=== PATIENT | male | born 1950 | race Caucasian/White ===

== ENCOUNTER 2019-02-01 00:46 | Outpatient (CLI) | payer MEDICARE, SELFPAY ==
--- NOTE | 2019-02-01 08:20 | DI.US_ITS ---
SYMPTOMS/DIAGNOSIS: HX OF SMOKING, Z13.6 SCREENING AAA ULTRASOUND: There is no evidence of an aortic aneurysm. There is no evidence of an iliac aneurysm. The maximal aortic caliber is AP diameter of 2.2 cm, transverse diameter of 2 cm.
== END 2019-02-01 01:06 ==
PROVIDERS: PCP Family Medicine; Visit Provider Family Medicine
DX: Z13.6 Encounter for screening for cardiovascular disorders (principal); Z87.891 Personal history of nicotine dependence
CPT/HCPCS: 76706

== ENCOUNTER 2019-02-23 10:24 | Outpatient (CLI) | payer MEDICARE, SELFPAY ==
[2019-02-23 10:55] VITALS: BP 134/82; PULSE 68; RESP 22; TEMP 36.9; O2SAT 96
[2019-02-23 11:34] VITALS: BP 153/82; PULSE 73; RESP 14; O2SAT 95
--- NOTE | 2019-02-23 11:41 | DI.RAD_ITS ---
SYMPTOMS/DIAGNOSIS: SACROILIAC JOINT DYSFUNCTION, LT SACROILIAC JOINT INJECTION C-ARM FLUOROSCOPY: Fluoroscopy Time: 30.1 sec 8.97 mGy Fluoroscopy was provided for guidance with pain clinic SI joint injection. Please see procedure note for details.
[2019-02-23] MEDS: Omnipaque 240 MG/ML 50 ML BTL IJ (11:51)
[2019-02-23] MEDS: methylPREDNISolone ACETATE 80 MG/ML VIAL IM (11:52)
--- NOTE | 2019-02-23 13:12 | PDOC.PAIN_ITS ---
Pain Clinic Procedure Note Current Active Problems Problem Status Onset Sacroiliac joint dysfunction INTRA-ARTICULAR SI JOINT INJECTION JUAN PEREA has been referred to the [facility] for intra- articular SI joint injection. COMMENTS: He has had this procedure many times in the past with good results. Patient was interviewed and the medical record reviewed. There were no medical, pharmacologic, radiographic or other structural contraindications to attempting fluoroscopically guided intra-articular SI joint injection. Risks and expected side effects as well as potential benefit of the procedure were reviewed and voiced concerns addressed. The printed consent form was signed and witnessed. Standard time-out procedure was performed. Patient was placed in the prone position on the fluoroscopy table and automated blood pressure cuff and pulse oximeter applied. The skin entry point for approaching left SI joint was identified under the most advantageous fluoroscopic view and marked. Following thorough Chlorhexadine preparation of the skin and draping and 1% lidocaine infiltration of the skin entry point and subcutaneous tissues, a 22 gauge spinal needle was placed under fluoroscopic guidance into left SI joint was identified under the most advantageous fluoroscopic view and marked. Following thorough Chlorhexadine preparation of the skin and draping and 1% lidocaine infiltration of the skin entry point and subcutaneous tissues, a 22 gauge spinal needle was placed under fluoroscopic guidance into left SI joint. Intra-articular placement was confirmed by a clear arthrogram resulting from the injection of 0.25ml Omnipaque 240, 1ml 1% lidocaine, and 80mg Depomedrol were injected intra-articularily with an initial reproduction of a significant component of the usual pain. Vital signs were stable throughout the procedure and were as recorded in the docflowsheet by the nursing staff. If given, dosages of intravenous drugs for anxiolysis and analgesia were documented in MAR. Follow up plans and appointments were discussed with the patient. Post procedure instruction was given as documented in nursing documentation and having met discharge criteria, and was discharged from the [facility]. COMMENTS: This procedure can be completed up to 3 times per 12 months if it is found to be effective. CC: Vinayak Jackson DO
== END 2019-02-23 10:44 ==
PROVIDERS: PCP Family Medicine; Visit Provider Preventive Medicine Occupational Medicine
DX: M53.3 Sacrococcygeal disorders, not elsewhere classified (principal)
CPT/HCPCS: 27096; 72200; G0260; J1040; Q9967

== ENCOUNTER 2019-05-26 08:22 | Outpatient (CLI) | payer MEDICARE, SELFPAY | END 2019-05-26 08:42 | PROVIDERS: PCP Family Medicine; Visit Provider Internal Medicine Cardiovascular Disease | DX: I10 Essential (primary) hypertension (principal); E78.5 Hyperlipidemia, unspecified; I25.10 Atherosclerotic heart disease of native coronary artery without angina pectoris; E11.9 Type 2 diabetes mellitus without complications; Z79.4 Long term (current) use of insulin | CPT/HCPCS: 99204; 93005; 93010 ==

== ENCOUNTER 2019-05-30 14:00 | Outpatient (CLI) | payer MEDICARE, SELFPAY ==
--- NOTE | 2019-05-30 07:18 | DI.RAD_ITS ---
EXAM: XR PAIN CLINIC SACRIOILIAC 2V CLINICAL HISTORY: Sacroiliac Joint Injection Left TECHNIQUE: Realtime digital imaging was performed. COMPARISON: No exams were available for comparison FINDINGS: Fluoroscopy was utilized by Dr. Galeas during the performance of a left sacroiliac joint injection. Pl ease refer to the procedure report for complete details. Fluoro time: 16.3 sec
[2019-05-30 14:12] VITALS: BP 153/89; PULSE 71; RESP 18; TEMP 36.4; O2SAT 96
--- NOTE | 2019-05-30 15:18 | PDOC.PAIN_ITS ---
Pain Clinic Procedure Note Procedure Note Procedure Note: INTRA-ARTICULAR SI JOINT INJECTION JUAN PEREA has been referred to the [facility] for intra- articular SI joint injection. COMMENTS: He did very well with the last left SIJ this past summer. DX: Sacroiliac joint dysfunction Patient was interviewed and the medical record reviewed. There were no medical, pharmacologic, radiographic or other structural contraindications to attempting fluoroscopically guided intra-articular SI joint injection. Risks and expected side effects as well as potential benefit of the procedure were reviewed and voiced concerns addressed. The printed consent form was signed and witnessed. Standard time-out procedure was performed. Patient was placed in the prone position on the fluoroscopy table and automated blood pressure cuff and pulse oximeter applied. The skin entry point for approaching left SI joint was identified under the most advantageous fluoroscopic view and marked. Following thorough Chlorhexadine preparation of the skin and draping and 1% lidocaine infiltration of the skin entry point and subcutaneous tissues, a 22 gauge spinal needle was placed under fluoroscopic guidance into left SI joint was identified under the most advantageous fluoroscopic view and marked. Following thorough Chlorhexadine preparation of the skin and draping and 1% lidocaine infiltration of the skin entry point and subcutaneous tissues, a 22 gauge spinal needle was placed under fluoroscopic guidance into left SI joint. Intra-articular placement was confirmed by a clear arthrogram resulting from the injection of 0.25ml Omnipaque 240, 1ml 1% lidocaine, and 80mg Depomedrol were injected intra-articularily with an initial reproduction of a significant component of the usual pain. Vital signs were stable throughout the procedure and were as recorded in the docflowsheet by the nursing staff. If given, dosages of intravenous drugs for anxiolysis and analgesia were documented in MAR. Follow up plans and appointments were discussed with the patient. Post procedure instruction was given as documented in nursing documentation and having met discharge criteria, and was discharged from the [facility]. COMMENTS: If this procedure is helpful, it can be completed up to 3-4 times per 12 months. CC: Vinayak Jackson DO
[2019-05-30 15:25] VITALS: BP 136/97; PULSE 75; RESP 21; O2SAT 95
[2019-05-30] MEDS: Omnipaque 240 MG/ML 50 ML BTL IJ (15:28)
[2019-05-30] MEDS: methylPREDNISolone ACETATE 80 MG/ML VIAL IJ (15:28)
== END 2019-05-30 14:20 ==
PROVIDERS: PCP Family Medicine; Visit Provider Preventive Medicine Occupational Medicine
DX: M53.3 Sacrococcygeal disorders, not elsewhere classified (principal)
CPT/HCPCS: 27096; 72200; J1040; Q9967

== ENCOUNTER → 2019-08-10 09:34 | Outpatient (BNVA) | payer MEDICARE, MEDICAID, SELFPAY | PROVIDERS: PCP Family Medicine; Referring Provider Family Medicine; Visit Provider Physical Therapy Assistant | DX: K21.9 Gastro-esophageal reflux disease without esophagitis (principal); Z12.11 Encounter for screening for malignant neoplasm of colon; E11.9 Type 2 diabetes mellitus without complications; Z79.4 Long term (current) use of insulin; I10 Essential (primary) hypertension | CPT/HCPCS: 99214 ==

== ENCOUNTER 2019-08-22 08:56 | Outpatient (CLI) | payer MEDICARE, MEDICAID, SELFPAY ==
--- NOTE | 2019-08-22 09:32 | PDOC.PAIN_ITS ---
Pain Clinic Procedure Note Procedure Note Procedure Note: INTRA-ARTICULAR SI JOINT INJECTION JUAN PEREA has been referred to the [facility] for intra- articular SI joint injection. Comment: patient received significant pain relief from prior left SI joint injection. Last injection was on 05/30/2019 which provided more than 70% pain relief that lasted 3 months. Pre-operative diagnosis: disorder of sacrum Post-operative diagnosis: same as above Patient was interviewed and the medical record reviewed. There were no medical, pharmacologic, radiographic or other structural contraindications to attempting fluoroscopically guided intra-articular SI joint injection. Risks and expected side effects as well as potential benefit of the procedure were reviewed and voiced concerns addressed. The printed consent form was signed and witnessed. Standard time-out procedure was performed. Patient was placed in the prone position on the fluoroscopy table and automated blood pressure cuff and pulse oximeter applied. The skin entry point for approaching left SI joints was identified under the most advantageous fluoroscopic view and marked. Following thorough Chlorhexadine preparation of the skin and draping and 1% lidocaine infiltration of the skin entry point and subcutaneous tissues, a 22 gauge spinal needle was placed under fluoroscopic guidance into left SI joints was identified under the most advantageous fluoroscopic view and marked. Intra-articular placement was confirmed by a clear arthrogram resulting from the injection of 0.25ml Omnipaque 240, 1.5ml 0.5% Bupivocaine, and 80mg Depomedrol were injected intra-articularily with an initial reproduction of a significant component of the usual pain. Vital signs were stable throughout the procedure and were as recorded in the docflowsheet by the nursing staff. Follow up plans and appointments were discussed with the patient. Post procedure instruction was given as documented in nursing documentation and having met discharge criteria, and was discharged from the [facility]. COMMENTS: patient tolerated procedure well without issue. Augustus Villa MD Pain Management CC: Vinayak Jackson DO
[2019-08-22 09:33] VITALS: BP 146/78; PULSE 72; RESP 20; TEMP 36.8; O2SAT 96
[2019-08-22] MEDS: Bupivacaine 0.5% Pres-Free 10 ML VIAL IJ (09:58)
[2019-08-22] MEDS: methylPREDNISolone ACETATE 80 MG/ML VIAL IJ (09:58)
[2019-08-22] MEDS: Omnipaque 240 MG/ML 50 ML BTL IJ (09:59)
[2019-08-22 10:04] VITALS: BP 152/80; PULSE 76; RESP 23; O2SAT 95
--- NOTE | 2019-08-22 10:54 | DI.RAD_ITS ---
EXAM: XR PAIN CLINIC SACRIOILIAC 2V CLINICAL HISTORY: Dx: Sacroiliac Joint Dysfunction TECHNIQUE: 2D and realtime digital imaging was performed. Fluoroscopy was provided in the OR COMPARISON: No exams were available for comparison FINDINGS: C-arm fluoroscopy was utilized by Dr. Villa during SI joint injection. Hard copy shows needle placement which appears to be over the left SI joint. Fluoro time 39.4 seconds IMPRESSION:
== END 2019-08-22 09:16 ==
PROVIDERS: PCP Family Medicine; Visit Provider Internal Medicine
DX: M53.3 Sacrococcygeal disorders, not elsewhere classified (principal)
CPT/HCPCS: 27096; 72200; J1040; Q9967

== ENCOUNTER 2019-08-31 06:27 | Day surgery (SDC) | payer MEDICARE, MEDICAID, SELFPAY ==
[2019-08-31 06:30] VITALS: BP 149/92; PULSE 70; RESP 18; TEMP 36.3; O2SAT 96
[2019-08-31] MEDS: Lactated Ringers 1,000 ML 80 ML IV (07:07)
--- NOTE | 2019-08-31 07:50 | BOWEL_PTH ---
PATIENT: José Gordon LOC: [facility] U#:[id number] AGE/SX: 69/M ROOM: RE08/31/[address]: Aby Junior : 1950 BED: DIS: 08/31/2019 SPEC #: [id number] RECD: 08/31/19 12:41 STATUS: SULLY REQ #: [id number] DAMON: 08/31/19 07:[address]: Aby Junior DEPT: Surgical Specimen RECD BY: Barby John ENTERED: 08/31/19 12:51 SP TYPE: Bowel OTHR DR: Vinayak Jackson DO Tissues: 1 - BIOPSY BOWEL 2 - STOMACH BIOPSY 3 - STOMACH BIOPSY 4 - ESOPHAGUS BIOPSY 5 - ESOPHAGUS BIOPSY 6 - BIOPSY BOWEL 7 - BIOPSY BOWEL 8 - BIOPSY BOWEL 9 - BIOPSY BOWEL 10 - BIOPSY BOWEL 11 - BIOPSY BOWEL Procedures: GROSS AND MICRO LEVEL 4 Comments: [id number]
--- NOTE | 2019-08-31 09:07 | W.PM.DSUDISC ---
Discharge Plan Disposition Patient Disposition: HOME Condition: Good Discharge Details Reason For Visit: stomach and colon scopes Attending Provider: Aby Junior Primary Care Provider: Vinayak Jackson Meds and New Rx's Prescriptions: New metronidazole [Flagyl] 500 mg tablet 500 mg PO TID 7 Days Qty: 21 RF: 0 amoxicillin-pot clavulanate [Augmentin] 875-125 mg tablet 1 tab PO BID 7 Days Qty: 14 RF: 0 Continued glipizide-metformin 5-500 mg tablet 2 tab PO BID RF: 0 rosuvastatin 20 mg tablet 20 mg PO DAILY Qty: 90 RF: 3 losartan 100 mg tablet 100 mg PO DAILY Qty: 90 RF: 3 sildenafil 25 mg tablet 25 mg PO DAILY PRN (Reason: sexual activity) Qty: 90 RF: 3 Lantus Solostar U-100 Insulin 100 unit/mL (3 mL) insulin pen 30 unit SC DAILY RF: 0 (DME) blood-glucose meter misc See Dose Instructions .ROUTE .MEDSUPPLY Qty: 1 RF: 0 (DME) Blood Glucose Test strip See Dose Instructions .ROUTE .MEDSUPPLY Qty: 10 RF: 0 (DME) pen needle, diabetic [Lite Touch Insulin Pen [place]] 31 gauge x 3/16 needle See Dose Instructions .ROUTE .MEDSUPPLY Qty: 30 RF: 0 (DME) lancets misc See Dose Instructions .ROUTE .MEDSUPPLY Qty: 50 RF: 0 hydrocodone-acetaminophen [[place]] 10-325 mg tablet 0.5 tab PO QHS MDD 10 mg hydrocodone PRN (Reason: pain) RF: 0 omeprazole 10 mg capsule,delayed release(DR/EC) 10 mg PO BID RF: 0 Discontinued diclofenac sodium 50 mg tablet,delayed release (DR/EC) 50 mg PO TID PRN (Reason: pain) Qty: 90 RF: 3 polyethylene glycol 3350 17 gram/dose powder 238 g PO ONCE Qty: 238 RF: 0 bisacodyl [Dulcolax (bisacodyl)] 5 mg tablet,delayed release (DR/EC) 5 mg PO ONCE Qty: 4 RF: 0 aspirin 81 mg tablet,delayed release (DR/EC) 81 mg PO DAILY RF: 0 Discharge Instructions Instructions: Gastroesophageal Reflux Disease (GEN), Colorectal Polyps (GEN) Additional Instructions: Findings:sm hiatal hernia bile reflux colon: 24 polyps removed Repeat scope in 1 yrs time. NO: ASA/NSAID's for 2wks. Tylenol is OK no lifting over 20#'s or stenuous activity until Monday 09/04. soft/low fiber diet x 5 days Follow up: F/u in office w/ Dr. Junior 2wks Please call if you develop: fevers >101.5 Nausea or Vomiting Abdominal pain that is not transient DAY SURGERY UNIT POST COLONOSCOPY INSTRUCTIONS 1. Because there will be medication in your system for the next 24 hours, you may feel a little sleepy. Your coordination will be affected. Therefore: a. Do not drive or operate dangerous equipment for 24 hours. b. Do not drink alcohol beverages for 24 hours (not even beer). c. Plan to go home and rest for the day. 2. Generally there are no restrictions on your activity after a day or so has gone by, but you may feel a bit fatigued for a few days. 3 After you arrive home you may have a light meal and return to a normal diet as you can tolerate it without feeling sick to your stomach. 4. After surgery, you may feel pain or discomfort. This should be only transient, but if it persists please contact your doctor. 5. If there are any questions regarding the findings of your procedure, please feel free to contact your doctor. 6. If you are unable to contact your doctor with a problem, contact the hospital at [phone]. 7. Continue all your regular medications unless directed otherwise. I understand the above instructions and have no questions. Signature of Patient or Responsible Adult Escort Date/Time Name of Responsible Adult Escort Signature of Nurse Date/Time Gastrointestinal Soft Diet Overview Overview What is a gastrointestinal soft diet? This diet is soft in texture, low in fiber, and easy to digest. The goal is to decrease) in the bowel that may cause and discomfort. This diet is often used after abdominal surgery or as a transitional diet after flares. Meats & Meat Substitutes ? Foods Allowed: Chicken, turkey, fish, tender cuts of beef and pork, ground meats, eggs, creamy nut butters, tofu, skinless hot dogs, sausage patties without whole spices ? Foods to Avoid : Tough, fibrous meats with gristle, meat with casings (hot dogs, sausage, kielbasa), lunch meats with whole spices, shellfish, beans, chunky peanut butter, nuts Fruits and Juices ? Foods Allowed: Fruit juices without pulp, banana, avocado, applesauce, canned peaches and pears, cooked fruit without the skin/seeds ? Foods to Avoid: Juices with pulp, fresh fruit (except banana and avocado), dried fruits, canned fruit cocktail and pineapple, coconut, frozen/thawed berries Vegetables ? Foods Allowed: Well-cooked or canned vegetables, potatoes without skin, tomato sauces, vegetable juice ? Foods to Avoid: Raw vegetables, all corn, all mushrooms, stewed tomatoes, potato skins, stir-eason vegetables, sauerkraut, pickles, olives, all dried beans, peas, and legumes Cereals and Grains ? Foods Allowed: Low- fiber dry or cooked cereals (less than 2 grams fiber per serving), white rice, pasta, macaroni, or noodles ? Foods to Avoid: Cereals with nuts, berries, dried fruits, whole grain cereals, bran cereals, granola, brown or wild rice, whole grain pasta Breads and Crackers ? Foods Allowed: White/refined breads and rolls, plain bagel, toast, plain crackers, giulia crackers ? Foods to Avoid: Whole grain breads- including white whole grain; bread/ rolls with raisins, nuts or seeds, multi-grain crackers Dairy ? Foods Allowed: Milk, cheese, yogurt, milkshakes, pudding, ice cream, cottage cheese, sherbet ; lactose free or low lactose versions if lactose intolerant ? Foods to Avoid: Dairy product mixed with fresh fruit (except banana), berries, nuts or seeds Desserts ? Foods Allowed: Plain cake, pudding, custard, ice cream, sherbet, gelatin, fruit whips ? Foods to Avoid: Any dessert that contains nuts, dried fruits, coconut, or fruits with seeds Herbs and Spices ? Foods Allowed: All ground spices or herbs, salt ? Foods to Avoid: Whole spices such as peppercorns, whole cloves, anise seeds, celery seeds, katiana, clarissa seeds, and fresh herbs Snacks/Other Foods ? Foods Allowed: Sugar, honey, jelly, mayonnaise, mustard, soy sauce, oil, butter, margarine, marshmallows, cookies without dried fruits or nuts, snack chips and pretzels using refined flours ? Foods to Avoid: Carbonated beverages, jams or jellies with seeds, popcorn After several weeks, slowly start to reintroduce the ?Foods to Avoid? back into your diet unless your doctor has told you otherwise. Try a small portion of one of these foods each day. If it does not bother you within 24 hours, it can be added to your diet. Continue to add new foods in this way. Some people may continue to have food sensitivities and may need to continue to avoid certain foods. If you cannot tolerate a food, avoid that food for a few weeks before you try it again. Guidelines when eating 1. Avoid any food that you cannot tolerate or that causes gas, bloating, or stomach pain. 2. Make time for your meals. Do not eat while you are in a hurry. Cut your food into small pieces. Chew each bite to a mashed potato consistency. Do not eat when you cannot concentrate on chewing well. 3. Drink at least 6-8 cups of fluid per day Fluids include: water, coffee, tea, juice, milk, popsicles, soups, gelatin, pudding, ice cream, sherbet, and yogurt. In addition, choose caffeine-free beverages more often, especially if you are having diarrhea. 4. A daily multivitamin may be recommended if diet is limited in amounts or variety of foods. Do not take any herbal supplements without first checking with your doctor. Activity:: no lifting over 20#'s or stenuous activity until Monday 09/04. Diet:: soft/low fiber diet x 5 days Discharge Orders Discharge Orders: Discharge Order (Routine); Ordered 08/31/19 Ordered By: Aby Junior DS: Diagnosis Discharge Diagnosis (1) Chronic GERD: Status: Acute (2) Bile reflux esophagitis: Status: Acute (3) Adenomatous polyps: Status: Acute
--- NOTE | 2019-08-31 09:17 | W.COLOREPORT ---
Date of service: 08/31/19 Time of Service: 09:17 Colonoscopy Report Date of procedure: 08/31/19 Pre-op diagnosis general: screen Post-op diagnosis procedure note: other (mult polyps- 24. ) Procedure: polypectomy; -7- hot snare -17 hot biter Surgeon: Aby Junior Anesthesia proc note operative: GETA Estimated blood loss (mL): 3 Pathology: other Complications: None Disposition: same day Prep: Miralax/Dulcolax Retraction Time: 60 mins Procedure Description: After informed consent was obtained the patient was taken to the procedure room and placed in a left decubitous position. Monitors were applied and a time out was done. The patients name, date of , procedure, allergies to medications and metal in their body was reviewed. The patient was then sedated. Once sedated and comfortable a rectal exam was done. External exam shows hemorodal tagsl. Internal exam revealed a poor sphincter tone and no palpable masses. The prostate not palpable The scope was then introduced and retrofelexed. no internal hemorrhoids were identified. The scope was then advanced to the cecum mild difficulty. the colon is floppy and has poor tone. He also has a hard time holding in the air. The TI and appendiceal orifice were identified. The prep was good. The scope was then slowly retracted over 60 minutes back into the rectum. Multiple polyp were removed. 7 were removed with a hot snare. 17 were removed with a hot biter. All specimens are retrieved and no bleeding was noted. The colon mucosa was pink and healthy. There were no diverticula or AVMs. Polyps were removed from the following area: 70 cm in the right colon x5. 80 cm in the right colon x7. Cecum x3. 75 cm in the right colon x7. 50 cm in the transverse colon x1. 45 cm the sigmoid colon x1. These were visualized under NBI and did all appear to be all adenomatous. The scope was removed and the patient was woken up and taken back to Same day surgery in stable condition. The patient tolerated the procedure well and there were no immediate complications. Follow up: The patient should follow up in one years unless they develop changes in bowel habits or other new gastrointestinal complaints.
--- NOTE | 2019-08-31 09:28 | ENDO_ITS ---
Date of service: 08/31/19 Time of Service: 09:28 Endoscopy Report DATE OF PROCEDURE: 08/31/19 PRE-OP DIAGNOSIS: GERD POST-OP DIAGNOSIS: other (bile reflux/sm hiatal hernia ) PROCEDURE: egd and bx SURGEON: Aby Junior ANESTHESIA: GETA ESTIMATED BLOOD LOSS: 1 PATHOLOGY: other DISPOSITION: same day PROCEDURE DESCRIPTION: After informed consent was obtained the patient was take to the procedure room and placed in a supine position. Monitors were applied and a time out was done. The patients name, date of , procedure type, allergies to medications and metal in their body was reviewed. A bite block was placed and the patient was sedated. Once sedated and comfortable the gastroscope was advanced through the oropharynx which was grossly normal into the esophagus. The proximal and mid-esophagus were nl. In the distal esophagus there was mild erthymema noted. The scope was advanced into the stomach and through the pylorus into the 3rd portion of the duodenum. The duodenum was noted to be nl. Biopsies were done . The scope was retracted back into the stomach and biopsies were done to rule out H. pylori. There were no ulcers. Bile reflux through the pylorous is noted. The scope was retroflexed. The cardia and fundus were noted to be normal. There small a hiatal hernia noted. The scope was retracted back into the esophagus and biopsies were done of the GE junction to rule out Burris's. The Z line was slight irregular, adn has some mild esophagitis. Bx were done to r/o Barett's. The scope was removed and the patient was woken up and taken back to [facility] in stable condition.
[2019-08-31 09:34] VITALS: BP 120/80; PULSE 70; RESP 16; TEMP 36; O2SAT 94
[2019-08-31] MEDS: Normal Saline 1,000 ML 80 ML IV (09:40)
[2019-08-31] MEDS: cefTRIAXone 1 GM/50 ML BAG IVPB (09:40)
[2019-08-31 10:25] VITALS: BP 132/84; PULSE 70; RESP 16; TEMP 36; O2SAT 96
[2019-08-31] MEDS: metroNIDAZOLE 500 MG/100 ML BAG 100 MG IVPB (10:26)
== END 2019-08-31 11:50 | disposition home or self-care (01) ==
PROVIDERS: PCP Family Medicine; Visit Provider Surgery
PROC: (CPT 45385; principal; 2019-08-31 07:30)
DX: Z12.11 Encounter for screening for malignant neoplasm of colon (principal); D12.2 Benign neoplasm of ascending colon; D12.0 Benign neoplasm of cecum; D12.3 Benign neoplasm of transverse colon; D12.5 Benign neoplasm of sigmoid colon; K63.89 Other specified diseases of intestine; K21.0 Gastro-esophageal reflux disease with esophagitis; K31.89 Other diseases of stomach and duodenum; K29.80 Duodenitis without bleeding; K44.9 Diaphragmatic hernia without obstruction or gangrene; E11.9 Type 2 diabetes mellitus without complications; Z79.4 Long term (current) use of insulin; I10 Essential (primary) hypertension; K21.9 Gastro-esophageal reflux disease without esophagitis
CPT/HCPCS: 45385; 45384; 43239; 88305; 96365; 96366; J0696; J2250; J3010

== ENCOUNTER → 2019-09-13 09:19 | Outpatient (BNVA) | payer MEDICARE, MEDICAID, SELFPAY | PROVIDERS: PCP Family Medicine; Referring Provider Family Medicine; Visit Provider Surgery | DX: K21.0 Gastro-esophageal reflux disease with esophagitis (principal); D12.6 Benign neoplasm of colon, unspecified; E11.9 Type 2 diabetes mellitus without complications; Z79.4 Long term (current) use of insulin; I10 Essential (primary) hypertension | CPT/HCPCS: 99213 ==

== ENCOUNTER 2019-09-18 15:18 | Outpatient (CLI) | payer MEDICARE, MEDICAID, SELFPAY ==
--- NOTE | 2019-09-18 14:30 | DI.RAD_ITS ---
EXAM: XR CHEST 2V PA LATERAL INDICATION: Cough and chest burning after mold exposure R05. COMPARISON: No exams were available for comparison TECHNIQUE: 2D digital imaging was performed. FINDINGS: The heart size and pulmonary vasculature are within normal limits. Sternal wires are in place. The lungs are clear. No pleural effusion or pneumothorax is identified. There are degenerative changes seen in the spine. IMPRESSION: No acute pulmonary process.
== END 2019-09-18 15:38 ==
PROVIDERS: PCP Family Medicine; Visit Provider Family Medicine
DX: R05 Cough (principal); Z77.120 Contact with and (suspected) exposure to mold (toxic)
CPT/HCPCS: 71046

== ENCOUNTER 2020-01-09 11:29 | Outpatient (CLI) | payer MEDICARE, MEDICAID, SELFPAY ==
--- NOTE | 2020-01-09 06:00 | DI.RAD_ITS ---
EXAM: XR PAIN CLINIC SACRIOILIAC 2V CLINICAL HISTORY: Dx: Sacroiliac Joint Dysfunction TECHNIQUE: 2D and realtime digital imaging was performed. CONTRAST MATERIAL: Refer to procedure report. COMPARISON: No exams were available for comparison FINDINGS: Fluoroscopy was provided for Dr. Villa during the performance of a left sacroiliac joint injection. Pl ease refer to the procedure report for complete details. Fluoro time: 20.4 seconds IMPRESSION:
[2020-01-09 11:41] VITALS: BP 141/82; PULSE 69; RESP 16; TEMP 36.4; O2SAT 97
[2020-01-09 12:21] VITALS: BP 138/81; PULSE 73; RESP 22; O2SAT 97
--- NOTE | 2020-01-09 12:23 | PDOC.PAIN_ITS ---
Pain Clinic Procedure Note Procedure Note Procedure Note: INTRA-ARTICULAR SI JOINT INJECTION Pre-operative diagnosis: disorder of sacrum Post-operative diagnosis: same as above JUAN PEREA has been referred to the [facility] for intra- articular SI joint injection. COMMENTS: patient has received left SI joint injections in the past which provides temporary pain relief. He tells me today that he has gotten at least 3 months of good pain relief from his most recent SI joint injection. Today, he reports that he has different type of pain in addition to his sacroiliac related pain. He has more intense pain radiating down bilateral posterior buttocks to his knees. He would like to discuss if there is an option to get more lumbar shots. I reviewed Ms Ysabel Griffin's clinic office note, patient has a history epidural lipomatosis, and there was hesitation to continue with LESI. He used to get LESI and TFESI at [facility]. He would like to schedule a follow up clinic visit with Ms Griffin. Patient was interviewed and the medical record reviewed. There were no medical, pharmacologic, radiographic or other structural contraindications to attempting fluoroscopically guided intra-articular SI joint injection. Risks and expected side effects as well as potential benefit of the procedure were reviewed and voiced concerns addressed. The printed consent form was signed and witnessed. Standard time-out procedure was performed. Patient was placed in the prone position on the fluoroscopy table and automated blood pressure cuff and pulse oximeter applied. The skin entry point for approaching left SI joints was identified under the most advantageous fluoroscopic view and marked. Following thorough Chlorhexadine preparation of the skin and draping and 1% lidocaine infiltration of the skin entry point and subcutaneous tissues, a 22 gauge spinal needle was placed under fluoroscopic guidance into left SI joints was identified under the most advantageous fluoroscopic view and marked. Following thorough Chlorhexadine preparation of the skin and draping and 1% lidocaine infiltration of the skin entry point and subcutaneous tissues, a 22 gauge spinal needle was placed under fluoroscopic guidance into left SI joint. Intra-articular placement was confirmed by a clear arthrogram resulting from the injection of 0.25ml Omnipaque 240, 1ml 0.5% Bupivocaine, and 80mg Depomedrol were injected intra-articularily with an initial reproduction of a significant component of the usual pain. Vital signs were stable throughout the procedure and were as recorded in the docflowsheet by the nursing staff. If given, dosages of intravenous drugs for anxiolysis and analgesia were documented in MAR. Follow up plans and appointments were discussed with the patient. Post procedure instruction was given as documented in nursing documentation and having met discharge criteria, and was discharged from the [facility]. COMMENTS: patient tolerated procedure well without issue. I personally performed the entire procedure. Augustus Villa MD Pain Management CC: Vinayak Jackson DO
[2020-01-09] MEDS: methylPREDNISolone ACETATE 80 MG/ML VIAL IJ (12:25)
[2020-01-09] MEDS: Bupivacaine 0.5% Pres-Free 10 ML VIAL IJ (12:25)
[2020-01-09] MEDS: Omnipaque 240 MG/ML 50 ML BTL IJ (12:25)
== END 2020-01-09 11:49 ==
PROVIDERS: PCP Family Medicine; Visit Provider Internal Medicine
DX: M53.3 Sacrococcygeal disorders, not elsewhere classified (principal)
CPT/HCPCS: 27096; 72200; J1040; Q9967

== ENCOUNTER 2020-01-26 14:58 | Outpatient (CLI) | payer MEDICARE, MEDICAID, SELFPAY ==
--- NOTE | 2020-01-26 10:52 | DI.RAD_ITS ---
EXAM: XR RIBS RT W PA LAT CHEST CLINICAL HISTORY: h/o R rib frxs, feels return of the pain,PLEURODYNIA, RIB PAIN, R07.81 TECHNIQUE: COMPARISON: CR XR CHEST 2V PA LATERAL from 09/18/2019 FINDINGS: The heart is not enlarged. There are multiple sternal sutures. No pleural effusion seen. No focal pulmonary consolidation. Multiple views of the ribs were obtained. The examination is of somewhat limited technical quality d ue to the patient's body habitus. No gross rib lesion identified. If there is high clinical suspici on of rib pathology additional evaluation with bone scan or CT may be considered. IMPRESSION:
== END 2020-01-26 15:18 ==
PROVIDERS: PCP Family Medicine; Visit Provider Family Medicine
DX: R07.81 Pleurodynia (principal); Z87.81 Personal history of (healed) traumatic fracture
CPT/HCPCS: 71046; 71100

== ENCOUNTER 2020-03-07 01:17 | Outpatient (CLI) | payer MEDICARE, MEDICAID, SELFPAY ==
--- NOTE | 2020-03-07 15:25 | DI.CT_ITS ---
EXAM: CT CHEST WO CLINICAL HISTORY: Recurrence of rib pain, negative initial xrays,H/O RIB FX,Z87.81 TECHNIQUE: COMPARISON: No exams were available for comparison FINDINGS: CT examination of the chest was performed contrast administration. Images obtained through the upper abdomen show unremarkable appearance of visualized portions of liver, spleen, and pancreas as well a s visualized kidneys and adrenals. Note is made of a prior cholecystectomy. Lungs are predominantly clear except for couple of noncalcified pulmonary nodule seen bilaterally, th e largest in the right lower lobe measuring 6 millimeters in diameter. No pleural effusion or pleura l-based mass. No mediastinal or hilar adenopathy. Tracheobronchial tree appears intact. Prior CABG surgery noted. IMPRESSION: No rib fracture identified on CT. No specific intrathoracic abnormality apart from small noncalcifie d intrapulmonary nodules. Follow-up chest CT suggested in 12 months to evaluate stability of these n odules, the largest in the right lower lobe measuring about 6 millimeters in diameter.
== END 2020-03-07 01:37 ==
PROVIDERS: PCP Family Medicine; Visit Provider Family Medicine
DX: R07.81 Pleurodynia (principal); Z87.81 Personal history of (healed) traumatic fracture; R91.8 Other nonspecific abnormal finding of lung field
CPT/HCPCS: 71250

== ENCOUNTER 2020-04-01 04:41 | Outpatient (CLI) | payer MEDICARE, MEDICAID, SELFPAY ==
[2020-04-01 15:22] LABS: ALT 33 U/L (16-63); AST 26 U/L (15-37); Albumin 3.9 g/dL (3.4-5.0); Alkaline Phosphatase 62 U/L (46-116); Anion Gap 6.8 mmol/L (3-11); BUN 20 mg/dL (7-18); Bilirubin, Total 0.5 mg/dL (0.2-1.0); CO2 29.2 mmol/L (21.0-32.0); CREATININE 1.12 mg/dL (0.70-1.30); Calcium 8.9 mg/dL (8.5-10.1); Chloride 105 mmol/L (98-107); Glucose 135 mg/dL (74-106); Potassium 4.2 mmol/L (3.5-5.1); Sodium 141 mmol/L (136-145); Total Protein 7.1 g/dL (6.4-8.2)
== END 2020-04-01 05:01 ==
PROVIDERS: PCP Family Medicine; Visit Provider Family Medicine
DX: K83.1 Obstruction of bile duct (principal)
CPT/HCPCS: 36415; 80053

== ENCOUNTER 2020-05-16 12:49 | Outpatient (CLI) | payer OTHER, MEDICAID, SELFPAY ==
--- NOTE | 2020-05-16 06:00 | DI.RAD_ITS ---
EXAM: XR PAIN CLINIC SACRIOILIAC 2V CLINICAL HISTORY: Dx:Sacroiliac Joint Dysfunction TECHNIQUE: 2D and realtime digital imaging was performed. CONTRAST MATERIAL: Refer to procedure report. COMPARISON: No exams were available for comparison FINDINGS: Fluoroscopy was provided for Dr. Galeas during the performance of a left sacroiliac joint injection. Please refer to the procedure report for complete details. Fluoro time: 11.9 seconds IMPRESSION:
[2020-05-16 13:29] VITALS: BP 147/92; PULSE 67; RESP 16; TEMP 36.4; O2SAT 97
--- NOTE | 2020-05-16 14:05 | PDOC.PAIN_ITS ---
Pain Clinic Procedure Note Procedure Note Procedure Note: INTRA-ARTICULAR SI JOINT INJECTION JUAN PEREA has been referred to the [facility] for intra- articular SI joint injection. COMMENTS: I did review his previous notes. DX: Sacroiliac joint dysfunction Patient was interviewed and the medical record reviewed. There were no medical, pharmacologic, radiographic or other structural contraindications to attempting fluoroscopically guided intra-articular SI joint injection. Risks and expected side effects as well as potential benefit of the procedure were reviewed and voiced concerns addressed. The printed consent form was signed and witnessed. Standard time-out procedure was performed. Patient was placed in the prone position on the fluoroscopy table and automated blood pressure cuff and pulse oximeter applied. The skin entry point for approaching left SI joint was identified under the most advantageous fluoroscopic view and marked. Following thorough Chlorhexadine preparation of the skin and draping and 1% lidocaine infiltration of the skin entry point and subcutaneous tissues, a 22 gauge spinal needle was placed under fluoroscopic guidance into left SI joint was identified under the most advantageous fluoroscopic view and marked. Following thorough Chlorhexadine preparation of the skin and draping and 1% lidocaine infiltration of the skin entry point and subcutaneous tissues, a 22 gauge spinal needle was placed under fluoroscopic guidance into left SI joint. Intra-articular placement was confirmed by a clear arthrogram resulting from the injection of 0.25ml Omnipaque 240, 1ml 1% lidocai ne, and 40mg Depomedrol were injected intra-articularily with an initial reproduction of a significant component of the usual pain. Vital signs were stable throughout the procedure and were as recorded in the docflowsheet by the nursing staff. If given, dosages of intravenous drugs for anxiolysis and analgesia were documented in MAR. Follow up plans and appointments were discussed with the patient. Post procedure instruction was given as documented in nursing documentation and having met discharge criteria, and was discharged from the [facility] Management Center. COMMENTS: If this procedure is helpful, it can be completed up to 3 times per 12 months. Adam Galeas DO. MPH Pain Management CC: Vinayak Jackson DO
[2020-05-16 14:10] VITALS: BP 158/76; PULSE 72; RESP 22; O2SAT 98
[2020-05-16] MEDS: Omnipaque 240 MG/ML 50 ML BTL IJ ×2 (14:13→14:14)
[2020-05-16] MEDS: methylPREDNISolone ACETATE 80 MG/ML VIAL IJ (14:14)
== END 2020-05-16 13:09 ==
PROVIDERS: PCP Family Medicine; Visit Provider Preventive Medicine Occupational Medicine
DX: M53.3 Sacrococcygeal disorders, not elsewhere classified (principal)
CPT/HCPCS: 27096; 72200; J1040; Q9967

== ENCOUNTER → 2020-05-17 10:09 | Outpatient (BNVA) | payer OTHER, MEDICAID, SELFPAY | PROVIDERS: PCP Family Medicine; Referring Provider Family Medicine; Visit Provider Internal Medicine Cardiovascular Disease | DX: I25.810 Atherosclerosis of coronary artery bypass graft(s) without angina pectoris (principal); E78.5 Hyperlipidemia, unspecified; I10 Essential (primary) hypertension; E11.9 Type 2 diabetes mellitus without complications | CPT/HCPCS: 99214 ==

== ENCOUNTER → 2020-07-11 08:45 | Outpatient (BNVA) | payer OTHER, MEDICAID, SELFPAY | PROVIDERS: PCP Family Medicine; Referring Provider Family Medicine; Visit Provider Student in an Organized Health Care Education/Training Program | DX: G56.03 Carpal tunnel syndrome, bilateral upper limbs (principal) | CPT/HCPCS: 99203; 99214 ==

== ENCOUNTER 2020-08-01 02:56 | Outpatient (CLI) | payer OTHER, MEDICAID, SELFPAY ==
[2020-08-03 13:56] LABS: COVID-19 RT-PCR UVMMC Result Negative (Negative)
== END 2020-08-01 03:16 ==
PROVIDERS: PCP Family Medicine; Visit Provider Student in an Organized Health Care Education/Training Program
DX: Z11.59 Encounter for screening for other viral diseases (principal); Z01.818 Encounter for other preprocedural examination
CPT/HCPCS: U0003

== ENCOUNTER 2020-08-07 06:07 | Day surgery (SDC) | payer OTHER, MEDICAID, SELFPAY ==
--- NOTE | 2020-08-07 06:43 | PDOC.DSDIS_ITS ---
Discharge Plan Disposition Patient Disposition: HOME Condition: Good Discharge Details Reason For Visit: Right Carpal Tunnel Syndrome and Left Lateral Epic Attending Provider: Will Sykes Primary Care Provider: Vinayak Jackson Home Meds and New Rx's Prescriptions: New ibuprofen 600 mg tablet 600 mg PO TID PRN (Reason: pain) Qty: 60 RF: 3 hydrocodone-acetaminophen 5-325 mg tablet 1 tab PO Q8H PRN (Reason: pain) Qty: 6 RF: 0 Continued rosuvastatin 20 mg tablet 20 mg PO DAILY Qty: 90 RF: 3 losartan 100 mg tablet 100 mg PO DAILY Qty: 90 RF: 3 hydrocodone-acetaminophen [[place]] 10-325 mg tablet 0.5 tab PO Q8H MDD 30 mg hydrocodone PRN (Reason: pain) Qty: 30 RF: 0 omeprazole 20 mg capsule,delayed release(DR/EC) See Rx Instructions PO BID Qty: 60 RF: 0 (DME) blood-glucose meter misc See Dose Instructions .ROUTE .MEDSUPPLY Qty: 1 RF: 0 (DME) Blood Glucose Test strip See Dose Instructions .ROUTE .MEDSUPPLY Qty: 10 RF: 0 (DME) lancets misc See Dose Instructions .ROUTE .MEDSUPPLY Qty: 50 RF: 0 (DME) pen needle, diabetic [Lite Touch Insulin Pen [place]] 31 gauge x 3/16 needle See Dose Instructions .ROUTE .MEDSUPPLY Qty: 100 RF: 3 sildenafil (pulm.hypertension) 20 mg tablet 20 mg PO TID PRN (Reason: sexual activity) Qty: 90 RF: 3 glipizide-metformin 5-500 mg tablet 2 tab PO BID Qty: 360 RF: 3 Lantus Solostar U-100 Insulin 100 unit/mL (3 mL) insulin pen 38 unit SC QAM RF: 0 Discontinued diclofenac potassium 50 mg tablet 50 mg PO TID PRN (Reason: pain) Qty: 90 RF: 0 Discharge Instructions Additional Instructions: You should take Ibuprofen as a primary pain control. Acetaminophen (Tylenol) may also be used. A few Hydrocodone were called in which may be used in addition to your baseline Hydrocodone. Stand Alone Forms: Onel Meneses Tunnel Release Referrals: Will Sykes MD [ [facility] STAFF PHYSICIAN] - Activity:: Elevate Remove Dressings/Wound Care:: 72 hours Shower/Bathe:: 72 hours Diet:: As Tolerated Discharge Orders Discharge Orders: Discharge Order (Routine); Ordered 08/07/20 Ordered By: Will Sykes DS: Diagnosis Discharge Diagnosis (1) Right carpal tunnel syndrome: Status: Acute (2) Left lateral epicondylitis: Status: Acute
[2020-08-07 07:06] VITALS: BP 149/91; PULSE 67; RESP 14; TEMP 36.3; O2SAT 97
[2020-08-07] MEDS: Lactated Ringers 1,000 ML 80 ML IV (07:25)
[2020-08-07] MEDS: ceFAZolin 2 GM/50 ML BAG IVPB (08:27)
[2020-08-07] MEDS: methylPREDNISolone ACETATE 80 MG/ML VIAL (08:42)
[2020-08-07] MEDS: Bupivacaine 0.5% Pres-Free 30 ML VIAL (08:43)
[2020-08-07] MEDS: Sodium Bicarbonate 50 MEQ/50 ML VIAL (08:45)
--- NOTE | 2020-08-07 09:20 | ROE_ITS ---
Date of service: 08/07/20 Time of Service: 08:20 Operative Note Operative Note DATE OF PROCEDURE: 08/07/20 PRE-OP DIAGNOSIS: Right Carpal Tunnel Syndrome and Left lateral epicondylitis POST-OP DIAGNOSIS: same PROCEDURE: Right Endoscopic Carpal Tunnel Release and Left Lateral Elbow Injection SURGEON: Will Sykes ANESTHESIA: MAC ESTIMATED BLOOD LOSS: 0 PATHOLOGY: none sent TOURNIQUET TIME: 5 COMPLICATIONS: None Patient was transported to: same day Patient's condition: stable Indications: I have seen Caleb in clinic for symptoms of carpal tunnel syndrome. The numbness, tingling, and pain limited function. Clinical exam findings confirmed the diagnosis of carpal tunnel syndrome. Nonoperative measures such as bracing, time, activity modifications had been tried but disability and pain persisted. I discussed carpal tunnel release with the patient. I reviewed the risks of the procedure to include, but not limited to, bleeding, infection, pain, stiffness, incomplete release, damage to nerves or vessels, persistent numbness, recurrence. Despite these risks, the patient elected to proceed. He also has had worsening symptoms of lateral epicondylitis of the left elbow. We had discussed this minimally in the office but then once again over the phone. I reviewed treatment options and he desired to proceed with an injection. Findings: There was tightened carpal tunnel. This was dilated and released successfully with the endoscopic with increased space within the tunnel. The antebrachial fascia was released proximally freeing the median nerve at the wrist. Procedure Description: Caleb was greeted in the preoperative holding area where the correct side was identified and marked. The consent was reviewed with the patient and signed. The history and physical was updated. All questions were answered. Caleb was taken back to the operating room. The patient was placed into the supine position on the operating room table with the right arm on an arm board. A nonsterile tourniquet was placed high onto the arm. All bony prominences were well padded. Prophylactic antibiotics in the form of Cefazolin were administered. The right arm was then prepped with Chloraprep and draped in a standard fashion with stockinette and extremity drape. A timeout to confirm correct identity, side and site, procedure, allergies, anesthesia, and medical concerns was performed. The left elbow was identified as the correct site. Prior to anesthesia, I identified the area of most pain over the lateral elbow. This was marked. Sedation was then started and I administerd an injection to the lateral elbow after prepping the skin with alcohol. 2cc of 0.5% Bupivacaine and 40mg of Depo- Medrol was then injected without difficulty. A bandaid was applied. The carpal tunnel surgical site was marked in the volar wrist creases in line with the radial border of the fourth ray. This area was anesthetized with approximately 6cc of 1% Lidocaine. The limb was then exsanguinated with an Esmarch. The skin was incised with a 15 blade, approximately 1cm. The skin only was cut and the deeper tissue was dissected bluntly with a tenotomy scissor, avoiding passing nerve and venous structures. The fascia was penetrated and opened bluntly. A two-prong skin hook was placed under this proximal fascial edge. A series of hamate finders were used to identify and dilate the carpal tunnel. Synovial elevator was used to free synovial attachments to the underside of the transverse carpal ligament. My thumb was kept in the palm to caleb the distal extent of the carpal tunnel and correctly position the hand. The Microaire endoscope was inserted without difficulty and without resistance. Excellent visualization showed horizontally running fibers of the transverse carpal ligament (TCL). The distal extent of the TCL was visualized and the end of the scope palpated with the thumb. The blade was elevated and withdrawn from distal to proximal. The TCL was split into two flaps. The endoscope was reinserted to confirm complete release and any remnant ligament was incised. The scope was withdrawn and the proximal aspect of the carpal tunnel was grossly inspected and appeared release with the median nerve visible. The antebrachial fascia at the level of the wrist was then freed from the overlying skin and then the underlying median nerve with blunt dissection. This was transected longitudinally for about 3cm proximal to the wrist incision. The wound was then irrigated with easy flow of irrigant distally and proximally. The incision was closed with a single 4-0 Nylon suture. The wound was dressed with Xeroform, Gauze, Kerlix and Gael. The tourniquet was deflated with the initial dressing and held with some pressure. Blood flow returned easily to all digits with capillary refill less than 2 seconds. The patient tolerated the procedure well and was returned to the Same Day Surgery area in a stable condition suffering no known complication.
[2020-08-07 09:24] VITALS: BP 157/83; PULSE 64; RESP 16; TEMP 36.2; O2SAT 96
== END 2020-08-07 09:50 | disposition home or self-care (01) ==
PROVIDERS: PCP Family Medicine; Visit Provider Student in an Organized Health Care Education/Training Program
PROC: 01N54ZZ Release Median Nerve, Percutaneous Endoscopic Approach (ICD-10-PCS; CPT 29848; principal; 2020-08-07 07:45)
DX: G56.01 Carpal tunnel syndrome, right upper limb (principal); M77.12 Lateral epicondylitis, left elbow; K21.9 Gastro-esophageal reflux disease without esophagitis; E11.9 Type 2 diabetes mellitus without complications; I10 Essential (primary) hypertension
CPT/HCPCS: 29848; 20605; J0690; J1040; J1885; J2001; J2704

== ENCOUNTER → 2020-08-16 09:10 | Outpatient (BNVA) | payer OTHER, MEDICAID, SELFPAY | PROVIDERS: PCP Family Medicine; Referring Provider Family Medicine; Visit Provider Physician Assistant | DX: M77.12 Lateral epicondylitis, left elbow; G56.01 Carpal tunnel syndrome, right upper limb; Z47.89 Encounter for other orthopedic aftercare ==

== ENCOUNTER → 2020-10-03 08:20 | Outpatient (BNVA) | payer OTHER, SELFPAY | PROVIDERS: PCP Family Medicine; Referring Provider Family Medicine; Visit Provider Physical Therapy Assistant | DX: Z12.11 Encounter for screening for malignant neoplasm of colon (principal); Z86.010 Personal history of colon polyps ==

== ENCOUNTER 2020-10-07 08:53 | Day surgery (SDC) | payer OTHER, SELFPAY ==
--- NOTE | 2020-10-07 06:37 | COLE_ITS ---
Date of service: 10/07/20 Time of Service: : Colonoscopy Report Date of procedure: 10/07/20 Pre-op diagnosis general: Hx of polyps Post-op diagnosis procedure note: same Procedure: colonoscopy with polypectomy Surgeon: Suzy Mcdowell Anesthesia proc note operative: other (General/ASA 3/Noelle Skinner CRNA) Estimated blood loss (mL): 5 Pathology: other (Ascending polyps x11, transverse polyps x15 and descending polyps x6) Complications: None Disposition: same day Indications: The patient is here for Colonoscopy pre-op. His last screening was in 2019, which was remarkable for 24 polyps multiple of which were tubular a denomas and tubulovillious adenomas. He has no family history of colon cancer. He has not had any bowel habit changes. -Discussed colonoscopy bowel prep as well as the procedure. Discussed possible complications of the procedure to include bleeding, pain, perforation, missed small lesion/polyp, sore throat, aspiration and adverse reaction to the medications. Questions were answered to patient?s satisfaction. No guarantees were implied or given. Prep: Miralax/Dulcolax Procedure Start Time: Procedure End Time: :22 Retraction Time: 55 minutes Findings: Multiple small polyps Procedure Description: After informed consent was obtained the patient was taken to the procedure room and placed in a left decubitous position. Monitors were applied and a time out was done. The patients name, date of , procedure, allergies to medications and metal in their body was reviewed. The patient was then sedated. Once sedated and comfortable a rectal exam was done. External exam was normal. Internal exam revealed a normal sphincter tone and no palpable masses. The prostate felt smooth. The scope was then introduced and retro-flexed. No internal hemorrhoids, polyps or masses were identified on retro-flexion. The scope was then advanced to the cecum without difficulty. The ileocecal vlave and appendiceal orifice were identified. The prep was good. The scope was then slowly retracted over 55 minutes back into the rectum. Polyps were removed with cold forceps in the ascending colon x11, Transverse colon x15 and descending colon polyp x6. There was no diverticulosis noted. The scope was removed and the patient was woken up and taken back to Same day surgery in stable condition. The patient tolerated the procedure well and there were no immediate complications. Follow up: The patient should follow up in 3-5 years unless they develop changes in bowel habits or other new gastrointestinal complaints.
--- NOTE | 2020-10-07 06:39 | PDOC.DSDIS_ITS ---
Discharge Plan Disposition Patient Disposition: HOME Condition: Good Discharge Details Reason For Visit: Colonoscopy Attending Provider: Suzy Mcdowell Primary Care Provider: Vinayak Jackson Home Meds and New Rx's Prescriptions: Continued aspirin [Adult Aspirin Regimen] 81 mg tablet,delayed release (DR/EC) 81 mg PO DAILY RF: 0 omeprazole 20 mg capsule,delayed release(DR/EC) 40 mg PO BID Qty: 180 RF: 0 rosuvastatin 20 mg tablet 20 mg PO DAILY Qty: 90 RF: 3 losartan 100 mg tablet 100 mg PO DAILY Qty: 90 RF: 3 albuterol sulfate 90 mcg/actuation HFA aerosol inhaler 2 puff inhalation Q6H PRN (Reason: shortness of breath or wheezing) Qty: 18 RF: 6 hydrocodone-acetaminophen [[place]] 10-325 mg tablet 0.5 tab PO Q8H MDD 30 mg hydrocodone PRN (Reason: pain) Qty: 30 RF: 0 sildenafil (pulm.hypertension) 20 mg tablet 20 mg PO TID PRN (Reason: sexual activity) Qty: 90 RF: 11 (DME) blood-glucose meter misc See Dose Instructions .ROUTE .MEDSUPPLY Qty: 1 RF: 0 (DME) Blood Glucose Test strip See Dose Instructions .ROUTE .MEDSUPPLY Qty: 10 RF: 0 (DME) lancets misc See Dose Instructions .ROUTE .MEDSUPPLY Qty: 50 RF: 0 (DME) pen needle, diabetic [Lite Touch Insulin Pen [place]] 31 gauge x 3/16 needle See Dose Instructions .ROUTE .MEDSUPPLY Qty: 100 RF: 3 glipizide-metformin 5-500 mg tablet 2 tab PO BID Qty: 360 RF: 3 Lantus Solostar U-100 Insulin 100 unit/mL (3 mL) insulin pen 38 unit SC QAM RF: 0 Discontinued polyethylene glycol 3350 17 gram/dose powder 238 g PO ONCE Qty: 238 RF: 0 bisacodyl [Dulcolax (bisacodyl)] 5 mg tablet,delayed release (DR/EC) 5 mg PO ONCE Qty: 4 RF: 0 Discharge Instructions Instructions: Colorectal Polyps (DC) Additional Instructions: Findings: 31 polyps Follow up: will depend on final pathology Please call if you develop: fevers >101.5 Nausea or Vomiting Abdominal pain that is not transient DAY SURGERY UNIT POST ENDOSCOPY INSTRUCTIONS 1. Because there will be medication in your system for the next 24 hours, you may feel a little sleepy. Your coordination will be affected. Therefore: a. Do not drive or operate dangerous equipment for 24 hours. b. Do not drink alcohol beverages for 24 hours (not even beer). c. Plan to go home and rest for the day. 2. Generally there are no restrictions on your activity after a day or so has gone by, but you may feel a bit fatigued for a few days. 3 After you arrive home you may have a light meal and return to a normal diet as you can tolerate it without feeling sick to your stomach. 4. After surgery, you may feel pain or discomfort. This should be only transient, but if it persists please contact your doctor. 5. If there are any questions regarding the findings of your procedure, please feel free to contact your doctor. 6. If you are unable to contact your doctor with a problem, contact the hospital at [phone]. 7. Continue all your regular medications unless directed otherwise. I understand the above instructions and have no questions. Signature of Patient or Responsible Adult Escort Date/Time Name of Responsible Adult Escort Signature of Nurse Date/Time Activity:: Activity as Tolerated Diet:: As Tolerated Discharge Orders Discharge Orders: Discharge Order (Routine); Ordered 10/07/20 Ordered By: Suzy Mcdowell
[2020-10-07 09:05] VITALS: BP 158/88; PULSE 69; RESP 16; TEMP 36.1; O2SAT 96
[2020-10-07] MEDS: Lactated Ringers 1,000 ML 80 ML IV (09:18)
--- NOTE | 2020-10-07 10:28 | BOWEL_PTH ---
PATIENT: José Gordon LOC: [facility] U#:[id number] AGE/SX: 70/M ROOM: RE10/07/[address]: Suzy Mcdowell MD : 1950 BED: DIS: 10/07/2020 SPEC #: [id number] RECD: 10/07/20 12:40 STATUS: SULLY REQ #: [id number] DAMON: 10/07/20 10:[address]: Suzy Mcdowell DEPT: Surgical Specimen RECD BY: Barby John ENTERED: 10/07/20 12:41 SP TYPE: Bowel OTHR DR: Vinayak Jackson DO Tissues: 1 - BIOPSY BOWEL 2 - BIOPSY BOWEL 3 - BIOPSY BOWEL Procedures: GROSS AND MICRO LEVEL 4 Comments: [id number]
[2020-10-07 11:24] VITALS: BP 124/54; PULSE 56; RESP 16; TEMP 36; O2SAT 100
[2020-10-07 11:29] VITALS: BP 126/75; PULSE 56; RESP 14; TEMP 36; O2SAT 100
[2020-10-07 11:34] VITALS: BP 145/66; PULSE 56; RESP 14; TEMP 36; O2SAT 100
[2020-10-07 11:50] VITALS: BP 124/77; PULSE 62; RESP 14; TEMP 36; O2SAT 96
[2020-10-07 12:30] VITALS: BP 128/73; PULSE 61; RESP 18; TEMP 36; O2SAT 96
== END 2020-10-07 13:15 | disposition home or self-care (01) ==
LOC: SUR 08:53
PROVIDERS: PCP Family Medicine; Visit Provider Surgery
PROC: 0DJD8ZZ Inspection of Lower Intestinal Tract, Via Natural or Artificial Opening Endoscopic (ICD-10-PCS; CPT 45378; principal; 2020-10-07 09:45)
DX: Z12.11 Encounter for screening for malignant neoplasm of colon (principal); D12.2 Benign neoplasm of ascending colon; D12.3 Benign neoplasm of transverse colon; D12.4 Benign neoplasm of descending colon; Z86.010 Personal history of colon polyps; E11.9 Type 2 diabetes mellitus without complications; E78.5 Hyperlipidemia, unspecified; I10 Essential (primary) hypertension; K21.9 Gastro-esophageal reflux disease without esophagitis; I25.10 Atherosclerotic heart disease of native coronary artery without angina pectoris
CPT/HCPCS: 45380; 88305; J2001; J2704

== ENCOUNTER 2020-10-08 13:05 | Outpatient (CLI) | payer OTHER, SELFPAY ==
--- NOTE | 2020-10-08 06:00 | DI.RAD_ITS ---
EXAM: XR PAIN CLINIC SACRIOILIAC 2V CLINICAL HISTORY: DX: Sacroiliac Joint Dysfunction TECHNIQUE: 2D and realtime digital imaging was performed. CONTRAST MATERIAL: Refer to procedure report. COMPARISON: No exams were available for comparison FINDINGS: Fluoroscopy was provided for Dr. Galeas during the performance of a left sacroiliac joint injection. Please refer to the procedure report for complete details. Fluoro time: 14.7 seconds IMPRESSION:
[2020-10-08 09:05] VITALS: BP 151/74; PULSE 68; RESP 17; TEMP 36.4; O2SAT 96
[2020-10-08 09:39] VITALS: BP 156/90; PULSE 69; RESP 20; O2SAT 98
[2020-10-08] MEDS: Omnipaque 240 MG/ML 50 ML BTL IJ (09:40)
[2020-10-08] MEDS: methylPREDNISolone ACETATE 80 MG/ML VIAL IJ (09:40)
--- NOTE | 2020-10-08 12:51 | PDOC.PAIN_ITS ---
Pain Clinic Procedure Note Procedure Note Procedure Note: Date of service: October 08, 2020 INTRA-ARTICULAR SI JOINT INJECTION JUAN PEREA has been referred to the [facility] for intra- articular SI joint injection. COMMENTS: He has done very well with this procedure in the past. Dx: Sacroiliac joint dysfunction Patient was interviewed and the medical record reviewed. There were no medical, pharmacologic, radiographic or other structural contraindications to attempting fluoroscopically guided intra-articular SI joint injection. Risks and expected side effects as well as potential benefit of the procedure were reviewed and voiced concerns addressed. The printed consent form was signed and witnessed. Standard time-out procedure was performed. Patient was placed in the prone position on the fluoroscopy table and automated blood pressure cuff and pulse oximeter applied. The skin entry point for approaching left SI joint was identified under the most advantageous fluoroscopic view and marked. Following thorough Chlorhexadine preparation of the skin and draping and 1% lidocaine infiltration of the skin entry point and subcutaneous tissues, a 22 gauge 5 spinal needle was placed under fluoroscopic guidance into the left SI joint was identified under the most advantageous fluoroscopic view and marked. Intra-articular placement was confirmed by a clear arthrogram resulting from the injection of 0.25ml Omnipaque 240, 1ml 1% lidocaine, and 40mg Depomedrol were injected intra-articularily with an initial reproduction of a significant component of the usual pain. Vital signs were stable throughout the procedure and were as recorded in the docflowsheet by the nursing staff. If given, dosages of intravenous drugs for anxiolysis and analgesia were documented in MAR. Follow up plans and appointments were discussed with the patient. Post procedure instruction was given as documented in nursing documentation and having met discharge criteria, and was discharged from the [facility]. COMMENTS: If this procedure is effective, it can be completed up to 3 times per 12 months. Adam Galeas DO, MPH Pain Management CC: Vinayak Jackson DO
== END 2020-10-08 13:06 | disposition home or self-care (01) ==
LOC: PC 13:05
PROVIDERS: PCP Family Medicine; Visit Provider Preventive Medicine Occupational Medicine
DX: M53.3 Sacrococcygeal disorders, not elsewhere classified (principal)
CPT/HCPCS: 27096; 72200; J1040; Q9967

== ENCOUNTER → 2020-11-07 13:44 | Outpatient (BNVA) | payer OTHER, SELFPAY | PROVIDERS: PCP Family Medicine; Referring Provider Family Medicine; Visit Provider Internal Medicine Cardiovascular Disease | DX: I25.810 Atherosclerosis of coronary artery bypass graft(s) without angina pectoris (principal); E78.5 Hyperlipidemia, unspecified; I10 Essential (primary) hypertension | CPT/HCPCS: 99214 ==

== ENCOUNTER 2020-12-16 12:02 | Emergency (ER) | payer OTHER, SELFPAY ==
[2020-12-16] VITALS (50 sets, daily range): BP systolic 131–178; BP diastolic 64–108; PULSE 64–78; RESP 11–27; TEMP 36.5–36.7; O2SAT 93–98
--- NOTE | 2020-12-16 12:00 | RT.EKG_ITS ---
APPROVED REPORT Exam: Resting ECG Reason for Exam: possible tia Patient Location: E HR:71 bpm ECG Measurements Heart Rate 71 AXIS OR 173 P 30 QRSd 92 QRS 31 QT 397 T 28 QTc 430 Conclusion Sinus rhythm...normal P axis, V-rate 60- 99 Probable left atrial enlargement...P >50mS, <-0.10mV V1 sinus rhythm at 71, normal axis, inferior Q waves, no STEMI, nondiagnostic EKG
[2020-12-16 13:24] LABS: ALT 43 U/L (16-63); AST 25 U/L (15-37); Albumin 3.7 g/dL (3.4-5.0); Alkaline Phosphatase 67 U/L (46-116); Anion Gap 10.2 mmol/L (3-11); BUN 20 mg/dL (7-18); Bilirubin, Total 0.5 mg/dL (0.2-1.0); CO2 26.8 mmol/L (21.0-32.0); CREATININE 1.1 mg/dL (0.70-1.30); Calcium 8.8 mg/dL (8.5-10.1); Chloride 104 mmol/L (98-107); Glucose 176 mg/dL (74-106); Magnesium 1.6 mg/dL (1.8-2.4); Sodium 141 mmol/L (136-145); TSH (W/Ref FT4) 1.55 uIU/mL (0.36-3.74); Total Protein 7.5 g/dL (6.4-8.2)
[2020-12-16 13:26] LABS: Troponin I < 0.05 ng/mL (<0.06)
[2020-12-16 13:35] LABS: D-Dimer 396 ng/mlFEU (<500)
--- NOTE | 2020-12-16 13:37 | DI.CT_ITS ---
Exam(s) CT HEAD WO EXAM: CT HEAD WO CLINICAL HISTORY: dizziness, h/o TIA. TECHNIQUE: Imaging Protocol: Axial computed tomography images with coronal and sagittal reformatted images were created and reviewed COMPARISON: No exams were available for comparison FINDINGS: There are no skull fractures nor fluid in the visualized paranasal sinuses. There is no evidence of intracranial hemorrhage, mass effect, or shift of midline structures. There are no extra-axial fluid collections. The ventricles are not enlarged or shifted and there is no blo od within the ventricular system nor within the basal cisterns. IMPRESSION: No acute intracranial findings on this noninfused CT scan of the brain. RADIATION DOSE DELIVERED: 797.85mGy.cm Total DLP DATA REPOSITORY: All CT scans at this facility are submitted to the National Radiology Data Registry (NRDR) Dose Index Registry (DIR) with the [employer] (A[employer]). RADIATION OPTIMIZATION: All CT scans at this facility use at least one of these dose optimization te chniques: automated exposure control; mA and/or kV adjustment per patient size (includes targeted exa ms where dose is matched to clinical indication); or iterative reconstruction.
--- NOTE | 2020-12-16 13:44 | NUR.NOTE ---
pt provided with diabetic lunch tray Nursing Note:
[2020-12-16] MEDS: MAGNESIUM SULFATE 1 GM/100 ML BAG IVPB (13:48)
[2020-12-16] MEDS: Normal Saline 1,000 ML 1000 ML IV (14:05)
--- NOTE | 2020-12-16 15:13 | ED.GENADUL_ITS ---
Discharge Plan Disposition Patient Disposition: HOME Condition: Stable Discharge Details Clinical Impression: Dizziness Primary Care Provider: Vinayak Jackson ED Provider: Love Brennan Home Meds and New Rx's Prescriptions: Continued aspirin [Adult Aspirin Regimen] 81 mg tablet,delayed release (DR/EC) 81 mg PO .Every Other Day RF: 0 losartan 100 mg tablet 100 mg PO DAILY Qty: 90 RF: 3 albuterol sulfate 90 mcg/actuation HFA aerosol inhaler 2 puff inhalation Q6H PRN (Reason: shortness of breath or wheezing) Qty: 18 RF: 6 sildenafil (pulm.hypertension) 20 mg tablet 20 mg PO TID PRN (Reason: sexual activity) Qty: 90 RF: 11 hydrocodone-acetaminophen 10-325 mg tablet 0.5 tab PO Q8H MDD 30 mg hydrocodone PRN (Reason: pain) Qty: 30 RF: 0 omeprazole 20 mg capsule,delayed release(DR/EC) 20 mg PO BID RF: 0 (DME) blood-glucose meter misc See Dose Instructions .ROUTE .MEDSUPPLY Qty: 1 RF: 0 (DME) Blood Glucose Test strip See Dose Instructions .ROUTE .MEDSUPPLY Qty: 10 RF: 0 (DME) lancets misc See Dose Instructions .ROUTE .MEDSUPPLY Qty: 50 RF: 0 (DME) pen needle, diabetic [Lite Touch Insulin Pen [place]] 31 gauge x 3/16 needle See Dose Instructions .ROUTE .MEDSUPPLY Qty: 100 RF: 3 glipizide-metformin 5-500 mg tablet 2 tab PO BID Qty: 360 RF: 3 simvastatin 20 mg tablet 20 mg PO .M,W,F Qty: 60 RF: 3 Lantus Solostar U-100 Insulin 100 unit/mL (3 mL) insulin pen 42 unit SC QAM Qty: 15 RF: 10 No Action hydrochlorothiazide 12.5 mg tablet 12.5 mg PO DAILY Qty: 30 RF: 1 Discharge Instructions Instructions: Dizziness (ED) Additional Instructions: Please return immediately to the emergency department if you develop any new or worsening symptoms, if your condition does not improve as expected, or if you become otherwise concerned. It is extremely important that you call soon as possible to make an appointment to be seen in follow-up for this visit by your primary care doctor and neurology as we discussed. Your appointment with neurology will be on 12/24/2020, please call the office to set up a time. You also have a stress test ordered. It is very important that you complete the stress test as we discussed. Referrals: Vinayak Jackson DO [Primary Care Provider] - Kelly Rodriguez MD [ [facility] STAFF PHYSICIAN] - Discharge Data Discharge Date/Time-TO BE ENTERED AT DEPARTURE: 12/16/20 16:39 Medical Decision Making José Gordon is a 70-year-old man who presented to the emergency department with non-specific sensation of wooziness in setting of electrical sensation this am left face (has been occurring intermittently for years, sensation unchanged). On exam Pt is well and non-toxic appearing. Benign neuro exam. Wide differential given vague nature of complaint, cardiac, metabolic, neurologic, other. Doubt infectious etiology. Exam/hx at this time not c/w acute CVA, meningitis, sepsis, acute aortic pathology. Plan for CT head, screening labs, EKG, IVF hydration, CXR. Pabs reviewed, trop negative, d-dimer negative. CT head neg. Orthostatics negative per nursing. Pt reports some slight improvement in symptoms after fluids, but states symptoms persist. Discussed patient presentation results with Dr. Rodriguez of neurology, who agrees no need for emergent MRI today. She will see patient as an outpatient on 12/24, patient to be called with time. She states she will see him and order outpatient MRI as necessary. I discussed patient presentation and results with his PCP Dr. Jackson, who is amenable to plan and will see patient in follow-up as outpatient. Doubt acute coronary syndrome as etiology of symptoms, however given history plan for outpatient stress testing. COVID testing performed for this. I had a lengthy discussion with the Pt re: RTED precautions, home care, i mportance of outpt f/u with neurology, PCP, and outpt stress testing. Pt verbalized understanding and is amenable to plan. All questions answered. Medical Records Medical records reviewed: Yes I reviewed the patient's medical records. Imaging Data Radiologic Study: Attestation: I personally reviewed and interpreted this imaging study as follows: Radiologist's impression: EXAM: ? CT HEAD WO CLINICAL HISTORY: ? dizziness, h/o TIA. ? TECHNIQUE:? Imaging Protocol: Axial computed tomography images with coronal and sagittal reformatted images were created and reviewed COMPARISON:? No exams were available for comparison FINDINGS: ?There are no skull fractures nor fluid in the visualized paranasal sinuses. There is no evidence of intracranial hemorrhage, mass effect, or shift of midl ine structures.? There are no extra-axial fluid collections.? The ventricles are not enlarged or shifted and there is no blood within the ventricular system nor within the basal cisterns. IMPRESSION: No acute intracranial findings on this noninfused CT scan of the brain. EXAM:? XR PORTABLE CHEST AP CLINICAL HISTORY: ? dizziness. ? TECHNIQUE:? 2D digital imaging was performed. COMPARISON:? CR XR RIBS RT W PA ? LAT CHEST from 01/26/2020 FINDINGS: Heart size is normal.? The mediastinum is not widened.? Sternotomy wires and evidence of previous CABG again noted. Mild increased markings in the lung oliver but no confluent infiltrates nor pleural effusions and no pulmonary edema.? Widening of the right AC joints again noted IMPRESSION: No acute pulmonary findings on this single AP portable view of the chest. Lab Data Lab results reviewed: Yes I reviewed the patient's lab results. Labs: Laboratory Tests Range/Units 12/16/20 12/16/20 12/16/20 12:20 12:20 15:25 D-Dimer (<500) ng/mlFEU 396 Sodium (136-145) mmol/L 141 Potassium (3.5-5.1) mmol/L 4.0 Chloride (98-107) mmol/L 104 Carbon Dioxide (21.0-32.0) mmol/L 26.8 Anion Gap (3-11) mmol/L 10.2 BUN (7-18) mg/dL 20 H Creatinine (0.70-1.30) mg/dL 1.1 Estimated GFR/1.73 m2 (mL/min/1.73m2) >= 60.00 Glucose (74-106) mg/dL 176 H Calcium (8.5-10.1) mg/dL 8.8 Magnesium (1.8-2.4) mg/dL 1.6 L Total Bilirubin (0.2-1.0) mg/dL 0.5 AST (15-37) U/L 25 ALT (16-63) U/L 43 Alkaline Phosphatase (46-116) U/L 67 Troponin I (<0.06) ng/mL < 0.05 < 0.05 Total Protein (6.4-8.2) g/dL 7.5 Albumin (3.4-5.0) g/dL 3.7 TSH (0.36-3.74) uIU/mL 1.55 SARS-CoV-2 (PCR) (Negative) Nasopharyn COVID-19 PCR Ref Test Perform Site Range/Units 12/16/20 16:20 D-Dimer (<500) ng/mlFEU Sodium (136-145) mmol/L Potassium (3.5-5.1) mmol/L Chloride (98-107) mmol/L Carbon Dioxide (21.0-32.0) mmol/L Anion Gap (3-11) mmol/L BUN (7-18) mg/dL Creatinine (0.70-1.30) mg/dL Estimated GFR/1.73 m2 (mL/min/1.73m2) Glucose (74-106) mg/dL Calcium (8.5-10.1) mg/dL Magnesium (1.8-2.4) mg/dL Total Bilirubin (0.2-1.0) mg/dL AST (15-37) U/L ALT (16-63) U/L Alkaline Phosphatase (46-116) U/L Troponin I (<0.06) ng/mL Total Protein (6.4-8.2) g/dL Albumin (3.4-5.0) g/dL TSH (0.36-3.74) uIU/mL SARS-CoV-2 (PCR) (Negative) Negative Nasopharyn COVID-19 PCR Not Applicable Ref Test Perform Site [facility] lab ECG Data Attestation: I personally reviewed and interpreted this ECG (s) as follows: Interpretation: EKG 12:12 shows sinus rhythm at 71, normal axis, inferior Q waves, no STEMI, nondiagnostic EKG EKG 15: 32 sinus rhythm at 63, nonspecific T wave abnormalities (may be artifact secondary to lead placement), no STEMI, nondiagnostic EKG EKG repeated due to suspected lead placement issue: EKG 15: 38 shows sinus rhythm at 64, normal axis, inferior Q waves, no STEMI, nondiagnostic EKG [facility] General Mode of arrival: ambulatory . Date/Time Provider Initiated Documentation: 12/16/20 12:46 . Limitations to Documentation: no limitations . Information obtained by: patient, RN notes reviewed and old records reviewed . HPI Narrative: José Gordon is a 70-year-old man with a history of coronary artery disease with bypass in 1997, TIA in 1998, hyperlipidemia, hypertension presenting to emergency department with wooziness. Patient reports that in 1998 he experienced a sensation where he woke up and felt like he was drunk. Had ptosis of his left eye at the time. Underwent neuroimaging which was abnormal, and was diagnosed with TIA. Patient has residual ptosis from this incident. He has had no further similar incident, no other history of CVA. Patient reports that on the morning of 12/16/2020 he developed a woozy feeling. He denies vertigo or sensation of motion, denies lightheadedness or feeling as if he is going to pass out. Describes wooziness as I I feel like I'm in a fog. Elizabeth bradenamanda reports that symptoms have been unchanged since onset. 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 He denies any worsening of his symptoms with position, eating, or exertion. He denies pain, fevers, vomiting, diarrhea, numbness, weakness, cough, shortness of breath. Patient reports that he saw his PCP for this this morning, who sent him to the emergency department for CVA rule out. PCP stated to me that he was particularly concerned that patient reported electrical tingling sensation in left side of his face earlier today that has subsequently resolved. Patient reports to me that his wheeziness continues unchanged from onset. He states that electrical sensation has been occurring in his face for the past 2 years, happens frequently, lasting 20 to 30 minutes at a time as of today. Patient states that sensation today was no different than what had been occurring chronically for him. He denies any other current symptoms. Related Data Home Medications Medication Instructions Recorded Confirmed blood sugar diagnostic #10 each 01/12/19 10/03/20 blood-glucose meter #1 each 01/12/19 10/03/20 lancets #50 each 01/12/19 10/03/20 pen needle, diabetic 31 gauge x #100 each 10/19/19 10/03/2010/15 glipizide 5 mg-metformin 500 mg 2 tab PO BID #360 tab 05/18/20 12/16/20 tablet losartan 100 mg tablet 100 mg PO DAILY #90 tab 06/10/20 12/16/20 albuterol sulfate 90 mcg/actuation 2 puff INHALATION Q6H PRN #18 g 09/02/20 12/16/20 aerosol inhaler sildenafil (pulm.hypertension) 20 20 mg PO TID PRN #90 tab 09/02/20 12/16/20 mg tablet hydrocodone 10 mg-acetaminophen 0.5 tab PO Q8H PRN #30 tab MDD 30 11/25/20 12/16/20 325 mg tablet mg hydrocodone simvastatin 20 mg tablet 20 mg PO .M,W,F #60 tab 11/25/20 12/16/20 insulin glargine 100 unit/mL (3 42 unit SC QAM #15 ml 11/28/20 12/16/20 mL) subcutaneous pen aspirin 81 mg tablet,delayed 81 mg PO .Every Other Day tab 12/16/20 12/16/20 release omeprazole 20 mg capsule,delayed 20 mg PO BID cap 12/16/20 12/16/20 release hydrochlorothiazide 12.5 mg tablet 12.5 mg PO DAILY #30 tab 12/20/20 12/20/20 Previous Rx's Medication Instructions Recorded pen needle, diabetic 31 gauge x #100 each 10/19/1910/15 glipizide 5 mg-metformin 500 mg 2 tab PO BID #360 tab 05/18/20 tablet losartan 100 mg tablet 100 mg PO DAILY #90 tab 06/10/20 albuterol sulfate 90 mcg/actuation 2 puff INHALATION Q6H PRN #18 g 09/02/20 aerosol inhaler sildenafil (pulm.hypertension) 20 20 mg PO TID PRN #90 tab 09/02/20 mg tablet hydrocodone 10 mg-acetaminophen 0.5 tab PO Q8H PRN #30 tab MDD 30 11/25/20 325 mg tablet mg hydrocodone simvastatin 20 mg tablet 20 mg PO .M,W,F #60 tab 11/25/20 insulin glargine 100 unit/mL (3 42 unit SC QAM #15 ml 11/28/20 mL) subcutaneous pen hydrochlorothiazide 12.5 mg tablet 12.5 mg PO DAILY #30 tab 12/20/20 Allergies Allergy/AdvReac Type Severity Reaction Status Date / Time ciprofloxacin Allergy Intermediate Hives Verified 12/20/20 11:20 atorvastatin [From Lipitor] Allergy Unknown Very ill Verified 12/20/20 11:20 Nmnjrvj-Vjw-Tta Reductase AdvReac Intermediate Verified 12/20/20 11:20 Inhibitor General Stated Complaint: Dizzy/Sync KONRAD: 2 Review of Systems Narrative: Constitutional: denies fevers Eyes: denies eye pain, blurry vision, visual changes ENT: denies ear pain, dental pain, sore throat Cardiovascular: denies chest pain, edema, lightheadedness Respiratory: denies SOB, cough GI: denies abdominal pain, vomiting, diarrhea : denies flank pain MSK: denies back pain, neck pain, arthralgias, myalgias Skin: denies rash Neuro: denies headaches, numbness, weakness, spinning sensation/vertigo PFSH Medical History Adenomatous polyposis Adenomatous polyps Bile reflux esophagitis CAD (coronary artery disease) Chronic back pain (~06/27/18) Chronic GERD Chronic right shoulder pain (~10/14/16) AC JOINT RECONSTRUCTION Diabetes mellitus, type II (~10/14/16) DJD (degenerative joint disease), lumbar MRI 11/06/17 and 06/10/18 Erectile dysfunction GERD (gastroesophageal reflux disease) Hx of fracture of rib Hyperlipidemia Hypertension Insomnia Left carpal tunnel syndrome Medial meniscus tear (~03/03/18) Left Knee Pulmonary nodule less than 1 cm in diameter with low risk for malignant neoplasm Incidental finding on CT scan, March 2020, needs 12 month recheck Situational depression TIA (transient ischemic attack) (~1998) Surgical History H/O heart artery stent (~2012) patient reports 6 stents total. Last stent placed: 2010 History of cholecystectomy History of colonoscopy (~08/2019) History of coronary artery bypass graft (~1997) X5. FOLLOWS UP WITH DR. JEREZ, LAST VISIT WAS 05/26/191997 History of esophagogastroduodenoscopy (EGD) (~08/2019) History of medial meniscus repair of left knee History of tonsillectomy and adenoidectomy Hx of CABG Right carpal tunnel syndrome s/p ECTR DOS: 08/07/20 Status post AC joint reconstruction right, w/allograft Family History Mother Hypertension Diabetes Ovarian cancer Father Hypertension Diabetes Lymphoma Sister Heart disease Social History Smoking/Tobacco Use Status: Former Tobacco Use tobacco type: cigarettes Quit Date: 07/11/89 Tobacco: How many years used: 20 Smoking risk assessment performed?: Yes Alcohol Intake: current Alcohol Intake frequency: holidays/special occasions only Drug use: Occasionally Substance use type: marijuana Household members: other Details: roomate Housing: apartment Communication Needs: Corrective Lenses current occupation: UnEmployed Current gender identity: male What is your relationship status?: Panel score (0-1 are the most socially isolated patients): 0 What type of physical activity do you participate in: none Seatbelt use: always Drive intox or ride w/intox 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: No Working smoke detector in home: Yes Carbon monox detector in home: Yes Do you feel safe at home: Yes Do you feel safe in your relationship?: Yes Exam Narrative Exam Narrative: Constitutional: well and [id number]-twfadyhqz, pleasant, conversing normally HENT: head atraumatic/normocephalic/normal inspection, mucous membranes moist Eyes: conjunctiva normal, sclera normal, pupils 3mm b/l ERRLA, extraocular movements intact without nystagmus Neck: no stridor, normal ROM, trachea midline Chest: normal inspection Resp: normal work of breathing, LCTAB Cardio: normal rate, normal rhythm, no murmur appreciated GI: abdomen soft, non-tender, non-distended Back: normal inspection, no rash Skin: warm, dry, normal color, no rash Neuro: alert, not altered, cranial nerves II through XII intact, motor 5 out of 5 throughout, normal gait, normal tone Ext: no edema Psych: normal mood, normal affect, normal behavior Course Vital Signs Vital signs: Vital Signs Temperature 36.7 C 12/16/20 12:09 Pulse 75 12/16/20 12:09 Respiratory Rate 22 12/16/20 12:09 Blood Pressure 178/88 H 12/16/20 12:09 Pulse Oximetry 97 12/16/20 12:09 Temperature 36.7 C 12/16/20 12:09 Temperature Source Oral 12/16/20 12:09 Pulse 67 12/16/20 14:30 Pulse 69 12/16/20 14:31 Respiratory Rate 24 12/16/20 14:31 Respiratory Effort 12/16/20 12:27 Respiratory Depth Normal 12/16/20 12:27 Respiratory Pattern Normal 12/16/20 12:27 Blood Pressure 150/71 H 12/16/20 14:30 Blood Pressure Mean 90 12/16/20 14:30 Blood Pressure Position Sitting 12/16/20 12:09 Pulse Oximetry 95 12/16/20 14:31 Oxygen Delivery Method Room Air 12/16/20 12:09 Oxygen Flow Rate 0 12/16/20 12:09 Pain Level 5 12/16/20 12:09 Comment 12/16/20 12:09 Lab/Test Results Lab/Test Results: Laboratory Tests Range/Units 12/16/20 12/16/20 12:20 12:20 D-Dimer (<500) ng/mlFEU 396 Sodium (136-145) mmol/L 141 Potassium (3.5-5.1) mmol/L 4.0 Chloride (98-107) mmol/L 104 Carbon Dioxide (21.0-32.0) mmol/L 26.8 Anion Gap (3-11) mmol/L 10.2 BUN (7-18) mg/dL 20 H Creatinine (0.70-1.30) mg/dL 1.1 Estimated GFR/1.73 m2 (mL/min/1.73m2) >= 60.00 Glucose (74-106) mg/dL 176 H Calcium (8.5-10.1) mg/dL 8.8 Magnesium (1.8-2.4) mg/dL 1.6 L Total Bilirubin (0.2-1.0) mg/dL 0.5 AST (15-37) U/L 25 ALT (16-63) U/L 43 Alkaline Phosphatase (46-116) U/L 67 Troponin I (<0.06) ng/mL < 0.05 Total Protein (6.4-8.2) g/dL 7.5 Albumin (3.4-5.0) g/dL 3.7 TSH (0.36-3.74) uIU/mL 1.55
--- NOTE | 2020-12-16 15:15 | RT.EKG_ITS ---
APPROVED REPORT Exam: Resting ECG Reason for Exam: possible tia Patient Location: E HR:63 bpm ECG Measurements Heart Rate 63 AXIS WV 190 P 0 QRSd 93 QRS -18 QT 421 T [id number] QTc 431 Conclusion Sinus rhythm...normal P axis, V-rate 60- 99 Probable left atrial enlargement...P >50mS, <-0.10mV V1 Inferior infarct, old...Q >35mS, II III aVF Nonspecific T abnormalities, lateral leads...T <-0.10mV, I aVL V5 V6 sinus rhythm at 63, nonspecific T wave abnormalities (may be artifact secondary to lead placement), n o STEMI, nondiagnostic EKG
--- NOTE | 2020-12-16 15:30 | DI.RAD_ITS ---
Exam(s) XR PORTABLE CHEST AP EXAM: XR PORTABLE CHEST AP CLINICAL HISTORY: dizziness. TECHNIQUE: 2D digital imaging was performed. COMPARISON: CR XR RIBS RT W PA LAT CHEST from 01/26/2020 FINDINGS: Heart size is normal. The mediastinum is not widened. Sternotomy wires and evidence of previous CAB G again noted. Mild increased markings in the lung oliver but no confluent infiltrates nor pleural effusions and no pulmonary edema. Widening of the right AC joints again noted IMPRESSION: No acute pulmonary findings on this single AP portable view of the chest. DATA REPOSITORY: RADIATION DOSE DELIVERED: All CT scans at this facility use at least one of these dose optimization techniques: automated exposure control; mA and/or kV adjustment per patient size (includes targeted e xams where dose is matched to clinical indication); or iterative reconstruction.
--- NOTE | 2020-12-16 15:30 | RT.EKG_ITS ---
APPROVED REPORT Exam: Resting ECG Reason for Exam: possible tia Patient Location: E HR:64 bpm ECG Measurements Heart Rate 64 AXIS AR 182 P 38 QRSd 93 QRS 15 QT 408 T 32 QTc 422 Conclusion Sinus rhythm...normal P axis, V-rate 60- 99 Inferior infarct, old...Q >35mS, II III aVF sinus rhythm at 64, normal axis, inferior Q waves, no STEMI, nondiagnostic EKG
[2020-12-16 16:03] LABS: Troponin I < 0.05 ng/mL (<0.06)
--- NOTE | 2020-12-16 17:03 | NUR.NOTE ---
Nursing Note: faxxed referral to neuro
[2020-12-17 13:26] LABS: COVID-19 RT-PCR UVMMC Result Negative (Negative)
--- NOTE | 2020-12-18 08:31 | NUR.NOTE ---
Nursing Note: Vicky Rojas RN called and left message for patient to call for test results. Patient called back while nurse was with patient in ED. With her permission I gave the patient his negative COVID result. He stated he got it yesterday from the Portal and he is aware. Alivia Reina
== END 2020-12-16 16:39 | disposition home or self-care (01) ==
PROVIDERS: Emergency Provider Student in an Organized Health Care Education/Training Program; PCP Family Medicine
DX: R42 Dizziness and giddiness (principal); Z20.822 Contact with and (suspected) exposure to COVID-19
CPT/HCPCS: 36415; 80053; 93005; 96361; 96365; 99284; U0003; 70450; 71045; 83735; 84443; 84484; 85379; 93010; 99283; J3475

== ENCOUNTER 2020-12-19 03:18 | Outpatient (CLI) | payer OTHER, SELFPAY ==
[2020-12-19 16:27] LABS: HGB 15.5 g/dL (13.5-17.5); MCHC 33.7 % (32.0-36.0); MPV 9.5 fL (8.0-11.0); Platelet Count 270 10^3/uL (130-400); RBC 5.35 10^6/uL (4.36-5.78); RDW 13.1 % (11.8-14.1); RDW-SD 40.2 fL; WBC 7.87 10^3/uL (4.4-10.8)
[2020-12-19 17:23] LABS: C-Reactive Protein 0.36 mg/dL (0.0-0.3); TSH 1.91 uIU/mL (0.36-3.74)
[2020-12-19 18:03] LABS: Vitamin B12 269 pg/mL (193-986)
[2020-12-20 11:14] LABS: Lyme Ab w Rflx to Lyme Confirm Negative (Negative)
[2020-12-21 19:37] LABS: Anaplasma phagocytophilum Negative (Negative); B. miyamotoi PCR Negative (Negative); Babesia divergens/MO-1 Negative (Negative); Babesia duncani Negative (Negative); Babesia microti Negative (Negative); Ehrlichia chaffeensis Negative (Negative); Ehrlichia ewingii/canis Negative (Negative); Ehrlichia muris eauclairensis Negative (Negative)
== END 2020-12-19 03:19 | disposition home or self-care (01) ==
LOC: LBO 03:18
PROVIDERS: PCP Family Medicine; Visit Provider Family Medicine
DX: R20.0 Anesthesia of skin (principal); R42 Dizziness and giddiness
CPT/HCPCS: 36415; 85027; 87798; 82607; 84443; 86140; 86618

== ENCOUNTER → 2020-12-24 13:47 | Outpatient (BNVA) | payer OTHER, SELFPAY | PROVIDERS: PCP Family Medicine; Referring Provider Family Medicine; Visit Provider Psychiatry & Neurology Neurology | DX: R42 Dizziness and giddiness (principal); R20.2 Paresthesia of skin | CPT/HCPCS: 99215 ==

== ENCOUNTER 2021-01-14 15:02 | Outpatient (CLI) | payer OTHER, SELFPAY ==
--- NOTE | 2021-01-14 06:00 | DI.RAD_ITS ---
Exam(s) XR PAIN CLINIC SACRIOILIAC 2V EXAM: XR PAIN CLINIC SACRIOILIAC 2V CLINICAL HISTORY: Dx: Left SI joint dysfunction TECHNIQUE: 2D and realtime digital imaging was performed. CONTRAST MATERIAL: Refer to procedure report. COMPARISON: No exams were available for comparison FINDINGS: Fluoroscopy was provided for Dr. Villa during the performance of a left SI joint injection. Please ref er to the procedure report for complete details. Ka,r=11.47 mGy IMPRESSION:
[2021-01-14 15:16] VITALS: BP 134/75; PULSE 74; RESP 16; TEMP 36.6; O2SAT 99
--- NOTE | 2021-01-14 15:24 | PDOC.PAIN_ITS ---
Pain Clinic Procedure Note Procedure Note Procedure Note: Date of service: January 14, 2021 INTRA-ARTICULAR SI JOINT INJECTION JUAN PEREA has been referred to the [facility] for intra- articular SI joint injection. COMMENTS: He has done very well with this procedure in the past, most recent injection was by Dr Galeas in 09/2020 which provided nearly 3 months of pain relief. Pre-procedure VAS score 8 out of 10. Post-procedure VAS score minimal. Dx: Sacroiliac joint dysfunction Patient was interviewed and the medical record reviewed. There were no medical, pharmacologic, radiographic or other structural contraindications to attempting fluoroscopically guided intra-articular SI joint injection. Risks and expected side effects as well as potential benefit of the procedure were reviewed and voiced concerns addressed. The printed consent form was signed and witnessed. Standard time-out procedure was performed. Patient was placed in the prone position on the fluoroscopy table and automated blood pressure cuff and pulse oximeter applied. The skin entry point for approaching left SI joint was identified under the most advantageous fluoroscopic view and marked. Following thorough Chlorhexadine preparation of the skin and draping and 1% lidocaine infiltration of the skin entry point and subcutaneous tissues, a 22 gauge 3.5 spinal needle was placed under fluoroscopic guidance into the left SI joint was identified under the most advantageous fluoroscopic view and marked. Intra-articular placement was confirmed by a clear arthrogram resulting from the injection of 0.25ml Omnipaque 240, 1ml 1% lidocaine, and 40mg Depomedrol were injected intra-articularily with an initial reproduction of a significant component of the usual pain. Vital signs were stable throughout the procedure and were as recorded in the docflowsheet by the nursing staff. If given, dosages of intravenous drugs for anxiolysis and analgesia were documented in MAR. Follow up plans and appointments were discussed with the patient. Post procedure instruction was given as documented in nursing documentation and having met discharge criteria, and was discharged from the [facility]. COMMENTS: If this procedure is effective, it can be completed up to 3 times per 12 months. Augustus Villa MD Pain Management CC: Vinayak Jackson DO
[2021-01-14] MEDS: Omnipaque 240 MG/ML 50 ML BTL IJ (15:49)
[2021-01-14] MEDS: methylPREDNISolone ACETATE 80 MG/ML VIAL IJ (15:49)
[2021-01-14 15:51] VITALS: BP 143/75; PULSE 81; RESP 18; O2SAT 96
== END 2021-01-14 15:03 | disposition home or self-care (01) ==
LOC: PC 15:03
PROVIDERS: PCP Family Medicine; Visit Provider Internal Medicine
DX: M53.3 Sacrococcygeal disorders, not elsewhere classified (principal)
CPT/HCPCS: 27096; 72200; J1040; Q9967

== ENCOUNTER → 2021-02-10 10:49 | Outpatient (BNVA) | payer OTHER, SELFPAY | PROVIDERS: PCP Family Medicine; Referring Provider Family Medicine; Visit Provider Internal Medicine Cardiovascular Disease | DX: I25.10 Atherosclerotic heart disease of native coronary artery without angina pectoris (principal); E78.5 Hyperlipidemia, unspecified; I10 Essential (primary) hypertension; E11.9 Type 2 diabetes mellitus without complications | CPT/HCPCS: 99214; 99442 ==

== ENCOUNTER 2021-02-19 12:27 | Inpatient (IN) | payer OTHER, SELFPAY ==
[2021-02-19] VITALS (43 sets, daily range): BP systolic 141–170; BP diastolic 69–113; PULSE 68–84; RESP 16–25; TEMP 36.2–36.5; O2SAT 93–97
--- NOTE | 2021-02-19 12:30 | DI.CT_ITS ---
Exam(s) CT HEAD - STROKE PROTOCOL EXAM: CT HEAD - STROKE PROTOCOL CLINICAL HISTORY: R weakness. TECHNIQUE: Imaging Protocol: Axial computed tomography images with coronal and sagittal reformatted images were created and reviewed COMPARISON: CT CT HEAD WO from 12/16/2020 FINDINGS: There are no skull fractures nor fluid in the visualized paranasal sinuses. There is no evidence of intracranial hemorrhage, mass effect, or shift of midline structures. There are no extra-axial fluid collections. The ventricles are not enlarged or shifted and there is no blo od within the ventricular system nor within the basal cisterns. However, there is a new small nonhemorrhagic lacunar infarct in the left para-supra ventricular white matter which measures 7 x 6 millimeters, not previously present. IMPRESSION: Compared to the recent CT scan of December 16, 2020 there is now a new nonhemorrhagic left supra ventricul ar white matter lacunar infarct. This measures approximately 7 x 6 millimeters. Report called by myself to the emergency room. RADIATION DOSE DELIVERED: 805.52mGy.cm Total DLP DATA REPOSITORY: All CT scans at this facility are submitted to the National Radiology Data Registry (NRDR) Dose Index Registry (DIR) with the [employer] ([employer]). RADIATION OPTIMIZATION: All CT scans at this facility use at least one of these dose optimization te chniques: automated exposure control; mA and/or kV adjustment per patient size (includes targeted exa ms where dose is matched to clinical indication); or iterative reconstruction.
--- NOTE | 2021-02-19 12:30 | RT.EKG_ITS ---
APPROVED REPORT Exam: Resting ECG Reason for Exam: R weakness Patient Location: E HR:70 bpm ECG Measurements Heart Rate 70 AXIS IN 169 P 13 QRSd 93 QRS 31 QT 387 T 32 QTc 418 Conclusion Sinus rhythm...normal P axis, V-rate 60- 99 Probable left atrial enlargement...P >50mS, <-0.10mV V1
--- NOTE | 2021-02-19 12:41 | NUR.NOTE ---
pt went straight to CT scan from triage area via WCNursing Note:
--- NOTE | 2021-02-19 12:45 | DI.RAD_ITS ---
Exam(s) XR CHEST 1V IN DI DEPT EXAM: XR CHEST 1V IN DI DEPT CLINICAL HISTORY: R weakness. TECHNIQUE: 2D digital imaging was performed. COMPARISON: CR XR PORTABLE CHEST AP from 12/16/2020 FINDINGS: Again noted are sternotomy wires and previous CABG. Heart size normal. The mediastinum is not widened. Lungs are clear. No infiltrates nor pleural eff usions. No pulmonary edema. IMPRESSION: No acute pulmonary findings on this single AP portable view of the chest. Again noted is evidence of previous sternotomy and CABG. DATA REPOSITORY: RADIATION DOSE DELIVERED: All CT scans at this facility use at least one of these dose optimization techniques: automated exposure control; mA and/or kV adjustment per patient size (includes targeted e xams where dose is matched to clinical indication); or iterative reconstruction.
[2021-02-19 13:01] LABS: Abs Immature Grans 0.02 10^3/uL (0.0-0.06); Absolute Basophil Count 0.03 10^3/uL (0.0-0.2); Absolute Eosinophil Count 0.17 10^3/uL (0.0-0.7); Absolute Lymphocyte Count 1.88 10^3/uL (1.2-3.4); Absolute Monocyte Count 0.64 10^3/uL (0.1-0.8); Absolute Neutrophil Count 6.24 10^3/uL (1.2-6.7); Basophils % 0.3; Eosinophils % 1.9; HCT 46.8 % (40.0-50.0); HGB 15.6 g/dL (13.5-17.5); Immature Grans % 0.2; Lymphocytes % 20.9; MCH 28.8 pg (27.0-33.0); MCHC 33.3 % (32.0-36.0); MCV 86.3 fL (80-95); MPV 9.4 fL (8.0-11.0); Monocytes % 7.1; Neutrophils % 69.6; Nucleated RBC 0 %; Platelet Count 277 10^3/uL (130-400); RBC 5.42 10^6/uL (4.36-5.78); RDW 12.8 % (11.8-14.1); RDW-SD 39.8 fL; WBC 8.98 10^3/uL (4.4-10.8)
--- NOTE | 2021-02-19 13:11 | ED.GENADUL_ITS ---
Discharge Plan Disposition Patient Disposition: [facility] IN[facility]IENT Condition: Serious Discharge Details Clinical Impression: Left sided lacunar infarction Admit Date/Time: 02/19/21 14:06 Admit Provider: Alberto Fish Attending Provider: Alberto Fish Primary Care Provider: Vinayak Jackson ED Provider: Charly Jacobsen Medical Decision Making Medical Records Medical records reviewed: Yes I reviewed the patient's medical records. Medical records narrative: 70-year-old gentleman, past with history of TIA, diabetes, hypertension, presenting to the ER for evaluation of right-sided weakness and headache. Patient does have sole deficit to the right upper and lower extremity. Will obtain CT imaging of head stroke protocol, initiate cardiac work-up. CT read by radiology as a new small nonhemorrhagic lacunar infarct No evidence of dysrhythmia. Laboratory values are unremarkable for obvious emergent process. Magnesium slightly low at 1.6 Patient takes a baby aspirin every other day, not regularly anticoagulated. We will discuss case with our hospitalist team for admission. Dr. Fish agreeable to admission. Imaging Data Radiologic Study: Attestation: I personally reviewed and interpreted this imaging study as follows: Imaging: X-Ray Radiologist's impression: Chest x-ray negative Radiologic Study #2: Attestation: I personally reviewed and interpreted this imaging study as follows: Imaging: CT Scan Radiologist's impression: Exam(s) CT HEAD - STROKE PROTOCOL EXAM: CT HEAD - STROKE PROTOCOL CLINICAL HISTORY: R weakness. TECHNIQUE: Imaging Protocol: Axial computed tomography images with coronal and sagittal reformatted images were created and reviewed COMPARISON: CT CT HEAD WO from 12/16/2020 FINDINGS: There are no skull fractures nor fluid in the visualized paranasal sinuses. There is no evidence of intracranial hemorrhage, mass effect, or shift of midline structures. There are no extra-axial fluid collections. The ventricles are not enlarged or shifted and there is no blood within the ventricular system nor within the basal cisterns. However, there is a new small nonhemorrhagic lacunar infarct in the left para- supra ventricular white matter which measures 7 x 6 millimeters, not previously present. IMPRESSION: Compared to the recent CT scan of December 16, 2020 there is now a new nonhemorrhagic left supra ventricular white matter lacunar infarct. This measures approximately 7 x 6 millimeters. Report called by myself to the emergency room. Laboratory Tests Range/Units 02/19/21 02/19/21 12:47 12:47 WBC (4.4-10.8) 10^3/uL 8.98 RBC (4.36-5.78) 10^6/uL 5.42 Hgb (13.5-17.5) g/dL 15.6 Hct (40.0-50.0) % 46.8 MCV (80-95) fL 86.3 MCH (27.0-33.0) pg 28.8 MCHC (32.0-36.0) % 33.3 RDW (11.8-14.1) % 12.8 Plt Count (130-400) 10^3/uL 277 MPV (8.0-11.0) fL 9.4 Immature Gran % 0.2 Neutrophils % 69.6 Lymphocytes % 20.9 Monocytes % 7.1 Eosinophils % 1.9 Basophils % 0.3 Nucleated RBC % % 0 Absolute Neutrophils (1.2-6.7) 10^3/uL 6.24 Absolute Lymphocytes (1.2-3.4) 10^3/uL 1.88 Absolute Monocytes (0.1-0.8) 10^3/uL 0.64 Absolute Eosinophils (0.0-0.7) 10^3/uL 0.17 Absolute Basophils (0.0-0.2) 10^3/uL 0.03 Sodium (136-145) mmol/L 142 Potassium (3.5-5.1) mmol/L 4.0 Chloride (98-107) mmol/L 104 Carbon Dioxide (21.0-32.0) mmol/L 29.2 Anion Gap (3-11) mmol/L 8.8 BUN (7-18) mg/dL 18 Creatinine (0.70-1.30) mg/dL 1.1 Estimated GFR/1.73 m2 (mL/min/1.73m2) >= 60.00 Glucose (74-106) mg/dL 106 Calcium (8.5-10.1) mg/dL 9.0 Magnesium (1.8-2.4) mg/dL 1.6 L Total Bilirubin (0.2-1.0) mg/dL 0.5 AST (15-37) U/L 21 ALT (16-63) U/L 43 Alkaline Phosphatase (46-116) U/L 66 Troponin I (<0.06) ng/mL < 0.05 Total Protein (6.4-8.2) g/dL 7.6 Albumin (3.4-5.0) g/dL 3.8 Lab Data Lab results reviewed: Yes I reviewed the patient's lab results. ECG Data Attestation: I personally reviewed and interpreted this ECG (s) as follows: Interpretation: Please see official report by Dr. Maradiaga. Sinus rhythm, ventricular rate of 70. No STEMI HPI General Mode of arrival: wheelchair . Date/Time Provider Initiated Documentation: 02/19/21 12:31 . Limitations to Documentation: no limitations . Information obtained by: patient . HPI Narrative: This is a 70-year-old gentleman, past medical history of CAD, chronic back pain, GERD, diabetes, hyperlipidemia, hypertension, TIA in 1998, presenting to the ER today for right sided arm and leg weakness. Patient states yesterday evening around 10 PM he had a dull global headache, went to bed, woke probably around 2:30 in the morning to use the restroom and felt woozy. Patient then awoke again around 7-8 AM, felt substantial weakness in his right leg, mild weakness in his right arm, and paresthesias in both his arm and leg. Patient went to work and was sent home. Reports that his headache has resolved completely. Denies any acute facial droop. Patient reports that his sensation in his right arm is almost returned to normal but still feels slightly weak. Patient reports that he still feels an altered sensation in his thigh, leg feels weak but not as severe as it was this morning. He denies visual changes, neck pain, chest pain, shortness of breath, recent illness or trauma, abdominal pain, nausea vomiting, change in bowel or bladder function, numbness. Patient is not anticoagulated. Related Data Home Medications Medication Instructions Recorded Confirmed blood sugar diagnostic #10 each 01/12/19 12/24/20 blood-glucose meter #1 each 01/12/19 12/24/20 lancets #50 each 01/12/19 12/24/20 pen needle, diabetic 31 gauge x #100 each 10/19/19 12/24/20/ glipizide 5 mg-metformin 500 mg 2 tab PO BID #360 tab 05/18/20 02/19/21 tablet losartan 100 mg tablet 100 mg PO DAILY #90 tab 06/10/20 02/19/21 sildenafil (pulm.hypertension) 20 20 mg PO TID PRN #90 tab 09/02/20 02/19/21 mg tablet hydrocodone 10 mg-acetaminophen 0.5 tab PO Q8H PRN #30 tab MDD 30 11/25/20 02/19/21 325 mg tablet mg hydrocodone insulin glargine 100 unit/mL (3 42 unit SC QAM #15 ml 11/28/20 02/19/21 mL) subcutaneous pen aspirin 81 mg tablet,delayed 81 mg PO .Every Other Day tab 12/16/20 02/19/21 release omeprazole 20 mg capsule,delayed 20 mg PO BID cap 12/16/20 02/19/21 release hydrochlorothiazide 12.5 mg tablet 12.5 mg PO DAILY #30 tab 12/20/20 02/19/21 Previous Rx's Medication Instructions Recorded pen needle, diabetic 31 gauge x #100 each 10/19/1910/15 glipizide 5 mg-metformin 500 mg 2 tab PO BID #360 tab 05/18/20 tablet losartan 100 mg tablet 100 mg PO DAILY #90 tab 06/10/20 sildenafil (pulm.hypertension) 20 20 mg PO TID PRN #90 tab 09/02/20 mg tablet hydrocodone 10 mg-acetaminophen 0.5 tab PO Q8H PRN #30 tab MDD 30 11/25/20 325 mg tablet mg hydrocodone insulin glargine 100 unit/mL (3 42 unit SC QAM #15 ml 11/28/20 mL) subcutaneous pen hydrochlorothiazide 12.5 mg tablet 12.5 mg PO DAILY #30 tab 12/20/20 Allergies Allergy/AdvReac Type Severity Reaction Status Date / Time ciprofloxacin Allergy Intermediate Hives Verified 02/19/21 13:01 atorvastatin [From Lipitor] Allergy Unknown Very ill Verified 02/19/21 13:01 [id number] Reductase AdvReac Intermediate Verified 02/19/21 13:01 Inhibitor General Stated Complaint: CVA/TIA KONRAD: 2 Review of Systems Constitutional Constitutional: Denies fatigue, Denies fever(s) and Reports headache(s) Eyes Eyes: Denies change in vision ENT Ears, Nose, Mouth, and Throat: Reports headache(s) Cardiovascular Cardiovascular: Denies chest pain and Denies dyspnea Respiratory Respiratory: Denies dyspnea Gastrointestinal Gastrointestinal: Denies abdominal pain, Denies nausea and Denies vomiting Genitourinary Genitourinary: Denies dysuria Musculoskeletal Musculoskeletal: Denies numbness, Denies stiffness and Reports tingling Integumentary/Breasts Skin/Breast: Denies rash Neurologic Neurologic: Reports headache(s), Denies numbness and Reports tingling Endocrine Endocrine: Denies fatigue Hematologic/Lymphatic Hematologic/Lymphatic: Denies easy bleeding and Denies easy bruising PFSH Medical History Adenomatous polyposis Adenomatous polyps Bile reflux esophagitis CAD (coronary artery disease) Chronic back pain (~06/27/18) Chronic GERD Chronic right shoulder pain (~10/14/16) AC JOINT RECONSTRUCTION Diabetes mellitus, type II (~10/14/16) DJD (degenerative joint disease), lumbar MRI 11/06/17 and 06/10/18 Erectile dysfunction GERD (gastroesophageal reflux disease) Hx of fracture of rib Hyperlipidemia Hypertension Insomnia Left carpal tunnel syndrome Medial meniscus tear (~03/03/18) Left Knee Pulmonary nodule less than 1 cm in diameter with low risk for malignant neoplasm Incidental finding on CT scan, March 2020, needs 12 month recheck Situational depression TIA (transient ischemic attack) (~1998) Surgical History H/O heart artery stent (~2012) patient reports 6 stents total. Last stent placed: 2010 History of cholecystectomy History of colonoscopy (~08/2019) History of coronary artery bypass graft (~1997) X5. FOLLOWS UP WITH DR. JEREZ, LAST VISIT WAS 05/26/191997 History of esophagogastroduodenoscopy (EGD) (~08/2019) History of medial meniscus repair of left knee History of tonsillectomy and adenoidectomy Hx of CABG Right carpal tunnel syndrome s/p ECTR DOS: 08/07/20 Status post AC joint reconstruction right, w/allograft Family History Mother Hypertension Diabetes Ovarian cancer Father Hypertension Diabetes Lymphoma Sister Heart disease Social History Smoking/Tobacco Use Status: Former Tobacco Use Tobacco: How many years used: 20 Smoking risk assessment performed?: Yes Alcohol Intake: current Alcohol Intake frequency: holidays/special occasions only Drug use: Occasionally Substance use type: marijuana Household members: other Details: roomate Housing: apartment Communication Needs: Corrective Lenses current occupation: UnEmployed Current gender identity: male What is your relationship status?: Panel score (0-1 are the most socially isolated patients): 0 What type of physical activity do you participate in: none Seatbelt use: always Drive intox or ride w/intox 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 truck 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: No Working smoke detector in home: Yes Carbon monox detector in home: Yes Do you feel safe at home: Yes Do you feel safe in your relationship?: Yes Exam Const General: cooperative, healthy appearing, comfortable and no acute distress Orientation: alert, awake and oriented x3 HENMT Head: normal to inspection, normocephalic and atraumatic General nose exam: external nose normal Face and sinus: normal facial exam Mouth: moist mucous membranes Eyes General: appearance normal, both eyes and all related structures Conjunctivae: conjunctivae normal Neck Neck: normal visual inspection, trachea midline and supple Resp Effort & Inspection: normal respiratory effort and able to speak in complete sentences Auscultation: clear to auscultation bilaterally Cardio Rate: regular rate Rhythm: regular rhythm GI Palpation: soft and nontender Auscultation: normal bowel sounds Back/Spine/Pelvis Back: back tenderness Skin General skin exam: no rashes or lesions noted Neuro General: patient alert, patient awake, patient oriented x3, moves all extremities and no focal motor deficits Cranial Nerves: CN's II-XI intact bilaterally Cognition: normal cognition Speech: speech normal Gait: ataxic Motor: no pronator drift, no movement abnormalities noted and no fasciculations Coordination: [id number] test normal and Does not sway with eyes open Other: Subjective mild deficits anterior right thigh to sensation. 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 The only deficit I can appreciate in the right upper extremity is 4 out of 5 strength extension of the upper arm at the level of the shoulder. Normal radial pulse and capillary refill. Lower extremity patient is able to lift against gravity when hip tear to his left leg, 4-5 strength noted. Psych Appearance: grossly normal Mental Status: mental status grossly normal Course Vital Signs Vital signs: Vital Signs Temperature 36.5 C 02/19/21 12:33 Pulse 70 02/19/21 12:33 Respiratory Rate 18 02/19/21 12:33 Blood Pressure 158/90 H 02/19/21 12:33 Pulse Oximetry 95 02/19/21 12:33 Temperature 36.5 C 02/19/21 12:33 Temperature Source Temporal Artery Scan 02/19/21 12:33 Pulse 70 02/19/21 12:33 Respiratory Rate 18 02/19/21 12:33 Blood Pressure 158/90 H 02/19/21 12:33 Blood Pressure Position Sitting 02/19/21 12:33 Pulse Oximetry 95 02/19/21 12:33 Oxygen Delivery Method Room Air 02/19/21 12:33 Oxygen Flow Rate 0 02/19/21 12:33 Critical Care Time Critical Care Time Critical Care Time: Yes Total Critical Care Time: 35 Attestation: Upon my evaluation, this patient had a high probability of clinically significant, life-threatening deterioration due to their current medical conditions, which required my direct attention, intervention, and personal management. I have personally provided greater than 30 minutes of critical care time exclusive of the time spend on separately billable procedures. Time includes obtaining a history, examining the patient, pulse oximetry, review of laboratory data, radiology results, discussion with consultants, arranging urgent treatment with development of a management plan, evaluation of patient's response to treatment, and monitoring for potential decompensation. Interventions were performed as documented above.
[2021-02-19 13:22] LABS: ALT 43 U/L (16-63); AST 21 U/L (15-37); Albumin 3.8 g/dL (3.4-5.0); Alkaline Phosphatase 66 U/L (46-116); Anion Gap 8.8 mmol/L (3-11); BUN 18 mg/dL (7-18); Bilirubin, Total 0.5 mg/dL (0.2-1.0); CO2 29.2 mmol/L (21.0-32.0); CREATININE 1.1 mg/dL (0.70-1.30); Chloride 104 mmol/L (98-107); Glucose 106 mg/dL (74-106); Magnesium 1.6 mg/dL (1.8-2.4); Sodium 142 mmol/L (136-145); Total Protein 7.6 g/dL (6.4-8.2)
[2021-02-19 13:23] LABS: Troponin I < 0.05 ng/mL (<0.06)
[2021-02-19 14:25] LABS: Source Nasal/Nares
[2021-02-19 15:16] LABS: COVID-19 PCR Negative (Negative)
--- NOTE | 2021-02-19 15:51 | IN_ITS ---
Date of service: 02/19/21 Time of Service: 15:51 PT Notes Visit Reasons: Cerebrovascular accident Physical Therapy Inpatient Initial Evaluation Date: 02/19/2021 Referring Doctor: Alberto Fish MD PT Orders: PT CONSULT: Eval/treat Precautions: Fall. Standard. Activity as tolerated. Patient Profile/Admitting Diagnosis: José is a 70-year-old male who presented to the ED today with right side arm and leg weakness, dull global headache, and complaint of being woozy. Patient is diagnosed with left-sided lacunar cerebrovascular accident and is being admitted for observation and medical management. PMHX: Medical History Adenomatous polyposis Adenomatous polyps Bile reflux esophagitis CAD (coronary artery disease) Chronic back pain (~06/27/18) Chronic GERD Chronic right shoulder pain (~10/14/16) AC JOINT RECONSTRUCTION Diabetes mellitus, type II (~10/14/16) DJD (degenerative joint disease), lumbar MRI 11/06/17 and 06/10/18 Erectile dysfunction GERD (gastroesophageal reflux disease) Hx of fracture of rib Hyperlipidemia Hypertension Insomnia Left carpal tunnel syndrome Medial meniscus tear (~03/03/18) Left Knee Pulmonary nodule less than 1 cm in diameter with low risk for malignant neoplasm Incidental finding on CT scan, March 2020, needs 12 month recheck Situational depression TIA (transient ischemic attack) (~1998) Surgical History H/O heart artery stent (~2012) patient reports 6 stents total. Last stent placed: 2010 History of cholecystectomy History of colonoscopy (~08/2019) History of coronary artery bypass graft (~1997) X5. FOLLOWS UP WITH DR. JEREZ, LAST VISIT WAS 05/26/191997 History of esophagogastroduodenoscopy (EGD) (~08/2019) History of medial meniscus repair of left knee History of tonsillectomy and adenoidectomy Hx of CABG Right carpal tunnel syndrome s/p ECTR DOS: 08/07/20 Status post AC joint reconstruction right, w/allograft Social History/Home Situation: Lives with in a private home with 4 steps to enter with rails on both sides. Independent with all aspects of ADLs prior to admission. 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 Equipment Owned/DME: None Subjective: José reports that he also had this feeling of wooziness back in 1998 when he had his TIA. Today, he reports that along with the wooziness, he feels like his right knee is going to give way every time he stands up and walk. He feels that his right hand is a little weaker than the left. He also reports that his ability to use his hand seems to be limited right now. He indicated numbness in the R LE that later invlved the whole R foot with manual muscle testing of R LE. Objective: General Observation: Telemetry monitoring in place. IV access in right brachium. No facial asymmetry seen. Mental Status: Alert and oriented as to person, place, time, and purpose. Able to pay attention, focus, and respond appropriately. Pain: No report of headache, no report of chest pain ROM: Right Upper Extremity: Shoulder Flexion WFL. Shoulder abduction WFL. Elbow flexion WFL. Wrist flexion WFL. Functional opening and closing of hand WFL. Left Upper Extremity: Shoulder Flexion WFL. Shoulder abduction WFL. Elbow flexion WFL. Wrist flexion WFL. Functional opening and closing of hand WFL. Right Lower Extremity: Hip flexion WFL. Hip abduction WFL. Knee flexion WFL. Ankle dorsiflexion WFL. Ankle plantarflexion WFL. Left Lower Extremity: Hip flexion WFL. Hip abduction WFL. Knee flexion WFL. Ankle dorsiflexion WFL. Ankle plantarflexion WFL. Strength: Right Upper Extremity: Shoulder flexors 5/5. Shoulder abductors 5/5. Elbow flexors 4+/5. Elbow extensors 5/5. Dispatcher Radio strong. Left Upper Extremity: Shoulder flexors 5/5. Shoulder abductors 5/5. Elbow flexors 5/5. Elbow extensors 5/5. Dispatcher Radio strong. Right Lower Extremity: Hip flexors 4-/5. Hip abductors 4/5. Knee flexors 5/5. Knee extensors 4/5. Ankle dorsiflexors 4+/5. Ankle plantarflexors 5/5. Left Lower Extremity: Hip flexors 5/5. Hip abductors 5/5. Knee flexors 5/5. Knee extensors 5/5. Ankle dorsiflexors 5/5. Ankle plantarflexors 5/5. Bed Mobility/Transfers: Rolling independent Supine to sit independent Sit to supine independent Sit to stand standby assist Stand to sit standby assist Bed to reclining chair standby assist Reclining chair to bed standby assist Gait: Guided patient with level surface ambulation of 20 feet requiring standby assist with no assistive device. No buckling in L knee. No LOB. NO SOB. Report of wooziness did not increase. Balance: Static Sitting: Normal Dynamic Sitting: Normal Static Standing: Good Dynamic Standing: Good NEURO: Romberg Test: Negative. Minimal swaying seen initially. 4-stage Balance Test: Able to maintain feet together, semi-tandem, and full tandem stance for 10 seconds but is unable to do so with one-leeged stance stating that his R foot seems to be unstable. Coordination Test: No deficits seen except for a little slowed execution of [id number] Special Tests: Mobility Limitations Standardized Measure [facility] AM-PAC 6 clicks Basic Mobility Inpatient Short Form: Raw Score: 23 CMS Score: 11% deficit Informed Consent/Education: Patient was instructed in purpose of PT consult and plan of care. Agreeable to proceed with established PT POC to achieve personal goals. Assessment: Does not require an assistive device to walk. Minimal difference in R elbow flexor, R hip flexor/R knee extensor and R ankle dorsiflexor strength compared to the L side detected. Numbness in R LE is contributing to sensation of instability in the R knee despite minimal strength disparity in knee extension noted. PT can focus on balance retraining while on admission which outpatient PT may be able to address upon discharge. 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 Patient presents with clinical signs and symptoms consistent with current/admitting diagnoses that have resulted to mobility limitations, gait instability, generalized weakness, and overall ADL decline as demonstrated by the following impairment level findings: 1. Decreased strength to R LE muscle groups as above 2. Impaired standing balance 3. Impaired activity tolerance 4. Limitation of joint range of motion in R hip flexion 5. Numbness in R LE 6. Feeling of instability in R knee Impairments are contributing to the following functional limitations: 1. Difficulty with ambulation 2. Increased completion time for mobility ADL performance 3. Increased risk for falls 4. Difficulty with managing steps alone safely Patient is assessed as a 23168 low complexity based on the following: History: 70-year-old male with past medical history as indicated above Examination: Demonstrable impairment in strength, balance, and mobility level with underlying impairments and functional limitations as exhibited above as well as deficit score of 11% utilizing the [facility] Mobility Inpatient Short Form Presentation: Evolving Decision Makin low complexity Goals: Goals X1 week 1. Stand-Sit independent 2. Bed-Chair independent 3. Chair-Bed independent 4. Independent gait on level surface with use of no assistive device for at least 1000 feet without report of pain nor dyspnea 5. Independent stair negotiation while holding onto B rails for at least 5 steps without report of pain nor dyspnea 6. Independent with home exercise program 7. Normal static and dynamic standing balance/tolerance Plan of Care/Treatment Plan: 1-2x/day, 7 days/week x 1 week. Plan of care has been reviewed with the HEATSET WINDER OPERATOR providing the service under Physical Therapy direction. Initiate Physical Therapy intervention for pain management as needed, strengthening, bed mobility, transfers, gait, stairs, balance training, and use of assistive device. DISCHARGE RECOMMENDATIONS: Outpatient PT services for balance skills progression. TREATMENT CODE/TIME: 98985 x 20 minutes, 60634 x 18 minutes beginning at 15:51 PM. Thank you for the opportunity to participate in the care of this patient. Luz Maria Malin PT, DPT, CLT [facility] [place], [place]
[2021-02-19] MEDS: Magnesium Oxide 400 MG TAB 800 MG PO (16:44)
[2021-02-19] MEDS: Heparin 5,000 UNITS/ML VIAL 5000 UNITS SC (16:44)
--- NOTE | 2021-02-19 17:00 | DI.CT_ITS ---
Exam(s) CT BRAIN NECK CTA EXAM: CT BRAIN NECK CTA CLINICAL HISTORY: right arm and leg numbness. TECHNIQUE: Imaging Protocol: Axial CT angiography was performed with multi-slice acquisition and mu lti-planar and/or 3D reconstructions. CONTRAST MATERIAL: Intravenous: Omnipaque 350 Contrast volume:85 mL COMPARISON: CT CT HEAD WO from 12/16/[address] HEAD WO from 12/16/2020 FINDINGS: CTA Neck W: Aortic arch anatomy: The aortic arch anatomy is conventional. Anterior circulation: Both common carotid arteries are patent with normal luminal diameters. No evidence of significant at herosclerotic disease at the level the carotid bifurcation and proximal internal carotid arteries on either side. Both internal carotid arteries exhibit normal diameter in the upper neck and without ev idence of significant tortuosity. Both of these vessels are demonstrated be patent in the skull base -carotid canals Posterior circulation: Both vertebral arteries originated conventional fashion off of the subclavian arteries. Artifact her e prevents assessment of the origin of these vessels for stenosis. Both vertebral arteries ascend in the foramen transverse area with the right vertebral artery being dominant. No intraluminal thrombu s in these vessels nor dissection or. Both are seen as thin vessels at the skull base contributing t o the formation of the thin basilar artery CTA Brain W: Anterior circulation: Both internal carotid arteries are patent in the skull base-carotid canals as well as within the cave rnous sinuses and supraclinoid aspects are patent. No aneurysms. 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 Right middle cerebral artery is patent. A1 segments ar e both thin vessels but patent. Both anterior cerebral arteries are patent. There is no evidence of aneurysm at the anterior communicating artery level. Posterior circulation: Basilar artery is sends as a thin vessel in the midline. Distally gives off superior cerebellar mary zena. Posterior cerebral arteries appeared to be thin but patent. There is no aneurysm at the level of the basilar artery tip. CT BRAIN: There is no evidence of intracranial hemorrhage, mass effect, or shift of midline structures. There are no extra-axial fluid collections. Ventricles are not enlarged or shifted and there is no blood w ithin the ventricular system nor within the basal cisterns. There are no ring enhancing lesions in t he brain and no abnormal meningeal enhancement. There is a new nonhemorrhagic 7 x 6 millimeter lacunar infarct in the left centrum semiovale white ma tter. IMPRESSION: 1. There appears to be occlusion of the left middle cerebral artery approximately 1 centimeter distal to its origin. 2. There is a new 7 millimeter x 6 millimeter nonhemorrhagic infarct in the left centrum semiovale. 3. No evidence of significant atherosclerotic disease at the carotid bifurcations and proximal inte rnal carotid arteries in the neck. RADIATION DOSE DELIVERED: 2,006.28mGy.cm Total DLP DATA REPOSITORY: All CT scans at this facility are submitted to the National Radiology Data Registry (NRDR) Dose Index Registry (DIR) with the [employer] (ACR). RADIATION OPTIMIZATION: All CT scans at this facility use at least one of these dose optimization te chniques: automated exposure control; mA and/or kV adjustment per patient size (includes targeted exa ms where dose is matched to clinical indication); or iterative reconstruction.
--- NOTE | 2021-02-19 17:44 | HPE_ITS ---
Date of service: 02/19/21 Time of Service: 17:44 Assessment and Plan Assessment and plan (1) Left sided lacunar infarction: Status: Acute Assessment and plan: Deficits that were initially described by the patient have resolved. CTA neck and head pending. He describes an intolerance of statins and is unwilling to try another. Dr Maldonado saw him in November of this year and suggested he f/u at [facility] where he receives his cardiac care and discuss possible use of a PCSK9 inhibitor. Cont ASA 81 mg QOD Consulted neurology Add Plavix? (2) Hyperlipidemia: Status: Acute Qualifiers: Hyperlipidemia type: unspecified Qualified Code(s): E78.5 - H yperlipidemia, unspecified (3) Hypertension: Status: Chronic Assessment and plan: Cont lisinopril and HCTZ Monitor (4) Hyperlipidemia: Status: Acute Assessment and plan: Intolerance to stains; describes feeling lightheaded/dizzy when taking then. May be candidate for an PCSK9 inhibitor (5) GERD (gastroesophageal reflux disease): Status: Chronic Assessment and plan: Cont omeprazole (6) Diabetes mellitus, type II: Status: Acute Assessment and plan: On metformin, glipizide and Lantus. Hold metformin and glipizide. Cont Lanuts and add ss insulin correction dose. Diabetic diet (7) CAD (coronary artery disease): Status: Chronic Assessment and plan: On ASA 81mg QOD Has declined use of BB/metoprolol. No angina currently. History of Present Illness History of Present Illness Chief Complaint: Left sided weakness Narrative: This is a 70-year-old male with a past medical history of CAD, chronic back pain, GERD, diabetes, hyperlipidemia, hypertension, TIA in 1998, presenting to the ER today for right sided arm and leg weakness. Patient states yesterday evening around 10 PM he had a dulll global headache, went to bed, woke probably around 2:30 in the morning to use the restroom and felt woozy. Patient then awoke again around 7-8 AM, felt substantial weakness in his right leg, mild weakness in his right arm, and paresthesias in both his arm and leg. Patient went to work and was sent home. By the time he presented to the ED his headache has resolved completely. He denied slurred speech or facial droop. He was not noted to be confused at any point in time per patient. No fever/chills. He is not on a statin; has been intolerant of several; described feeling lightheaded with them. He takes an 81mg aspirin QOD. In the ED he was noted to have a small lacunar infarct left supra-para ventricular white matter. Lab was ot herwise unremarkable. Review of Systems All systems reviewed & are unremarkable except as noted in HPI and below PFSH Medical History Adenomatous polyposis Adenomatous polyps Bile reflux esophagitis CAD (coronary artery disease) Chronic back pain (~06/27/18) Chronic GERD Chronic right shoulder pain (~10/14/16) AC JOINT RECONSTRUCTION Diabetes mellitus, type II (~10/14/16) DJD (degenerative joint disease), lumbar MRI 11/06/17 and 06/10/18 Erectile dysfunction GERD (gastroesophageal reflux disease) Hx of fracture of rib Hyperlipidemia Hypertension Insomnia Left carpal tunnel syndrome Medial meniscus tear (~03/03/18) Left Knee Pulmonary nodule less than 1 cm in diameter with low risk for malignant neoplasm Incidental finding on CT scan, March 2020, needs 12 month recheck Situational depression TIA (transient ischemic attack) (~1998) Surgical History H/O heart artery stent (~2012) patient reports 6 stents total. Last stent placed: 2010 History of cholecystectomy History of colonoscopy (~08/2019) History of coronary artery bypass graft (~1997) X5. FOLLOWS UP WITH DR. MALDONADO, LAST VISIT WAS 05/26/191997 History of esophagogastroduodenoscopy (EGD) (~08/2019) History of medial meniscus repair of left knee History of tonsillectomy and adenoidectomy Hx of CABG Right carpal tunnel syndrome s/p ECTR DOS: 08/07/20 Status post AC joint reconstruction right, w/allograft Family History Mother Hypertension Diabetes Ovarian cancer Father Hypertension Diabetes Lymphoma Sister Heart disease Social History Smoking/Tobacco Use Status: Former Tobacco Use Tobacco: How many years used: 20 Smoking risk assessment performed?: Yes Alcohol Intake: current Alcohol Intake frequency: holidays/special occasions only Drug use: Occasionally Substance use type: marijuana Household members: other Details: roomate Housing: apartment Communication Needs: Corrective Lenses current occupation: UnEmployed Current gender identity: male What is your relationship status?: Panel score (0-1 are the most socially isolated patients): 0 What type of physical activity do you participate in: none Seatbelt use: always Drive intox or ride w/intox front loader residential driver: No Working smoke detector in home: Yes Carbon monox detector in home: Yes Do you feel safe at home: Yes Do you feel safe in your relationship?: Yes Meds Allergies and Home Medications Allergies Allergy/AdvReac Type Severity Reaction Status Date / Time ciprofloxacin Allergy Intermediate Hives Verified 02/19/21 13:01 atorvastatin [From Lipitor] Allergy Unknown Very ill Verified 02/19/21 13:01 [id number] Reductase AdvReac Intermediate Verified 02/19/21 13:01 Inhibitor Home Medications Medication Instructions Recorded Confirmed Type blood sugar diagnostic #10 each 01/12/19 12/24/20 History blood-glucose meter #1 each 01/12/19 12/24/20 History lancets #50 each 01/12/19 12/24/20 History pen needle, diabetic 31 gauge x #100 each 10/19/19 12/24/20 Rx 10/15 glipizide 5 mg-metformin 500 mg 2 tab PO BID #360 tab 05/18/20 02/19/21 Rx tablet losartan 100 mg tablet 100 mg PO DAILY #90 tab 06/10/20 02/19/21 Rx sildenafil (pulm.hypertension) 20 20 mg PO TID PRN #90 tab 09/02/20 02/19/21 Rx mg tablet hydrocodone 10 mg-acetaminophen 0.5 tab PO Q8H PRN #30 tab MDD 30 11/25/20 02/19/21 Rx 325 mg tablet mg hydrocodone insulin glargine 100 unit/mL (3 42 unit SC QAM #15 ml 11/28/20 02/19/21 Rx mL) subcutaneous pen aspirin 81 mg tablet,delayed 81 mg PO .Every Other Day tab 12/16/20 02/19/21 History release omeprazole 20 mg capsule,delayed 20 mg PO BID cap 12/16/20 02/19/21 History release hydrochlorothiazide 12.5 mg tablet 12.5 mg PO DAILY #30 tab 12/20/20 02/19/21 Rx Exam Const General: cooperative and no acute distress Orientation: alert and oriented x3 Eyes General: appearance normal, both eyes and all related structures Sclera: sclerae normal Pupils: PERRL Neck Neck: full ROM and no JVD Resp Effort & Inspection: normal respiratory effort Auscultation: clear to auscultation bilaterally Cardio Rate: regular rate Rhythm: regular rhythm Heart Sounds: S1 normal and S2 normal GI Palpation: soft and nontender Neuro General: moves all extremities and not confused Cranial Nerves: PERRL, no nystagmus and individual cranial nerve findings Cognition: normal cognition Speech: speech normal Gait: normal gait Motor: strength 5/5 throughout (R hip flexion mildly diminished compared to left) Sensory Exam: no sensory deficits noted Results Labs Result diagrams: 02/19/21 12:47 02/19/21 12:47 Labs: Laboratory Results - last 24 hr 02/19/21 02/19/21 02/19/21 12:47 12:47 14:20 WBC 8.98 RBC 5.42 Hgb 15.6 Hct 46.8 MCV 86.3 MCH 28.8 MCHC 33.3 RDW 12.8 Plt Count 277 MPV 9.4 Immature Gran % 0.2 Neutrophils % 69.6 Lymphocytes % 20.9 Monocytes % 7.1 Eosinophils % 1.9 Basophils % 0.3 Nucleated RBC % 0 Absolute Neutrophils 6.24 Absolute Lymphocytes 1.88 Absolute Monocytes 0.64 Absolute Eosinophils 0.17 Absolute Basophils 0.03 Sodium 142 Potassium 4.0 Chloride 104 Carbon Dioxide 29.2 Anion Gap 8.8 BUN 18 Creatinine 1.1 Estimated GFR/1.73 m2 >= 60.00 Glucose 106 Calcium 9.0 Magnesium 1.6 L Total Bilirubin 0.5 AST 21 ALT 43 Alkaline Phosphatase 66 Troponin I < 0.05 Total Protein 7.6 Albumin 3.8 COVID-19 Source Nasal/Nares SARS-CoV-2 (PCR) Negative Last Vital Signs Temp 36.2 C L 02/19/21 15:30 Pulse 72 02/19/21 15:30 Resp 18 02/19/21 15:30 BP 157/69 H 02/19/21 15:30 Pulse Ox 97 02/19/21 15:30
[2021-02-19] MEDS: Normal Saline - Diluent 50 ML VIAL IV (17:59)
[2021-02-19] MEDS: Normal Saline Flush 10 ML SYR IVP (18:00)
[2021-02-19] MEDS: Omnipaque 350 MG/ML 100 ML BTL IJ (18:00)
--- NOTE | 2021-02-19 19:05 | DI.VRAD_ITS ---
PROCEDURE INFORMATION: Exam: CT Angiography Head Without And With Contrast, Arteriography Exam date and time: 02/19/2021 5:06 PM Age: 70 years old Clinical indication: Numbness TECHNIQUE: Imaging protocol: Computed tomographic angiography of the head without and with contrast. Exam focused on the arteries. 3D rendering (Not supervised by radiologist): MIP and/or 3D reconstructed images were created by the technologist. Contrast material: OMNIPAQUE 350; Contrast volume: 85 ml; Contrast route: INTRAVENOUS (IV); COMPARISON: CT HEAD - STROKE PROTOCOL 02/19/2021 12:40 PM FINDINGS: ANTERIOR CIRCULATION: Right internal carotid artery: Intracranial segment is patent with no significant stenosis or occlusion. No aneurysm. Right middle cerebral artery: No occlusion or significant stenosis. No aneurysm. Right anterior cerebral artery: No occlusion or significant stenosis. No aneurysm. Left internal carotid artery: Intracranial segment is patent with no significant stenosis. No aneurysm. Left middle cerebral artery: Cut-off of the left MCA. Dense left MCA sign. Left anterior cerebral artery: No occlusion or significant stenosis. No aneurysm. POSTERIOR CIRCULATION: Right vertebral artery: No occlusion or significant stenosis. No aneurysm. Left vertebral artery: No occlusion or significant stenosis. No aneurysm. Basilar artery: No occlusion or significant stenosis. No aneurysm. Right posterior cerebral artery: No occlusion or significant stenosis. No aneurysm. Left posterior cerebral artery: No occlusion or significant stenosis. No aneurysm. HEAD: Brain: Chronic ischemic changes involving the posterior left insular cortex as well as the left thalamus. However there is a white matter subcentimeter hypodensity, which is new, within the left centrum semiovale. Cerebral ventricles: Normal. No ventriculomegaly. Bones/joints: Unremarkable. No acute fracture. Paranasal sinuses: Visualized sinuses are normal. No fluid levels. Mastoid air cells: Visualized mastoids are normal. No mastoid effusion. Soft tissues: Unremarkable. IMPRESSION: 1. Cut-off of the left MCA concerning for thrombus. 2. White matter subcentimeter hypodensity, which is new, within the left centrum semiovale, which may represent an acute lacunar infarct. No acute intracranial hemorrhage. THIS REPORT CONTAINS FINDINGS THAT MAY BE CRITICAL TO PATIENT CARE. The findings were verbally communicated via telephone conference with Felicita Villa RN at 6:50 PM EDT on 02/19/2021. The findings were acknowledged and understood. PROCEDURE INFORMATION: Exam: CT Angiography Neck With Contrast Exam date and time: 02/19/2021 5:06 PM Age: 70 years old Clinical indication: Numbness TECHNIQUE: Imaging protocol: Computed tomography angiography of the neck with contrast. 3D rendering (Not supervised by radiologist): MIP and/or 3D reconstructed images were created by the technologist. Contrast material: OMNIPAQUE 350; Contrast volume: 85 ml; Contrast route: INTRAVENOUS (IV); COMPARISON: CT HEAD - STROKE PROTOCOL 02/19/2021 12:40 PM FINDINGS: Right common carotid artery: No stenosis. No dissection or occlusion. Right internal carotid artery: No stenosis of the extracranial segment. No dissection or occlusion. Right external carotid artery: No occlusion or stenosis of the origin. Left common carotid artery: No stenosis. No dissection or occlusion. Left internal carotid artery: No stenosis of the extracranial segment. No dissection or occlusion. Left external carotid artery: No occlusion or stenosis of the origin. Right vertebral artery: No stenosis. No dissection or occlusion. Left vertebral artery: No stenosis. No dissection or occlusion. Soft tissues: Normal. No significant soft tissue swelling. Bones/joints: No acute fracture. IMPRESSION: No significant stenosis. No evidence of acute dissection. REFERENCES: NASCET CRITERIA. The degree of internal carotid artery stenosis is based on NASCET criteria. Normal is no stenosis. Mild is less than 50% stenosis. Moderate is 50-69% stenosis. Severe is 70% to 99% stenosis. Total occlusion is no detectable patent lumen. Dictated and Authenticated by: Iam Boone MD. Ordering:DARCY Dominguez MD
--- NOTE | 2021-02-19 20:00 | RT.EKG_ITS ---
APPROVED REPORT Exam: Resting ECG Reason for Exam: cva Patient Location: I HR:74 bpm ECG Measurements Heart Rate 74 AXIS DC 178 P 44 QRSd 96 QRS 33 QT 384 T 38 QTc 427 Conclusion Sinus rhythm...normal P axis, V-rate 60- 99 Left atrial enlargement...P, P'>60mS, <-0.15mV V1
[2021-02-19 20:02] LABS: Troponin I < 0.05 ng/mL (<0.06)
[2021-02-19 20:44] LABS: PTT Activated 23.9 sec (21.0-27.5); Prothrombin Time 10.2 sec (9.3-11.0)
[2021-02-19] MEDS: Normal Saline 1,000 ML 85 ML IV (21:00)
[2021-02-19] MEDS: Omeprazole 20 MG CAPCR PO (21:41)
[2021-02-19] MEDS: Famotidine 20 MG TAB 40 MG PO (21:41)
[2021-02-19] MEDS: Mylanta Suspension 30 ML CUP PO (21:51)
--- NOTE | 2021-02-19 22:02 | W.PM.DS.N ---
Date of service: 02/19/21 Time of Service: 22:07 DS: Diagnosis Discharge Diagnosis (1) Acute ischemic left middle cerebral artery (MCA) stroke: Status: Acute Asessment and Plan: Suspected left MCA occlusion based on his CT angiogram however clinical findings are not consistent with a total occlusion of his left MCA. Nevertheless he has right-sided subtle deficits. Patient be transferred to [facility] for further neurologic evaluation including repeat cerebrovascular imaging and neurological consultation and consultation with neuroradiology intervention. (2) Occlusion of left middle cerebral artery: Status: Suspected (3) Left sided lacunar infarction: Status: Acute (4) CAD (coronary artery disease): Status: Chronic (5) Hyperlipidemia: Status: Chronic (6) Hypertension: Status: Chronic (7) GERD (gastroesophageal reflux disease): Status: Chronic (8) Diabetes mellitus, type II: Status: Acute Discharge Plan Disposition Patient Disposition: [facility] Condition: Serious Discharge Details Reason For Visit: CVA Admit Date/Time: 02/19/21 20:36 Admit Provider: Alberto Fish Attending Provider: Alberto Fish Primary Care Provider: Vinay[facility] Hospital Course: 70-year-old right-hand dominant male with a past medical history of type 2 diabetes mellitus, essential pretension, coronary artery disease (status post 5 vessel CABG in 1990 along with multiple coronary stents before and after his bypass), hyperlipidemia, chronic GERD, TIA in 1998, chronic back pains d/t DJD, who was in his usual state of stable health when he developed a dull headache last night. This occurred around 10 PM he took his usual hydrocodone one third of a tablet and went to bed. Between 2 and 3 AM he woke up to go to the bathroom and felt very lightheaded but at that time is not having any focal paresthesias or paraparesis. He went back to sleep and then woke up around 7 AM and noticed that he was having lightheaded feeling but no headache and was having tingling and numbness in his right leg down to his right foot and having trouble walking due to clumsiness in his right foot. He attributed to having taken his oxycodone. He proceeded to go to work at the [employer] at [employer] in [employer] but when his symptoms did not resolve he started having tingling in his right hand and right arm he left work to present to [facility]. He arrived to [facility] at 12:33 PM while he was being fed lunch he noticed that he was having clumsiness with control of his right hand. His evaluation in the emergency department reportedly had shown marked improvement in symptoms with 4 out of 5 strength in the right hand and right arm as well as 4/5 strength in his right leg and foot. CT of head w/o contrast was done and demonstrated: IMPRESSION: Compared to the recent CT scan of December 16, 2020 there is now a new nonhemorrhagic left supra ventricular white matter lacunar infarct. This measures approximately 7 x 6 millimeters. Patient was admitted to medical/surgical floor by the daytime hospitalist. Per the day hospitalist the patient's symptoms had nearly resolved. However around 5 PM nursing staff noted that the patient was complaining of worsening numbness in his right foot and leg along with clumsiness in his right hand. As well as numbness and tingling in his right hand and arm. He also has slightly decreased sensation over the right side of his face. Nursing staff helped him to the bathroom and knows that he had a clumsy gait. I became involved in his care because charge nurse call me to indicate that virtual radiology wished to speak with me regarding a CT angiogram of his head neck which have been ordered by the day hospitalist. I spoke with Dr. Boone from [facility]. His reading of the CTA of the head and neck was concerning for left MCA thrombus w/ cut off the left MCA at M1. IMPRESSION: 1. Cut-off of the left MCA concerning for thrombus. 2. White matter subcentimeter hypodensity, which is new, within the left centrum semiovale, which may represent an acute lacunar infarct. No acute intracranial hemorrhage. Per my interview with the patient he denies any diplopia or visual loss and no headache at this time. No slurred speech and no dysphagia. He does note some slight decrease sensation over the right cheek compared to his left cheek as well as over the right forearm and right hand and right lower leg and right foot. He also notes some clumsiness with his right hand when he tried to feed himself dinner tonight. BP 161/91, pulse 75 sinus rhythm, respiratory rate 18, afebrile, O2 saturation 96% on room air. HEENT reveals no overt facial asymmetry but he has some subtle decrease in the right nasolabial fold and the right corner of his mouth which disappears with smiling. No overt facial mimetic muscle weakness. No weakness with muscles of mastication. Full extraocular motions intact. Visual oliver grossly intact to confrontation. Full extraocular motions intact. Oropharynx is noninjected he has symmetrical movement of his palate and his uvula. Gag reflex is intact. Neck is supple nontender no JVD normal carotid pulses Lungs are clear to auscultation Heart is regular rate and rhythm, no appreciable murmur rub Abdomen soft nontender without bruits or masses. Neuro exam other than HEENT exam which is listed as above. He is alert and oriented person place time circumstance he has no dysarthric speech. Sensory exam over his face reveals decreased sensation to light touch over the right cheek and right jaw. Upper extremities reveal slightly decreased sensation to light touch and pinprick over the right forearm and right hand compared to the left. Motor exam over his upper extremities is grossly intact with abduction and abduction at the shoulders as well as normal extension and flexion at the elbows. Right hand grasp is 4+ out of 5 compared to the left. When testing intrinsic muscles of his fingers there is just a hint of weakness compared to the left hand. Lower extremities reveals normal motor strength in gross motor muscle groups including hip flexion and extension and hip abduction and hip adduction and normal extension flexion at the knees as well as normal dorsiflexion plantarflexion at the ankles. Examination for ataxia reveals slight ataxia on the right including right arm and hand. With [id number]-[id number] testing he is somewhat clumsy on the right and with [id number] testing he is also clumsier on the right compared to the left. When testing for extinction there is no extinction on sensory examination of his hands with his eyes closed. Patient has slight pronator drift on the right arm as well as on right leg drift. Babinski exam was equivocal on the right and absent on the left My calculated NIH stroke scale is 6 based on the patient's subtle paresthesias and subtle ataxia on the right. Upon my getting the phone call from the medical/surgical nursing wheel shop supervisor I spoke with my day hospitalist colleague regarding his symptoms earlier in the day and I also spoke with Dr. Clement Brennan, ER attending about obtaining a neuro tele consult. Dr. Brennan facilitated matters by calling radiology and requesting that the patient's CT and CTA of his head neck to be sent to both [facility] at [facility]. In route to the hospital I requested that a stroke protocol be followed. Upon my arrival and upon completion my neuro exam we transfer the patient to the intensive care unit. Both [facility] and [facility] call me back. However I spoke with [facility] and spoke with Dr. Xiao Casey, attending neurologist as well as neurological interventional radiologist fellow Dr. Headley. Dr. Headley's reading of the patient's CTA of his head neck was that he was not convinced that this is a left MCA occlusion. He indicated that there was some visualization beyond M1 but he cannot be certain where this is backfilling from collateral circulation or forward flow. He indicated that there was some venous phase contamination of the arterial study which may have given the impression of an MCA occlusion. Given the patient's subtle symptoms and lack of hemiplegia I would agree that this is probably not a left MCA total occlusion. However because of the patient's stuttering symptoms and concern for an evolving CVA Dr. Casey would like the patient transferred to [facility] for further evaluation. Air ambulance has been requested and is in route to cigar packer and picker the patient. Since my conversation with Dr. Casey I spoken with Dr. Bentley Gilliam with the neurology residents who had further questions including requesting the name of the patient's significant other which is Asiya Mcdowell at [phone]. He also requested that I give IV fluids which I had already ordered since the patient had received CT contrast for his CTA. Dr. Gilliam indicated that they are planning to do further imaging with contrast tonight. Normal saline was initially ordered at 85 mL/h but we are to give this is a liter bolus while were waiting for air ambulance to arrive. Per my discussion with Dr. Casey she did not recommend any further aspirin nor any heparin. Patient is only taken aspirin 81 mg this morning from his home medications and did not receive any aspirin or Plavix since admission. Home Meds and New Rx's Prescriptions: No Action aspirin [Adult Aspirin Regimen] 81 mg tablet,delayed release (DR/EC) 81 mg PO .Every Other Day RF: 0 losartan 100 mg tablet 100 mg PO DAILY Qty: 90 RF: 3 sildenafil (pulm.hypertension) 20 mg tablet 20 mg PO TID PRN (Reason: sexual activity) Qty: 90 RF: 11 hydrocodone-acetaminophen 10-325 mg tablet 0.5 tab PO Q8H MDD 30 mg hydrocodone PRN (Reason: pain) Qty: 30 RF: 0 omeprazole 20 mg capsule,delayed release(DR/EC) 20 mg PO BID RF: 0 hydrochlorothiazide 12.5 mg tablet 12.5 mg PO DAILY Qty: 30 RF: 1 (DME) blood-glucose meter misc See Dose Instructions .ROUTE .MEDSUPPLY Qty: 1 RF: 0 (DME) Blood Glucose Test strip See Dose Instructions .ROUTE .MEDSUPPLY Qty: 10 RF: 0 (DME) lancets misc See Dose Instructions .ROUTE .MEDSUPPLY Qty: 50 RF: 0 (DME) pen needle, diabetic [Lite Touch Insulin Pen [place]] 31 gauge x 3/16 needle See Dose Instructions .ROUTE .MEDSUPPLY Qty: 100 RF: 3 glipizide-metformin 5-500 mg tablet 2 tab PO BID Qty: 360 RF: 3 Lantus Solostar U-100 Insulin 100 unit/mL (3 mL) insulin pen 42 unit SC QAM Qty: 15 RF: 10 Discharge Instructions Instructions: Ischemic Stroke (DC) Referrals: Xiao Casey [ NON-[facility] STAFF PHYSICIAN] - Activity:: bedrest Diet:: npo except meds Discharge Orders Discharge Orders: Discharge Order (Routine); Ordered 02/19/21 Ordered By: Charly Bay DS: Summary Time Spent with Patient providing and/or coordinating discharge services: Greater than 30 minutes Status at Discharge Functional status at discharge: bed bound Overall status at discharge: patient is not back to baseline Mental Status: mental status grossly normal Speech and Movement: speech clear and slowed movement Mood: congruent mood Affect: normal affect Exam Narrative Exam Narrative: BP 161/91, pulse 75 sinus rhythm, respiratory rate 18, afebrile, O2 saturation 96% on room air. HEENT reveals no overt facial asymmetry but he has some subtle decrease in the right nasolabial fold and the right corner of his mouth which disappears with smiling. No overt facial mimetic muscle weakness. No weakness with muscles of mastication. Full extraocular motions intact. Visual oliver grossly intact to confrontation. Full extraocular motions intact. Oropharynx is noninjected he has symmetrical movement of his palate and his uvula. Gag reflex is intact. Neck is supple nontender no JVD normal carotid pulses Lungs are clear to auscultation Heart is regular rate and rhythm, no appreciable murmur rub Abdomen soft nontender without bruits or masses. Neuro exam other than HEENT exam which is listed as above. He is alert and oriented person place time circumstance he has no dysarthric speech. Sensory exam over his face reveals decreased sensation to light touch over the right cheek and right jaw. Upper extremities reveal slightly decreased sensation to light touch and pinprick over the right forearm and right hand compared to the left. Motor exam over his upper extremities is grossly intact with abduction and abduction at the shoulders as well as normal extension and flexion at the elbows. Right hand grasp is 4+ out of 5 compared to the left. When testing intrinsic muscles of his fingers there is just a hint of weakness compared to the left hand. Lower extremities reveals normal motor strength in gross motor muscle groups including hip flexion and extension and hip abduction and hip adduction and normal extension flexion at the knees as well as normal dorsiflexion plantarflexion at the ankles. Examination for ataxia reveals slight ataxia on the right including right arm and hand. With djjwdj-aj-ehia testing he is somewhat clumsy on the right and with [id number] testing he is also clumsier on the right compared to the left. When testing for extinction there is no extinction on sensory examination of his hands with his eyes closed. Patient has slight pronator drift on the right arm as well as on right leg drift. Babinski exam was equivocal on the right and absent on the left My calculated NIH stroke scale is 6 based on the patient's subtle paresthesias and subtle ataxia on the right. Psych Mental Status: mental status grossly normal Speech and Movement: speech clear and slowed movement Mood: congruent mood Affect: normal affect DS: Data Vitals/I&O Vitals and I&O: Vital Signs Temperature 36.4 C L 02/19/21 19:27 Temperature Source Tympanic 02/19/21 19:27 Pulse 75 02/19/21 19:27 Pulse Rhythm Regular 02/19/21 14:54 Respiratory Rate 18 02/19/21 19:27 Respiratory Effort 02/19/21 19:20 Respiratory Depth Normal 02/19/21 14:54 Respiratory Pattern Normal 02/19/21 14:54 Blood Pressure 161/91 H 02/19/21 19:27 Blood Pressure Position Sitting 02/19/21 12:33 Pulse Oximetry 96 02/19/21 19:27 Oxygen Delivery Method Room Air 02/19/21 19:27 Oxygen Flow Rate 0 02/19/21 19:27 Pain Level 0 02/19/21 19:27 Comment 02/19/21 19:27 Intake & Output 02/18/21 02/19/21 02/19/21 23:59 11:59 23:59 Intake Total 686.667 / 686.667 Balance 686.667 / 686.667 Weight 93.2 kg Intake: IV 66.667 / 66.667 Oral 620 / 620 Other: Urine Appearance Clear Comment Patient voided in the toilet independently. Voiding Methods Toilet Data Completed and Pending Labs on day of discharge: Labs from last 24 hours 02/19/21 02/19/21 02/19/21 20:15 19:30 14:20 WBC RBC Hgb Hct MCV MCH MCHC RDW Plt Count MPV Immature Gran % Neutrophils % Lymphocytes % Monocytes % Eosinophils % Basophils % Nucleated RBC % Absolute Neutrophils Absolute Lymphocytes Absolute Monocytes Absolute Eosinophils Absolute Basophils PT 10.2 INR 1.0 APTT 23.9 Sodium Potassium Chloride Carbon Dioxide Anion Gap BUN Creatinine Estimated GFR/1.73 m2 Glucose Calcium Magnesium Total Bilirubin AST ALT Alkaline Phosphatase Troponin I < 0.05 Total Protein Albumin COVID-19 Source Nasal/Nares SARS-CoV-2 (PCR) Negative 02/19/21 02/19/21 12:47 12:47 WBC 8.98 RBC 5.42 Hgb 15.6 Hct 46.8 MCV 86.3 MCH 28.8 MCHC 33.3 RDW 12.8 Plt Count 277 MPV 9.4 Immature Gran % 0.2 Neutrophils % 69.6 Lymphocytes % 20.9 Monocytes % 7.1 Eosinophils % 1.9 Basophils % 0.3 Nucleated RBC % 0 Absolute Neutrophils 6.24 Absolute Lymphocytes 1.88 Absolute Monocytes 0.64 Absolute Eosinophils 0.17 Absolute Basophils 0.03 PT INR APTT Sodium 142 Potassium 4.0 Chloride 104 Carbon Dioxide 29.2 Anion Gap 8.8 BUN 18 Creatinine 1.1 Estimated GFR/1.73 m2 >= 60.00 Glucose 106 Calcium 9.0 Magnesium 1.6 L Total Bilirubin 0.5 AST 21 ALT 43 Alkaline Phosphatase 66 Troponin I < 0.05 Total Protein 7.6 Albumin 3.8 COVID-19 Source SARS-CoV-2 (PCR) [facility] Medical History Adenomatous polyposis Adenomatous polyps Bile reflux esophagitis CAD (coronary artery disease) Chronic back pain (~06/27/18) Chronic GERD Chronic right shoulder pain (~10/14/16) AC JOINT RECONSTRUCTION Diabetes mellitus, type II (~10/14/16) DJD (degenerative joint disease), lumbar MRI 11/06/17 and 06/10/18 Erectile dysfunction GERD (gastroesophageal reflux disease) Hx of fracture of rib Hyperlipidemia Hypertension Insomnia Left carpal tunnel syndrome Medial meniscus tear (~03/03/18) Left Knee Pulmonary nodule less than 1 cm in diameter with low risk for malignant neoplasm Incidental finding on CT scan, March 2020, needs 12 month recheck Situational depression TIA (transient ischemic attack) (~1998) Surgical History H/O heart artery stent (~2012) patient reports 6 stents total. Last stent placed: 2010 History of cholecystectomy History of colonoscopy (~08/2019) History of coronary artery bypass graft (~1997) X5. FOLLOWS UP WITH DR. JEREZ, LAST VISIT WAS 05/26/191997 History of esophagogastroduodenoscopy (EGD) (~08/2019) History of medial meniscus repair of left knee History of tonsillectomy and adenoidectomy Hx of CABG Right carpal tunnel syndrome s/p ECTR DOS: 08/07/20 Status post AC joint reconstruction right, w/allograft Family History Mother Hypertension Diabetes Ovarian cancer Father Hypertension Diabetes Lymphoma Sister Heart disease Social History Smoking/Tobacco Use Status: Former Tobacco Use Tobacco: How many years used: 20 Smoking risk assessment performed?: Yes Alcohol Intake: current Alcohol Intake frequency: holidays/special occasions only Drug use: Occasionally Substance use type: marijuana Household members: other Details: roomate Housing: apartment Communication Needs: Corrective Lenses current occupation: UnEmployed Current gender identity: male What is your relationship status?: Panel score (0-1 are the most socially isolated patients): 0 What type of physical activity do you participate in: none Seatbelt use: always Drive intox or ride w/intox courtesy van driver: No Working smoke detector in home: Yes Carbon monox detector in home: Yes Do you feel safe at home: Yes Do you feel safe in your relationship?: Yes
--- NOTE | 2021-02-20 17:30 | PT.INDS ---
Date of service: 02/20/21 Time of Service: 13:11 PT Notes Visit Reasons: Cerebrovascular accident Physical Therapy Inpatient Discharge Summary Date: 02/20/2021 Dates of Service: 02/19/2021 This is a clinical summary of care provided for the duration of dates listed above. No charge was made in the completion of this documentation. Referring Doctor: Alberto Fish MD PT Orders: PT CONSULT: Eval/treat Precautions: Fall. Standard. Activity as tolerated. Patient Profile/Admitting Diagnosis: José is a 70-year-old male who presented to the ED today with right side arm and leg weakness, dull global headache, and complaint of being woozy. Patient is diagnosed with left-sided lacunar cerebrovascular accident and is being admitted for observation and medical management. PMHX: Medical History Adenomatous polyposis Adenomatous polyps Bile reflux esophagitis CAD (coronary artery disease) Chronic back pain (~06/27/18) Chronic GERD Chronic right shoulder pain (~10/14/16) AC JOINT RECONSTRUCTION Diabetes mellitus, type II (~10/14/16) DJD (degenerative joint disease), lumbar MRI 11/06/17 and 06/10/18 Erectile dysfunction GERD (gastroesophageal reflux disease) Hx of fracture of rib Hyperlipidemia Hypertension Insomnia Left carpal tunnel syndrome Medial meniscus tear (~03/03/18) Left Knee Pulmonary nodule less than 1 cm in diameter with low risk for malignant neoplasm Incidental finding on CT scan, March 2020, needs 12 month recheck Situational depression TIA (transient ischemic attack) (~1998) Surgical History H/O heart artery stent (~2012) patient reports 6 stents total. Last stent placed: 2010 History of cholecystectomy History of colonoscopy (~08/2019) History of coronary artery bypass graft (~1997) X5. FOLLOWS UP WITH DR. JEREZ, LAST VISIT WAS 05/26/191997 History of esophagogastroduodenoscopy (EGD) (~08/2019) History of medial meniscus repair of left knee History of tonsillectomy and adenoidectomy Hx of CABG Right carpal tunnel syndrome s/p ECTR DOS: 08/07/20 Status post AC joint reconstruction right, w/allograft Social History/Home Situation: Lives with in a private home with 4 steps to enter with rails on both sides. Independent with all aspects of ADLs prior to admission. 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 Equipment Owned/DME: None Subjective: Snacking Objective: General Observation: NT. See most recent [employer] notes. Mental Status: NT. See most recent [employer] notes. Pain: NT. See most recent [employer] notes. ROM: Right Upper Extremity: Shoulder Flexion WFL. Shoulder abduction WFL. Elbow flexion WFL. Wrist flexion WFL. Functional opening and closing of hand WFL. Left Upper Extremity: Shoulder Flexion WFL. Shoulder abduction WFL. Elbow flexion WFL. Wrist flexion WFL. Functional opening and closing of hand WFL. Right Lower Extremity: Hip flexion WFL. Hip abduction WFL. Knee flexion WFL. Ankle dorsiflexion WFL. Ankle plantarflexion WFL. Left Lower Extremity: Hip flexion WFL. Hip abduction WFL. Knee flexion WFL. Ankle dorsiflexion WFL. Ankle plantarflexion WFL. Strength: Right Upper Extremity: Shoulder flexors 5/5. Shoulder abductors 5/5. Elbow flexors 4+/5. Elbow extensors 5/5. Quality Lead strong. Left Upper Extremity: Shoulder flexors 5/5. Shoulder abductors 5/5. Elbow flexors 5/5. Elbow extensors 5/5. Quality Lead strong. Right Lower Extremity: Hip flexors 4-/5. Hip abductors 4/5. Knee flexors 5/5. Knee extensors 4/5. Ankle dorsiflexors 4+/5. Ankle plantarflexors 5/5. Left Lower Extremity: Hip flexors 5/5. Hip abductors 5/5. Knee flexors 5/5. Knee extensors 5/5. Ankle dorsiflexors 5/5. Ankle plantarflexors 5/5. Bed Mobility/Transfers: Rolling independent Supine to sit independent Sit to supine independent Sit to stand standby assist Stand to sit standby assist Bed to reclining chair standby assist Reclining chair to bed standby assist Gait: Guided patient with level surface ambulation of 20 feet requiring standby assist with no assistive device. No buckling in L knee. No LOB. NO SOB. Report of wooziness did not increase. Balance: Static Sitting: Normal Dynamic Sitting: Normal Static Standing: Good Dynamic Standing: Good NEURO: Romberg Test: Negative. Minimal swaying seen initially. 4-stage Balance Test: Able to maintain feet together, semi-tandem, and full tandem stance for 10 seconds but is unable to do so with one-leeged stance stating that his R foot seems to be unstable. Coordination Test: No deficits seen except for a little slowed execution of [id number] Special Tests: Mobility Limitations Standardized Measure [facility] AM-PAC 6 clicks Basic Mobility Inpatient Short Form: Raw Score: 23 CMS Score: 11% deficit Informed Consent/Education: Patient was instructed in purpose of PT consult and plan of care. Agreeable to proceed with established PT POC to achieve personal goals. Assessment: Direct transfer to [facility] for immediate medical management. Does not require an assistive device to walk. Minimal difference in R elbow flexor, R hip flexor/R knee extensor and R ankle dorsiflexor strength compared to the L side detected. Numbness in R LE is contributing to sensation of instability in the R knee despite minimal strength disparity in knee extension noted. PT can focus on balance retraining while on admission which outpatient PT may be able to address upon discharge. 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 Patient continues to present with clinical signs and symptoms consistent with current/admitting diagnoses that have resulted to mobility limitations, gait instability, generalized weakness, and overall ADL decline as demonstrated by the following impairment level findings: 1. Decreased strength to R LE muscle groups as above 2. Impaired standing balance 3. Impaired activity tolerance 4. Limitation of joint range of motion in R hip flexion 5. Numbness in R LE 6. Feeling of instability in R knee Impairments are continuing to contribute to the following functional limitations: 1. Difficulty with ambulation 2. Increased completion time for mobility ADL performance 3. Increased risk for falls 4. Difficulty with managing steps alone safely Goals: Goals X1 week 1. Stand-Sit independent NOT MET 2. Bed-Chair independent NOT MET 3. Chair-Bed independent NOT MET 4. Independent gait on level surface with use of no assistive device for at least 1000 feet without report of pain nor dyspnea NOT MET 5. Independent stair negotiation while holding onto B rails for at least 5 steps without report of pain nor dyspnea NOT MET 6. Independent with home exercise program NOT MET 7. Normal static and dynamic standing balance/tolerance NOT MET TREATMENT CODE/TIME: NC Thank you for the opportunity to participate in the care of this patient. Luz Maria Malin PT, DPT, CLT [facility] [place], [place]
== END 2021-02-19 22:15 | disposition short-term general hospital (02) | DRG 66 ==
LOC: ER 14:39 → MS 14:52 → ICU 20:43
PROVIDERS: Emergency Medicine; Internal Medicine; Admitting Provider Family Medicine; Emergency Provider Physician Assistant; PCP Family Medicine; Visit Provider Family Medicine
DX: I63.512 Cerebral infarction due to unspecified occlusion or stenosis of left middle cerebral artery; K21.00 Gastro-esophageal reflux disease with esophagitis, without bleeding; I25.10 Atherosclerotic heart disease of native coronary artery without angina pectoris; Z95.1 Presence of aortocoronary bypass graft; G89.29 Other chronic pain; M54.9 Dorsalgia, unspecified; E11.9 Type 2 diabetes mellitus without complications; M47.816 Spondylosis without myelopathy or radiculopathy, lumbar region; E78.5 Hyperlipidemia, unspecified; I10 Essential (primary) hypertension; G47.00 Insomnia, unspecified; Z95.5 Presence of coronary angioplasty implant and graft; Z79.4 Long term (current) use of insulin
CPT/HCPCS: 36415; 36416; 70496; 70498; 80053; 82962; 87635; 93005; 97161; 97530; 99291; 70450; 71045; 83735; 84484; 85025; 85610; 85730; 93010; 99223; G0378; J1644; J3490

== ENCOUNTER → 2021-02-20 07:26 | Outpatient (BNVA) | payer OTHER, SELFPAY | PROVIDERS: PCP Family Medicine; Referring Provider Family Medicine; Visit Provider Psychiatry & Neurology Neurology | DX: R69 Illness, unspecified (principal) ==

== ENCOUNTER 2021-04-14 20:04 | Observation (INO) | payer OTHER, MEDICAID, SELFPAY ==
[2021-04-14] VITALS (10 sets, daily range): BP systolic 125–154; BP diastolic 64–105; PULSE 67–76; RESP 18; TEMP 36.1; O2SAT 94–97
--- NOTE | 2021-04-14 20:00 | RT.EKG_ITS ---
APPROVED REPORT Exam: Resting ECG Reason for Exam: stroke Patient Location: E HR:70 bpm ECG Measurements Heart Rate 70 AXIS NV 181 P 16 QRSd 95 QRS 20 QT 394 T 25 QTc 426 Conclusion Sinus rhythm...normal P axis, V-rate 60- 99 Probable left atrial enlargement...P >50mS, <-0.10mV V1 Inferior infarct, old...Q >35mS, II III aVF
--- NOTE | 2021-04-14 20:45 | DI.CT_ITS ---
Exam(s) CT HEAD WO EXAM: CT HEAD WO CLINICAL HISTORY: transient speech difficulty. TECHNIQUE: Imaging Protocol: Axial computed tomography images with coronal and sagittal reformatted images were created and reviewed COMPARISON: CT CT BRAIN NECK CTA from 02/19/2021 FINDINGS: Ventricles and Extra axial spaces: Normal in size and morphology for the patient's age. Hemorrhage: None. Cerebral parenchyma: Normal. Midline shift: None. Brainstem/Cerebellum: Normal. Calvarium: Normal. Visualized Paranasal sinuses/Mastoids: Clear. Soft Tissues: Unremarkable. IMPRESSION: No acute intracranial process. RADIATION DOSE DELIVERED: 799.77mGy.cm Total DLP DATA REPOSITORY: All CT scans at this facility are submitted to the National Radiology Data Registry (NRDR) Dose Index Registry (DIR) with the [employer] (ACR). RADIATION OPTIMIZATION: All CT scans at this facility use at least one of these dose optimization te chniques: automated exposure control; mA and/or kV adjustment per patient size (includes targeted exa ms where dose is matched to clinical indication); or iterative reconstruction.
--- NOTE | 2021-04-14 20:59 | ED.GENADUL_ITS ---
Discharge Plan Disposition Patient Disposition: HOME Condition: Improving Discharge Details Clinical Impression: TIA (transient ischemic attack) Primary Care Provider: Vinayak Jackson ED Provider: Leo Maradiaga Home Meds and New Rx's Prescriptions: No Action aspirin [Adult Aspirin Regimen] 81 mg tablet,delayed release (DR/EC) 81 mg PO .Every Other Day RF: 0 hydrocodone-acetaminophen 10-325 mg tablet 0.5 tab PO Q8H MDD 30 mg hydrocodone PRN (Reason: pain) Qty: 30 RF: 0 simvastatin 10 mg tablet 10 mg PO DAILY RF: 0 losartan 100 mg tablet 100 mg PO DAILY Qty: 90 RF: 3 Hold Instructions: Changed by Provider sildenafil (pulm.hypertension) 20 mg tablet 20 mg PO TID PRN (Reason: sexual activity) Qty: 90 RF: 11 omeprazole 20 mg capsule,delayed release(DR/EC) 20 mg PO DAILY RF: 0 (DME) blood-glucose meter misc See Dose Instructions .ROUTE .MEDSUPPLY Qty: 1 RF: 0 (DME) Blood Glucose Test strip See Dose Instructions .ROUTE .MEDSUPPLY Qty: 10 RF: 0 (DME) lancets misc See Dose Instructions .ROUTE .MEDSUPPLY Qty: 50 RF: 0 glipizide-metformin 5-500 mg tablet 2 tab PO BID Qty: 360 RF: 3 Lantus Solostar U-100 Insulin 100 unit/mL (3 mL) insulin pen 42 unit SC QAM Qty: 15 RF: 10 (DME) pen needle, diabetic [Lite Touch Insulin Pen [place]] 31 gauge x 3/16 needle See Dose Instructions .ROUTE .MEDSUPPLY Qty: 100 RF: 3 Medical Decision Making 70-year-old male who had a stroke in the end of January with residual right-sided weakness. He has been recovering at home but under some stressors he has had to move his apartment. Tonight while cooking dinner he suddenly felt blurriness of vision, a dizzy sensation, and is stated he had difficulty speaking for approximately 10 minutes. The blurry vision and difficulty with speech resolved and he now feels improved without persistent deficit. Patient arrives with unremarkable vital signs, systolic blood pressure 130-150s. He has prestanding discrete weakness of the right lower extremity, otherwise his neurologic examination is within normal limits. Concern for breakthrough stroke or TIA. Patient had IV access established, screening labs and EKG obtained, he is referred for scan of the head. CT reveals no acute intracranial abnormality. Laboratories note white count 10, hematocrit 45, platelets 279 INR 1.1, chemistries unremarkable, troponin negative The patient speech difficulty has resolved. Given that he is high risk for recurrent stroke, will discuss admission with Dr. Villagomez. [facility] General Date/Time Provider Initiated Documentation: 04/14/21 20:37 . Limitations to Documentation: no limitations . Information obtained by: patient . History of Present Illness 70 year old M presents to the emergency department with the chief complaint of Transient d ifficulty with speech, vision changes, described as moderate, and is localized to the head. Patient reports no radiation. Patient started experiencing this minute(s) and it has been now resolved. No relieving factors improve symptom(s), No exacerbating factors reported . Patient notes other (Difficulty with speech, blurry vision); denies syncope and weakness. Patient did receive the following treatments prior to arrival, none Related Data Home Medications Medication Instructions Recorded Confirmed blood sugar diagnostic #10 each 01/12/19 02/27/21 blood-glucose meter #1 each 01/12/19 02/27/21 lancets #50 each 01/12/19 02/27/21 glipizide 5 mg-metformin 500 mg 2 tab PO BID #360 tab 05/18/20 04/14/21 tablet losartan 100 mg tablet 100 mg PO DAILY #90 tab 06/10/20 04/14/21 sildenafil (pulm.hypertension) 20 20 mg PO TID PRN #90 tab 09/02/20 04/14/21 mg tablet insulin glargine 100 unit/mL (3 42 unit SC QAM #15 ml 11/28/20 04/14/21 mL) subcutaneous pen aspirin 81 mg tablet,delayed 81 mg PO .Every Other Day tab 12/16/20 04/14/21 release omeprazole 20 mg capsule,delayed 20 mg PO DAILY cap 12/16/20 04/14/21 release simvastatin 10 mg tablet 10 mg PO DAILY 02/24/21 04/14/21 hydrocodone 10 mg-acetaminophen 0.5 tab PO Q8H PRN #30 tab MDD 30 02/27/21 04/14/21 325 mg tablet mg hydrocodone pen needle, diabetic 31 gauge x #100 each 03/24/2110/15 Previous Rx's Medication Instructions Recorded glipizide 5 mg-metformin 500 mg 2 tab PO BID #360 tab 05/18/20 tablet losartan 100 mg tablet 100 mg PO DAILY #90 tab 06/10/20 sildenafil (pulm.hypertension) 20 20 mg PO TID PRN #90 tab 09/02/20 mg tablet insulin glargine 100 unit/mL (3 42 unit SC QAM #15 ml 11/28/20 mL) subcutaneous pen hydrocodone 10 mg-acetaminophen 0.5 tab PO Q8H PRN #30 tab MDD 30 02/27/21 325 mg tablet mg hydrocodone pen needle, diabetic 31 gauge x #100 each 03/24/2110/15 Allergies Allergy/AdvReac Type Severity Reaction Status Date / Time ciprofloxacin Allergy Intermediate Hives Verified 04/14/21 20:20 atorvastatin [From Lipitor] Allergy Unknown Very ill Verified 04/14/21 20:20 Esiirvi-Ael-Nyw Reductase AdvReac Intermediate Verified 04/14/21 20:20 Inhibitor General Stated Complaint: Dizzy/Sync KONRAD: 2 Review of Systems Narrative: No chest pain or palpitations, no fall, no headache, no recent illness. 8 systems reviewed and otherwise negative [facility] Medical History Adenomatous polyposis Adenomatous polyps Bile reflux esophagitis CAD (coronary artery disease) Chronic back pain (~06/27/18) Chronic GERD Chronic right shoulder pain (~10/14/16) AC JOINT RECONSTRUCTION Diabetes mellitus, type II (~10/14/16) DJD (degenerative joint disease), lumbar MRI 11/06/17 and 06/10/18 Erectile dysfunction GERD (gastroesophageal reflux disease) Hx of fracture of rib Hyperlipidemia Hypertension Insomnia Left carpal tunnel syndrome Medial meniscus tear (~03/03/18) Left Knee Pulmonary nodule less than 1 cm in diameter with low risk for malignant neoplasm Incidental finding on CT scan, March 2020, needs 12 month recheck Situational depression TIA (transient ischemic attack) (~1998) Surgical History H/O heart artery stent (~2012) patient reports 6 stents total. Last stent placed: 2010 History of cholecystectomy History of colonoscopy (~08/2019) History of coronary artery bypass graft (~1997) X5. FOLLOWS UP WITH DR. JEREZ, LAST VISIT WAS 05/26/191997 History of esophagogastroduodenoscopy (EGD) (~08/2019) History of medial meniscus repair of left knee History of tonsillectomy and adenoidectomy Hx of CABG Right carpal tunnel syndrome s/p ECTR DOS: 08/07/20 Status post AC joint reconstruction right, w/allograft Family History Mother Hypertension Diabetes Ovarian cancer Father Hypertension Diabetes Lymphoma Sister Heart disease Social History Smoking/Tobacco Use Status: Former Tobacco Use Tobacco: How many years used: 20 Smoking risk assessment performed?: Yes Alcohol Intake: current Alcohol Intake frequency: holidays/special occasions only Drug use: Occasionally Substance use type: marijuana Household members: other Details: roomate Housing: apartment Communication Needs: Correct[employer] Lenses current occupation: UnEmployed Current gender identity: male What is your relationship status?: Panel score (0-1 are the most socially isolated patients): 0 What type of physical activity do you participate in: none Seatbelt use: always Drive intox or ride w/intox wheelchair driver: No Working smoke detector in home: Yes Carbon monox detector in home: Yes Do you feel safe at home: Yes Do you feel safe in your relationship?: Yes Exam Narrative Exam Narrative: GEN: awake, alert, oriented 3. Pleasant, well groomed, interactive. HEAD: Normocephalic, atraumatic ENT: Mucous membranes moist, oropharynx unremarkable, External ear exam unremarkable EYES: PERRL, EOMI NECK: Full ROM, no TATYANA, no menigismus CHEST/RESP: Nontender, clear to auscultation bilateral, no wheeze/rhonchi/rales CARDIOVASCULAR: RRR, no murmur, rub sumeet. 2+ Rad pulse bilateral ABDOMEN: Soft, nontender, no mass. +Bowel sounds EXT: Full ROM, no edema, no rash Neuro: Cranial nerves II through XII intact. Right leg with mild 5 - weakness against resistance, otherwise grossly normal neurologic exam, conversant, interactive. Psych: Speech fluent, thoughts congruent, affect normal Course Vital Signs Vital signs: Vital Signs Temperature 36.1 C L 04/14/21 20:13 Pulse 76 04/14/21 20:13 Respiratory Rate 18 04/14/21 20:13 Pulse Oximetry 96 04/14/21 20:13 Temperature 36.1 C L 04/14/21 20:13 Temperature Source Temporal Artery Scan 04/14/21 20:13 Pulse 76 04/14/21 20:13 Respiratory Rate 18 04/14/21 20:13 Blood Pressure Position Supine 04/14/21 20:13 Pulse Oximetry 96 04/14/21 20:13 Oxygen Delivery Method Room Air 04/14/21 20:13 Oxygen Flow Rate 0 04/14/21 20:13 Pain Level 0 04/14/21 20:13 Comment 04/14/21 20:13
[2021-04-14 22:00] LABS: Abs Immature Grans 0.06 10^3/uL (0.0-0.06); Absolute Basophil Count 0.03 10^3/uL (0.0-0.2); Absolute Eosinophil Count 0.22 10^3/uL (0.0-0.7); Absolute Lymphocyte Count 2.41 10^3/uL (1.2-3.4); Absolute Monocyte Count 0.79 10^3/uL (0.1-0.8); Absolute Neutrophil Count 7.07 10^3/uL (1.2-6.7); Basophils % 0.3; Eosinophils % 2.1; HCT 45.5 % (40.0-50.0); Immature Grans % 0.6; Lymphocytes % 22.8; MCH 28.1 pg (27.0-33.0); MCV 85.2 fL (80-95); MPV 9.5 fL (8.0-11.0); Monocytes % 7.5; Neutrophils % 66.7; Nucleated RBC 0 %; Platelet Count 279 10^3/uL (130-400); RBC 5.34 10^6/uL (4.36-5.78); RDW 12.9 % (11.8-14.1); RDW-SD 39.5 fL; WBC 10.58 10^3/uL (4.4-10.8)
[2021-04-14 22:18] LABS: INR 1.1 (0.9-1.1); Prothrombin Time 11.3 sec (9.3-11.0)
[2021-04-14 22:20] LABS: Magnesium 1.7 mg/dL (1.8-2.4)
[2021-04-14 22:26] LABS: ALT 42 U/L (16-63); AST 27 U/L (15-37); Albumin 3.8 g/dL (3.4-5.0); Alkaline Phosphatase 58 U/L (46-116); Anion Gap 9.5 mmol/L (3-11); BUN 18 mg/dL (7-18); Bilirubin, Total 0.5 mg/dL (0.2-1.0); CO2 26.5 mmol/L (21.0-32.0); Calcium 8.8 mg/dL (8.5-10.1); Chloride 104 mmol/L (98-107); Glucose 96 mg/dL (74-106); Potassium 3.8 mmol/L (3.5-5.1); Sodium 140 mmol/L (136-145); Total Protein 7.5 g/dL (6.4-8.2)
[2021-04-14 22:27] LABS: Troponin I < 0.05 ng/mL (<0.06)
[2021-04-14] MEDS: HYDROcodone 5/Acetaminophen 325 TAB PO (22:30)
--- NOTE | 2021-04-14 22:34 | DI.VRAD_ITS ---
PROCEDURE INFORMATION: Exam: CT Head Without Contrast Exam date and time: 04/14/2021 9:00 PM Age: 70 years old Clinical indication: Other: Transient speech difficulty TECHNIQUE: Imaging protocol: Computed tomography of the head without contrast. COMPARISON: CT HEAD - STROKE PROTOCOL 02/19/2021 12:40 PM FINDINGS: Brain: Normal. No hemorrhage. Unremarkable white matter. No mass effect. Cerebral ventricles: No ventriculomegaly. Paranasal sinuses: Visualized sinuses are unremarkable. No fluid levels. Mastoid air cells: Visualized mastoid air cells are well aerated. Bones/joints: Unremarkable. No acute fracture. Soft tissues: Unremarkable. IMPRESSION: No acute intracranial abnormality. Dictated and Authenticated by: Norm Araujo MD. Ordering:RULA Bailey MD
--- NOTE | 2021-04-14 23:19 | HPE_ITS ---
Date of service: 04/14/21 Time of Service: 23:20 Assessment and Plan Assessment and plan (1) TIA (transient ischemic attack): Status: Acute Assessment and plan: I believe this was likely a TIA involving left hemisphere and causing transient aphasia. I would note though a distinctly atypical feature, a so-called positive symptom, involving the white light, though his description is rather vague (even this though was described with a laterality), raising question of migraine, though he has no history of such and no other typical features. Still I would not entirely exclude this possibility. In any case I think TIA remains the most likely diagnosis. Will give full dose ASA and add Plavix. Will continue statin. May be worth repeating CTA or carotid U/S, will also maintain on tely. Lastly advised he may wish to work on stress manage,ment as I think it not unlikely this may have been a contributing factor. History of Present Illness History of Present Illness Chief Complaint: transient speech disturbance Narrative: 70 male with h/o CVA 2 months SPARE FIXER, with minimal residual right sided sensory loss. CTA at the time demonstrated left MCA occlusion. Tonight had sudden onset of indescribable sense of dizziness (not vertiginous) followed by vague sense of a white light (to his right he thinks) and then more explicitly an inability to say specific words, though he knew what he wanted to say. was witness to this and confirms essential elements of story. Spell lasted 15-20 minutes and he then came to ER for evaluation. In ER w/u unremarkable, including negative head CT. No LAU, nausea or vomiting. Feels his usual self at present. Is on baby ASA and low dose statin (states he is intolerant of higher doses due to GI upset). States he was on Plavix for two weeks after recent stroke. Reports a lot of recent stress due to need to find housing and he thinks this was a contributing factor. Review of Systems All systems reviewed & are unremarkable except as noted in HPI and below PFSH Medical History Adenomatous polyposis Adenomatous polyps Bile reflux esophagitis CAD (coronary artery disease) Chronic back pain (~06/27/18) Chronic GERD Chronic right shoulder pain (~10/14/16) AC JOINT RECONSTRUCTION Diabetes mellitus, type II (~10/14/16) DJD (degenerative joint disease), lumbar MRI 11/06/17 and 06/10/18 Erectile dysfunction GERD (gastroesophageal reflux disease) Hx of fracture of rib Hyperlipidemia Hypertension Insomnia Left carpal tunnel syndrome Medial meniscus tear (~03/03/18) Left Knee Pulmonary nodule less than 1 cm in diameter with low risk for malignant neoplasm Incidental finding on CT scan, March 2020, needs 12 month recheck Situational depression TIA (transient ischemic attack) (~1998) Surgical History H/O heart artery stent (~2012) patient reports 6 stents total. Last stent placed: 2010 History of cholecystectomy History of colonoscopy (~08/2019) History of coronary artery bypass graft (~1997) X5. FOLLOWS UP WITH DR. JEREZ, LAST VISIT WAS 05/26/191997 History of esophagogastroduodenoscopy (EGD) (~08/2019) History of medial meniscus repair of left knee History of tonsillectomy and adenoidectomy Hx of CABG Right carpal tunnel syndrome s/p ECTR DOS: 08/07/20 Status post AC joint reconstruction right, w/allograft Family History Mother Hypertension Diabetes Ovarian cancer Father Hypertension Diabetes Lymphoma Sister Heart disease Social History Smoking/Tobacco Use Status: Former Tobacco Use Tobacco: How many years used: 20 Smoking risk assessment performed?: Yes Alcohol Intake: current Alcohol Intake frequency: holidays/special occasions only Drug use: Occasionally Substance use type: marijuana Household members: other Details: roomate Housing: apartment Communication Needs: Corrective Lenses current occupation: UnEmployed Current gender identity: male What is your relationship status?: Panel score (0-1 are the most socially isolated patients): 0 What type of physical activity do you participate in: none Seatbelt use: always Drive intox or ride w/intox 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 Working smoke detector in home: Yes Carbon monox detector in home: Yes Do you feel safe at home: Yes Do you feel safe in your relationship?: Yes Meds Allergies and Home Medications Allergies Allergy/AdvReac Type Severity Reaction Status Date / Time ciprofloxacin Allergy Intermediate Hives Verified 04/14/21 20:20 atorvastatin [From Lipitor] Allergy Unknown Very ill Verified 04/14/21 20:20 Wptluqd-Yim-Yyn Reductase AdvReac Intermediate Verified 04/14/21 20:20 Inhibitor Home Medications Medication Instructions Recorded Confirmed Type blood sugar diagnostic #10 each 01/12/19 02/27/21 History blood-glucose meter #1 each 01/12/19 02/27/21 History lancets #50 each 01/12/19 02/27/21 History glipizide 5 mg-metformin 500 mg 2 tab PO BID #360 tab 05/18/20 04/14/21 Rx tablet losartan 100 mg tablet 100 mg PO DAILY #90 tab 06/10/20 04/14/21 Rx sildenafil (pulm.hypertension) 20 20 mg PO TID PRN #90 tab 09/02/20 04/14/21 Rx mg tablet insulin glargine 100 unit/mL (3 42 unit SC QAM #15 ml 11/28/20 04/14/21 Rx mL) subcutaneous pen aspirin 81 mg tablet,delayed 81 mg PO .Every Other Day tab 12/16/20 04/14/21 History release omeprazole 20 mg capsule,delayed 20 mg PO DAILY cap 12/16/20 04/14/21 History release simvastatin 10 mg tablet 10 mg PO DAILY 02/24/21 04/14/21 History hydrocodone 10 mg-acetaminophen 0.5 tab PO Q8H PRN #30 tab MDD 30 02/27/21 04/14/21 Rx 325 mg tablet mg hydrocodone pen needle, diabetic 31 gauge x #100 each 03/24/21 Rx 3/16 Exam Narrative Exam Narrative: 132/84, 76, 36.1, 18, 96% RA. HEENT atraumatic; neck supple w/o bruit; lungs clear; heart RRR; abdomen soft and NT; extremities w/o edema, pulses 2+/=; neuro Ox3, lucid, no language deficits; EOMI, PERRL, oliver full, no facial asymmetry motor 5/5, sensory slight loss touch RLE (baseline he reports) Results Labs Result diagrams: 04/14/21 21:47 04/14/21 21:47 Labs: Laboratory Results - last 24 hr 04/14/21 04/14/21 04/14/21 21:47 21:47 21:47 WBC RBC Hgb Hct MCV MCH MCHC RDW Plt Count MPV Immature Gran % Neutrophils % Lymphocytes % Monocytes % Eosinophils % Basophils % Nucleated RBC % Absolute Neutrophils Absolute Lymphocytes Absolute Monocytes Absolute Eosinophils Absolute Basophils PT 11.3 H INR 1.1 APTT 25.0 Sodium 140 Potassium 3.8 Chloride 104 Carbon Dioxide 26.5 Anion Gap 9.5 BUN 18 Creatinine 1.0 Estimated GFR/1.73 m2 >= 60.00 Glucose 96 Calcium 8.8 Magnesium 1.7 L Total Bilirubin 0.5 AST 27 ALT 42 Alkaline Phosphatase 58 Troponin I < 0.05 Total Protein 7.5 Albumin 3.8 04/14/21 21:47 WBC 10.58 RBC 5.34 Hgb 15.0 Hct 45.5 MCV 85.2 MCH 28.1 MCHC 33.0 RDW 12.9 Plt Count 279 MPV 9.5 Immature Gran % 0.6 Neutrophils % 66.7 Lymphocytes % 22.8 Monocytes % 7.5 Eosinophils % 2.1 Basophils % 0.3 Nucleated RBC % 0 Absolute Neutrophils 7.07 H Absolute Lymphocytes 2.41 Absolute Monocytes 0.79 Absolute Eosinophils 0.22 Absolute Basophils 0.03 PT INR APTT Sodium Potassium Chloride Carbon Dioxide Anion Gap BUN Creatinine Estimated GFR/1.73 m2 Glucose Calcium Magnesium Total Bilirubin AST ALT Alkaline Phosphatase Troponin I Total Protein Albumin Last Vital Signs Temp 36.1 C L 04/14/21 20:13 Pulse 76 04/14/21 20:13 Resp 18 04/14/21 20:13 Pulse Ox 96 04/14/21 20:13
[2021-04-15] VITALS (13 sets, daily range): BP systolic 121–152; BP diastolic 69–84; PULSE 66–77; RESP 16–19; TEMP 36.1–36.8; O2SAT 95–99
--- NOTE | 2021-04-15 | DI.MRI_ITS ---
Exam(s) MR BRAIN WO EXAM: MR BRAIN WO CLINICAL HISTORY: TIA vs stroke symptoms TECHNIQUE: Multiplanar multisequence MRI of the brain was performed. COMPARISON: MR MR LUMBAR SPINE WO CONTRAST from 06/10/[address] HEAD WO from 12/16/[address] HEAD WO from 12/16/[address] HEAD WO from 04/14/[address] HEAD WO from 04/14/2021 FINDINGS: VENTRICLES AND EXTRA AXIAL SPACES: Normal in size and morphology for the patient's age. MIDLINE SHIFT: None. CEREBRAL PARENCHYMA: No focus of restricted diffusion to suggest acute infarct. No space-occupying le christopher identified. Old lacunar infarct posterior left frontal lobe. Minimal white matter changes of sm all vessel disease. HEMORRHAGE: None. BRAINSTEM/CEREBELLUM: Normal. CALVARIUM: Normal. VISUALIZED PARANASAL SINUSES/MASTOIDS:Clear. [place]: Normal flow void. [place]: Unremarkable. OTHER FINDINGS: None. IMPRESSION: Old lacunar infarct posterior left frontal white matter. No acute abnormality. DATA REPOSITORY:
[2021-04-15 00:13] LABS: Troponin I < 0.05 ng/mL (<0.06)
[2021-04-15 01:02] LABS: Source Nasal/Nares
[2021-04-15] MEDS: Clopidogrel 75 MG TAB PO (02:20)
[2021-04-15] MEDS: Aspirin 325 MG TAB PO (02:21)
[2021-04-15] MEDS: Normal Saline 1,000 ML 150 ML IV ×2 (02:22→08:40)
[2021-04-15] MEDS: Normal Saline Flush 10 ML SYR IVP (02:23)
[2021-04-15] MEDS: HYDROcodone 5/Acetaminophen 325 TAB PO (04:02)
[2021-04-15] MEDS: Losartan 50 MG TAB 100 MG PO (08:05)
[2021-04-15] MEDS: Aspirin E.C. 81 MG TABEC PO (08:05)
[2021-04-15] MEDS: Omeprazole 20 MG CAPCR PO (08:05)
[2021-04-15] MEDS: glipiZIDE 5 MG TAB 10 MG PO (08:05)
[2021-04-15] MEDS: metFORMIN 500 MG TAB 1000 MG PO (08:05)
[2021-04-15] MEDS: Insulin Glargine 300 UNITS/3 ML PEN 42 UNITS SC (08:06)
[2021-04-15 09:21] LABS: COVID-19 PCR Negative (Negative)
[2021-04-15] MEDS: LORazepam 2 MG/ML VIAL 1 MG IVP (11:52)
--- NOTE | 2021-04-15 13:46 | W.PM.DS.N ---
Date of service: 04/15/21 Time of Service: 13:46 DS: Diagnosis Discharge Diagnosis (1) TIA (transient ischemic attack): Status: Acute Discharge Plan Disposition Patient Disposition: HOME Condition: Improving Discharge Details Reason For Visit: TIA Admit Date/Time: 04/14/21 23:40 Admit Provider: Adam Villagomez Attending Provider: Adam Villagomez [facility] Hospital Course: 70-year-old male who had a stroke in the end of January with residual right-sided weakness. He has been recovering at home but under some stressors he has had to move his apartment. Tonight while cooking dinner he suddenly felt blurriness of vision, a dizzy sensation, and is stated he had difficulty speaking for approximately 10 minutes. The blurry vision and difficulty with speech resolved and he now feels improved without persistent deficit. Patient arrives with unremarkable vital signs, systolic blood pressure 130-150s. He has prestanding discrete weakness of the right lower extremity, otherwise his neurologic examination is within normal limits. CT reveals no acute intracranial abnormality. Laboratories note white count 10, hematocrit 45, platelets 279 INR 1.1, chemistries unremarkable, troponin negative. The patient speech difficulty completely resolved. Given that he is high risk for recurrent stroke, he was referred for observation for MRI. He was given plavix 75 mg po. He remained free of symptoms overnight, hemodynamically stable. His MRI showed no acute infarct or findings. He is stable for discharge to home. He will be given a prescription for plavix and should have further follow up outpatient. discharged discussed with Dr Fish. Home Meds and New Rx's Prescriptions: New clopidogrel [Plavix] 75 mg tablet 75 mg PO DAILY Qty: 30 RF: 0 Continued aspirin [Adult Aspirin Regimen] 81 mg tablet,delayed release (DR/EC) 81 mg PO .Every Other Day RF: 0 hydrocodone-acetaminophen 10-325 mg tablet 0.5 tab PO Q8H MDD 30 mg hydrocodone PRN (Reason: pain) Qty: 30 RF: 0 simvastatin 10 mg tablet 10 mg PO DAILY RF: 0 losartan 100 mg tablet 100 mg PO DAILY Qty: 90 RF: 3 Hold Instructions: Changed by Provider sildenafil (pulm.hypertension) 20 mg tablet 20 mg PO TID PRN (Reason: sexual activity) Qty: 90 RF: 11 omeprazole 20 mg capsule,delayed release(DR/EC) 20 mg PO DAILY RF: 0 (DME) blood-glucose meter misc See Dose Instructions .ROUTE .MEDSUPPLY Qty: 1 RF: 0 (DME) Blood Glucose Test strip See Dose Instructions .ROUTE .MEDSUPPLY Qty: 10 RF: 0 (DME) lancets misc See Dose Instructions .ROUTE .MEDSUPPLY Qty: 50 RF: 0 glipizide-metformin 5-500 mg tablet 2 tab PO BID Qty: 360 RF: 3 Lantus Solostar U-100 Insulin 100 unit/mL (3 mL) insulin pen 42 unit SC QAM Qty: 15 RF: 10 (DME) pen needle, diabetic [Lite Touch Insulin Pen [place]] 31 gauge x 3/16 needle See Dose Instructions .ROUTE .MEDSUPPLY Qty: 100 RF: 3 Discharge Instructions Instructions: Transient Ischemic Attack (DC) Additional Instructions: take all medication as prescribed. TIAs are not usually treated directly. Instead, treatments are directed at reducing the risk that a person will go on to have a full-blown stroke. To lower your risk of stroke, you should: ?Take your medicines exactly as directed. Medicines that are especially important in preventing strokes include: ?Medicines to lower blood pressure ?Medicines called statins, which lower cholesterol ?Medicines to prevent blood clots, such aspirin or blood thinners ?Medicines that help to keep your blood sugar as close to normal as possible (if you have diabetes) ?Make lifestyle changes: ?Stop smoking, if you smoke ?Get regular exercise (if your doctor says it's safe) for at least 30 minutes a day on most days of the week ?Lose weight, if you are overweight ?Eat a diet rich in fruits, vegetables, and low-fat dairy products, and low in meats, sweets, and refined grains (such as white bread or white rice) ?Eat less salt (sodium) ?Limit the amount of alcohol you drink -do not drink more than 2 drinks a day Stand Alone Forms: Nursing Discharge Form Referrals: Vinayak Jackson DO [Primary Care Provider] - 04/25/21 11:15 am Activity:: Activity as Tolerated Equipment/Supplies:: No Equipment Needed Diet:: Carb Counting Discharge Orders Discharge Orders: Discharge Order (Routine); Ordered 04/15/21 Ordered By: Naz Ledezma Discharge Data Discharge Date/Time-TO BE ENTERED AT DEPARTURE: 04/15/21 14:44 DS: Summary Time Spent with Patient providing and/or coordinating discharge services: Less than 30 minutes Status at Discharge Functional status at discharge: independent ambulation Overall status at discharge: patient is back to baseline Mental Status: mental status grossly normal Speech and Movement: speech and movement normal Mood: congruent mood Affect: normal affect Exam Narrative Exam Narrative: GEN: awake, alert, oriented 3. Pleasant, well groomed, interactive. HEAD: Normocephalic, atraumatic ENT: Mucous membranes moist EYES: PERRL, EOMI NECK: Full ROM, supple CHEST/RESP: clear to auscultation bilateral, no wheeze/rhonchi/rales CARDIOVASCULAR: RRR, no murmur ABDOMEN: Soft, nontender, no mass. +Bowel sounds EXT: Full ROM, no edema Neuro:Alert and oriented. Cranial nerves II through XII grossly intact. Right leg with mild weakness against resistance, otherwise grossly normal neurologic exam, conversant, interactive. Psych: normal mood and affect normal Psych Mental Status: mental status grossly normal Speech and Movement: speech and movement normal Mood: congruent mood Affect: normal affect DS: Data Vitals/I&O Vitals and I&O: Vital Signs Temperature 36.1 C L 04/15/21 09:40 Temperature Source Tympanic 04/15/21 09:40 Pulse 77 04/15/21 10:57 Pulse Rhythm Regular 04/15/21 10:57 Respiratory Rate 16 04/15/21 09:40 Respiratory Effort Non-Labored 04/15/21 10:57 Respiratory Depth Normal 04/15/21 10:57 Respiratory Pattern Normal 04/15/21 10:57 Blood Pressure 134/77 04/15/21 09:40 Blood Pressure Mean 85 04/15/21 01:00 Blood Pressure Position Supine 04/14/21 20:13 Pulse Oximetry 98 04/15/21 10:57 Oxygen Delivery Method Room Air 04/15/21 10:57 Oxygen Flow Rate 0 04/15/21 10:57 Pain Level 0 04/15/21 11:07 Comment 04/14/21 20:13 Intake & Output 04/14/21 04/15/21 04/15/21 23:59 11:59 23:59 Intake Total 1405 / 1405 Balance 1405 / 1405 Weight 92.986 kg 90.356 kg Intake: IV 965 / 965 Oral 440 / 440 Other: Urine Color Pale Yellow Urine Appearance Clear Urine Odor Normal Voiding Methods Toilet Data Completed and Pending Labs on day of discharge: Labs from last 24 hours 04/15/21 04/14/21 04/14/21 00:50 23:45 21:47 WBC 10.58 RBC 5.34 Hgb 15.0 Hct 45.5 MCV 85.2 MCH 28.1 MCHC 33.0 RDW 12.9 Plt Count 279 MPV 9.5 Immature Gran % 0.6 Neutrophils % 66.7 Lymphocytes % 22.8 Monocytes % 7.5 Eosinophils % 2.1 Basophils % 0.3 Nucleated RBC % 0 Absolute Neutrophils 7.07 H Absolute Lymphocytes 2.41 Absolute Monocytes 0.79 Absolute Eosinophils 0.22 Absolute Basophils 0.03 PT INR APTT Sodium Potassium Chloride Carbon Dioxide Anion Gap BUN Creatinine Estimated GFR/1.73 m2 Glucose Calcium Magnesium Total Bilirubin AST ALT Alkaline Phosphatase Troponin I < 0.05 Total Protein Albumin COVID-19 Source Nasal/Nares SARS-CoV-2 (PCR) Negative 04/14/21 04/14/21 04/14/21 21:47 21:47 21:47 WBC RBC Hgb Hct MCV MCH MCHC RDW Plt Count MPV Immature Gran % Neutrophils % Lymphocytes % Monocytes % Eosinophils % Basophils % Nucleated RBC % Absolute Neutrophils Absolute Lymphocytes Absolute Monocytes Absolute Eosinophils Absolute Basophils PT 11.3 H INR 1.1 APTT 25.0 Sodium 140 Potassium 3.8 Chloride 104 Carbon Dioxide 26.5 Anion Gap 9.5 BUN 18 Creatinine 1.0 Estimated GFR/1.73 m2 >= 60.00 Glucose 96 Calcium 8.8 Magnesium 1.7 L Total Bilirubin 0.5 AST 27 ALT 42 Alkaline Phosphatase 58 Troponin I < 0.05 Total Protein 7.5 Albumin 3.8 COVID-19 Source SARS-CoV-2 (PCR) [facility] Medical History Adenomatous polyposis Adenomatous polyps Bile reflux esophagitis CAD (coronary artery disease) Chronic back pain (~06/27/18) Chronic GERD Chronic right shoulder pain (~10/14/16) AC JOINT RECONSTRUCTION Diabetes mellitus, type II (~10/14/16) DJD (degenerative joint disease), lumbar MRI 11/06/17 and 06/10/18 Erectile dysfunction GERD (gastroesophageal reflux disease) Hx of fracture of rib Hyperlipidemia Hypertension Insomnia Left carpal tunnel syndrome Medial meniscus tear (~03/03/18) Left Knee Pulmonary nodule less than 1 cm in diameter with low risk for malignant neoplasm Incidental finding on CT scan, March 2020, needs 12 month recheck Situational depression TIA (transient ischemic attack) (~1998) Surgical History H/O heart artery stent (~2012) patient reports 6 stents total. Last stent placed: 2010 History of cholecystectomy History of colonoscopy (~08/2019) History of coronary artery bypass graft (~1997) X5. FOLLOWS UP WITH DR. JEREZ, LAST VISIT WAS 05/26/191997 History of esophagogastroduodenoscopy (EGD) (~08/2019) History of medial meniscus repair of left knee History of tonsillectomy and adenoidectomy Hx of CABG Right carpal tunnel syndrome s/p ECTR DOS: 08/07/20 Status post AC joint reconstruction right, w/allograft Family History Mother Hypertension Diabetes Ovarian cancer Father Hypertension Diabetes Lymphoma Sister Heart disease Social History Smoking/Tobacco Use Status: Former Tobacco Use Tobacco: How many years used: 20 Smoking risk assessment performed?: Yes Alcohol Intake: current Alcohol Intake frequency: holidays/special occasions only Drug use: Occasionally Substance use type: marijuana Household members: other Details: roomate Housing: apartment Communication Needs: Corrective Lenses current occupation: UnEmployed Current gender identity: male What is your relationship status?: Panel score (0-1 are the most socially isolated patients): 0 What type of physical activity do you participate in: none Seatbelt use: always Drive intox or ride 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
== END 2021-04-15 14:44 | disposition home or self-care (01) ==
LOC: ER 04-15 00:32 → MS 04-15 01:40
PROVIDERS: Student in an Organized Health Care Education/Training Program; Admitting Provider General Practice; Emergency Provider Emergency Medicine; PCP Family Medicine; Visit Provider General Practice
DX: G45.9 Transient cerebral ischemic attack, unspecified (principal); R42 Dizziness and giddiness; H53.8 Other visual disturbances; R47.89 Other speech disturbances; I69.351 Hemiplegia and hemiparesis following cerebral infarction affecting right dominant side; I25.10 Atherosclerotic heart disease of native coronary artery without angina pectoris; G89.29 Other chronic pain; E11.9 Type 2 diabetes mellitus without complications; K21.00 Gastro-esophageal reflux disease with esophagitis, without bleeding; M47.816 Spondylosis without myelopathy or radiculopathy, lumbar region; E78.5 Hyperlipidemia, unspecified; I10 Essential (primary) hypertension; G47.00 Insomnia, unspecified; R91.1 Solitary pulmonary nodule; F32.89 Other specified depressive episodes; Z87.891 Personal history of nicotine dependence; Z95.5 Presence of coronary angioplasty implant and graft; Z95.1 Presence of aortocoronary bypass graft; Z20.822 Contact with and (suspected) exposure to COVID-19
CPT/HCPCS: 36415; 80053; 87635; 93005; 99285; 70450; 70551; 83735; 84484; 85025; 85610; 85730; 93010; 99217; 99219; G0378; J2060

== ENCOUNTER 2021-05-30 14:26 | Outpatient (CLI) | payer MEDICARE, SELFPAY ==
[2021-05-30 15:25] LABS: ALT 39 U/L (16-63); AST 19 U/L (15-37); Albumin 3.8 g/dL (3.4-5.0); Alkaline Phosphatase 68 U/L (46-116); Anion Gap 9.6 mmol/L (3-11); BUN 18 mg/dL (7-18); Bilirubin, Total 0.4 mg/dL (0.2-1.0); CO2 28.4 mmol/L (21.0-32.0); Calculated LDL 58 mg/dL (<100); Chloride 105 mmol/L (98-107); Cholesterol 161 mg/dL (<200); Glucose 162 mg/dL (74-106); HDL Cholesterol 35 mg/dL (40-60); Potassium 4.2 mmol/L (3.5-5.1); Sodium 143 mmol/L (136-145); TSH 1.49 uIU/mL (0.36-3.74); Total Protein 7.2 g/dL (6.4-8.2); Triglyceride 344 mg/dL (<150)
[2021-05-31 15:24] LABS: Lipoprotein (a) 28 nmol/L (<75)
== END 2021-05-30 14:27 | disposition home or self-care (01) ==
LOC: LBO 14:34
PROVIDERS: PCP Family Medicine; Visit Provider Internal Medicine
DX: E78.2 Mixed hyperlipidemia (principal); I25.10 Atherosclerotic heart disease of native coronary artery without angina pectoris; I63.9 Cerebral infarction, unspecified
CPT/HCPCS: 36415; 80053; 80061; 83695; 84443

== ENCOUNTER 2021-07-03 07:23 | Outpatient (CLI) | payer MEDICARE, MEDICAID, SELFPAY ==
--- NOTE | 2021-07-03 06:00 | DI.RAD_ITS ---
Exam(s) XR PAIN CLINIC SACRIOILIAC 2V EXAM: XR PAIN CLINIC SACRIOILIAC 2V CLINICAL HISTORY: DX:sacroiliac dysfunction TECHNIQUE: 2D and realtime digital imaging was performed. Radiologist not present. CONTRAST MATERIAL: None. COMPARISON: No exams were available for comparison FINDINGS: Fluoroscopy was provided for pain management therapy. Please refer to procedure report or details. Cumulative dose: Ka,r=11.66 mGy IMPRESSION: RADIATION DOSE DELIVERED:
[2021-07-03 07:33] VITALS: BP 154/87; PULSE 71; RESP 18; TEMP 36.7; O2SAT 98
[2021-07-03 08:04] VITALS: BP 150/75; PULSE 74; RESP 18; O2SAT 97
--- NOTE | 2021-07-03 08:04 | PDOC.PAIN ---
Pain Clinic Procedure Note Procedure Note Procedure Note: INTRA-ARTICULAR SI JOINT INJECTION José Gordon has been referred to the [facility] for intra-articular SI joint injection. COMMENTS: Pre-procedure pain VAS = 7/10. DX: Sacroiliac joint dysfunction Patient was interviewed and the medical record reviewed. There were no medical, pharmacologic, radiographic or other structural contraindications to attempting fluoroscopically guided intra-articular SI joint injection. Risks and expected side effects as well as potential benefit of the procedure were reviewed and voiced concerns addressed. The printed consent form was signed and witnessed. Standard time-out procedure was performed. Patient was placed in the prone position on the fluoroscopy table and automated blood pressure cuff and pulse oximeter applied. The skin entry point for approaching left SI joint was identified under the most advantageous fluoroscopic view and marked. Following thorough Chlorhexadine preparation of the skin and draping and 1% lidocaine infiltration of the skin entry point and subcutaneous tissues, a 22 gauge 3.5 spinal needle was placed under fluoroscopic guidance into left SI joint was identified under the most advantageous fluoroscopic view and marked. Intra-articular placement was confirmed by a clear arthrogram resulting from the injection of 0.25ml Omnipaque 240, 1ml 1% lidocaine, and 80mg Depomedrol were injected intra-articularily with an initial reproduction of a significant component of the usual pain. Vital signs were stable throughout the procedure and were as recorded in the docflowsheet by the nursing staff. If given, dosages of intravenous drugs for anxiolysis and analgesia were documented in MAR. Follow up plans and appointments were discussed with the patient. Post procedure instruction was given as documented in nursing documentation and having met discharge criteria, and was discharged from the [facility]. COMMENTS: Post-procedure pain VAS = 0/10. The patient also complains of long standing right shoulder pain. He has had surgery and this has worsened hear recently. He points to the proximal biceps tendon (both the long and short heads). He has an upcoming evaluation for this and I suggested getting an MRI of the shoulder to expedite this process. He agrees. Adam Galeas DO, MPH [facility] - Pain Management CC: Vinayak Jackson DO
[2021-07-03] MEDS: Omnipaque 240 MG/ML 50 ML BTL IJ (08:10)
[2021-07-03] MEDS: methylPREDNISolone ACETATE 80 MG/ML VIAL IJ (08:10)
== END 2021-07-03 07:24 | disposition home or self-care (01) ==
LOC: PC 07:25
PROVIDERS: PCP Family Medicine; Visit Provider Preventive Medicine Occupational Medicine
DX: M53.3 Sacrococcygeal disorders, not elsewhere classified (principal)
CPT/HCPCS: 27096; 72200; J1040; Q9967

== ENCOUNTER 2021-07-17 00:51 | Outpatient (CLI) | payer MEDICARE, MEDICAID, SELFPAY ==
--- NOTE | 2021-07-17 08:15 | DI.MRI_ITS ---
Exam(s) MR UPPER JOINT RT WO EXAM: MR UPPER JOINT RT WO CLINICAL HISTORY: Worsening anterior right shoulder pain s/p surgery,M25.511 TECHNIQUE: Multiplanar multisequence MRI of the shoulder was performed. There are no prior imaging studies for comparison. COMPARISON: CR XR CHEST 1V IN DI DEPT from 02/19/2021 CR XR CHEST 1V IN DI DEPT from 02/19/2021 FINDINGS: MARROW:There is no evidence of fracture, Hill-Sachs deformity, bony Bankart lesion nor ominous osseou s lesions. ROTATOR CUFF MECHANISM: AC JOINT/ACROMIUM: Widening of the AC space consistent with prior decompression acromioplasty. Under surface of the acromion exhibits a small os ossific excrescence at the level of the coracoacromial li gament. This may be causing some impingement. There is a sliver of fluid signal in the subacromial space. There is no evidence of os acromiale. Supraspinatus: Mild tendinitis signal. Small area articular surface signal in the tendon proximal to the greater tuberosity which may indicate an element of subtle partial-thickness tearing. There is no evidence of full-thickness tear. No retraction. Infraspinatus: Intact. No evidence of tear nor muscle atrophy. Teres Minor: Intact. No evidence of tear nor muscle atrophy. Subscapularis/anterior cuff: Intact. No abnormal signal at the level of the multipennate insertional fibers. No significant tear nor atrophy. BICEPS TENDON/LABRUM: Not displaced from the intertubercular groove but appears slightly perched on t he lesser tuberosity. There is a tiny focus of some intrasubstance signal abnormality at biceps junc tion with the anterosuperior labrum. There is mild increased intrasubstance signal within the superior labrum posterior to the biceps inse rtion. Posterior labrum exhibits some increased intrasubstance signal below the equator but no obvio us tear. Anterior labrum appears intact. Inferior labrum intact. Inferior glenohumeral ligament is intact. No prominent fluid in the inferior recess. LABROLIGAMENTOUS/CAPSULAR COMPLEX: There is no evidence of avulsion of the anterior-inferior labrum, capsule, inferior glenohumeral liga ment complex nor disruption of the scapular periosteum to suggest the presence of a Bankart lesion. GLENOHUMERAL JOINT: No joint effusion nor obvious loose intra-articular bodies. No chondral defects. No osteophytes. No degenerative subarticular cysts. No evidence of capsular tear. QUADRILATERAL SPACE: No evidence of mass in the region of the axillary nerve and dorsal circumflex hu meral vessels. Visualized triceps muscle at this level appears unremarkable. IMPRESSION: 1. In this patient has had prior acromioplasty, there appears to be some impingement at the level of the undersurface of the acromion where there is a small bony excrescence at the attachment site of th e coracoacromial ligament this is possibly causing some impingement. 2. Findings in the supraspinatus tendon just proximal to the greater tuberosity is above plus sliver of fluid in the subacromial space. Findings are probably consistent with element of tendinitis and m ild bursitis but cannot exclude subtle partial-thickness tearing. There is no full-thickness tear si gnal in the tendon. No atrophy. 3. Other muscular components of the rotator cuff mechanism appear unremarkable. 4. Mild focal signal abnormality at the junction of the biceps tendon and anterosuperior labrum whic h may indicate small tear at this level as well as some mild intrasubstance signal in the superior la obie. Also mild increased signal in the lower aspect of the posterior labrum, doubtful for true tear . No evidence of paralabral cyst. 5. There are minimal degenerative changes in the glenohumeral joint. No osteophytes. No joint effu christopher or loose intra-articular bodies. There are no degenerative subarticular cysts on either side of the joint. DATA REPOSITORY:
== END 2021-07-17 01:11 ==
PROVIDERS: PCP Family Medicine; Visit Provider Preventive Medicine Occupational Medicine
DX: M25.511 Pain in right shoulder (principal); M25.811 Other specified joint disorders, right shoulder; M75.51 Bursitis of right shoulder; M19.011 Primary osteoarthritis, right shoulder
CPT/HCPCS: 73221

== ENCOUNTER 2021-08-07 02:06 | Outpatient (CLI) | payer MEDICARE, MEDICAID, SELFPAY ==
--- NOTE | 2021-08-07 | DI.US_ITS ---
Exam(s) US PAIN CLINIC NEEDLE GUIDANCE EXAM: ULTRASOUND GUIDED INJECTION,RT SHOULDER PAIN COMPARISON: No exams were available for comparison TECHNIQUE: Ultrasound performed using standard protocol. FINDINGS: Sonography was provided for Dr. Galeas during the performance of a right shoulder injection. Please r efer to the procedure report for complete details. DATA REPOSITORY:
[2021-08-07 09:27] VITALS: BP 163/82; PULSE 71; RESP 16; TEMP 36.4; O2SAT 96
--- NOTE | 2021-08-07 10:04 | PDOC.PAIN_ITS ---
Pain Clinic Procedure Note Procedure Note Procedure Note: ULTRASOUND GUIDED RIGHT BICEPS TENDON (LONG HEAD) AREA INJECTIONS Pre-Procedural Evaluation: José Gordon has been referred to the [facility] for an Ultrasound Guided [right long head of the biceps tendon area injection for a chief complaint of right anterior shoulder pain. Pre-procedure Pain VAS Score: 8/10 DX: Right Biceps tendinitis Patient was interviewed and the medical record reviewed. There were no medical, pharmacologic, radiographic, or other structural contraindications to preforming an ultrasound guided injection. Risks and expected side effects as well as potential benefits of the procedure were reviewed. The patient consent form was signed and witnessed. Standard time-out procedure was performed. The use of direct ultrasound visualization of the needle (rather than a non- guided injection) was required to increase patient safety by excluding inadvertent intramuscular, intratendinous, or intraneural needle placement and minimizing bleeding by avoiding osteochondral or vascular injury from the needle. Additionally, the increased accuracy of placement may increase clinical effectiveness and will allow higher diagnostic specificity when evaluating effectiveness of this injection. Procedure Description: The patient was placed in the supine position and automated blood pressure cuff and pulse oximeter applied for monitoring during the procedure and recorded in the medical record. Pre-injection ultrasound scanning of the area of interest was performed using linear transducer, identifying relevant anatomy, landmarks, and neurovascular structures allowing for optimal needle path. The site was then prepared in the usual sterile fashion, using thorough Chlorhexadine preparation of the skin and sterile draping. The same ultrasound transducer was then passed into the sterile field using sterile probe cover and sterile ultrasound gel. The injection target was again visualized. Skin and subcutaneous tissues were anesthetized with 1 mL of 1% Lidocaine. A 21G 3.5 inch Pajunk Ultrasound needle was placed under live ultrasound guidance, using an in-plane approach, to the target area. After visualization of the needle tip at the target area, 1 cc of Depomedrol (40 mg/cc) was injected and this was followed by a 2 cc flush of 1% Lidocaine. This was delivered after negative aspiration for blood. Needle was removed without difficult. Ultrasound images were captured and stored for documentation purposes. Post-procedure Pain Score:4/10 Vital signs were stable throughout the procedure and were as recorded in the docflowsheet by the nursing staff. Follow up plans and appointments were discussed with the patient.Post procedure instruction was given as documented in nursing documentation and having met discharge criteria, they were discharged from the [facility] Management [facility]. COMMENTS: He did well with the procedure. He can have this procedure up to 3 times per 12 months if it is found to be helpful. Adam Galeas DO, MPH [facility]-Pain Management [facility]
[2021-08-07] MEDS: methylPREDNISolone ACETATE 40 MG/ML VIAL IJ (10:05)
[2021-08-07 10:10] VITALS: PULSE 65; RESP 18; O2SAT 97
== END 2021-08-07 02:26 ==
PROVIDERS: PCP Family Medicine; Visit Provider Preventive Medicine Occupational Medicine
DX: M75.21 Bicipital tendinitis, right shoulder (principal)
CPT/HCPCS: 20611; 76942; J1030

== ENCOUNTER → 2021-08-12 10:42 | Outpatient (BNVA) | payer MEDICARE, MEDICAID, SELFPAY | PROVIDERS: PCP Family Medicine; Referring Provider Family Medicine; Visit Provider Internal Medicine Cardiovascular Disease | DX: E78.5 Hyperlipidemia, unspecified (principal); I25.10 Atherosclerotic heart disease of native coronary artery without angina pectoris; I63.81 Other cerebral infarction due to occlusion or stenosis of small artery; I10 Essential (primary) hypertension; Z95.1 Presence of aortocoronary bypass graft | CPT/HCPCS: 99214 ==

== ENCOUNTER → 2021-11-20 13:30 | Outpatient (BNVA) | payer MEDICARE, SELFPAY | PROVIDERS: PCP Family Medicine; Visit Provider Internal Medicine Cardiovascular Disease | DX: I25.10 Atherosclerotic heart disease of native coronary artery without angina pectoris (principal); I10 Essential (primary) hypertension; E78.5 Hyperlipidemia, unspecified | CPT/HCPCS: 99214; 99213 ==

== ENCOUNTER 2021-12-03 10:57 | Outpatient (CLI) | payer MEDICARE, SELFPAY ==
--- NOTE | 2021-12-03 11:24 | DI.RAD_ITS ---
Exam(s) XR PAIN CLINIC SACRIOILIAC 2V EXAM: XR PAIN CLINIC SACRIOILIAC 2V CLINICAL HISTORY: SI joint dysfunction. TECHNIQUE: Fluoroscopy was provided for the referring physician for guidance with performing pain cl inic injection procedure. COMPARISON: No exams were available for comparison FINDINGS: Please see procedure note for details. Fluoro time: 17.9 seconds RADIATION DOSE DELIVERED: Ka,r=5.31 mGy
--- NOTE | 2021-12-03 11:25 | PDOC.PAIN_ITS ---
Pain Clinic Procedure Note Procedure Note Procedure Note: INTRA-ARTICULAR SI JOINT INJECTION José Gordon has been referred to the [facility] Management [facility] for intra- articular SI joint injection. COMMENTS: He has done exceedingly well with this procedure in the past. His pre-procedure pain VAS was 7/10. Dx: Left Sacroiliac joint dysfunction. Patient was interviewed and the medical record reviewed. There were no medical, pharmacologic, radiographic or other structural contraindications to attempting fluoroscopically guided intra-articular SI joint injection. Risks and expected side effects as well as potential benefit of the procedure were reviewed and voiced concerns addressed. The printed consent form was signed and witnessed. Standard time-out procedure was performed. Patient was placed in the prone position on the fluoroscopy table and automated blood pressure cuff and pulse oximeter applied. The skin entry point for approaching the left SI joint was identified under the most advantageous fluoroscopic view and marked. Following thorough Chlorhexadine preparation of the skin and draping and 1% lidocaine infiltration of the skin entry point and subcutaneous tissues, a 22 gauge 3.5 spinal needle was placed under fluoroscopic guidance into the left SI joint was identified under the most advantageous fluoroscopic view and marked. Intra-articular placement was confirmed by a clear arthrogram resulting from the injection of 0.25ml Omnipaque 240, 1ml 1% lidocaine, and 40mg Depomedrol were injected intra-articularily with an initial reproduction of a significant component of the usual pain. The needle was flushed with 1 cc of 1% Lidocaine. The needle was then removed. Vital signs were stable throughout the procedure and were as recorded in the docflowsheet by the nursing staff. If given, dosages of intravenous drugs for anxiolysis and analgesia were documented in MAR. Follow up plans and appointments were discussed with the patient. Post procedure instruction was given as documented in nursing documentation and having met discharge criteria, and was discharged from the Pain Management Center. COMMENTS: Post-procedure pain VAS was 5/10. Adam Galeas DO, MPH [facility]-Pain Management [facility]-Center for Pain Management CC: Vinayak Jackson DO
[2021-12-03 11:29] VITALS: BP 134/78; PULSE 68; RESP 20; O2SAT 98
[2021-12-03] MEDS: methylPREDNISolone ACETATE 80 MG/ML VIAL IJ (11:29)
[2021-12-03] MEDS: Omnipaque 240 MG/ML 50 ML BTL IJ (11:29)
== END 2021-12-03 10:58 | disposition home or self-care (01) ==
LOC: PC 10:58
PROVIDERS: PCP Family Medicine; Visit Provider Preventive Medicine Occupational Medicine
DX: M53.3 Sacrococcygeal disorders, not elsewhere classified (principal)
CPT/HCPCS: 27096; 72200; J1040; Q9967

== ENCOUNTER 2022-03-12 11:26 | Outpatient (CLI) | payer MEDICARE, SELFPAY ==
--- NOTE | 2022-03-12 06:00 | DI.RAD_ITS ---
Exam(s) XR PAIN CLINIC SACRIOILIAC 2V EXAM: XR PAIN CLINIC SACRIOILIAC 2V CLINICAL HISTORY: Dx: Si joint dysfunction. TECHNIQUE: 2D and realtime digital imaging was performed. Radiologist not present. CONTRAST MATERIAL: None. COMPARISON: No exams were available for comparison FINDINGS: Fluoroscopy was provided for pain management therapy. Please refer to procedure report or details. Left SI joint injection Cumulative dose: Ka,r=5.14 mGy IMPRESSION: RADIATION DOSE DELIVERED:
[2022-03-12 11:39] VITALS: BP 131/78; PULSE 68; RESP 16; TEMP 36.6; O2SAT 97
[2022-03-12 12:06] VITALS: BP 130/81; PULSE 72; RESP 16; O2SAT 98
[2022-03-12] MEDS: methylPREDNISolone ACETATE 80 MG/ML VIAL IJ (12:20)
[2022-03-12] MEDS: Omnipaque 240 MG/ML 50 ML BTL IJ (12:21)
--- NOTE | 2022-03-12 12:56 | PDOC.PAIN_ITS ---
Pain Clinic Procedure Note Procedure Note Procedure Note: INTRA-ARTICULAR SI JOINT INJECTION José Gordon has been referred to the [facility] Management Center for intra- articular SI joint injection. COMMENTS: He has had great success with this procedure in the past and it has helped him to continue working. DX: Sacroiliac joint dysfunction Preprocedure pain VAS = 8/10. Patient was interviewed and the medical record reviewed. There were no medical, pharmacologic, radiographic or other structural contraindications to attempting fluoroscopically guided intra-articular SI joint injection. Risks and expected side effects as well as potential benefit of the procedure were reviewed and voiced concerns addressed. The printed consent form was signed and witnessed. Standard time-out procedure was performed. Patient was placed in the prone position on the fluoroscopy table and automated blood pressure cuff and pulse oximeter applied. The skin entry point for approaching the left SI joint was identified under the most advantageous fluoroscopic view and marked. Following thorough Chlorhexadine preparation of the skin and draping and 1% lidocaine infiltration of the skin entry point and subcutaneous tissues, a 22 gauge 3.5 spinal needle was placed under fluoroscopic guidance into the left SI joint was identified under the most advantageous fluoroscopic view and marked. Intra-articular placement was confirmed by a clear arthrogram resulting from the injection of 0.25ml Omnipaque 240. 40mg Depomedrol was injected intra-articularily with an initial reproduction of a significant component of the usual pain. This was followed by 2 ml 1% lidocaine, and the needle was removed without difficulty. Vital signs were stable throughout the procedure and were as recorded in the docflowsheet by the nursing staff. If given, dosages of intravenous drugs for anxiolysis and analgesia were documented in MAR. Follow up plans and appointments were discussed with the patient. Post procedure instruction was given as documented in nursing documentation and having met discharge criteria, and was discharged from the Pain Management Center. COMMENTS: Post-procedure pain VAS = 4/10. Adam Galeas DO, MPH [facility]-Pain Management [facility]-Center for Pain Management CC: Vinayak Jackson DO
== END 2022-03-12 11:27 | disposition home or self-care (01) ==
LOC: PC 11:27
PROVIDERS: PCP Family Medicine; Visit Provider Preventive Medicine Occupational Medicine
DX: M53.3 Sacrococcygeal disorders, not elsewhere classified (principal)
CPT/HCPCS: 27096; 72200; J1040; Q9967

== ENCOUNTER → 2022-05-15 15:57 | Outpatient (CLI) | payer MEDICARE, SELFPAY ==
--- NOTE | 2022-05-15 12:00 | DI.RAD_ITS ---
Exam(s) XR LUMBAR SPINE COMP W FLEX/EX EXAM: XR LUMBAR SPINE COMP W FLEX/EX CLINICAL HISTORY: left L5 radic-concern for L5 on S1 anterolesthesis m54.16 radiculopathy. TECHNIQUE: 2D digital imaging was performed of the lumbar spine. Seven images were obtained. AP, l ateral, right oblique, left oblique, flexion, extension and L5-S1 spot views were obtained. COMPARISON: No exams were available for comparison FINDINGS: BONES: No fracture or destructive lesion. Endplate osteophytes are present throughout the lumbar spin e. Facet arthropathy is seen at L4-5 and L5-S1. DISKS: Intervertebral disc spaces are maintained. ALIGNMENT: Lumbar spinal alignment is within normal limits. No spondylolysis or spondylolisthesis. N o significant subluxation seen with flexion or extension. SOFT TISSUE: Extensive atherosclerosis is present. Surgical clip is seen in the right upper quadrant of the abdomen. IMPRESSION: Moderate lumbar spondylosis. DATA REPOSITORY: RADIATION DOSE DELIVERED:
== END ==
PROVIDERS: PCP Family Medicine; Visit Provider Preventive Medicine Occupational Medicine
DX: M47.816 Spondylosis without myelopathy or radiculopathy, lumbar region (principal)
CPT/HCPCS: 72114

== ENCOUNTER 2022-05-20 10:15 | Outpatient (CLI) | payer MEDICARE, SELFPAY ==
[2022-05-20 10:23] VITALS: BP 140/84; PULSE 72; RESP 20; TEMP 36.6; O2SAT 96
--- NOTE | 2022-05-20 11:03 | DI.RAD_ITS ---
Exam(s) XR PAIN CLINIC LUMBAR SP 2V EXAM: XR PAIN CLINIC LUMBAR SP 2V CLINICAL HISTORY: Dx: Lumbar Radiculopathy TECHNIQUE: 2D and realtime digital imaging was performed. Radiologist not present. CONTRAST MATERIAL: None. COMPARISON: No exams were available for comparison FINDINGS: Fluoroscopy was provided for pain management therapy. Please refer to procedure report or details. Cumulative dose: Ka,r=10.47 mGy IMPRESSION: RADIATION DOSE DELIVERED:
--- NOTE | 2022-05-20 11:07 | PDOC.PAIN ---
Date of service: 05/20/22 Time of Service: 11:17 Pain Clinic Procedure Note Procedure Note Procedure Note: INTRA-ARTICULAR FACET JOINT INJECTION José Gordon has been referred to the Pain Management Center for intra-articular lumbar facet joint injection. COMMENTS: There was a question of whether the pain was coming from the left SIJ or the left L5-S1 facet joint. He does have arthrosis to the left L5-S1 facet joint. On direct obervation with palpation, indentification with a marker and his feedback in terms of pain with palpation, we identified that it is most likely the left L5-S1 facet joint as the current pain generator. I did inform him of this and we proceeded with left L5-S1 facet joint injection. DX: Lumbosacral spondylosis without myelopathy Pre-procedure pain VAS was 5/10. Patient was interviewed and the medical record reviewed. There were no medical, pharmacologic, radiographic or other structural contraindications to attempting fluoroscopically guided intra-articular lumbar facet joint injection. Risks and expected side effects as well as potential benefit of the procedure were reviewed and voiced concerns addressed. The printed consent form was signed and witnessed. Standard time-out procedure was performed. Patient was placed in the prone position on the fluoroscopy table and automated blood pressure cuff and pulse oximeter applied. The skin entry point for approaching the left facet joint at L5-S1 was identified under the most advantageous fluoroscopic view and marked. Intra-articular placement was confirmed by a clear arthrogram resulting from the injection of 0.25ml Omnipaque 240. 80mg Depomedrol (80 mg/cc) was injected intra-articularily with an initial reproduction of a significant component of the usual pain. This was followed by 0.5 cc of 1% Lidocaine. Vital signs were stable throughout the procedure and were as recorded in the documentation flowsheet by the nursing staff. If given, dosages of intravenous drugs for anxiolysis and analgesia were documented in MAR. Follow up plans and appointments were discussed. Post procedure instruction was given as documented in nursing documentation and having met discharge criteria,was discharged from the Pain Management Center. COMMENTS: Post-procedure pain VAS was 2/10. Adam Galeas DO, MPH [facility]-Pain Management [facility]-Center for Pain Management CC: Vinayak Jackson DO
[2022-05-20 11:30] VITALS: BP 138/75; PULSE 69; RESP 19; O2SAT 98
[2022-05-20] MEDS: Omnipaque 240 MG/ML 50 ML BTL IJ (11:30)
[2022-05-20] MEDS: methylPREDNISolone ACETATE 80 MG/ML VIAL IJ (11:30)
== END 2022-05-20 10:16 | disposition home or self-care (01) ==
LOC: PC 10:16
PROVIDERS: PCP Family Medicine; Visit Provider Preventive Medicine Occupational Medicine
DX: M47.817 Spondylosis without myelopathy or radiculopathy, lumbosacral region (principal)
CPT/HCPCS: 64493; 72100; J1040; Q9967

== ENCOUNTER 2022-06-18 11:50 | Outpatient (CLI) | payer MEDICARE, SELFPAY ==
[2022-06-18 12:05] VITALS: BP 130/90; PULSE 68; RESP 20; TEMP 36.5; O2SAT 98
[2022-06-18 12:40] VITALS: PULSE 71; O2SAT 95
--- NOTE | 2022-06-18 12:44 | PDOC.PAIN_ITS ---
Date of service: 06/18/22 Time of Service: 12:44 Pain Clinic Procedure Note Procedure Note Procedure Note: ULTRASOUND GUIDED right bicipital groove injection Pre-Procedural Evaluation: José Gordon has been referred to the Pain Management Center for an Ultrasound Guided right bicipital groove injection for a chief complaint of right anterior shoulder pain. Pre-procedure Pain Score: 5/10 Dx: Right biceps tendinopathy Patient was interviewed and the medical record reviewed. There were no medical, pharmacologic, radiographic, or other structural contraindications to preforming an ultrasound guided injection. Risks and expected side effects as well as potential benefits of the procedure were reviewed. The patient consent form was signed and witnessed. Standard time-out procedure was performed. The use of direct ultrasound visualization of the needle (rather than a non- guided injection) was required to increase patient safety by excluding inadvertent intramuscular, intratendinous, or intraneural needle placement and minimizing bleeding by avoiding osteochondral or vascular injury from the needle. Additionally, the increased accuracy of placement may increase clinical effectiveness and will allow higher diagnostic specificity when evaluating effectiveness of this injection. Procedure Description: The patient was placed in the supine position and automated blood pressure cuff and pulse oximeter applied for monitoring during the procedure and recorded in the medical record. Pre-injection ultrasound scanning of the area of interest was performed using linear transducer, identifying relevant anatomy, landmarks, and neurovascular structures allowing for optimal needle path. The site was then prepared in the usual sterile fashion, using thorough Chlorhexadine preparation of the skin and sterile draping. The same ultrasound transducer was then passed into the sterile field using sterile probe cover and sterile ultrasound gel. The injection target was again visualized. Skin and subcutaneous tissues were anesthetized with 2 mL of 1% Lidocaine. A 25G 1.5 needle was placed under live ultrasound guidance, using an in-plane approach, to the target area. After visualization of the needle tip at the target area, 1 cc of depomedrol (40 mg/cc) was delivered after negative aspiration for blood. This was followed with 3 cc of 2% Lidocaine Ultrasound images were captured and stored for documentation purposes. The needle was easily removed. Post-procedure Pain Score:4/10 Vital signs were stable throughout the procedure and were as recorded in the docflowsheet by the nursing staff. Follow up plans and appointments were discussed with the patient.Post procedure instruction was given as documented in nursing documentation and having met discharge criteria, they were discharged from the Pain Management Center. COMMENTS: If this procedure is found to be helpful, it can be completed up to 3 times per 12 months. Adam Galeas DO, MPH [facility]-Pain Management [facility]-Center for Pain Management
[2022-06-18] MEDS: methylPREDNISolone ACETATE 40 MG/ML VIAL IJ (12:47)
[2022-06-18] MEDS: Lidocaine 2% Pres-Free 5 ML VIAL IJ (12:47)
== END 2022-06-18 11:51 | disposition home or self-care (01) ==
LOC: PC 11:50
PROVIDERS: PCP Family Medicine; Visit Provider Preventive Medicine Occupational Medicine
DX: M75.21 Bicipital tendinitis, right shoulder (principal); M25.511 Pain in right shoulder
CPT/HCPCS: 20611; J1030

== ENCOUNTER 2022-07-20 06:14 | Emergency (ER) | payer MEDICARE, SELFPAY ==
[2022-07-20 06:17] VITALS: BP 148/78; PULSE 112; RESP 16; TEMP 36.7; O2SAT 99
[2022-07-20] MEDS: Normal Saline 1,000 ML 1000 ML IV (08:18)
--- NOTE | 2022-07-20 08:23 | ED.GENADUL_ITS ---
Discharge Plan Disposition Patient Disposition: Home Condition: Stable Discharge Details Clinical Impression: Acute constipation, Acute UTI, Hyperglycemia, Elevated bilirubin Primary Care Provider: Vinayak Jackson ED Provider: Clement Brennan Home Meds and New Rx's Prescriptions: New polyethylene glycol 3350 17 gram/dose powder 17 g PO DAILY Qty: 119 0RF cephalexin 500 mg tablet 500 mg PO BID Qty: 14 0RF Enema Disposable 19-7 gram/118 mL enema 118 ml TN DAILY Qty: 266 0RF Continued aspirin [Adult Aspirin Regimen] 81 mg tablet,delayed release (DR/EC) 81 mg PO DAILY Lantus Solostar U-100 Insulin 100 unit/mL (3 mL) insulin pen 50 unit SC QAM Qty: 15 10RF Myrbetriq 25 mg tablet extended release 24 hr 25 mg PO DAILY Qty: 30 0RF (DME) Blood Glucose Test strip See Dose Instructions .ROUTE .MEDSUPPLY Qty: 10 Rx Instructions: As directed (DME) lancets misc See Dose Instructions .ROUTE .MEDSUPPLY Qty: 50 Rx Instructions: As directed sildenafil (pulm.hypertension) 20 mg tablet 20 mg PO TID PRN (Reason: sexual activity) Qty: 90 11RF glipizide-metformin 5-500 mg tablet 2 tab PO BID Qty: 360 3RF (DME) pen needle, diabetic [Lite Touch Insulin Pen [place]] 31 gauge x 3/16 needle See Dose Instructions .ROUTE .MEDSUPPLY Qty: 100 3RF Rx Instructions: Use with insulin daily, to keep HbA1c less than 6.5% omeprazole 20 mg capsule,delayed release(DR/EC) 20 mg PO DAILY Qty: 90 3RF amlodipine 5 mg tablet 5 mg PO DAILY Qty: 90 3RF losartan 100 mg tablet 100 mg PO DAILY Qty: 90 3RF Hold Instructions: Changed by Provider Held hydrocodone-acetaminophen 10-325 mg tablet 0.5 tab PO Q8H MDD 30 mg hydrocodone PRN (Reason: pain) Qty: 60 0RF Hold Instructions: Resume on 08/03/22. Label Comments: pt. states he usually takes 1/4 at night but last night 1/2 Rx Instructions: Patient takes about 1/8th of tablet when needed Discharge Instructions Instructions: Constipation (ED), Urinary Tract Infection in Men (ED), Diabetic Hyperglycemia (ED) Additional Instructions: Full course of antibiotic as prescribed. Use ethylene glycol additional dose tomorrow if you do not have bowel movement today. Continue use enemas. Monitor your blood sugar closely. Please drink plenty of fluid and allow for plenty of rest. Please contact your primary care physician to arrange follow-up. Return to the ER immediately for any worsening or new concerning symptoms or if you wish to pursue recommended diagnostic imaging. Referrals: Vinayak Jackson DO [Primary Care Provider] - Medical Decision Making [phone] --71-year-old male with multiple medical problems including constipation in the past and long-term opioid use here with constipation over the past 4 days as well as dysuria. Patient is hemodynamically stable. He has no weakness of his lower extremities. No perineal paresthesia. Plan for soapsuds enema to treat his constipation. Consider UTI. Consider hyperglycemia and electrolyte abnormalities as he is not been eating his typical amount nor taking insulin. -- Labs reviewed and consistent with UTI. Patient does have significant leukocytosis. Will initiate treatment for urinary tract infection with ceftriaxone [address] of the abdomen pelvis and recons of lumbar spine. Patient provided informed refusal of diagnostic imaging. He would like to try home treatment and will follow-up for imaging if symptoms persist or worsen. -- He had small bowel movement after enema was and then was given polyethylene glycol. Plan for discharge with outpatient followup. I will prescribe repeat enemas and Keflex. Lab Data Lab results reviewed: Yes I reviewed the patient's lab results. Labs: 07/20/22 08:21 Urine - Reflex from Ua Urine Culture - Pending Laboratory Tests Range/Units 07/20/22 07/20/22 07/20/22 08:18 08:18 08:21 WBC (4.4-10.8) 10^3/uL 24.78 H RBC (4.36-5.78) 10^6/uL 5.39 Hgb (13.5-17.5) g/dL 14.9 Hct (40.0-50.0) % 44.4 MCV (80-95) fL 82 MCH (27.0-33.0) pg 27.6 MCHC (32.0-36.0) % 33.6 RDW (11.8-14.1) % 13.0 Plt Count (130-400) 10^3/uL 239 MPV (8.0-11.0) fL 9.6 Immature Gran % 0.6 Neutrophils % 64.8 Lymphocytes % 3.5 Monocytes % 8.6 Eosinophils % 22.2 Basophils % 0.3 Nucleated RBC % (0.0-0.3) % 0.0 Absolute Neutrophils (1.2-6.7) 10^3/uL 16.06 H Absolute Lymphocytes (1.2-3.4) 10^3/uL 0.87 L Absolute Monocytes (0.1-0.8) 10^3/uL 2.13 H Absolute Eosinophils (0.0-0.7) 10^3/uL 5.50 H Absolute Basophils (0.0-0.2) 10^3/uL 0.07 RBC Morphology Normal Sodium (136-145) mmol/L 128 L Potassium (3.5-5.1) mmol/L 4.0 Chloride (98-107) mmol/L 92 L Carbon Dioxide (21.0-32.0) mmol/L 26.1 Anion Gap (3-11) mmol/L 9.9 BUN (7-18) mg/dL 15 Creatinine (0.70-1.30) mg/dL 1.3 Est GFR (CKD-EPI 2020) (mL/min/1.73m2) 59.47 Glucose (74-106) mg/dL 291 H Calcium (8.5-10.1) mg/dL 9.5 Total Bilirubin (0.2-1.0) mg/dL 1.7 H AST (15-37) U/L 33 ALT (16-63) U/L 35 Alkaline Phosphatase (46-116) U/L 79 Total Protein (6.4-8.2) g/dL 8.2 Albumin (3.4-5.0) g/dL 3.5 Urine Color (Yellow) Yellow Urine Clarity (Clear) Cloudy Urine pH (5-8) 5.5 Ur Specific [place] (1.005-1.025) >= 1.030 H Urine Protein (Negative) mg/dL >=300 H Urine Ketones (Negative) mg/dL 40 H Urine Blood (Negative) Large H Urine Nitrite (Negative) Positive H Urine Bilirubin (Negative) Negative Urine Urobilinogen (Up TO 0.2) EU/dL 0.2 Ur Leukocyte Esterase (Negative) Negative Urine RBC (0-2) HPF >50 H Urine WBC (0-5) HPF 10-20 H Ur Epithelial Cells (Negative) HPF Few Urine Crystals (Negative) HPF Negative Urine Bacteria (Negative) HPF Many Urine Casts (Negative) LPF 3-5 Hyaline Urine Mucus (Negative) Moderate Ur Culture Indicated? Yes Urine Glucose (Negative) mg/dL 500 H HPI General Mode of arrival: ambulatory . Date/Time Provider Initiated Documentation: 07/20/22 06:27 . Limitations to Documentation: no limitations . Information obtained by: patient . HPI Narrative: 71-year-old male with multiple medical problems including history of insulin- dependent diabetes, CVA, coronary artery disease, constipation in the past, low back pain with long-term opioid use, presents with chief complaint of constipation. Patient notes constipation over the past 3-4 days. Patient notes he tried [id number] laxative without relief. He states typically the laxative does help but is worried that he took more hydrocodone than he usually does a couple days ago to help him sleep. Constipation is severe. Patient also notes dysuria and increased urinary frequency. Red discoloration of urine. Concern for UTI. This has been going on for the past 2 to 3 days. Related Data Home Medications Medication Instructions Recorded Confirmed blood sugar diagnostic (Blood #10 ea 01/12/19 05/15/22 Glucose Test strips) lancets #50 ea 01/12/19 05/15/22 aspirin 81 mg tablet,delayed 81 mg PO DAILY 07/03/21 06/18/22 release (Adult Aspirin Regimen) sildenafil (pulm.hypertension) 20 20 mg PO TID PRN sexual activity 07/21/21 06/18/22 mg tablet #90 tabs glipizide 5 mg-metformin 500 mg 2 tab PO BID #360 tabs 10/10/21 06/18/22 tablet pen needle, diabetic 31 gauge x #100 ea 03/19/22 05/15/2210/15 (Lite Touch Insulin Pen [place]) insulin glargine 100 unit/mL (3 50 unit (0.5 mL) subcut QAM #15 mL 03/27/22 06/18/22 mL) subcutaneous pen (Lantus Solostar U-100 Insulin) omeprazole 20 mg capsule,delayed 20 mg PO DAILY #90 caps 04/28/22 06/18/22 release amlodipine 5 mg tablet 5 mg PO DAILY #90 tabs 05/25/22 06/18/22 losartan 100 mg tablet 100 mg PO DAILY #90 tabs 05/25/22 06/18/22 hydrocodone 10 mg-acetaminophen 0.5 tab PO Q8H PRN pain #60 tabs 06/19/22 06/19/22 325 mg tablet mirabegron 25 mg tablet,extended 25 mg PO DAILY #30 tabs 06/19/22 06/19/22 release 24 hr (Myrbetriq) cephalexin 500 mg tablet 500 mg PO BID #14 tabs 07/20/22 polyethylene glycol 3350 17 17 g PO DAILY #119 grams 07/20/22 gram/dose oral powder sodium phosphates 19 gram-7 118 ml TN DAILY #266 mL 07/20/22 gram/118 mL enema (Enema Disposable) Previous Rx's Medication Instructions Recorded sildenafil (pulm.hypertension) 20 20 mg PO TID PRN sexual activity 07/21/21 mg tablet #90 tabs glipizide 5 mg-metformin 500 mg 2 tab PO BID #360 tabs 10/10/21 tablet pen needle, diabetic 31 gauge x #100 ea 03/19/2210/15 (Lite Touch Insulin Pen [place]) insulin glargine 100 unit/mL (3 50 unit (0.5 mL) subcut QAM #15 mL 03/27/22 mL) subcutaneous pen (Lantus Solostar U-100 Insulin) omeprazole 20 mg capsule,delayed 20 mg PO DAILY #90 caps 04/28/22 release amlodipine 5 mg tablet 5 mg PO DAILY #90 tabs 05/25/22 losartan 100 mg tablet 100 mg PO DAILY #90 tabs 05/25/22 hydrocodone 10 mg-acetaminophen 0.5 tab PO Q8H PRN pain #60 tabs 06/19/22 325 mg tablet mirabegron 25 mg tablet,extended 25 mg PO DAILY #30 tabs 06/19/22 release 24 hr (Myrbetriq) cephalexin 500 mg tablet 500 mg PO BID #14 tabs 07/20/22 polyethylene glycol 3350 17 17 g PO DAILY #119 grams 07/20/22 gram/dose oral powder sodium phosphates 19 gram-7 118 ml TN DAILY #266 mL 07/20/22 gram/118 mL enema (Enema Disposable) Allergies Allergy/AdvReac Type Severity Reaction Status Date / Time ciprofloxacin Allergy Intermediate Hives Verified 06/19/22 15:05 atorvastatin [From Lipitor] Allergy Unknown Very ill Verified 06/19/22 15:05 [id number]-DpW Reductase AdvReac Intermediate Verified 06/19/22 15:05 Inhibitor [Phdlmqm-Jwv-Gap Reductase Inhibitor] General Stated Complaint: GenMedical KONRAD: 3 Review of Systems All systems reviewed & are unremarkable except as noted in HPI and below Constitutional Constitutional: Denies fever(s) Gastrointestinal Gastrointestinal: Reports as per HPI and Denies abdominal pain Genitourinary Genitourinary: Reports as per HPI and Reports dysuria PFSH All Active Problems (Updated 07/20/22 @ 11:22 by Clement Brennan MD) Acute constipation (Acute) Acute UTI (Acute) Hyperglycemia (Acute) Elevated bilirubin (Acute) Bladder instability (Acute) Lumbosacral spondylosis without myelopathy (Acute) Lumbar radiculitis (Acute) Light headedness (Acute) Cerebrovascular accident (CVA) (Chronic) 10/03/21 [facility] [place] Neurology note Tubular adenoma (Acute 09/2021) Vasomotor rhinitis (Acute) Right shoulder pain (Acute) TIA (transient ischemic attack) (Acute) Acute ischemic left middle cerebral artery (MCA) stroke (Acute) Left sided lacunar infarction (Acute) Hyperlipidemia (Chronic) Facial paresthesia (Acute) Adenomatous polyposis (Acute) Sacroiliac joint dysfunction (Acute) Left lateral epicondylitis (Acute) Injection: 08/07/20 Right carpal tunnel syndrome (Acute) s/p ECTR DOS: 08/07/20 Left carpal tunnel syndrome (Acute) Pulmonary nodule less than 1 cm in diameter with low risk for malignant neoplasm (Chronic) Incidental finding on CT scan, March 2020, needs 12 month recheck Adenomatous polyps (Chronic) Bile reflux esophagitis (Acute) Chronic GERD (Acute) Situational depression (Acute) TIA (transient ischemic attack) (Acute ~1998) Hypertension (Chronic) Hyperlipidemia (Acute) GERD (gastroesophageal reflux disease) (Chronic) Erectile dysfunction (Acute) Diabetes mellitus, type II (Acute ~10/14/16) DJD (degenerative joint disease), lumbar (Acute) MRI 11/06/17 and 06/10/18 CAD (coronary artery disease) (Chronic) Medical History Chronic back pain (~06/27/18) Chronic right shoulder pain (~10/14/16) AC JOINT RECONSTRUCTION Hx of fracture of rib Insomnia Medial meniscus tear (~03/03/18) Left Knee Surgical History H/O heart artery stent (~2012) patient reports 6 stents total. Last stent placed: 2010 History of cholecystectomy History of colonoscopy (~08/2019) History of coronary artery bypass graft (~1997) X5. FOLLOWS UP WITH DR. JEREZ, LAST VISIT WAS 05/26/191997 History of esophagogastroduodenoscopy (EGD) (~08/2019) History of medial meniscus repair of left knee History of tonsillectomy and adenoidectomy Hx of CABG Status post AC joint reconstruction right, w/allograft Family History Mother Hypertension Diabetes Ovarian cancer Father Hypertension Diabetes Lymphoma Sister Heart disease Social History Smoking/Tobacco Use Status: Former Tobacco Use Tobacco: How many years used: 20 Smoking risk assessment performed?: Yes Alcohol Intake: current Alcohol Intake frequency: holidays/special occasions only Alcohol type: beer Drug use: Occasionally Substance use type: marijuana Household members: other Details: roomate Housing: apartment Communication Needs: Corrective Lenses current occupation: UnEmployed Current gender identity: male What is your relationship status?: Panel score (0-1 are the most socially isolated patients): 0 What type of physical activity do you participate in: none Seatbelt use: always Drive 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 Working smoke detector in home: Yes Carbon monox detector in home: Yes Do you feel safe at home: Yes Do you feel safe in your relationship?: Yes Exam Const General: cooperative HENMT Mouth: moist mucous membranes Eyes Conjunctivae: normal conjunctivae Sclera: normal sclerae Neck Neck: trachea midline and supple Resp Auscultation: clear to auscultation bilaterally, no rales, no rhonchi and no wheezes Cardio Rate: regular rate and not tachycardic Rhythm: regular rhythm GI Palpation: soft, not firm, no guarding, no masses, not rigid and nontender Skin General skin exam: no rashes or lesions noted Neuro General: patient alert, patient awake, patient oriented x3 and tone normal Cognition: normal cognition Speech: speech normal Gait: normal gait Motor: strength 5/5 throughout Sensory Exam: no sensory deficits noted, perineum (Sensation intact to light touch bilateral) and other Extrem General: no edema Psych Appearance: grossly normal Mental Status: mental status grossly normal Speech and Movement: speech and movement normal Course Vital Signs Vital signs: Vital Signs Temperature 36.7 C 07/20/22 06:17 Pulse 112 H 07/20/22 06:17 Respiratory Rate 16 07/20/22 06:17 Blood Pressure 148/78 H 07/20/22 06:17 Pulse Oximetry 99 07/20/22 06:17 Temperature 36.7 C 07/20/22 06:17 Temperature Source Temporal Artery Scan 07/20/22 06:17 Pulse 112 H 07/20/22 06:17 Respiratory Rate 16 07/20/22 06:17 Respiratory Effort 07/20/22 06:24 Blood Pressure 148/78 H 07/20/22 06:17 Blood Pressure Position Sitting 07/20/22 06:17 Pulse Oximetry 99 07/20/22 06:17 Pain Level 10 07/20/22 06:17
[2022-07-20 08:30] LABS: Abs Immature Grans 0.16 10^3/uL (0.0-0.06); Basophils % 0.3; Eosinophils % 22.2; HCT 44.4 % (40.0-50.0); HGB 14.9 g/dL (13.5-17.5); Immature Grans % 0.6; Lymphocytes % 3.5; MCH 27.6 pg (27.0-33.0); MCHC 33.6 % (32.0-36.0); MCV 82 fL (80-95); MPV 9.6 fL (8.0-11.0); Monocytes % 8.6; Neutrophils % 64.8; Platelet Count 239 10^3/uL (130-400); RBC 5.39 10^6/uL (4.36-5.78); RDW-SD 39.2 fL; WBC 24.78 10^3/uL (4.4-10.8)
[2022-07-20 08:30] LABS: Bilirubin Negative (Negative); Blood Large (Negative); Clarity Cloudy (Clear); Glucose 500 mg/dL (Negative); Ketones 40 mg/dL (Negative); Leukocyte Esterase Negative (Negative); Nitrite Positive (Negative); Specific Gravity >= 1.030 (1.005-1.025); Urobilinogen 0.2 EU/dL (Up TO 0.2); pH 5.5 (5-8)
[2022-07-20 08:35] LABS: Absolute Basophil Count 0.07 10^3/uL (0.0-0.2); Absolute Lymphocyte Count 0.87 10^3/uL (1.2-3.4); Absolute Monocyte Count 2.13 10^3/uL (0.1-0.8); Absolute Neutrophil Count 16.06 10^3/uL (1.2-6.7)
[2022-07-20 08:44] LABS: Bacteria Many HPF (Negative); C & S Indicated? Yes; Casts 3-5 Hyaline LPF (Negative); Crystals Negative HPF (Negative); Epithelial Cells Few HPF (Negative); Mucus Moderate (Negative); RBC >50 HPF (0-2)
[2022-07-20 08:45] LABS: ALT 35 U/L (16-63); AST 33 U/L (15-37); Albumin 3.5 g/dL (3.4-5.0); Alkaline Phosphatase 79 U/L (46-116); Anion Gap 9.9 mmol/L (3-11); BUN 15 mg/dL (7-18); Bilirubin, Total 1.7 mg/dL (0.2-1.0); CO2 26.1 mmol/L (21.0-32.0); CREATININE 1.3 mg/dL (0.70-1.30); Calcium 9.5 mg/dL (8.5-10.1); Chloride 92 mmol/L (98-107); Estimated GFR 59.47 (mL/min/1.73m2); Glucose 291 mg/dL (74-106); Sodium 128 mmol/L (136-145); Total Protein 8.2 g/dL (6.4-8.2)
[2022-07-20 08:47] LABS: Diff Comment Agrees w/ Instrument; RBC Morphology Normal
[2022-07-20] MEDS: Mineral Oil-Enema 133 ML BTL PR (09:15)
[2022-07-20] MEDS: cefTRIAXone 1 GM/50 ML BAG IVPB (11:09)
[2022-07-20] MEDS: Polyethylene Glycol 3350 17 GM PACKET PO (11:09)
== END 2022-07-20 12:09 | disposition home or self-care (01) ==
PROVIDERS: Emergency Provider Student in an Organized Health Care Education/Training Program; PCP Family Medicine
DX: K59.00 Constipation, unspecified (principal); E10.65 Type 1 diabetes mellitus with hyperglycemia; N39.0 Urinary tract infection, site not specified; E80.7 Disorder of bilirubin metabolism, unspecified; I25.10 Atherosclerotic heart disease of native coronary artery without angina pectoris; Z86.73 Personal history of transient ischemic attack (TIA), and cerebral infarction without residual deficits
CPT/HCPCS: 36415; 80053; 87077; 96361; 96365; 99284; 81003; 81015; 85025; 87086; 87186; J0696

== ENCOUNTER 2022-08-17 13:19 | Outpatient (REF) | payer MEDICARE, SELFPAY ==
[2022-08-17 13:54] LABS: Bilirubin Small (Negative); Blood Negative (Negative); Clarity Cloudy (Clear); Glucose Negative (Negative); Ketones Negative (Negative); Leukocyte Esterase Trace (Negative); Nitrite Positive (Negative); Specific Gravity >= 1.030 (1.005-1.025); Urobilinogen 0.2 EU/dL (Up TO 0.2)
[2022-08-17 14:05] LABS: WBC >50 HPF (0-5)
[2022-08-17 14:06] LABS: Bacteria Many HPF (Negative); C & S Indicated? Yes
== END 2022-08-17 13:20 | disposition home or self-care (01) ==
LOC: LBN 13:19
PROVIDERS: PCP Family Medicine; Visit Provider Family Medicine
DX: R30.0 Dysuria (principal)
CPT/HCPCS: 87077; 81003; 81015; 87086; 87186

== ENCOUNTER 2022-09-01 11:23 | Outpatient (REF) | payer MEDICARE, SELFPAY ==
[2022-09-01 12:00] LABS: Bilirubin Negative (Negative); Blood Negative (Negative); Clarity Clear (Clear); Glucose Negative (Negative); Ketones Negative (Negative); Leukocyte Esterase Negative (Negative); Nitrite Negative (Negative); Specific Gravity >= 1.030 (1.005-1.025); Urobilinogen 0.2 EU/dL (Up TO 0.2); pH 5.5 (5-8)
== END 2022-09-01 11:24 | disposition home or self-care (01) ==
LOC: LBO 11:23
PROVIDERS: PCP Family Medicine; Visit Provider Family Medicine
DX: N30.90 Cystitis, unspecified without hematuria (principal); B96.1 Klebsiella pneumoniae [K. pneumoniae] as the cause of diseases classified elsewhere
CPT/HCPCS: 81003

== ENCOUNTER 2022-09-21 13:28 | Outpatient (REF) | payer MEDICARE, MEDICAID, SELFPAY | END 2022-09-21 13:29 | disposition home or self-care (01) | LOC: LBN 13:28 | PROVIDERS: PCP Family Medicine; Visit Provider Family Medicine | DX: N30.90 Cystitis, unspecified without hematuria (principal) | CPT/HCPCS: 87086 ==

== ENCOUNTER 2022-10-01 11:49 | Outpatient (CLI) | payer MEDICARE, MEDICAID, SELFPAY ==
[2022-10-01 11:58] VITALS: BP 130/75; PULSE 71; RESP 20; TEMP 36.5; O2SAT 97
--- NOTE | 2022-10-01 12:21 | DI.RAD_ITS ---
Exam(s) XR PAIN CLINIC SACRIOILIAC 2V EXAM: XR PAIN CLINIC SACRIOILIAC 2V CLINICAL HISTORY: Dx: Sacroiliac Joint Dysfunction TECHNIQUE: 2D and realtime digital imaging was performed. CONTRAST MATERIAL: Refer to procedure report. COMPARISON: No exams were available for comparison FINDINGS: Fluoroscopy was provided for Dr. Galeas during the performance of a left sacroiliac joint injection. Please refer to the procedure report for complete details. Ka,r=6.73 mGy IMPRESSION:
[2022-10-01 12:24] VITALS: BP 134/63; PULSE 73; RESP 21; O2SAT 98
[2022-10-01] MEDS: methylPREDNISolone ACETATE 80 MG/ML VIAL IJ (12:30)
--- NOTE | 2022-10-01 12:30 | PDOC.PAIN ---
Date of service: 10/01/22 Time of Service: 12:34 Pain Clinic Procedure Note Procedure Note Procedure Note: INTRA-ARTICULAR SI JOINT INJECTION José Gordon has been referred to the [facility] for intra-articular SI joint injection. COMMENTS: He did get >5 months of >50% pain relief with his last left SIJ injection. He has been able to keep working and do his ADLS without difficulty. Dx: Left sacroiliac joint dysfunction Patient was interviewed and the medical record reviewed. There were no medical, pharmacologic, radiographic or other structural contraindications to attempting fluoroscopically guided intra-articular SI joint injection. Risks and expected side effects as well as potential benefit of the procedure were reviewed and voiced concerns addressed. The printed consent form was signed and witnessed. Standard time-out procedure was performed. Patient was placed in the prone position on the fluoroscopy table and automated blood pressure cuff and pulse oximeter applied. The skin entry point for approaching the left SI joint was identified under the most advantageous fluoroscopic view and marked. Following thorough Chlorhexadine preparation of the skin and draping and 1% lidocaine infiltration of the skin entry point and subcutaneous tissues, a 22 gauge spinal needle was placed under fluoroscopic guidance into the left SI joint was identified under the most advantageous fluoroscopic view and marked. Intra-articular placement was confirmed by a clear arthrogram resulting from the injection of 0.25ml Omnipaque 240, 1ml 1% lidocaine, and 80mg Depomedrol were injected intra-articularily with an initial reproduction of a significant component of the usual pain. Vital signs were stable throughout the procedure and were as recorded in the docflowsheet by the nursing staff. If given, dosages of intravenous drugs for anxiolysis and analgesia were documented in MAR. Follow up plans and appointments were discussed with the patient. Post procedure instruction was given as documented in nursing documentation and having met discharge criteria, and was discharged from the [facility]. COMMENTS: His post-procedure pain VAS was 2/10. This procedure can be repeated if he obtains at least 50% improvement in pain and/or function for at least 3 months. Adam Galeas DO, MPH [facility]-Pain Management [facility] CC: Vinayak Jackson DO
[2022-10-01] MEDS: Omnipaque 240 MG/ML 50 ML BTL IJ (12:31)
== END 2022-10-01 11:50 | disposition home or self-care (01) ==
LOC: PC 11:49
PROVIDERS: PCP Family Medicine; Visit Provider Preventive Medicine Occupational Medicine
DX: M53.3 Sacrococcygeal disorders, not elsewhere classified (principal); M54.50 Low back pain, unspecified
CPT/HCPCS: 27096; 72200; J1040; Q9967

== ENCOUNTER → 2022-10-08 14:14 | Outpatient (BNVA) | payer MEDICARE, SELFPAY | PROVIDERS: PCP Family Medicine; Referring Provider Family Medicine; Visit Provider Surgery | DX: Z12.11 Encounter for screening for malignant neoplasm of colon (principal); Z86.010 Personal history of colon polyps | CPT/HCPCS: 99213 ==

== ENCOUNTER 2022-10-13 02:29 | Outpatient (CLI) | payer MEDICARE, SELFPAY ==
[2022-10-13 18:22] LABS: ALT 29 U/L (16-63); AST 19 U/L (15-37); Albumin 4.1 g/dL (3.4-5.0); Alkaline Phosphatase 85 U/L (46-116); Anion Gap 7.3 mmol/L (3-11); BUN 22 mg/dL (7-18); Bilirubin, Direct 0.1 mg/dL (0.0-0.2); Bilirubin, Total 0.4 mg/dL (0.2-1.0); CO2 32.7 mmol/L (21.0-32.0); Calcium 9.6 mg/dL (8.5-10.1); Chloride 101 mmol/L (98-107); Estimated GFR 80.97 (mL/min/1.73m2); Glucose 97 mg/dL (74-106); Potassium 3.7 mmol/L (3.5-5.1); Sodium 141 mmol/L (136-145); Total Protein 8.4 g/dL (6.4-8.2)
== END 2022-10-13 02:30 | disposition home or self-care (01) ==
LOC: LBO 02:29
PROVIDERS: Student in an Organized Health Care Education/Training Program; PCP Family Medicine; Referring Provider Family Medicine; Visit Provider Family Medicine
DX: E11.9 Type 2 diabetes mellitus without complications (principal); I10 Essential (primary) hypertension; I25.10 Atherosclerotic heart disease of native coronary artery without angina pectoris; Z79.899 Other long term (current) drug therapy
CPT/HCPCS: 36415; 80048; 80076

== ENCOUNTER 2022-10-14 10:59 | Outpatient (CLI) | payer MEDICARE, MEDICAID, SELFPAY ==
--- NOTE | 2022-10-14 10:15 | DI.RAD_ITS ---
Exam(s) XR SHOULDER RT COMPLETE 2+V EXAM: XR SHOULDER RT COMPLETE 2+V CLINICAL HISTORY: pain. TECHNIQUE: 2D digital imaging was performed of the right shoulder. Three images were obtained. AP, Grashey, Y-view and axillary views were obtained. COMPARISON: None. FINDINGS: BONES: No acute fracture is present. No bony destructive lesion is seen. JOINTS: No dislocation present. Degenerative changes are seen at the acromioclavicular joint. The gl enohumeral joint is well maintained. SOFT TISSUE: Sternal wires are in place. IMPRESSION: Degenerative changes of the shoulder. DATA REPOSITORY: RADIATION DOSE DELIVERED:
== END 2022-10-14 11:00 | disposition home or self-care (01) ==
LOC: DIORS 10:59
PROVIDERS: PCP Family Medicine; Referring Provider Family Medicine; Visit Provider Student in an Organized Health Care Education/Training Program
DX: M75.21 Bicipital tendinitis, right shoulder (principal); S43.101A Unspecified dislocation of right acromioclavicular joint, initial encounter; X58.XXXA Exposure to other specified factors, initial encounter; E11.9 Type 2 diabetes mellitus without complications; I25.10 Atherosclerotic heart disease of native coronary artery without angina pectoris
CPT/HCPCS: 99214; 73030

== ENCOUNTER 2022-10-30 07:54 | Day surgery (SDC) | payer MEDICARE, SELFPAY ==
--- NOTE | 2022-10-29 22:03 | W.PM.DSUDISC ---
Date of service: 10/30/22 Time of Service: 11:56 Discharge Plan Disposition Patient Disposition: Home Condition: Good Discharge Details Reason For Visit: colon scope Attending Provider: Aby Junior Primary Care Provider: Vinayak Jackson Home Meds and New Rx's Prescriptions: Continued aspirin [Adult Aspirin Regimen] 81 mg tablet,delayed release (DR/EC) 81 mg PO DAILY hydrocodone-acetaminophen 10-325 mg tablet 0.5 tab PO Q8H MDD 30 mg hydrocodone PRN (Reason: pain) Qty: 60 0RF Hold Instructions: Resume on 08/03/22. Patient Comments: pt. states he usually takes 1/4 at night Rx Instructions: Patient takes about 1/8th of tablet when needed alprazolam 0.5 mg tablet 0.5 mg PO ONCE PRN (Reason: claustrophobia) Qty: 2 0RF Rx Instructions: Take 1 60 minutes prior to MRI. May take an additional 1 if still anxious 30 minutes prior to MRI. diclofenac potassium 50 mg tablet 50 mg PO TID PRN (Reason: pain) Qty: 90 3RF sildenafil (pulm.hypertension) 20 mg tablet 20 mg PO TID PRN (Reason: sexual activity) Qty: 90 11RF amlodipine 5 mg tablet 5 mg PO DAILY Qty: 90 3RF glipizide-metformin 5-500 mg tablet 2 tab PO BID Qty: 360 3RF Myrbetriq 25 mg tablet extended release 24 hr 25 mg PO DAILY PRN (DME) Blood Glucose Test strip See Dose Instructions .ROUTE .MEDSUPPLY Qty: 10 Rx Instructions: As directed (DME) lancets misc See Dose Instructions .ROUTE .MEDSUPPLY Qty: 50 Rx Instructions: As directed (DME) pen needle, diabetic [Lite Touch Insulin Pen [place]] 31 gauge x 3/16 needle See Dose Instructions .ROUTE .MEDSUPPLY Qty: 100 3RF Rx Instructions: Use with insulin daily, to keep HbA1c less than 6.5% omeprazole 20 mg capsule,delayed release(DR/EC) 20 mg PO DAILY Qty: 90 3RF losartan 100 mg tablet 100 mg PO DAILY Qty: 90 3RF Hold Instructions: Changed by Provider [place] Solostar U-100 Insulin 100 unit/mL (3 mL) insulin pen 50 unit SC QAM Qty: 15 10RF polyethylene glycol 3350 17 gram/dose powder 17 g PO DAILY Qty: 119 0RF Discontinued polyethylene glycol 3350 17 gram/dose powder 238 g PO ONCE Qty: 238 0RF Rx Instructions: take per colonoscopy instructions bisacodyl [Dulcolax (bisacodyl)] 5 mg tablet,delayed release (DR/EC) 5 mg PO ONCE Qty: 4 0RF Rx Instructions: take per colonoscopy instructions Discharge Instructions Additional Instructions: DSU Colonoscopy Post-Op Instructions Instructions for Everyone who is given Anesthesia: For your safety, please do the following for the next twenty-four (24) hours: *Do Not operate a motor vehicle (car, truck, motorcycle, etc.) *Do Not drink alcoholic beverages or use any recreational drugs for the first 24 hours or while taking pain medications. The medications in your body may have a reaction that can be dangerous. *Do Not make any important decisions or sign any important papers. Findings: diverticula 10 polyps- most were small Follow up: I will send you a letter with results in 2 to 3 weeks time. Repeat around 2 yrs 1. No lifting over 20 pounds or strenuous activity for the first 24 hours after your procedure. After 24 hours there are no restrictions on your activity but you may feel fatigued for a few days. 2. After you arrive home you may have a light meal and return to your normal diet as you can tolerate it without feeling sick to your stomach. 3. You may have a bloated, gaseous feeling in your belly (abdomen) after a colonoscopy. Passing gas and belching will help. Walking or lying down on your left side with your knees flexed may relieve the discomfort. Call the office at [phone] (Office) or [phone] (Hospital) right away if you notice any of the following: a.Vomiting of blood or ?coffee ground stools?. b.Rectal bleeding 1Tbsp, blood clots or continuous bleeding. c.Severe belly (abdominal) pain. d.A hard distended belly (abdomen) and an inability to pass gas. 4. Please don?t expect to have a normal BM (bowel movement) for 2-3 days after your procedure. 5. If there are questions regarding the findings of your procedure, please contact your doctor 6. If you are unable to contact your doctor with a problem, contact the hospital at [phone]. 7. Continue all your regular medications unless directed otherwise. I understand the above instructions and have no questions. Signature of Patient or Adult Escort Name of Responsible Adult Escort Signature of Nurse Date/Time Stand Alone Forms: Miguel Kate (CHAYOU) Activity:: see above Diet:: Carb Counting Discharge Orders Discharge Orders: Discharge Order (Routine); Ordered 10/30/22 Ordered By: Aby Junior
--- NOTE | 2022-10-30 07:32 | ROE_ITS ---
Date of service: 10/30/22 Operative Note Operative Note DATE OF PROCEDURE: 10/30/22 PRE-OP DIAGNOSIS: multiple adenomatous polyps POST-OP DIAGNOSIS: other (polyps/minor divertic) SURGEON: Aby Junior ANESTHESIA TYPE: General:No Airway Refer to Anesthesia Record ESTIMATED BLOOD LOSS: 2 PATHOLOGY: other COMPLICATIONS: None Patient was transported to: same day Patient's condition: stable Procedure Description: After informed consent was obtained the patient was taken to the procedure room and placed in a left decubitous position. Monitors were applied and a time out was done. The patients name, date of , procedure, allergies to medications and metal in their body was reviewed. The patient was then sedated. Once sedated and comfortable a rectal exam was done. External exam was normal-mild inflammation that is most likely from the prep. Internal exam revealed a normal sphincter tone and no palpable masses. The scope was then introduced and retrofelexed. No internal hemorrhoids were identified. The scope was then advanced to the cecum without difficulty. The TI and appendiceal orifice were identified. The prep was BBPS 2 in the right colon and 3 and the other segments for a total of 8.. The scope was then slowly retracted over 27 minutes back into the rectum. He has minor diverticula confined to the sigmoid colon with no signs of active bleeding or infection. He had a small flat 5 mm polyp at 60 cm. This was removed with a cold biting forcep. He had x2 small flat 5mm polyps at 70 cm. These are removed with a cold biting forcep. At 80 cm he has 6 polyps. One was removed with a hot snare-2 centimeters and pedunculated. This polyp was also tattooed with Nuria ink prior to removal. The specimen is retrieved and no bleeding is noted. A clip was placed across the defect. He had 3 that removed with a cold snare- these polyps were each 0.75 cm in size and flat. The other two were flat 5 mm polyps that are removed with a cold biting forcep. All specimen is retrieved an d no bleeding is noted. The mucosa is otherwise pink and healthy. the scope was removed and the patient was woken up and taken back to Same day surgery in stable condition. The patient tolerated the procedure well and there were no immediate complications. -Patient did get a dose of Rocephin and Flagyl after because of the large number of polyps that we took out today. Follow up: The patient should follow up in 1-2 years, unless they develop changes in bowel habits or other new gastrointestinal complaints.
[2022-10-30 08:15] VITALS: BP 119/72; PULSE 79; RESP 18; TEMP 36.3; O2SAT 96
--- NOTE | 2022-10-30 08:42 | W.ANESPRE ---
General Info Date of Service Date Performed: 10/30/22 Height: 5 ft 8 in Weight: 91 kg Body Mass Index (BMI): 30.4 Surgical Procedure: Operation Date: 10/30/22 10:05 Proposed Procedure Side Surgeon drew Junior, Meds Allergies and Home Medications Allergies Allergy/AdvReac Type Severity Reaction Status Date / Time ciprofloxacin Allergy Intermediate Hives Verified 10/30/22 08:27 atorvastatin [From Lipitor] Allergy Unknown Very ill Verified 10/30/22 08:27 Axbcldr-BBR-PwH Reductase AdvReac Intermediate Verified 10/30/22 08:27 Inhibitor [Occmujz-Dyp-Qas Reductase Inhibitor] Home Medication Medication Instructions Recorded blood sugar diagnostic (Blood #10 ea 01/12/19 Glucose Test strips) lancets #50 ea 01/12/19 aspirin 81 mg tablet,delayed 81 mg PO DAILY 07/03/21 release (Adult Aspirin Regimen) pen needle, diabetic 31 gauge x #100 ea 03/19/22/ (Lite Touch Insulin Pen [place]) omeprazole 20 mg capsule,delayed 20 mg PO DAILY #90 caps 04/28/22 release losartan 100 mg tablet 100 mg PO DAILY #90 tabs 05/25/22 polyethylene glycol 3350 17 17 g PO DAILY #119 grams 07/20/22 gram/dose oral powder hydrocodone 10 mg-acetaminophen 0.5 tab PO Q8H PRN pain #60 tabs 09/11/22 325 mg tablet mirabegron 25 mg tablet,extended 25 mg PO DAILY PRN 10/08/22 release 24 hr (Myrbetriq) alprazolam 0.5 mg tablet 0.5 mg PO ONCE PRN claustrophobia 10/14/22 #2 tabs insulin glargine 100 unit/mL (3 50 unit (0.5 mL) subcut QAM #15 mL 10/15/22 mL) subcutaneous pen (Lantus Solostar U-100 Insulin) amlodipine 5 mg tablet 5 mg PO DAILY #90 tabs 10/19/22 diclofenac potassium 50 mg tablet 50 mg PO TID PRN pain #90 tabs 10/19/22 glipizide 5 mg-metformin 500 mg 2 tab PO BID #360 tabs 10/19/22 tablet sildenafil (pulm.hypertension) 20 20 mg PO TID PRN sexual activity 10/19/22 mg tablet #90 tabs Current Visit Medications: Current Medications Generic Name Dose Route Start Last Admin Trade Name Freq PRN Reason Stop Dose Admin Hyoscyamine Sulfate 0.125 mg 10/30/22 09:53 Hyoscyamine 0.125 Mg Sl/Oral/Chew SL DIRECTED PRN Ringer's Solution 1,000 mls @ 80 mls/hr 10/30/22 06:00 IV 10/30/22 23:59 INFUSION [facility] IV Miscellaneous Supplies 1 each 10/30/22 06:00 Iv Access IV 10/30/22 23:59 DIRECTED SHANTA Ondansetron HCl 4 mg 10/30/22 07:53 Ondansetron 4 Mg/2 Ml Vial IVP Q4H PRN PRN Nausea / Vomiting Sodium Chloride 0 ml 10/30/22 06:00 Normal Saline Flush 10 Ml Syr IV 10/30/22 23:59 PRN PRN Sodium Chloride 0 ml 10/30/22 06:00 Normal Saline 10 Ml Vial IJ 10/30/22 23:59 DIRECTED PRN Sterile Water 0 ml 10/30/22 06:00 Water,Injection,Sterile 10 Ml Vial IJ 10/30/22 23:59 DIRECTED PRN PFSH Active Problems Active Problems: Problem Status Onset Code CAD (coronary artery disease) I25.10 DJD (degenerative joint disease), lumbar M47.816 Diabetes mellitus, type II ~10/14/16 E11.9 Erectile dysfunction N52.9 GERD (gastroesophageal reflux disease) K21.9 Hyperlipidemia E78.5 Hypertension I10 TIA (transient ischemic attack) ~1998 G45.9 Situational depression Sacroiliac joint dysfunction M53.3 Chronic GERD K21.9 Bile reflux esophagitis K21.0 Adenomatous polyps D36.9 Pulmonary nodule less than 1 cm in diameter with low risk for malignant neoplasm R91.1, Z91.89 Left carpal tunnel syndrome G56.02 Right carpal tunnel syndrome G56.01 Left lateral epicondylitis M77.12 Adenomatous polyposis D36.9 Facial paresthesia R20.2 Hyperlipidemia E78.5 Left sided lacunar infarction I63.81 Acute ischemic left middle cerebral artery (MCA) stroke I63.512 TIA (transient ischemic attack) G45.9 Right shoulder pain M25.511 Vasomotor rhinitis J30.0 Tubular adenoma 09/2021 D36.9 Cerebrovascular accident (CVA) I63.9 Light headedness R42 Lumbar radiculitis M54.16 Lumbosacral spondylosis without myelopathy M47.817 Bladder instability N32.89 Hemorrhoid K64.9 Separation of right acromioclavicular joint S43.101A Tendonitis of long head of biceps brachii of right shoulder M75.21 Medical History Medical History Chronic back pain (~06/27/18) Chronic right shoulder pain (~10/14/16) AC JOINT RECONSTRUCTION Hx of fracture of rib Insomnia Medial meniscus tear (~03/03/18) Left Knee Medical History Comments:: pt. reports slight cough, runny nose with some productivity with cough-reviewed with anesthesia will assess on DOS and cancel accordingly if needed per LP Surgical History Surgical History H/O heart artery stent (~2012) patient reports 6 stents total. Last stent placed: 2010 History of cholecystectomy History of colonoscopy (~08/2019) History of coronary artery bypass graft (~1997) X5. FOLLOWS UP WITH DR. JEREZ, LAST VISIT WAS 05/26/191997 History of esophagogastroduodenoscopy (EGD) (~08/2019) History of medial meniscus repair of left knee History of tonsillectomy and adenoidectomy Hx of CABG x5 Hx of shoulder surgery (R) Shoulder Status post AC joint reconstruction right, w/allograft Tobacco Smoking/Tobacco Use Status: Former Tobacco Use Alcohol Alcohol Intake: current Alcohol intake frequency: holidays/special occasions only Alcohol type: beer Substance Use Substance use: Occasionally Substance use type: marijuana Vital Signs and Lab Results Vital Signs Most Recent Vital Signs in EMR: Most Recent Vital Signs Temp Pulse Resp BP Pulse Ox 36.3 C L 79 18 119/72 96 10/30/22 08:15 10/30/22 08:15 10/30/22 08:15 10/30/22 08:15 10/30/22 08:15 Lab Results Blood Type / Crossmatch: No Data to Display Complete Blood Count: No Data to Display Complete Metabolic Panel: Sodium 141 mmol/L (136-145) 10/13/22 15:00 Potassium 3.7 mmol/L (3.5-5.1) 10/13/22 15:00 Chloride 101 mmol/L (98-107) 10/13/22 15:00 Carbon Dioxide 32.7 mmol/L (21.0-32.0) H 10/13/22 15:00 BUN 22 mg/dL (7-18) H 10/13/22 15:00 Creatinine 1.0 mg/dL (0.70-1.30) 10/13/22 15:00 Est GFR (CKD-EPI 2020) 80.97 (mL/min/1.73m2) 10/13/22 15:00 Calcium 9.6 mg/dL (8.5-10.1) 10/13/22 15:00 Albumin 4.1 g/dL (3.4-5.0) 10/13/22 15:00 Glucose 97 mg/dL (74-106) 10/13/22 15:00 Liver Function Panel: Alanine Aminotransferase (ALT/SGPT) 29 U/L (16-63) 10/13/22 15:00 Aspartate Amino Transf (AST/SGOT) 19 U/L (15-37) 10/13/22 15:00 Coagulation Panel: No Data to Display Cardiac Panel: No Data to Display Arterial Blood Gas: No Data to Display Venous Blood Gas: No Data to Display Pancreas Panel: No Data to Display Thyroid Panel: No Data to Display Infectious Disease: No Data to Display Blood Cultures: No Data to Display Toxicology Panel: No Data to Display Imaging and Studies Imaging and Studies Study information below may be from another EMR and interpreted by another provider. Please see original notes in EMR for more complete details. EKG Summary: Conclusion Sinus rhythm...normal P axis, V-rate 60- 99 Probable left atrial enlargement...P >50mS, <-0.10mV V1 Inferior infarct, old...Q >35mS, II III aVF 04/22 Anesthesia Assessment and Plan Anesthesia History Personal History: No History of Anesthesia Complications Family History: No Family History of Anesthesia Complications Exercise Tolerance Exercise Tolerance: Metabolic Equivalents>4 Pertinent Negatives Pertinent Negatives: No Symptoms of GERD Cardiac & Pulmonary Exam Cardiac Exam: Normal S1/S2 Heart Sounds Pulmonary Exam: Clear Bilateral Breath Sounds Implantable Cardiac Device Does patient have a Pacemaker or an ICD?: No Airway Exam Known Difficult Airway: No Mallampati Class: 2 Mouth Opening: Normal (> 3cm) Thyromental Distance: Greater than 3 cm Neck Range of Motion: Full ROM Neck Circumference: Normal Teeth Condition: Normal Dentition ASA Classification ASA Score: ASA 2 Emergency Case?: No NPO Status NPO Status: NPO Clears >2 hours, Solids >8 hours Anesthesia Plan Resuscitation Status: Full Code Anesthesia Technique: General Anesthesia Airway Planned: Natural Airway Monitors Used: Standard Monitors
[2022-10-30 08:49] VITALS: BMI 30.4
[2022-10-30] MEDS: Lactated Ringers 1,000 ML 80 ML IV (08:50)
--- NOTE | 2022-10-30 09:30 | BOWEL_PTH ---
PATIENT: José Gordon LOC: [facility] U#:[id number] AGE/SX: 72/M ROOM: RE10/30/[address]: Aby Junior : 1950 BED: DIS: 10/30/2022 SPEC #: [id number] RECD: 10/30/22 16:00 STATUS: SULLY REQ #: [id number] DAMON: 10/30/22 09:[address]: Aby Junior DEPT: Surgical Specimen RECD BY: Staci Barnett ENTERED: 10/30/22 16:02 SP TYPE: Bowel OTHR DR: Vinayak Jackson DO Tissues: 1 - BIOPSY BOWEL 2 - BIOPSY BOWEL 3 - BIOPSY BOWEL Procedures: GROSS AND MICRO LEVEL 4 Comments: [id number]
[2022-10-30] MEDS: Endoscopic Tattoo 5 ML SYR IJ (09:45)
[2022-10-30 10:32] VITALS: BP 123/79; PULSE 64; RESP 18; TEMP 36.1; O2SAT 94
--- NOTE | 2022-10-30 10:46 | W.ANESPOSTOP ---
Postoperative Evaluation Date, Time and Location Date Performed: 10/30/22 Time Performed: 10:47 Patient Location: Day Surgery Unit Vital Signs Most Recent Imported Vital Signs: Most Recent Vital Signs Temp Pulse Resp BP Pulse Ox 36.1 C L 64 18 123/79 94 10/30/22 10:32 10/30/22 10:32 10/30/22 10:32 10/30/22 10:32 10/30/22 10:32 Pain Score Most Recent Pain Score: Most Recent Pain Score Pain Level 0 10/30/22 10:32 Assessment Mental Status: Awake (Alert & Oriented to Patient Baseline) Airway and Respiratory Function: Patent airway with normal (patient baseline) respiratory exam Cardiovascular Function: Hemodynamically Stable Hydration Status: Adequately Hydrated Nausea & Vomiting: No Nausea or Vomiting Pain: Pt. Denies Any Pain Peripheral Nerve Block: Patient did not receive a nerve block
[2022-10-30] MEDS: metroNIDAZOLE 500 MG/100 ML BAG 100 MG IVPB (11:10)
[2022-10-30 11:21] VITALS: BP 132/67; PULSE 68; RESP 16; TEMP 36.1; O2SAT 98
[2022-10-30 12:10] VITALS: BP 123/69; PULSE 70; RESP 18; TEMP 36.2; O2SAT 97
[2022-10-30] MEDS: Normal Saline Flush 10 ML SYR IV (12:30)
[2022-10-30] MEDS: cefTRIAXone 1 GM/50 ML BAG IVPB (12:35)
[2022-10-30 12:37] VITALS: BP 129/81; PULSE 71; RESP 16; TEMP 36; O2SAT 96
[2022-10-30 13:07] VITALS: BP 123/73; PULSE 71; RESP 18; TEMP 36.3; O2SAT 96
--- NOTE | 2022-10-30 13:52 | W.COLOREPORT ---
Date of service: 10/30/22 Time of Service: 11:30 Colonoscopy Report Date of procedure: 10/30/22 Pre-op diagnosis general: Adenomatous polyps Post-op diagnosis procedure note: same (Plus diverticula) Surgeon: Aby Junior Anesthesia Type: General:No Airway Estimated blood loss (mL): 2 Pathology: other Complications: None Disposition: same day Prep: Miralax/Dulcolax Retraction Time: 27 Procedure Description: After informed consent was obtained the patient was taken to the procedure room and placed in a left decubitous position. Monitors were applied and a time out was done. The patients name, date of , procedure, allergies to medications and metal in their body was reviewed. The patient was then sedated. Once sedated and comfortable a rectal exam was done. External exam was normal-mild inflammation that is most likely from the prep. Internal exam revealed a normal sphincter tone and no palpable masses. The scope was then introduced and retrofelexed. No internal hemorrhoids were identified. The scope was then advanced to the cecum without difficulty. The TI and appendiceal orifice were identified. The prep was BBPS 2 in the right colon and a 3 in the other segments for a total of 8.. The scope was then slowly retracted over 27 minutes back into the rectum. He has minor diverticula confined to the sigmoid colon with no, signs of active bleeding or infection. He had a small flat 5 mm polyp at 60 cm. This was removed with a cold biting forcep. He had x2 small flat 5mm polyps at 70 cm. These are removed with a cold biting forcep. At 80 cm he has 6 polyps. One was removed with a hot snare-it is a 2cm and pedunculated. This polyp was also tattooed with Nuria ink prior to removal. The specimen is retrieved and no bleeding is noted. A clip was placed across the defect. He had 3 polyps that were removed with a cold snare-these polyps were each 0.75 cm in size and flat. There were x2 polyps that are flat 5 mm polyps that are removed with a cold biting forcep. All specimen is retrieved and no bleeding is noted. The mucosa is otherwise pink and healthy. the scope was removed and the patient was woken up and taken back to Same day surgery in stable condition. The patient tolerated the procedure well and there were no immediate complications. -Patient did get a dose of Rocephin and Flagyl after because of the large number of polyps that we took out today. Follow up: The patient should follow up in 1-2 years, unless they develop changes in bowel habits or other new gastrointestinal complaints.
== END 2022-10-30 13:28 | disposition home or self-care (01) ==
PROVIDERS: PCP Family Medicine; Visit Provider Surgery
PROC: 0DJD8ZZ Inspection of Lower Intestinal Tract, Via Natural or Artificial Opening Endoscopic (ICD-10-PCS; CPT 45378; principal; 2022-10-30 10:00)
DX: Z09 Encounter for follow-up examination after completed treatment for conditions other than malignant neoplasm (principal); K57.30 Diverticulosis of large intestine without perforation or abscess without bleeding; K63.5 Polyp of colon
CPT/HCPCS: 45385; 45380; 88305; J0696; J2704

== ENCOUNTER 2023-03-02 08:14 | Outpatient (CLI) | payer MEDICARE, SELFPAY | END 2023-03-02 08:15 | disposition home or self-care (01) | LOC: DI.CARD 08:15 | PROVIDERS: PCP Family Medicine; Visit Provider Internal Medicine Cardiovascular Disease | DX: I25.10 Atherosclerotic heart disease of native coronary artery without angina pectoris (principal) | CPT/HCPCS: 93010 ==

== ENCOUNTER → 2023-03-08 14:52 | Outpatient (CLI) | payer MEDICARE, MEDICAID, SELFPAY ==
--- NOTE | 2023-03-08 11:00 | DI.RAD_ITS ---
Exam(s) XR HIP RT COMPLETE AP PELVIS EXAM: XR HIP RT COMPLETE AP PELVIS INDICATION: Likely osteoarthritis,RT HIP PAIN, M25.551. COMPARISON: No exams were available for comparison TECHNIQUE: 2D digital imaging was performed. Two views. FINDINGS: Hip joint spaces are maintained. There is mild bilateral acetabular spurring. Enthesophytes are not ed at the iliac wings. SI joints and pubic symphysis are unremarkable. IMPRESSION: Mild degenerative changes of the hips. DATA REPOSITORY: RADIATION DOSE DELIVERED:
== END ==
PROVIDERS: PCP Family Medicine; Visit Provider Family Medicine
DX: M16.0 Bilateral primary osteoarthritis of hip
CPT/HCPCS: 73502

== ENCOUNTER 2023-03-19 14:08 | Outpatient (CLI) | payer MEDICARE, MEDICAID, SELFPAY ==
--- NOTE | 2023-03-19 14:15 | RT.EKG_ITS ---
APPROVED REPORT Exam: Resting ECG Reason for Exam: irregular heart rate Patient Location: O HR:71 bpm ECG Measurements Heart Rate 71 AXIS AL 157 P 35 QRSd 102 QRS 22 QT 398 T 25 QTc 433 Conclusion Sinus rhythm...normal P axis, V-rate 50- 99 Multiform ventricular premature complexes...short R-R, variable morphology Probable left atrial enlargement...P >50mS, <-0.10mV V1
== END 2023-03-19 14:09 | disposition home or self-care (01) ==
LOC: DI.CARD 14:27
PROVIDERS: PCP Family Medicine; Visit Provider Internal Medicine Cardiovascular Disease
DX: G45.9 Transient cerebral ischemic attack, unspecified (principal)
CPT/HCPCS: 93010

== ENCOUNTER → 2023-03-19 14:08 | Outpatient (BNVA) | payer MEDICARE, MEDICAID, SELFPAY | PROVIDERS: PCP Family Medicine; Referring Provider Family Medicine; Visit Provider Internal Medicine Cardiovascular Disease | DX: I63.81 Other cerebral infarction due to occlusion or stenosis of small artery (principal); I10 Essential (primary) hypertension; E78.5 Hyperlipidemia, unspecified | CPT/HCPCS: 99213 ==

== ENCOUNTER 2023-05-05 10:24 | Outpatient (CLI) | payer MEDICARE, MEDICAID, SELFPAY ==
[2023-05-05 10:35] VITALS: BP 179/116; PULSE 69; RESP 20; TEMP 36.4; O2SAT 98
[2023-05-05 11:10] VITALS: BP 160/90; PULSE 69; RESP 16; TEMP 36.4; O2SAT 97
--- NOTE | 2023-05-05 11:14 | DI.RAD_ITS ---
Exam(s) XR PAIN CLINIC SACRIOILIAC 2V EXAM: XR PAIN CLINIC SACRIOILIAC 2V CLINICAL HISTORY: DX: Sacroiliac Joint Dysfunction TECHNIQUE: 2D and realtime digital imaging was performed. Radiologist not present. CONTRAST MATERIAL: None. COMPARISON: No exams were available for comparison FINDINGS: Fluoroscopy was provided for pain management therapy. Please refer to procedure report or details. Radiation Exposure Index: Ka,r=5.53 mGy IMPRESSION: As above. RADIATION DOSE DELIVERED:
[2023-05-05] MEDS: Omnipaque 240 MG/ML 50 ML BTL IJ (11:25)
[2023-05-05] MEDS: methylPREDNISolone ACETATE 80 MG/ML VIAL IJ (11:26)
--- NOTE | 2023-05-05 13:11 | PDOC.PAIN_ITS ---
Date of service: 05/05/23 Time of Service: 13:11 Pain Managment Procedure Note Procedure Note Procedure Note: PROCEDURE NOTE LEFT INTRA-ARTICULAR SACROILIAC JOINT INJECTION Date of Service: May 05, 2023 Patient: José Gordon Provider: Adam Galeas DO, MPH COMMENTS: I previously evaluated the patient in the office and their symptoms in relation to the sacroiliac joint pain have remained the same. He last had this procedure on 10/01/22 and had >4 months of >50% pain relief. Pre-operative diagnosis: Sacroiliac joint dysfunction Post-operative diagnosis: Same Pre-procedure pain: VAS= 7/10 José Gordon [facility] for a Left intra-articular Sacroiliac joint injection. José was interviewed and the medical record reviewed. There were no medical, pharmacologic, radiographic or other structural contraindications to attempting a fluoroscopically-guided, contrast-enhanced, intra-articular Sacroiliac joint injection. The risks, benefits, and potential side effects of this procedure were reviewed with the patient. Questions and concerns were addressed. After it was clear that José was fully informed about the procedure, the printed consent form was signed by the patient and myself. José was placed in the prone position on the fluoroscopy table and an automated blood pressure cuff, 3 lead EKG, and pulse oximeter were applied. The skin entry point for approaching the Left sacroiliac joint was identified under the most advantageous fluoroscopic view and marked. Following thorough Chlorhexadine preparation of the skin and draping with sterile surgical drapes, 2 mls of 1% lidocaine was infiltrated into the skin at the entry point and the surrounding subcutaneous tissues. Next, a 3.5 22G spinal needle was placed under fluoroscopic guidance into the Left sacroiliac joint. Intra-articular placement was confirmed by a clear arthrogram resulting from the injection of 0.25ml of Omnipaque-240. Next, 1 ml of Depo- Medrol 80 mg/ml was injected intra- articularly with an initial reproduction of a significant component of the usual pain. This was followed with 1 ml of 1% Lidocaine. The needle was then removed without difficulty. (49 ml of Omnipaque-240 was wasted). José's vital signs were stable throughout the procedure and were as recorded in nursing records. Follow up plans and appointments were discussed with José. Post procedure instructions were given as documented in nursing records. Having met discharge criteria, José was [facility] from the [facility] COMMENTS: Post-procedure pain: VAS= 0/10. If the patient receives at least 50% improvement in pain and/or function for at least 3 months, this procedure can be repeated if needed. I personally performed this entire procedure. ADAM GALEAS DO, MPH ABPMR-subspecialty board certification in Pain Medicine [facility]
== END 2023-05-05 10:25 | disposition home or self-care (01) ==
LOC: PC 10:24
PROVIDERS: PCP Family Medicine; Visit Provider Preventive Medicine Occupational Medicine
DX: M54.50 Low back pain, unspecified (principal); M46.1 Sacroiliitis, not elsewhere classified
CPT/HCPCS: 27096; 72200; J1040; Q9967

== ENCOUNTER 2023-10-21 11:53 | Outpatient (CLI) | payer MEDICARE, SELFPAY ==
--- NOTE | 2023-10-21 09:15 | DI.RAD_ITS ---
Exam(s) XR KNEE RT 3V AP,LAT,KIRA EXAM: XR KNEE RT 3V AP,LAT,KIRA CLINICAL HISTORY: RIGHT KNEE INJURY. TECHNIQUE: 2D digital imaging was performed of the right knee. Three views obtained. AP, lateral an d PA tunnel views were obtained. COMPARISON: There are no priors for comparison. FINDINGS: BONES: No acute fracture is present. No bony destructive lesion is seen. There are enthesophytes at t he anterior patella in the anterior tibial tuberosity. JOINTS: The knee is normally aligned. No joint effusion is seen. SOFT TISSUE: Normal. IMPRESSION: No acute fracture or dislocation. If there is concern for internal derangement, an MRI should be con sidered for further evaluation. DATA REPOSITORY: RADIATION DOSE DELIVERED:
== END 2023-10-21 11:54 | disposition home or self-care (01) ==
LOC: DIORS 11:53
PROVIDERS: PCP Family Medicine; Referring Provider Family Medicine; Visit Provider Student in an Organized Health Care Education/Training Program
DX: S83.241A Other tear of medial meniscus, current injury, right knee, initial encounter; W10.8XXA Fall (on) (from) other stairs and steps, initial encounter
CPT/HCPCS: 20610; 73562; J1040

== ENCOUNTER → 2023-12-02 09:20 | Outpatient (BNVA) | payer MEDICARE, SELFPAY | PROVIDERS: PCP Family Medicine; Visit Provider Student in an Organized Health Care Education/Training Program | DX: S83.241A Other tear of medial meniscus, current injury, right knee, initial encounter (principal); X58.XXXA Exposure to other specified factors, initial encounter | CPT/HCPCS: 99213 ==

== ENCOUNTER → 2023-12-17 01:01 | Outpatient (CLI) | payer MEDICARE, SELFPAY ==
--- NOTE | 2023-12-17 07:00 | DI.MRI_ITS ---
Exam(s) MR LOWER JOINT RT WO EXAM: MR LOWER JOINT RT WO CLINICAL HISTORY: PAIN,TEAR MEDIAL MENISCUS RT KNEE, S83.241A. TECHNIQUE: Multiplanar multisequence MRI was performed. COMPARISON: CR XR KNEE RT 3V AP,LAT,KIRA from 10/21/2023 FINDINGS: BONES: There is no fracture or contusion pattern. There is marrow edema seen in the proximal tibia pa rticularly the medial tibial plateau. No fracture is identified. JOINTS: Articular cartilage is unremarkable. No effusion is present. TENDONS: Extensor mechanism: Unremarkable. Medial retinaculum: Unremarkable. Lateral retinaculum: Unremarkable. Popliteus: Unremarkable. MUSCLES: Unremarkable. MENISCI: There is linear intermediate signal seen in the body and posterior horn of the medial menisc us. It does not articulate with the joint surface. This likely reflects degeneration. The lateral meniscus is unremarkable. SOFT TISSUES: There is edema seen in the soft tissues around the medial knee. LIGAMENTS: Anterior Cruciate: Unremarkable. Posterior Cruciate: Unremarkable. Medial Collateral:Unremarkable. Lateral Collateral: Unremarkable. OTHER: IMPRESSION: 1. Degenerative signal in the medial meniscus without definite evidence of a tear. 2. Area of contusion involving the proximal medial tibial plateau without evidence of a fracture. 3. No evidence of a ligament tear. 4. Edema in the soft tissues around the knee particularly medially. DATA REPOSITORY:
== END ==
PROVIDERS: PCP Family Medicine; Visit Provider Student in an Organized Health Care Education/Training Program
DX: S83.241A Other tear of medial meniscus, current injury, right knee, initial encounter (principal); X58.XXXA Exposure to other specified factors, initial encounter
CPT/HCPCS: 73721

== ENCOUNTER → 2023-12-23 09:40 | Outpatient (BNVA) | payer MEDICARE, SELFPAY | PROVIDERS: PCP Family Medicine; Referring Provider Family Medicine; Visit Provider Student in an Organized Health Care Education/Training Program | DX: S80.11XD Contusion of right lower leg, subsequent encounter (principal); X58.XXXD Exposure to other specified factors, subsequent encounter; D75.89 Other specified diseases of blood and blood-forming organs | CPT/HCPCS: 99213 ==

== ENCOUNTER 2024-01-05 14:48 | Outpatient (CLI) | payer MEDICARE, SELFPAY ==
[2024-01-05 14:50] VITALS: BP 157/57; PULSE 54; RESP 20; TEMP 36.7; O2SAT 98
[2024-01-05] MEDS: Nerve Block Tray 1 EACH MC (15:35)
[2024-01-05] MEDS: methylPREDNISolone ACETATE 80 MG/ML VIAL IJ (15:36)
[2024-01-05] MEDS: Omnipaque 240 MG/ML 50 ML BTL IJ (15:36)
--- NOTE | 2024-01-05 15:36 | PDOC.PAIN_ITS ---
Date of service: 01/05/24 Time of Service: 15:36 Pain Managment Procedure Note Procedure Note Procedure Note: PROCEDURE NOTE LEFT INTRA-ARTICULAR SACROILIAC JOINT INJECTION Date of Service: January 05, 2024 Patient: José Gordon Provider: Adam Galeas DO, MPH COMMENTS: I previously evaluated the patient in the office and their symptoms in relation to the sacroiliac joint pain have remained the same. Pre-operative diagnosis: Sacroiliac joint dysfunction Post-operative diagnosis: Same Pre-procedure pain: VAS= 7/10 José Gordon has been [facility] to [facility] for a Left intra-articular Sacroiliac joint injection. José was interviewed and the medical record reviewed. There were no medical, pharmacologic, radiographic or other structural contraindications to attempting a fluoroscopically-guided, contrast-enhanced, intra-articular Sacroiliac joint injection. The risks, benefits, and potential side effects of this procedure were reviewed with the patient. Questions and concerns were addressed. After it was clear that José was fully informed about the procedure, the printed consent form was signed by the patient and myself. José was placed in the prone position on the fluoroscopy table and an automated blood pressure cuff, 3 lead EKG, and pulse oximeter were applied. The skin entry point for approaching the Left sacroiliac joint was identified under the most advantageous fluoroscopic view and marked. Following thorough Chlorhexadine preparation of the skin and draping with sterile surgical drapes, 2 mls of 1% lidocaine was infiltrated into the skin at the entry point and the surrounding subcutaneous tissues. Next, a 3.5 22G spinal needle was placed under fluoroscopic guidance into the Left sacroiliac joint. Intra-articular placement was confirmed by a clear arthrogram resulting from the injection of 0.25ml of Omnipaque-240. Next, 1 ml of Depo- Medrol 80 mg/ml was injected intra- articularly with an initial reproduction of a significant component of the usual pain. This was followed with 1 ml of 1% Lidocaine. The needle was then removed without difficulty. (49 ml of Omnipaque-240 was wasted). José's vital signs were stable throughout the procedure and were as recorded in nursing records. Follow up plans and appointments were discussed with José. Post procedure instructions were given as documented in nursing records. Having met discharge criteria, José was [facility] from the [facility]. COMMENTS: Post-procedure pain: VAS= 2/10. If the patient receives at least 50% improvement in pain and/or function for at least 3 months, this procedure can be repeated if needed. I personally performed this entire procedure. ADAM GALEAS DO, MPH ABPMR-subspecialty board certification in Pain Medicine [facility]
--- NOTE | 2024-01-05 15:42 | DI.RAD_ITS ---
Exam(s) XR PAIN CLINIC SACRIOILIAC 2V EXAM: XR PAIN CLINIC SACRIOILIAC 2V CLINICAL HISTORY: Dx: Sacroiliac Joint Dysfunction TECHNIQUE: 2D and realtime digital imaging was performed. CONTRAST MATERIAL: Refer to procedure report. COMPARISON: No exams were available for comparison FINDINGS: Fluoroscopy was provided for Dr. Galeas during the performance of a left sacroiliac joint injection. Please refer to the procedure report for complete details. Ka,r=5.84 mGy IMPRESSION: RADIATION DOSE DELIVERED: 0.0 0.0 0
[2024-01-05 15:46] VITALS: BP 129/77; PULSE 74; RESP 16; O2SAT 98
== END 2024-01-05 14:49 | disposition home or self-care (01) ==
LOC: PC 14:48
PROVIDERS: PCP Family Medicine; Visit Provider Preventive Medicine Occupational Medicine
DX: M54.50 Low back pain, unspecified (principal); M46.1 Sacroiliitis, not elsewhere classified
CPT/HCPCS: 27096; 72200; J1010; Q9967

== ENCOUNTER 2024-03-16 12:15 | Outpatient (CLI) | payer MEDICARE, SELFPAY ==
--- NOTE | 2024-03-16 11:45 | DI.RAD_ITS ---
Exam(s) XR TOE RT GREAT EXAM: XR TOE RT GREAT CLINICAL HISTORY: right great toe injury, pain, M79.676. TECHNIQUE: 2D digital imaging was performed. COMPARISON: No exams were available for comparison FINDINGS: BONES: No acute fracture is present. No bony destructive lesion is seen. JOINTS: No dislocation present. SOFT TISSUE: There well corticated osseous densities adjacent to the proximal phalanx of the great to e which are likely chronic. IMPRESSION: No definite acute fracture or dislocation. A repeat examination in 10-14 days may be considered for re-evaluation. DATA REPOSITORY: RADIATION DOSE DELIVERED:
== END 2024-03-16 12:35 ==
LOC: DI 12:16
PROVIDERS: PCP Family Medicine; Visit Provider Nurse Practitioner Family
DX: M79.671 Pain in right foot (principal)
CPT/HCPCS: 73660

== ENCOUNTER → 2024-03-17 13:50 | Outpatient (BNVA) | payer MEDICARE, SELFPAY | PROVIDERS: PCP Family Medicine; Visit Provider Internal Medicine Cardiovascular Disease | DX: I25.810 Atherosclerosis of coronary artery bypass graft(s) without angina pectoris (principal) | CPT/HCPCS: 99213 ==

== ENCOUNTER 2024-03-30 01:29 | Outpatient (CLI) | payer MEDICARE, SELFPAY ==
--- NOTE | 2024-03-30 10:31 | DI.RAD_ITS ---
Exam(s) XR TOE RT GREAT EXAM: XR TOE RT GREAT CLINICAL HISTORY: repeat imaging in 2 weeks (1st film today) r/o fx, RT TOE PAIN, M79.674. TECHNIQUE: 2D digital imaging was performed. COMPARISON: No exams were available for comparison FINDINGS: BONES: No acute fracture is present. Well corticated bony density seen medial to the proximal phala nx of the great toe is unchanged and appears old. No bony destructive lesion is seen. JOINTS: No dislocation present. SOFT TISSUE: Normal. IMPRESSION: No acute abnormality DATA REPOSITORY: RADIATION DOSE DELIVERED:
== END 2024-03-30 01:49 ==
LOC: DI 01:29
PROVIDERS: PCP Family Medicine; Visit Provider Nurse Practitioner Family
DX: M79.674 Pain in right toe(s) (principal)
CPT/HCPCS: 73660

== ENCOUNTER 2024-07-19 15:30 | Outpatient (CLI) | payer MEDICARE, SELFPAY ==
[2024-07-19] VITALS (7 sets, daily range): BP systolic 157–171; BP diastolic 74–90; PULSE 70–76; RESP 18–26; TEMP 36.6; O2SAT 96–98
--- NOTE | 2024-07-19 06:00 | DI.RAD_ITS ---
Exam(s) XR PAIN CLINIC SACRIOILIAC 2V EXAM: XR PAIN CLINIC SACRIOILIAC 2V CLINICAL HISTORY: Dx: Sacroiliac Joint Dysfunction TECHNIQUE: 2D and realtime digital imaging was performed. CONTRAST MATERIAL: Refer to procedure report. COMPARISON: No exams were available for comparison FINDINGS: Fluoroscopy was provided for Dr. Galeas during the performance of a left sacroiliac joint injection. Please refer to the procedure report for complete details. Ka,r=8.36 mGy IMPRESSION: RADIATION DOSE DELIVERED: 0.0 0.0 0
[2024-07-19] MEDS: Omnipaque 240 MG/ML 50 ML BTL IJ (16:16)
[2024-07-19] MEDS: Nerve Block Tray 1 EACH MC (16:16)
[2024-07-19] MEDS: methylPREDNISolone ACETATE 80 MG/ML VIAL IJ (16:17)
--- NOTE | 2024-08-14 06:23 | PDOC.PAIN_ITS ---
Date of service: 07/19/24 Time of Service: 16:30 Pain Managment Procedure Note Procedure Note Procedure Note: PROCEDURE NOTE LEFT INTRA-ARTICULAR SACROILIAC JOINT INJECTION Date of Service: July 19, 2024 Patient: José Gordon Provider: Adam Galeas DO, MPH COMMENTS: I previously evaluated the patient in the office and their symptoms in relation to the sacroiliac joint pain have remained the same. He has had this procedure numerous times and his last allowed him >50% pain relief for >3 months and allows him to continue working. Pre-operative diagnosis: Sacroiliac joint dysfunction ICD-10 M53.3 Post-operative diagnosis: Same Pre-procedure pain: VAS= 8/10 José Gordon has been [facility] to [facility] for a Left intra-articular Sacroiliac joint injection. José was interviewed and the medical record reviewed. There were no medical, pharmacologic, radiographic or other structural contraindications to attempting a fluoroscopically-guided, contrast-enhanced, intra-articular Sacroiliac joint injection. The risks, benefits, and potential side effects of this procedure were reviewed with the patient. Questions and concerns were addressed. After it was clear that José was fully informed about the procedure, the printed consent form was signed by the patient and myself. José was placed in the prone position on the fluoroscopy table and an automated blood pressure cuff, 3 lead EKG, and pulse oximeter were applied. The skin entry point for approaching the Left sacroiliac joint was identified under the most advantageous fluoroscopic view and marked. Following thorough Chlorhexadine preparation of the skin and draping with sterile surgical drapes, 2 mls of 1% lidocaine was infiltrated into the skin at the entry point and the surrounding subcutaneous tissues. Next, a 3.5 22G spinal needle was placed under fluoroscopic guidance into the Left sacroiliac joint. Intra-articular placement was confirmed by a clear arthrogram resulting from the injection of 0.25ml of Omnipaque-240. Next, 1 ml of Depo- Medrol 80 mg/ml was injected intra- articularly with an initial reproduction of a significant component of the usual pain. This was followed with 1 ml of 1% Lidocaine. The needle was then removed without difficulty. (49 ml of Omnipaque-240 was wasted). José's vital signs were stable throughout the procedure and were as recorded in nursing records. Follow up plans and appointments were discussed with José. Post procedure instructions were given as documented in nursing records. Having met discharge criteria, José was [facility] from the [facility]. COMMENTS: Post-procedure pain: VAS= 0/10. If the patient receives at least 50% improvement in pain and/or function for at least 3 months, this procedure can be repeated if needed. I personally performed this entire procedure. ADAM GALESA DO, MPH ABPMR-subspecialty board certification in Pain Medicine [facility] [facility]
== END 2024-07-19 15:31 | disposition home or self-care (01) ==
LOC: PC 15:30
PROVIDERS: PCP Family Medicine; Visit Provider Preventive Medicine Occupational Medicine
DX: M54.50 Low back pain, unspecified (principal); M53.3 Sacrococcygeal disorders, not elsewhere classified
CPT/HCPCS: 27096; 72200; J1010; Q9967

== ENCOUNTER 2024-11-22 12:20 | Outpatient (CLI) | payer MEDICARE, SELFPAY ==
[2024-11-22 12:52] VITALS: BP 121/76; PULSE 62; RESP 18; TEMP 37; O2SAT 98
[2024-11-22 13:09] VITALS: PULSE 67
[2024-11-22 13:10] VITALS: PULSE 64; RESP 20; O2SAT 98
[2024-11-22 13:11] VITALS: BP 150/78; PULSE 66; RESP 23; O2SAT 97
[2024-11-22 13:16] VITALS: BP 168/86; PULSE 63; PULSE 64; RESP 19; O2SAT 97
--- NOTE | 2024-11-22 13:20 | DI.RAD_ITS ---
Exam(s) XR PAIN CLINIC SACRIOILIAC 2V EXAM: XR PAIN CLINIC SACRIOILIAC 2V CLINICAL HISTORY: Dx: Sacroilaic Joint Dysfunction TECHNIQUE: 2D and realtime digital imaging was performed. CONTRAST MATERIAL: Refer to procedure report. COMPARISON: No exams were available for comparison FINDINGS: Fluoroscopy was provided for Dr. Galeas during the performance of a left sacroiliac joint injection. Please refer to the procedure report for complete details. Ka,r=4.24 mGy IMPRESSION: RADIATION DOSE DELIVERED: 0.0 0.0 0
--- NOTE | 2024-11-22 13:24 | PDOC.PAIN_ITS ---
Date of service: 11/22/24 Time of Service: 13:24 Pain Managment Procedure Note Procedure Note Procedure Note: PROCEDURE NOTE LEFT INTRA-ARTICULAR SACROILIAC JOINT INJECTION Date of Service: November 22, 2024 Patient: José Gordon Provider: Adam Galeas DO, MPH COMMENTS: I previously evaluated the patient in the office and their symptoms in relation to the sacroiliac joint pain have remained the same. Pre-operative diagnosis: Sacroiliac joint dysfunction ICD-10 M53.3 Post-operative diagnosis: Same Pre-procedure pain: VAS= 7/10 José Gordon has been referred to our [facility] for a Left intra-articular Sacroiliac joint injection. José was interviewed and the medical record reviewed. There were no medical, pharmacologic, radiographic or other structural contraindications to attempting a fluoroscopically-guided, contrast-enhanced, intra-articular Sacroiliac joint injection. The risks, benefits, and potential side effects of this procedure were reviewed with the patient. Questions and concerns were addressed. After it was clear that José was fully informed about the procedure, the printed consent form was signed by the patient and myself. José was placed in the prone position on the fluoroscopy table and an automated blood pressure cuff, 3 lead EKG, and pulse oximeter were applied. The skin entry point for approaching the Left sacroiliac joint was identified under the most advantageous fluoroscopic view and marked. Following thorough Chlorhexadine preparation of the skin and draping with sterile surgical drapes, 2 mls of 1% lidocaine was infiltrated into the skin at the entry point and the surrounding subcutaneous tissues. Next, a 3.5 22G spinal needle was placed under fluoroscopic guidance into the Left sacroiliac joint. Intra-articular placement was confirmed by a clear arthrogram resulting from the injection of 0.25ml of Omnipaque-240. Next, 1 ml of Depo- Medrol 80 mg/ml was injected intra- articularly with an initial reproduction of a significant component of the usual pain. This was followed with 1 ml of 1% Lidocaine. The needle was then removed without difficulty. (49 ml of Omnipaque-240 was wasted). José's vital signs were stable throughout the procedure and were as recorded in nursing records. Follow up plans and appointments were discussed with José. Post procedure instructions were given as documented in nursing records. Having met discharge criteria, José was [facility] from the [facility]. COMMENTS: Post-procedure pain: VAS= 0/10. If the patient receives at least 50% improvement in pain and/or function for at least 3 months, this procedure can be repeated if needed. I personally performed this entire procedure. ADAM GALEAS DO, MPH ABPMR-subspecialty board certification in Pain Medicine [facility] Coding Conscious Sedation used for procedure: No CPT Codes: SI Joint Inj; incl Fluoro - 25010 ([id number] ~G) Left Additional Codes: Date of Service (37806) Date of service: 11/22/24
[2024-11-22] MEDS: methylPREDNISolone ACETATE 80 MG/ML VIAL IJ (13:25)
[2024-11-22] MEDS: Nerve Block Tray 1 EACH MC (13:26)
[2024-11-22] MEDS: Omnipaque 240 MG/ML 50 ML BTL IJ (13:26)
== END 2024-11-22 12:21 | disposition home or self-care (01) ==
LOC: PC 12:20
PROVIDERS: PCP Family Medicine; Visit Provider Preventive Medicine Occupational Medicine
DX: M53.3 Sacrococcygeal disorders, not elsewhere classified (principal); M54.50 Low back pain, unspecified
CPT/HCPCS: 27096; 72200; J1010; Q9967

== ENCOUNTER 2025-02-27 11:38 | Inpatient (IN) | payer MEDICARE, SELFPAY ==
[2025-02-27] VITALS (75 sets, daily range): BP systolic 127–168; BP diastolic 46–94; PULSE 26–78; RESP 7–33; TEMP 36.8; O2SAT 87–99
--- NOTE | 2025-02-27 11:30 | RT.EKG_ITS ---
APPROVED REPORT Exam: Resting ECG Reason for Exam: dizzyness Patient Location: E HR:74 bpm ECG Measurements Heart Rate 74 AXIS WV 175 P 24 QRSd 92 QRS 25 QT 393 T 34 QTc 435 Conclusion Sinus rhythm, rate 74 No interval abnormalities Q wave lead III, unchanges from priors No STEMI
--- NOTE | 2025-02-27 12:08 | ED.GENADUL_ITS ---
Discharge Plan Discharge Details Chief Complaint: Dizzy/Sync Primary Care Provider: Vinayak Jackson ED Provider: Kelly Navarro Home Meds and New Rx's Prescriptions: No Action aspirin [Adult Aspirin Regimen] 81 mg tablet,delayed release (DR/EC) 81 mg PO DAILY glipizide-metformin 5-500 mg tablet 2 tab PO BID Qty: 360 3RF Lantus Solostar U-100 Insulin 100 unit/mL (3 mL) insulin pen 50 unit SC QAM Qty: 15 10RF losartan 100 mg tablet 100 mg PO DAILY Qty: 90 3RF amlodipine 5 mg tablet 5 mg PO DAILY Qty: 90 3RF sildenafil (pulm.hypertension) 20 mg tablet 20 mg PO TID PRN (Reason: sexual activity) Qty: 90 11RF Patient Comments: prn (DME) Blood Glucose Test strip See Dose Instructions .ROUTE .MEDSUPPLY Qty: 10 Rx Instructions: As directed (DME) lancets misc See Dose Instructions .ROUTE .MEDSUPPLY Qty: 50 Rx Instructions: As directed (DME) pen needle, diabetic 31 gauge x 3/16 needle See Dose Instructions .ROUTE .MEDSUPPLY Qty: 100 3RF Rx Instructions: Use with insulin daily, to keep HbA1c less than 6.5% omeprazole 20 mg capsule,delayed release(DR/EC) 20 mg PO DAILY Qty: 90 3RF diclofenac potassium 50 mg tablet 50 mg PO TID PRN (Reason: pain) Qty: 90 3RF hydrocodone-acetaminophen 10-325 mg tablet 0.5 tab PO Q8H MDD 30 mg hydrocodone PRN (Reason: pain) Qty: 60 0RF Patient Comments: pt. states he usually takes 1/4 at night Rx Instructions: Patient takes about 1/8th of tablet when needed HPI General Mode of arrival: ambulatory . Date/Time Provider Initiated Documentation: 02/27/25 11:39 . Limitations to Documentation: no limitations . Information obtained by: patient and old records reviewed . HPI Narrative: This is a 74-year-old male patient with a history of CVA, diabetes, CAD and CABG, hypertension and hyperlipidemia presenting for evaluation of headache, vision changes and dizziness. The patient reports that he has been intermittently experiencing vision changes for several months. He will have a sudden onset of a white curtain coming down over his vision, that is very hard to see through. This can last for minutes to hours. He has a history of diabetic retinopathy and had cataract surgery bilaterally. He states that he developed a headache last night, it was gradual in onset and improved slightly with Tylenol and diclofenac. States that he woke up this morning and felt quite dizzy and off balance. Denies true vertiginous symptoms, states that this does not seem to be positional or orthostatic. The patient reports no new numbness or weakness, states that he does not have any significant deficits after his last stroke other than some discoordination of the right side. No new trauma, patient does not take blood thinners, no chest pain. Endorses poor oral hydration in the outpatient environment at baseline. Related Data Home Medications ?Medication ?Instructions ?Recorded ?Confirmed blood sugar diagnostic (Blood #10 ea 01/12/19 12/21/24 Glucose Test strips) lancets #50 ea 01/12/19 12/21/24 aspirin 81 mg tablet,delayed 81 mg PO DAILY 07/03/21 0 02/27/25 release (Adult Aspirin Regimen) omeprazole 20 mg capsule,delayed 20 mg PO DAILY #90 ca ps 04/13/24 02/27/25 release pen needle, diabetic 31 gauge x #100 ea 04/13/2412/21 diclofenac potassium 50 mg tablet 50 mg PO TID PRN bonnie n #90 tabs 04/25/24 02/27/25 amlodipine 5 mg tablet 5 mg PO DAILY #90 tabs 07/0702/27/25 glipizide 5 mg-metformin 500 mg 2 tab PO BID #360 tabs 07/07/24 02/27/25 tablet insulin glargine 100 unit/mL (3 50 unit (0.5 mL) subcu t QAM #15 mL 07/07/24 02/27/25 mL) subcutaneous pen (Lantus Solostar U-100 Insulin) losartan 100 mg tablet 100 mg PO DAILY #90 tabs 01/2302/27/25 sildenafil (pulm.hypertension) 20 20 mg PO TID PRN sex ual activity 10/24/24 02/27/25 mg tablet #90 tabs hydrocodone 10 mg-acetaminophen 0.5 tab PO Q8H PRN bonnie n #60 tabs 01/01/25 02/27/25 325 mg tablet Previous Rx's ?Medication ?Instructions ?Recorded omeprazole 20 mg capsule,delayed 20 mg PO DAILY #90 ca ps 04/13/24 release pen needle, diabetic 31 gauge x #100 ea 04/13/24 3/ diclofenac potassium 50 mg tablet 50 mg PO TID PRN bonnie n #90 tabs 04/25/24 amlodipine 5 mg tablet 5 mg PO DAILY #90 tabs 07/07 glipizide 5 mg-metformin 500 mg 2 tab PO BID #360 tabs 07/07/24 tablet insulin glargine 100 unit/mL (3 50 unit (0.5 mL) subcu t QAM #15 mL 07/07/24 mL) subcutaneous pen (Lantus Solostar U-100 Insulin) losartan 100 mg tablet 100 mg PO DAILY #90 tabs 01/23 sildenafil (pulm.hypertension) 20 20 mg PO TID PRN sex ual activity 10/24/24 mg tablet #90 tabs hydrocodone 10 mg-acetaminophen 0.5 tab PO Q8H PRN bonnie n #60 tabs 01/01/25 325 mg tablet Allergies Allergy/AdvReac Type Severity Reaction Status Date / Time ciprofloxacin Allergy Intermediate Hives Verified 02/27/25 11:47 atorvastatin (From Lipitor) Allergy Unknown Very ill Verified 02/27/25 11:47 Adrcmbu-QDX-TnC Reductase AdvReac Intermediate reflux, Verified 02/27/25 11:47 Inhibitor (Ozonzwi-Ohk-Bwc malaise, Reductase Inhibitor) GI upset General Stated Complaint: Dizzy/Sync KONRAD: 3 Exam Narrative Exam Narrative: Gen: awake and alert, in no apparent distress. Appears well nourished. HEENT: PERRL, EOMs full and without nystagmus. External ears and nose normal, mucous membranes moist. Neck: Supple, full range of motion, no observable masses Lungs: No increased work of breathing CV: Heart with regular rate and rhythm. Strong and symmetrical radial pulses. Abdomen: Soft, nondistended, non-tender to palpation. No rigidity, rebound tenderness, or guarding. MSK: No joint swelling, no redness. Full ROM without limitation, no external traumatic findings. Skin: No rashes or lesions to visualized skin. Normal color, warm, and dry. Neuro: Cranial nerves II-XII intact and symmetrical bilaterally. 5/5 strength in all muscle groups x4 extremities. No pronator drift, no sensory deficits. Ambulates with steady gait. Psych: Appropriate for situation. Course Vital Signs Vital signs: Vital Signs Temperature 36.8 C 02/27/25 11:40 Pulse 71 02/27/25 11:40 Respiratory Rate 18 02/27/25 11:40 Blood Pressure 163/88 H 02/27/25 11:40 Pulse Oximetry 96 02/27/25 11:40 Temperature 36.8 C 02/27/25 11:40 Temperature Source Oral 02/27/25 11:40 Pulse 71 02/27/25 11:40 Respiratory Rate 18 02/27/25 11:57 Respiratory Effort Normal, Non-Labored 02/27/25 11:57 Respiratory Depth Normal 02/27/25 11:57 Respiratory Pattern Normal 02/27/25 11:57 Blood Pressure 163/88 H 02/27/25 11:40 Blood Pressure Position Sitting 02/27/25 11:40 Pulse Oximetry 96 02/27/25 11:40 Oxygen Delivery Method Room Air 02/27/25 11:40 Oxygen Flow Rate 0 02/27/25 11:40 Pain Level 6 02/27/25 11:40 Medical Decision Making This is a 74-year-old male patient presenting for evaluation of headache, vision changes, and dizziness. Differential includes but is not limited to intracranial abnormalities including stroke/TIA, intracranial hemorrhage, mass effect, also considered orthostasis/vasovagal syndrome, dehydration, metabolic and electrolyte derangement. Considered arrhythmia, no chest pain to suggest ACS, considered kidney and liver dysfunction. Given the duration of symptoms the patient does not meet criteria for stroke activation and his NIH score is actually quite low. I obtained an EKG which shows a normal sinus rhythm without evidence of ischemia, interval abnormality, or large ectopic burden. We will obtain a CTA of the brain and neck, as well as laboratory studies to include CBC, CMP, magnesium, troponin, and INR. Will provide the patient with a liter of IV fluid for rehydration in the setting of his dizziness. -I independently interpreted the laboratory studies, which show no significant leukocytosis, anemia, or thrombocytopenia. The chemistry panel is without evidence of electrolyte abnormality other than a low magnesium at 1.6 which will be repleted. There is no kidney dysfunction, or liver injury. The patient does have a borderline elevation in his BUN to creatinine ratio. Troponin was negative and without interval increase on 1 hour delta recheck. Urinalysis is negative. I reviewed the CT of the head and discussed the findings with the radiologist. He states that there is no acute intracranial hemorrhage nor vascular abnormalities, and recommended MRI for definitive stroke workup. This was ordered and performed. MRI noted to have new lacunar infarcts of the right cerebellum and occipital lobes, which is not unexpected for the symptoms that the patient is experiencing. I reached out to [facility] teleneuro and KATHY the hospitalist, who was curious about changes to the antiplatelet agents which might need to be made. The patient was monitored on telemetry and I note no dysrhythmia such as A-fib. Patient was signed out to the oncoming provider prior to completion of the teleneurology consult. I anticipate admission to this hospital. All further care per the oncoming provider. Kelly Navarro MD [facility] All Active Problems (Updated 12/26/24 @ 10:52 by Vinayak Jackson DO) Sebaceous cyst (Acute) Trigger finger, left index finger (Acute) Toe pain, right (Acute) Great toe pain (Acute) Contusion of right tibia (Acute) Stomach ulcer (Acute) Tubulovillous adenoma (Acute ~09/2022) CAD (coronary artery disease) (Chronic) DJD (degenerative joint disease), lumbar (Acute) MRI 11/06/17 and 06/10/18 Diabetes mellitus, type II (Acute ~10/14/16) Erectile dysfunction (Acute) GERD (gastroesophageal reflux disease) (Chronic) Hyperlipidemia (Acute) Hypertension (Chronic) TIA (transient ischemic attack) (Acute ~1998) Situational depression (Acute) Sacroiliac joint dysfunction (Acute) Chronic GERD (Acute) Bile reflux esophagitis (Acute) Adenomatous polyps (Chronic) Pulmonary nodule less than 1 cm in diameter with low risk for malignant neoplasm (Chronic) Incidental finding on CT scan, March 2020, needs 12 month recheck Left carpal tunnel syndrome (Acute) Right carpal tunnel syndrome (Acute) s/p ECTR DOS: 08/07/20 Left lateral epicondylitis (Acute) Injection: 08/07/20 Adenomatous polyposis (Acute) Facial paresthesia (Acute) Hyperlipidemia (Chronic) Left sided lacunar infarction (Acute) Acute ischemic left middle cerebral artery (MCA) stroke (Acute) TIA (transient ischemic attack) (Acute) Right shoulder pain (Acute) Vasomotor rhinitis (Acute) Tubular adenoma (Acute 09/2021) Cerebrovascular accident (CVA) (Chronic) 10/03/21 [facility] [place] Neurology note Light headedness (Acute) Lumbar radiculitis (Acute) Lumbosacral spondylosis without myelopathy (Acute) Bladder instability (Acute) Hemorrhoid (Acute) Separation of right acromioclavicular joint (Acute) Tendonitis of long head of biceps brachii of right shoulder (Acute) Medical History Hx of fracture of rib Insomnia Chronic right shoulder pain (~10/14/16) AC JOINT RECONSTRUCTION Chronic back pain (~06/27/18) Medial meniscus tear (~03/03/18) Left Knee Surgical History H/O cataract extraction Left 09/13/23. Right 09/27/23. [place] Hx of shoulder surgery (R) Shoulder History of medial meniscus repair of left knee Hx of CABG x5 History of esophagogastroduodenoscopy (EGD) (~08/2019) History of colonoscopy (~09/2022) 10/30/22- bx's polyps removed. [facility] Dr. Junior 08/2019 Status post AC joint reconstruction right, w/allograft H/O heart artery stent (~2012) patient reports 6 stents total. Last stent placed: 2010 History of tonsillectomy and adenoidectomy History of coronary artery bypass graft (~1997) X5. FOLLOWS UP WITH DR. JEREZ, LAST VISIT WAS 05/26/191997 History of cholecystectomy Family History Mother Hypertension Diabetes Ovarian cancer Father Hypertension Diabetes Lymphoma Sister Heart disease Social History Smoking/Tobacco Use Status: Former Tobacco Use Quit Date: 07/11/89 Tobacco: How many years used: 20 Smoking risk assessment performed?: Yes Alcohol Intake: current Alcohol Intake frequency: holidays/special occasions only Alcohol type: beer Drug use: Occasionally Substance use type: marijuana Household members: other Details: roomate Housing: apartment Communication Needs: Corrective Lenses current occupation: UnEmployed Current gender identity: male What is your relationship status?: Panel score (0-1 are the most socially isolated patients): 0 What type of physical activity do you participate in: none Seatbelt use: always Drive intox or ride w/intox after school driver: No Working smoke detector in home: Yes Carbon monox detector in home: Yes Do you feel safe at home: Yes Do you feel safe in your relationship?: Yes PAWSS Have you Been Recently Intoxicated or Drunk Within the Last 30 days?: No Have you Ever Experienced Previous Episodes of Alcohol Withdrawal?: No Have you ever Experienced Withdrawal Seizures?: No Have you ever Experienced Delirium Tremens(DT)s?: No Have you ever undergone Alcohol Rehabilitation Treatment (i.e, inpt ot outpatient treatment programs)?: No Have you ever Experienced Blackouts?: No Have you ever Combined Alcohol with other Downers within the last 90 days?: No Have you ever Combined Alcohol with any other Substance of Abuse during the last 90 days?: No Positive Blood Alcohol level on Presentation? [PCS.BAL]: No Evidence of Increased Autonomic Activity (i.e. HR>120, tremor, sweating, agitation, nausea)?: No Result: 0
[2025-02-27 12:16] LABS: Abs Immature Grans 0.02 10^3/uL (0.0-0.06); HCT 42.9 % (40.0-50.0); HGB 14.0 g/dL (13.5-17.5); Immature Grans % 0.2 %; MCH 27.2 pg (27.0-33.0); MCHC 32.6 % (32.0-36.0); MCV 83 fL (80-95); MPV 9.6 fL (8.0-11.0); Platelet Count 277 10^3/uL (130-400); RBC 5.15 10^6/uL (4.36-5.78); RDW 13.8 % (11.8-14.1); RDW-SD 41.9 fL; WBC 9.11 10^3/uL (4.4-10.8)
[2025-02-27 12:27] LABS: INR 1.1 (0.9-1.1); Prothrombin Time 10.7 sec (9.1-11.1)
[2025-02-27] MEDS: Lactated Ringers 1,000 ML 1000 ML IV (12:28)
[2025-02-27 12:48] LABS: ALT 31 U/L (16-63); AST 21 U/L (15-37); Albumin 3.8 g/dL (3.4-5.0); Alkaline Phosphatase 78 U/L (46-116); Anion Gap 12.2 mmol/L (3-11); BUN 21 mg/dL (7-18); Bilirubin, Total 0.5 mg/dL (0.2-1.0); CO2 24.8 mmol/L (21.0-32.0); Calcium 8.9 mg/dL (8.5-10.1); Chloride 102 mmol/L (98-107); Estimated GFR 79.97 (mL/min/1.73m2); Glucose 120 mg/dL (74-106); Magnesium 1.6 mg/dL (1.8-2.4); Potassium 4.1 mmol/L (3.5-5.1); Sodium 139 mmol/L (136-145); Total Protein 7.8 g/dL (6.4-8.2); Troponin I 8 ng/L (<or=76)
[2025-02-27] MEDS: Normal Saline - Diluent 50 ML VIAL IJ (12:57)
[2025-02-27] MEDS: Omnipaque 350 MG/ML 100 ML BTL 75 ML IJ (12:58)
--- NOTE | 2025-02-27 13:05 | DI.CT_ITS ---
Exam(s) CT BRAIN NECK CTA EXAM: CT BRAIN NECK CTA CLINICAL HISTORY: vision changes, LAU, dizzy, hx CVA. TECHNIQUE: Imaging Protocol: Axial CT angiography was performed with multi- slice acquisition and multi-planar and/or 3D reconstructions. CONTRAST MATERIAL: Intravenous: Omnipaque 350 Contrast volume:70 mL COMPARISON: CT CT HEAD WO from 04/14/2021 FINDINGS: CTA Neck W: Aortic arch anatomy: Sternotomy wires noted. There is no significant stenosis at the origin of the great vessels off the aortic arch. No evidence of intimal flap Anterior circulation: Both common carotid arteries ascend with normal luminal diameters. At the level the carotid bulbs and proximal internal carotid arteries there is no significant plaque and no stenosis evident. Posterior circulation: Both vertebral arteries originate in conventional fashion off of the subclavian arteries. There is mild stenosis at the origin of the left vertebral artery. No stenosis at the origin the right vertebral artery. Both vertebral arteries exhibit normal luminal diameters within the foramen transversarium. Both vertebral arteries contribute to the formation of the basilar artery at the skull base. CTA Brain W: Anterior circulation: Both internal carotid arteries are patent in the skull base-carotid canals as well as within the cavernous sinuses. The supraclinoid aspects of the ICAs are patent. Both A1 segments are patent as are the anterior cerebral arteries and there is no evidence of aneurysm at the level of the anterior communicating artery. Both middle cerebral arteries are patent with no evidence of significant stenosis nor intraluminal thrombus. There also no aneurysms of these vessels. Posterior circulation: The basilar artery ascends in the midline. Distally it gives off patent bilateral superior cerebellar arteries. Distally it gives off posterior cerebral arteries. There are posterior communicating arteries on both sides the [id number] adding to the posterior cerebral artery circulation. There is no evidence of aneurysm at the tip of the basilar artery nor elsewhere in the [id number]-[id number]. CT BRAIN: There is no evidence of intracranial hemorrhage, mass effect, or shift of midline structures. There are no extra-axial fluid collections. Ventricles are not enlarged or shifted. There are no ring enhancing lesions in the brain and no abnormal meningeal enhancement. There is small area of hypodensity in the lateral left basal ganglia external capsule region which exhibits CSF density and is probably lacunar infarct. It was also evident on prior CT scan of April 2021. Another similar finding is seen at the same location on the opposite-right side. These do not exhibit hemorrhage nor enhancement. IMPRESSION: 1. Patent carotid arteries in the neck. No hemodynamically significant stenosis. 2. Patent vertebral arteries. There is, however, mild stenosis at the origin of the left vertebral artery off of the left subclavian artery. 3. Patent intracranial arteries. No obvious stenosis. No aneurysms. No evidence of vascular malformation in the brain. 4. There are posterior communicating arteries on both sides of the [id number]-fk-Hegfjx. Discussed by phone with ER physician 02/27/2025 at 1:43 p.m. RADIATION DOSE DELIVERED: 2,192.87mGy.cm Total DLP DATA REPOSITORY: All CT scans at this facility are submitted to the National Radiology Data Registry (NRDR) Dose Index Registry (DIR) with the [employer] (A[employer]). RADIATION OPTIMIZATION: All CT scans at this facility use at least one of these dose optimization techniques: automated exposure control; mA and/or kV adjustment per patient size (includes targeted exams where dose is matched to clinical indication); or iterative reconstruction.
--- NOTE | 2025-02-27 13:45 | DI.MRI_ITS ---
Exam(s) MR BRAIN WO EXAM: MR BRAIN WO CLINICAL HISTORY: Vision, dizzy, eval for CVA TECHNIQUE: Multiplanar multisequence MRI of the brain was performed. COMPARISON: MR MR BRAIN WO from 04/15/[address] BRAIN NECK CTA from 02/27/2025 FINDINGS: VENTRICLES AND EXTRA AXIAL SPACES: Normal in size and morphology for the patient's age. MIDLINE SHIFT: None. CEREBRAL PARENCHYMA: Small foci of restricted diffusion are noted in the right cerebellar hemisphere and right posterior occipital lobe. No space-occupying lesion identified. Mild atrophy consistent with the patient's age. Mild scattered foci of high signal in the white matter consistent with sequela of chronic microvascular disease. Old bilateral basal ganglia lacunar infarcts. BRAINSTEM/CEREBELLUM: Normal. VISUALIZED PARANASAL SINUSES: Minimal mucosal thickening. MASTOIDS:Clear. Vasculature: Normal flow void. PITUITARY GLAND: Unremarkable. ORBITS: Unremarkable. IMPRESSION: Several small foci of restricted diffusion are noted in the right cerebellar hemisphere and right occipital lobe consistent with acute lacunar infarcts. Findings called to Dr. Navarro of the emergency department. DATA REPOSITORY:
[2025-02-27] MEDS: MAGNESIUM SULFATE 2 GM/50 ML BAG IV_INF (13:51)
[2025-02-27 14:36] LABS: Glucose Negative (Negative)
[2025-02-27 14:38] LABS: Troponin I 9 ng/L (<or=76)
[2025-02-27] MEDS: Ondansetron 4 MG/2 ML VIAL (16:09)
--- NOTE | 2025-02-27 17:25 | ED.PROG_ITS ---
Date of service: 02/27/25 Time of Service: 16:30 Medical Decision Making 74-year-old male found to have new strokes. Signed out awaiting completion of teleneuro consultation. Teleneuro recommends loading with Plavix and aspirin. 300 mg of Plavix now and 325 mg of aspirin now. This medication was ordered. H e then recommends Plavix 75 mg daily for the next 3 weeks and aspirin 81 mg daily for the next 3 weeks. Afterward he recommends continuing on Plavix only. These recommendations were shared with hospitalist. Discharge Plan Disposition Patient Disposition: Admit to [facility] Condition: Stable Discharge Details Clinical Impression: Multiple lacunar infarcts Primary Care Provider: Vinayak Jackson ED Provider: Stephanie Henson Home Meds and New Rx's Prescriptions: No Action aspirin [Adult Aspirin Regimen] 81 mg tablet,delayed release (DR/EC) 81 mg PO DAILY glipizide-metformin 5-500 mg tablet 2 tab PO BID Qty: 360 3RF Lantus Solostar U-100 Insulin 100 unit/mL (3 mL) insulin pen 50 unit SC QAM Qty: 15 10RF losartan 100 mg tablet 100 mg PO DAILY Qty: 90 3RF amlodipine 5 mg tablet 5 mg PO DAILY Qty: 90 3RF sildenafil (pulm.hypertension) 20 mg tablet 20 mg PO TID PRN (Reason: sexual activity) Qty: 90 11RF Patient Comments: prn (DME) Blood Glucose Test strip See Dose Instructions .ROUTE .MEDSUPPLY Qty: 10 Rx Instructions: As directed (DME) lancets misc See Dose Instructions .ROUTE .MEDSUPPLY Qty: 50 Rx Instructions: As directed (DME) pen needle, diabetic 31 gauge x 3/16 needle See Dose Instructions .ROUTE .MEDSUPPLY Qty: 100 3RF Rx Instructions: Use with insulin daily, to keep HbA1c less than 6.5% omeprazole 20 mg capsule,delayed release(DR/EC) 20 mg PO DAILY Qty: 90 3RF diclofenac potassium 50 mg tablet 50 mg PO TID PRN (Reason: pain) Qty: 90 3RF hydrocodone-acetaminophen 10-325 mg tablet 0.5 tab PO Q8H MDD 30 mg hydrocodone PRN (Reason: pain) Qty: 60 0RF Patient Comments: pt. states he usually takes 1/4 at night Rx Instructions: Patient takes about 1/8th of tablet when needed
[2025-02-27] MEDS: Clopidogrel 300 MG TAB PO (17:27)
[2025-02-27] MEDS: Aspirin 325 MG TAB PO (17:27)
--- NOTE | 2025-02-27 21:30 | W.PM.HP.N ---
Date of service: 02/27/25 Time of Service: 19:00 Assessment and Plan Assessment and plan (1) Acute lacunar infarction: Status: Acute Assessment and plan: MRI evidence of multiple acute lacunar infarcts Prior to arrival, taking daily aspirin for 2021 CVA Per ED physician, teleneurology advises loading DAPT doses, aspirin 325 and clopidogrel 325 - Continue clopidogrel 75 with aspirin 81 together for 3 weeks - After 3 weeks, continue clopidogrel 75 only Will defer echocardiogram Requested PT evaluation (2) Diabetes mellitus type 2, insulin dependent: Status: Acute Assessment and plan: Last A1C 6.3 in November, will repeat Home regimen glipizide/metformin, basal insulin 50 u QAM Will give 35u basal insulin in the morning with resistant correctional insulin Hold oral regimen (3) Benign essential hypertension: Status: Acute Assessment and plan: Home regimen amlodipine 5, losartan 100. Continue both. (4) Insomnia: Assessment and plan: Patient has been prescribed norco 10's for pain, last written in December He reports he takes a half tablet at night for insomnia Will give one time dose tonight (5) Hyperlipidemia: Status: Chronic Assessment and plan: Not taking statin (6) History of coronary artery bypass graft: Assessment and plan: CABG x5 1997 (7) H/O heart artery stent: Assessment and plan: Total 6 stents, last 2010 (8) H/O cataract extraction: Assessment and plan: Both eyes repaired September 2023 (9) History of CVA with residual deficit: Status: Acute Assessment and plan: Treated at [facility] [place] History of Present Illness History of Present Illness Chief Complaint: dizzy Narrative: José Gordon is a 74 year old man presenting February 27 with one day of headache, dizziness and imbalance, after months of intermittent vision changes. His headache started February 26 in the evening, gradually worsening until he took OTC pain medication, which improved the pain. Upon waking the morning of February 27 he felt dizzy, and off balance when ambulating. His intermittent vision changes happen once in a while and he feels like a curtain falls over my eyes which lasts from 20 minutes to 2 hours. He reports that he had bilateral cataract surgery and has diabetic retinopathy. He has some right sided weakness that has persistent since his CVA. He reports that he takes his medications as directed, including insulin and a daily aspirin. PMH: CVA, CABG, DM, HTN, HLD. He takes a norco 5 before bed at night for chronic pain and insomnia. In the ED, BP was 160's / 80's with vitals otherwise unremarkable. Glucose elevated 120. Magnesium low at 1.6. CTA head/neck without acute pathology. MRI showed right cerebellar and right occipital foci suggestive of acute lacunar infarcts. Teleneurology was consulted and made medication recommendations. [facility] All Active Problems (Updated 02/28/25 @ 03:20 by Jason Christianson MD) History of CVA with residual deficit (Acute) Benign essential hypertension (Acute) Diabetes mellitus type 2, insulin dependent (Acute) Acute lacunar infarction (Acute) Multiple lacunar infarcts (Acute) Sebaceous cyst (Acute) Trigger finger, left index finger (Acute) Toe pain, right (Acute) Great toe pain (Acute) Contusion of right tibia (Acute) Stomach ulcer (Acute) Tubulovillous adenoma (Acute ~09/2022) CAD (coronary artery disease) (Chronic) DJD (degenerative joint disease), lumbar (Acute) MRI 11/06/17 and 06/10/18 Diabetes mellitus, type II (Acute ~10/14/16) Erectile dysfunction (Acute) GERD (gastroesophageal reflux disease) (Chronic) Hyperlipidemia (Acute) Hypertension (Chronic) TIA (transient ischemic attack) (Acute ~1998) Situational depression (Acute) Sacroiliac joint dysfunction (Acute) Chronic GERD (Acute) Bile reflux esophagitis (Acute) Adenomatous polyps (Chronic) Pulmonary nodule less than 1 cm in diameter with low risk for malignant neoplasm (Chronic) Incidental finding on CT scan, March 2020, needs 12 month recheck Left carpal tunnel syndrome (Acute) Right carpal tunnel syndrome (Acute) s/p ECTR DOS: 08/07/20 Left lateral epicondylitis (Acute) Injection: 08/07/20 Adenomatous polyposis (Acute) Facial paresthesia (Acute) Hyperlipidemia (Chronic) Left sided lacunar infarction (Acute) Acute ischemic left middle cerebral artery (MCA) stroke (Acute) TIA (transient ischemic attack) (Acute) Right shoulder pain (Acute) Vasomotor rhinitis (Acute) Tubular adenoma (Acute 09/2021) Cerebrovascular accident (CVA) (Chronic) 10/03/21 [facility] [place]rology [place] Light headedness (Acute) Lumbar radiculitis (Acute) Lumbosacral spondylosis without myelopathy (Acute) Bladder instability (Acute) Hemorrhoid (Acute) Separation of right acromioclavicular joint (Acute) Tendonitis of long head of biceps brachii of right shoulder (Acute) Medical History Hx of fracture of rib Insomnia Chronic right shoulder pain (~10/14/16) AC JOINT RECONSTRUCTION Chronic back pain (~06/27/18) Medial meniscus tear (~03/03/18) Left Knee Surgical History H/O cataract extraction Left 09/13/23. Right 09/27/23. [place] Hx of shoulder surgery (R) Shoulder History of medial meniscus repair of left knee Hx of CABG x5 History of esophagogastroduodenoscopy (EGD) (~08/2019) History of colonoscopy (~09/2022) 10/30/22- bx's polyps removed. [facility] Dr. Junior 08/2019 Status post AC joint reconstruction right, w/allograft H/O heart artery stent (~2012) patient reports 6 stents total. Last stent placed: 2010 History of tonsillectomy and adenoidectomy History of coronary artery bypass graft (~1997) X5. FOLLOWS UP WITH DR. JEREZ, LAST VISIT WAS 05/26/191997 History of cholecystectomy Family History Mother Hypertension Diabetes Ovarian cancer Father Hypertension Diabetes Lymphoma Sister Heart disease Social History Smoking/Tobacco Use Status: Former Tobacco Use Quit Date: 07/11/89 Tobacco: How many years used: 20 Smoking risk assessment performed?: Yes Alcohol Intake: current Alcohol Intake frequency: holidays/special occasions only Alcohol type: beer Drug use: Occasionally Substance use type: marijuana Household members: other Details: roomate Housing: house Communication Needs: Corrective Lenses current occupation: UnEmployed Current gender identity: male What is your relationship status?: Panel score (0-1 are the most socially isolated patients): 0 What type of physical activity do you participate in: none Seatbelt use: always Drive intox 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: No Working smoke detector in home: Yes Carbon monox detector in home: Yes Do you feel safe at home: Yes Do you feel safe in your relationship?: Yes Meds Allergies and Home Medications Allergies Allergy/AdvReac Type Severity Reaction Status Date / Time ciprofloxacin Allergy Intermediate Hives Verified 02/27/25 11:47 atorvastatin (From Lipitor) Allergy Unknown Very ill Verified 02/27/25 11:47 Jyypfks-CKV-[id number] Reductase AdvReac Intermediate reflux, Verified 02/27/25 11:47 Inhibitor (Yrhltgy-Fpc-Iel malaise, Reductase Inhibitor) GI upset Home Medications ?Medication ?Instructions ?Recorded ?Confirmed ?Type blood sugar diagnostic (Blood #10 ea 01/12/19 12/21/24 History Glucose Test strips) lancets #50 ea 01/12/19 12/21/24 History aspirin 81 mg tablet,delayed 81 mg PO DAILY 07/03/21 02/27/25 History release (Adult Aspirin Regimen) omeprazole 20 mg capsule,delayed 20 mg PO DAILY #90 caps 04/13/24 02/27/25 Rx release pen needle, diabetic 31 gauge x #100 ea 04/13/24 12/21/24 Rx 3/16 diclofenac potassium 50 mg tablet 50 mg PO TID PRN pain #90 tabs 04/25/24 02/27/25 Rx amlodipine 5 mg tablet 5 mg PO DAILY #90 tabs 07/07/24 02/27/25 Rx glipizide 5 mg-metformin 500 mg 2 tab PO BID #360 tabs 07/07/24 02/27/25 Rx tablet insulin glargine 100 unit/mL (3 50 unit (0.5 mL) subcut QAM #15 mL 07/07/24 02/27/25 Rx mL) subcutaneous pen (Lantus Solostar U-100 Insulin) losartan 100 mg tablet 100 mg PO DAILY #90 tabs 07/07/24 02/27/25 Rx sildenafil (pulm.hypertension) 20 20 mg PO TID PRN sexual activity 10/24/24 02/27/25 Rx mg tablet #90 tabs hydrocodone 10 mg-acetaminophen 0.5 tab PO Q8H PRN pain #60 tabs 01/01/25 02/27/25 Rx 325 mg tablet Exam Narrative Exam Narrative: General: This is a pleasant man in no distress HEENT: Normocephalic, atraumatic CV: RRR Resp: CTAB Abd: NTND, +NBS MSK: Voluntary motion x4 Neuro: Awake, alert, no focal deficits Results Labs 02/27/25 12:10 02/27/25 12:10 Labs: Laboratory Results - last 24 hr 02/27/25 02/27/25 02/27/25 12:10 14:08 14:20 WBC 9.11 RBC 5.15 Hgb 14.0 Hct 42.9 MCV 83 MCH 27.2 MCHC 32.6 RDW 13.8 Plt Count 277 MPV 9.6 Immature Gran % 0.2 Neutrophils % 71.4 Lymphocytes % 19.2 Monocytes % 7.1 Eosinophils % 1.8 Basophils % 0.3 Nucleated RBC % 0.0 Absolute Neutrophils 6.50 Absolute Lymphocytes 1.75 Absolute Monocytes 0.65 Absolute Eosinophils 0.16 Absolute Basophils 0.03 PT 10.7 INR 1.1 Sodium 139 Potassium 4.1 Chloride 102 Carbon Dioxide 24.8 Anion Gap 12.2 H BUN 21 H Creatinine 1.0 Est GFR (CKD-EPI 2020) 79.97 Glucose 120 H Calcium 8.9 Magnesium 1.6 L Total Bilirubin 0.5 AST 21 ALT 31 Alkaline Phosphatase 78 Troponin I 8 9 Total Protein 7.8 Albumin 3.8 Urine Color Yellow Urine Clarity Clear Urine pH 7.0 Ur Specific [place] 1.015 Urine Protein Negative Urine Ketones Negative Urine Blood Negative Urine Nitrite Negative Urine Bilirubin Negative Urine Urobilinogen 1.0 H Ur Leukocyte Esterase Negative Urine Glucose Negative 02/27/25 15:01 WBC RBC Hgb Hct MCV MCH MCHC RDW Plt Count MPV Immature Gran % Neutrophils % Lymphocytes % Monocytes % Eosinophils % Basophils % Nucleated RBC % Absolute Neutrophils Absolute Lymphocytes Absolute Monocytes Absolute Eosinophils Absolute Basophils PT INR Sodium Potassium Chloride Carbon Dioxide Anion Gap BUN Creatinine Est GFR (CKD-EPI 2020) Glucose Calcium Magnesium Total Bilirubin AST ALT Alkaline Phosphatase Troponin I Cancelled Total Protein Albumin Urine Color Urine Clarity Urine pH Ur Specific [place] Urine Protein Urine Ketones Urine Blood Urine Nitrite Urine Bilirubin Urine Urobilinogen Ur Leukocyte Esterase Urine Glucose Last Vital Signs Temp 36.8 C 02/27/25 11:40 Pulse 63 02/27/25 20:46 Resp 14 02/27/25 20:46 BP 153/94 H 02/27/25 20:46 Pulse Ox 96 02/27/25 20:46 PAWSS Have you Been Recently Intoxicated or Drunk Within the Last 30 days?: No Have you Ever Experienced Previous Episodes of Alcohol Withdrawal?: No Have you ever Experienced Withdrawal Seizures?: No Have you ever Experienced Delirium Tremens(DT)s?: No Have you ever undergone Alcohol Rehabilitation Treatment (i.e, inpt ot outpatient treatment programs)?: No Have you ever Experienced Blackouts?: No Have you ever Combined Alcohol with other Downers within the last 90 days?: No Have you ever Combined Alcohol with any other Substance of Abuse during the last 90 days?: No Positive Blood Alcohol level on Presentation? [PCS.BAL]: No Evidence of Increased Autonomic Activity (i.e. HR>120, tremor, sweating, agitation, nausea)?: No Result: 0 Time Spent Time spent with Patient: 40-54 minutes Time was spent: preparing to see the patient(eg.review tests), obtaining and/or reviewing separately otained hiistory, ordering medications,tests, procedures, referring, communicating with other health care specialist, indepentently interpreting results, counseling the patient and care coordination
[2025-02-27] MEDS: Normal Saline Flush 10 ML SYR IVP (22:23)
--- NOTE | 2025-02-27 22:34 | W.PC.ACHO ---
Registration Status: ADM IN Primary Language: Preferred Language: ED Information & Data Chief Complaint Dizzy/Sync 02/27/25 12:08 Triage Note patient c/o dizziness state 02/27/25 11:40 he has had 2 strokes 2-3 yrs ago. Headaches since yesterday and seeing white on and off and no other colors. Denies chest pain but having dizziness and just feeling off Medical / Surgical History (Last Reviewed 11/22/24 @ 12:53 by Renetta Rockwell, RN) Hx of fracture of rib Insomnia Chronic right shoulder pain (~10/14/16) Chronic back pain (~06/27/18) Medial meniscus tear (~03/03/18) (Last Reviewed 11/22/24 @ 12:53 by Renetta Rockwell, ZAINAB) H/O cataract extraction Hx of shoulder surgery History of medial meniscus repair of left knee Hx of CABG History of esophagogastroduodenoscopy (EGD) (~08/2019) History of colonoscopy (~09/2022) Status post AC joint reconstruction H/O heart artery stent (~2012) History of tonsillectomy and adenoidectomy History of coronary artery bypass graft (~1997) History of cholecystectomy Most Recent Vital Signs Temperature 36.8 C 02/27/25 11:40 Temperature Source Oral 02/27/25 11:40 Pulse 63 02/27/25 20:46 Pulse 64 02/27/25 20:46 Respiratory Rate 14 02/27/25 20:46 Respiratory Effort Normal, Non-Labored 02/27/25 11:57 Respiratory Depth Normal 02/27/25 11:57 Respiratory Pattern Normal 02/27/25 11:57 Blood Pressure 153/94 H 02/27/25 20:46 Blood Pressure Mean 115 02/27/25 20:46 Blood Pressure Position Sitting 02/27/25 11:40 Pulse Oximetry 96 02/27/25 20:46 Oxygen Delivery Method Nasal Cannula 02/27/25 17:29 Oxygen Flow Rate 1 02/27/25 17:29 Pain Level 6 02/27/25 11:40 Allergies ciprofloxacin Allergy (Intermediate, Verified 02/27/25 11:47) [facility]- cipro allergy 30 years ago per pt report took levofloxacin recently with no issues atorvastatin (From Lipitor) Allergy (Unknown, Verified 02/27/25 11:47) Very ill pt. mentiones his gut and he thought he was going to Apyopon-HGI-CpB Reductase Inhibitor (Dzutapb-Ifz-Byl Reductase Inhibitor) Adverse Reaction (Intermediate, Verified 02/27/25 11:47) reflux, malaise, GI upset Active Medications Generic Name Dose Route Start Last Admin Trade Name Sin PRN Reason Stop Dose Admin Iohexol 75 ml 02/27/25 13:00 02/27/25 12:58 Omnipaque 350 Mg/Ml 100 Ml Btl IJ 03/29/25 23:59 70 ml DIRECTED SHANTA Administration Sodium Chloride 0 ml 02/27/25 20:00 02/27/25 22:23 Normal Saline Flush 10 Ml Syr IVP 10 ml BID SHANTA Administration Sodium Chloride 50 ml 02/27/25 13:00 02/27/25 12:57 Normal Saline - Diluent 50 Ml Vial IJ 50 ml .FOR DI USE SHANTA Administration IV IV Catheter Type [Left Peripheral IV Antecubital] IV Catheter Gauge [Left 18 Antecubital] Diet Orders Category Date Time Status Heart Healthy Eating [DIET] Nutrition 02/28/25 Breakfast Ordered Diagnostics 02/27/25 02/27/25 02/27/25 Range/Units 15:01 14:20 14:08 WBC (4.4-10.8) 10^3/uL RBC (4.36-5.78) 10^6/uL Hgb (13.5-17.5) g/dL Hct (40.0-50.0) % MCV (80-95) fL MCH (27.0-33.0) pg MCHC (32.0-36.0) % RDW (11.8-14.1) % Plt Count (130-400) 10^3/uL MPV (8.0-11.0) fL Immature Gran % % Neutrophils % % Lymphocytes % % Monocytes % % Eosinophils % % Basophils % % Nucleated RBC % (0.0-0.3) % Absolute Neutrophils (1.2-6.7) 10^3/uL Absolute Lymphocytes (1.2-3.4) 10^3/uL Absolute Monocytes (0.1-0.8) 10^3/uL Absolute Eosinophils (0.0-0.7) 10^3/uL Absolute Basophils (0.0-0.2) 10^3/uL PT (9.1-11.1) sec INR (0.9-1.1) Sodium (136-145) mmol/L Potassium (3.5-5.1) mmol/L Chloride (98-107) mmol/L Carbon Dioxide (21.0-32.0) mmol/L Anion Gap (3-11) mmol/L BUN (7-18) mg/dL Creatinine (0.70-1.30) mg/dL Est GFR (CKD-EPI 2020) (mL/min/1.73m2) Glucose (74-106) mg/dL Calcium (8.5-10.1) mg/dL Magnesium (1.8-2.4) mg/dL Total Bilirubin (0.2-1.0) mg/dL AST (15-37) U/L ALT (16-63) U/L Alkaline Phosphatase (46-116) U/L Troponin I Cancelled 9 (<or=76) ng/L Total Protein (6.4-8.2) g/dL Albumin (3.4-5.0) g/dL Urine Color Yellow (Yellow) Urine Clarity Clear (Clear) Urine pH 7.0 (5-8) Ur Specific [place] 1.015 (1.005-1.025) Urine Protein Negative (Neg-Trace) mg/dL Urine Ketones Negative (Negative) mg/dL Urine Blood Negative (Negative) Urine Nitrite Negative (Negative) Urine Bilirubin Negative (Negative) Urine Urobilinogen 1.0 H (Up to 0.2) mg/dL Ur Leukocyte Esterase Negative (Negative) Urine Glucose Negative (Negative) mg/dL 02/27/25 Range/Units 12:10 WBC 9.11 (4.4-10.8) 10^3/uL RBC 5.15 (4.36-5.78) 10^6/uL Hgb 14.0 (13.5-17.5) g/dL Hct 42.9 (40.0-50.0) % MCV 83 (80-95) fL MCH 27.2 (27.0-33.0) pg MCHC 32.6 (32.0-36.0) % RDW 13.8 (11.8-14.1) % Plt Count 277 (130-400) 10^3/uL MPV 9.6 (8.0-11.0) fL Immature Gran % 0.2 % Neutrophils % 71.4 % Lymphocytes % 19.2 % Monocytes % 7.1 % Eosinophils % 1.8 % Basophils % 0.3 % Nucleated RBC % 0.0 (0.0-0.3) % Absolute Neutrophils 6.50 (1.2-6.7) 10^3/uL Absolute Lymphocytes 1.75 (1.2-3.4) 10^3/uL Absolute Monocytes 0.65 (0.1-0.8) 10^3/uL Absolute Eosinophils 0.16 (0.0-0.7) 10^3/uL Absolute Basophils 0.03 (0.0-0.2) 10^3/uL PT 10.7 (9.1-11.1) sec INR 1.1 (0.9-1.1) Sodium 139 (136-145) mmol/L Potassium 4.1 (3.5-5.1) mmol/L Chloride 102 (98-107) mmol/L Carbon Dioxide 24.8 (21.0-32.0) mmol/L Anion Gap 12.2 H (3-11) mmol/L BUN 21 H (7-18) mg/dL Creatinine 1.0 (0.70-1.30) mg/dL Est GFR (CKD-EPI 2020) 79.97 (mL/min/1.73m2) Glucose 120 H (74-106) mg/dL Calcium 8.9 (8.5-10.1) mg/dL Magnesium 1.6 L (1.8-2.4) mg/dL Total Bilirubin 0.5 (0.2-1.0) mg/dL AST 21 (15-37) U/L ALT 31 (16-63) U/L Alkaline Phosphatase 78 (46-116) U/L Troponin I 8 (<or=76) ng/L Total Protein 7.8 (6.4-8.2) g/dL Albumin 3.8 (3.4-5.0) g/dL Urine Color (Yellow) Urine Clarity (Clear) Urine pH (5-8) Ur Specific [place] (1.005-1.025) Urine Protein (Neg-Trace) mg/dL Urine Ketones (Negative) mg/dL Urine Blood (Negative) Urine Nitrite (Negative) Urine Bilirubin (Negative) Urine Urobilinogen (Up to 0.2) mg/dL Ur Leukocyte Esterase (Negative) Urine Glucose (Negative) mg/dL [id number] Documentation Fingerstick Glucose Start: 02/27/25 21:11 Freq: Status: Active Protocol: Activity Type Activity Date Activity User E-sign Co-sign Detail Recorded Client Recorded Date Recorded By Document 02/27/25 21:11 BKG DAEMON(3) [id number] 02/27/25 21:11 BKG DAEMON(4) Intake and Output - 24 Hour Total 02/27/25 11:38 thru 02/27/25 16:08 Intake Total 1000 Balance 1000 Weight 92.986 kg Intake: IV 1000 Falls Risk Assessment History of Falls No History 02/27/25 11:57 Contributing Factors No Factors 02/27/25 11:57 Fall Total Score 0 02/27/25 11:57 Level of Risk Standard/Low Risk 02/27/25 11:57 v v v v v v v v v Sending and/or Receiving Nurses: Please use comment section below to note any information pertinent to the patient hand-off not included above. Information / Comments: reason for visiting headache, vision change, MRI showed new infarcts in the right cerebellum, and right occipital lobe, pt received 1L of fluid, 2G MG, 4 mg zofran at the ER, PT A&O x4, on RA, no sign of distress noted, PMH: DM, with diabetic retinopathy, CVA, HTN, CAD. PT sitting on chair tolerated regular diet, ambulated independent to BR, running NSR on tele. Report received from: Mecca Jackson
[2025-02-27] MEDS: oxyCODONE 5 MG TAB 2.5 MG PO (23:54)
[2025-02-28 00:27] VITALS: PULSE 64
[2025-02-28 02:37] VITALS: PULSE 63
[2025-02-28 03:49] VITALS: BP 115/53; PULSE 63; RESP 15; TEMP 36.5; O2SAT 95
[2025-02-28] MEDS: Omeprazole 20 MG CAPCR PO (06:50)
[2025-02-28 06:53] VITALS: PULSE 79
[2025-02-28 07:03] LABS: Calculated LDL 120 mg/dL (<100); Cholesterol 204 mg/dL (<200); HDL Cholesterol 33 mg/dL (>or=40); Magnesium 1.7 mg/dL (1.8-2.4); Triglyceride 256 mg/dL (<150)
[2025-02-28 07:05] LABS: Hemoglobin A1C 6.3 % (<5.7)
[2025-02-28 07:30] VITALS: BP 137/79; PULSE 60; RESP 16; TEMP 36.6; O2SAT 93
[2025-02-28] MEDS: Losartan 50 MG TAB 100 MG PO (07:43)
[2025-02-28] MEDS: amLODIPine 5 MG TAB PO (07:43)
[2025-02-28] MEDS: Normal Saline Flush 10 ML SYR IVP (07:43)
[2025-02-28] MEDS: Aspirin E.C. 81 MG TABEC PO (07:43)
[2025-02-28] MEDS: Enoxaparin 40 MG/0.4 ML SYR SC (07:43)
[2025-02-28] MEDS: Clopidogrel 75 MG TAB PO (07:43)
[2025-02-28] MEDS: Acetaminophen 325 MG TAB 650 MG PO ×2 (07:43→15:11)
[2025-02-28] MEDS: Insulin Aspart 300 UNITS/3 ML PEN SC ×2 (09:02→12:01)
[2025-02-28] MEDS: Insulin Glargine 300 UNITS/3 ML PEN 35 UNITS SC (09:03)
--- NOTE | 2025-02-28 09:37 | PDOC.CMIN ---
Date of service: 02/28/25 Time of Service: 09:37 Care Management Initial Assmt Advance Directives Advance Directives: Do you have an Advance Directive: N 01/28/19, 15:48 AD On File at [facility]: N 01/28/19, 15:48 Date Asked 02/27/25 02/27/25, 11:43 AD Date Reviewed COLST On File at [facility] COLST Date Scanned Code Status Resuscitation Status Full Code Care Team Visit Care Team Role Provider Type Anitra Hyman NP MD [facility] STAFF PHYSICIAN Vinayak Jackson DO Primary Care Provider OSTEOPATHIC DOCTOR Coni Royal Other Providers ANNUAL GIVING DIRECTOR Komal Alves Other Providers ANNUAL GIVING DIRECTOR Linda Reese Other Providers ANNUAL GIVING DIRECTOR Chacho Perez Other Providers OTHER Estefany Gonzalez RN Other Providers ANNUAL GIVING DIRECTOR Rosa Hudson Other Providers ANNUAL GIVING DIRECTOR Stephanie Henson MD Emergency Provider [facility] STAFF PHYSICIAN Jason Christianson MD Admit Provider [facility] STAFF PHYSICIAN Attending Provider Social Determinants of Health Screening Social Determinants of health last assessed in clinic: 02/27/25 Will the Patient Participate in the Screening?: Yes Do you worry about having a steady place to live?: no Problems where you live: no known problems In the past 12 months, have you had to go without electric, gas, oil or water in your home?: no Has lack of transportation kept you from medical appointments or from doing things needed for daily living?: no Has anyone in your life made you feel unsafe or unsupported?: no How hard is it for you to pay for the very basics like food, housing, medical care, and heating? Would you say it is:: Somewhat hard Do you want help finding or keeping work or a job?: I do not need or want help If for any reason you need help with day-to-day activities such as bathing, preparing meals, shopping, managing finances, etc., do you get the help you need?: I don?t need any help How often do you feel lonely or isolated from those around you?: Never Do you speak a language other than Welsh at home?: No Does the patient want assistance with any of the above?: Yes Comments: money, food Health Related Social Needs Health related social needs: problems related to housing/economic circumstances (Z59.89) Health related social needs details: PT need help financially PFSH All Active Problems (Updated 02/28/25 @ 03:20 by Jason Christianson MD) History of CVA with residual deficit (Acute) Benign essential hypertension (Acute) Diabetes mellitus type 2, insulin dependent (Acute) Acute lacunar infarction (Acute) Multiple lacunar infarcts (Acute) Sebaceous cyst (Acute) Trigger finger, left index finger (Acute) Toe pain, right (Acute) Great toe pain (Acute) Contusion of right tibia (Acute) Stomach ulcer (Acute) Tubulovillous adenoma (Acute ~09/2022) CAD (coronary artery disease) (Chronic) DJD (degenerative joint disease), lumbar (Acute) MRI 11/06/17 and 06/10/18 Diabetes mellitus, type II (Acute ~10/14/16) Erectile dysfunction (Acute) GERD (gastroesophageal reflux disease) (Chronic) Hyperlipidemia (Acute) Hypertension (Chronic) TIA (transient ischemic attack) (Acute ~1998) Situational depression (Acute) Sacroiliac joint dysfunction (Acute) Chronic GERD (Acute) Bile reflux esophagitis (Acute) Adenomatous polyps (Chronic) Pulmonary nodule less than 1 cm in diameter with low risk for malignant neoplasm (Chronic) Incidental finding on CT scan, March 2020, needs 12 month recheck Left carpal tunnel syndrome (Acute) Right carpal tunnel syndrome (Acute) s/p ECTR DOS: 08/07/20 Left lateral epicondylitis (Acute) Injection: 08/07/20 Adenomatous polyposis (Acute) Facial paresthesia (Acute) Hyperlipidemia (Chronic) Left sided lacunar infarction (Acute) Acute ischemic left middle cerebral artery (MCA) stroke (Acute) TIA (transient ischemic attack) (Acute) Right shoulder pain (Acute) Vasomotor rhinitis (Acute) Tubular adenoma (Acute 09/2021) Cerebrovascular accident (CVA) (Chronic) [place] [facility] [place] Light headedness (Acute) Lumbar radiculitis (Acute) Lumbosacral spondylosis without myelopathy (Acute) Bladder instability (Acute) Hemorrhoid (Acute) Separation of right acromioclavicular joint (Acute) Tendonitis of long head of biceps brachii of right shoulder (Acute) Medical History Hx of fracture of rib Insomnia Chronic right shoulder pain (~10/14/16) AC JOINT RECONSTRUCTION Chronic back pain (~06/27/18) Medial meniscus tear (~03/03/18) Left Knee Surgical History H/O cataract extraction Left 09/13/23. Right 09/27/23. [place] Hx of shoulder surgery (R) Shoulder History of medial meniscus repair of left knee Hx of CABG x5 History of esophagogastroduodenoscopy (EGD) (~08/2019) History of colonoscopy (~09/2022) 10/30/22- bx's polyps removed. [facility] Dr. Junior 08/2019 Status post AC joint reconstruction right, w/allograft H/O heart artery stent (~2012) patient reports 6 stents total. Last stent placed: 2010 History of tonsillectomy and adenoidectomy History of coronary artery bypass graft (~1997) X5. FOLLOWS UP WITH DR. JEREZ, LAST VISIT WAS 05/26/191997 History of cholecystectomy Family History Mother Hypertension Diabetes Ovarian cancer Father Hypertension Diabetes Lymphoma Sister Heart disease Social History Smoking/Tobacco Use Status: Former Tobacco Use Quit Date: 07/11/89 Tobacco: How many years used: 20 Smoking risk assessment performed?: Yes Alcohol Intake: current Alcohol Intake frequency: holidays/special occasions only Alcohol type: beer Drug use: Occasionally Substance use type: marijuana Household members: other Details: roomate Housing: house Communication Needs: Corrective Lenses current occupation: UnEmployed Current gender identity: male What is your relationship status?: Panel score (0-1 are the most socially isolated patients): 0 What type of physical activity do you participate in: none Seatbelt use: always Drive intox or ride w/intox security patrol driver: No Working smoke detector in home: Yes Carbon monox detector in home: Yes Do you feel safe at home: Yes Do you feel safe in your relationship?: Yes
--- NOTE | 2025-02-28 10:42 | PT.INIE ---
PT Notes Visit Reasons: Cerebrovascular accident Physical Therapy Inpatient Initial Evaluation Date: 02/28/2025 Referring Doctor: Jason Christianson MD PT Orders: PT CONSULT: CVA with dizziness Precautions: Fall. Standard. Activity as tolerated. Patient Profile/Admitting Diagnosis: José is a 74-year-old male patient with previous CVA admitted to the ED on 02/27/2025 with headache, vision changes, and dizziness. He is admitted for management of new lacunar infarction involcing the R cerebellar and R occipital area, DM type II and HTN. PMHX: All Active Problems (Updated 02/28/25 @ 03:20 by Jason Christianson MD) History of CVA with residual deficit (Acute) Benign essential hypertension (Acute) Diabetes mellitus type 2, insulin dependent (Acute) Acute lacunar infarction (Acute) Multiple lacunar infarcts (Acute) Sebaceous cyst (Acute) Trigger finger, left index finger (Acute) Toe pain, right (Acute) Great toe pain (Acute) Contusion of right tibia (Acute) Stomach ulcer (Acute) Tubulovillous adenoma (Acute ~09/2022) CAD (coronary artery disease) (Chronic) DJD (degenerative joint disease), lumbar (Acute) MRI 11/06/17 and 06/10/18Diabetes mellitus, type II (Acute ~10/14/16) Erectile dysfunction (Acute) GERD (gastroesophageal reflux disease) (Chronic) Hyperlipidemia (Acute) Hypertension (Chronic) TIA (transient ischemic attack) (Acute ~1998) Situational depression (Acute) Sacroiliac joint dysfunction (Acute) Chronic GERD (Acute) Bile reflux esophagitis (Acute) Adenomatous polyps (Chronic) Pulmonary nodule less than 1 cm in diameter with low risk for malignant neoplasm (Chronic) Incidental finding on CT scan, March 2020, needs 12 month recheck Left carpal tunnel syndrome (Acute) Right carpal tunnel syndrome (Acute) s/p ECTR DOS: 08/07/20 Left lateral epicondylitis (Acute) Injection: 08/07/20 Adenomatous polyposis (Acute) Facial paresthesia (Acute) Hyperlipidemia (Chronic) Left sided lacunar infarction (Acute) Acute ischemic left middle cerebral artery (MCA) stroke (Acute) TIA (transient ischemic attack) (Acute) Right shoulder pain (Acute) Vasomotor rhinitis (Acute) Tubular adenoma (Acute 09/2021) Cerebrovascular accident (CVA) (Chronic) 10/03/21 [facility] [place] noteL ight headedness (Acute) Lumbar radiculitis (Acute) Lumbosacral spondylosis without myelopathy (Acute) Bladder instability (Acute) Hemorrhoid (Acute) Separation of right acromioclavicular joint (Acute) Tendonitis of long head of biceps brachii of right shoulder (Acute) Medical History Hx of fracture of rib Insomnia Chronic right shoulder pain (~10/14/16) AC JOINT RECONSTRUCTION Chronic back pain (~06/27/18) Medial meniscus tear (~03/03/18) Left Knee Surgical History H/O cataract extraction Left 09/13/23. Right 09/27/23. [place] Hx of shoulder surgery (R) Shoulder History of medial meniscus repair of left knee Hx of CABG x5 History of esophagogastroduodenoscopy (EGD) (~08/2019) History of colonoscopy (~09/2022) 10/30/22- bx's polyps removed. [facility] Dr. Junior 08/2019 Status post AC joint reconstruction right, w/allograft H/O heart artery stent (~2012) patient reports 6 stents total. Last stent placed: 2010 History of tonsillectomy and adenoidectomy History of coronary artery bypass graft (~1997) X5. FOLLOWS UP WITH DR. JEREZ, LAST VISIT WAS 05/26/191997History of cholecystectomy Social History/Home Situation: Independent with all aspects of ADLs prior to admission Equipment Owned/DME: None Subjective: Agreeable to consult. Objective: General Observation: Patient sitting on edge of bed. Mental Status: Alert and oriented as to person, place, time, and purpose. Able to pay attention, focus, and respond appropriately. Pain: Reported mild headache that was way better than it was on admission Vital Signs: Closely monitored by nursing staff ROM: Right Upper Extremity: Shoulder Flexion WFL. Shoulder abduction WFL. Elbow flexion WFL. Wrist flexion WFL. Functional opening and closing of hand WFL. Left Upper Extremity: Shoulder Flexion WFL. Shoulder abduction WFL. Elbow flexion WFL. Wrist flexion WFL. Functional opening and closing of hand weak but WFL. Right Lower Extremity: Hip flexion WFL. Hip abduction WFL. Knee flexion WFL. Ankle dorsiflexion WFL. Ankle plantarflexion WFL. Left Lower Extremity: Hip flexion WFL. Hip abduction WFL. Knee flexion WFL. Ankle dorsiflexion WFL. Ankle plantarflexion WFL. Strength: Right Upper Extremity: Shoulder flexors 5/5. Shoulder abductors 5/5. Elbow flexors 5/5. Elbow extensors 5/5. Executive Director Of Nursing strong. Left Upper Extremity: Shoulder flexors 5/5. Shoulder abductors 5/5. Elbow flexors 5/5. Elbow extensors 5/5. Executive Director Of Nursing with negligible weakness. Right Lower Extremity: Hip flexors 5/5. Hip abductors 5/5. Knee flexors 5/5. Knee extensors 5/5. Ankle dorsiflexors 5/5. Ankle plantarflexors 5/5. Left Lower Extremity: Hip flexors 5/5. Hip abductors 5/5. Knee flexors 5/5. Knee extensors 5/5. Ankle dorsiflexors 5/5. Ankle plantarflexors 5/5. Bed Mobility/Transfers: Rolling independent Supine to sit independent Sit to supine independent Sit to stand independent Stand to sit independent Bed to reclining chair independent Reclining chair to bed independent Gait: Observed patient walk from edge of bed to outside his room with no assistive device. No gait abnormality nor path deviation nor report of headache, chest pain, and lightheadedness. Balance: Static Sitting: Normal Dynamic Sitting: Normal Static Standing: Fair Dynamic Standing: Fair Special Tests: Mobility Limitations Standardized Measure [facility] 6 clicks Basic Mobility Inpatient Short Form: Raw Score: 24 [facility] Score: 0% deficit Informed Consent/Education: Patient was instructed in purpose of PT consult and plan of care. Agreeable to proceed with established PT POC to achieve personal goals. Assessment: Patient is a 74-year-old male admitted for management of new lacunar infarction involving R cerebellar and R occiput areas. This morning's manual testing showed minimal, negligible weakness in L UE with symmetric strength in B LE. Patient was able to ambulate from edge of bed to the transport chair utside his room about 20 feet without device with no changes in his gait pattern. He was then taken down to echo for testing. Patient is assessed as a 77612 low complexity based on the following: History: 74-year-old male with past medical history as indicated above Examination: As above Presentation: Stable Decision Makin low complexity Goals: 1 more treatment session for functional mobility training: Patient will be independent in level surface ambulation for up to 1000 feet without an assistive device without report of headache nor chest pain. Plan of Care/Treatment Plan: Patient will be seen for one more treatment session only before discharge fro functional mobility training. DISCHARGE RECOMMENDATIONS: No services needed at this time. Patient is at baseline mobility level. TREATMENT CODE/TIME: 57758 x 14 minutes for 1 unit (10:42-10:56). Thank you for the opportunity to participate in the care of this patient. Luz Maria Malin PT, DPT, CLT [facility] [place], [place]
--- NOTE | 2025-02-28 11:00 | DI.US_ITS ---
APPROVED REPORT EXAM: Comprehensive 2D, Doppler, and color-flow Echocardiogram Patient Location: In-Patient Data Compiler: Kevin Pulido RDCS (AE) Indications: CVA Echo Enhancing Agent Indication: Rule out Shunt Agent(s) / Amount(s) Used: Agitated Saline 30.0 cc Comments: Contrast study was performed with 3 IV injections of 10ccs of agitated normal saline, at rest, with cough and post valsalva maneuver. Other Information Study Quality: Adequate Conclusion Borderline dilated left ventricle. Normal wall thickness. EF is 55%. Wall motion is normal Normal right ventricular size and function Both atria are normal in size No intracardiac shunting is identified with injection of agitated saline There are no structural valvular abnormalities Mild tricuspid and mitral regurgitation Estimated right ventricular systolic pressure is 31 mmHg Wall motion Left Ventricle Left ventricle is mildly dilated. The left ventricular systolic function is normal. The left ventricular ejection fraction is within the normal range. There is normal left ventricular wall thickness. There is normal LV segmental wall motion. There is no ventricular septal defect visualized. LVEF is 55%. Right Ventricle The right ventricle is normal size. The right ventricular systolic function is normal. Atria The left atrium size is normal. The right atrium size is normal. Saline bubble contrast intravenous injection does not demonstrate PFO. Aortic Valve The aortic valve is normal in structure. Aortic valve is trileaflet. There is no aortic valvular stenosis. No aortic regurgitation is present. Mitral Valve The mitral valve is normal in structure. No evidence of mitral valve stenosis. Mild mitral regurgitation. Tricuspid Valve The tricuspid valve is normal in structure. There is no tricuspid valve stenosis. mild tricuspid regurgitation. The RVSP is 31.4 mmHg. Pulmonic Valve The pulmonary valve is normal in structure. There is no pulmonic valvular stenosis. There is no pulmonic valvular regurgitation. Great Vessels The aortic root is normal in size. The ascending aorta is normal in size. IVC is normal in size and collapses >50% with inspiration. Pericardium There is no pericardial effusion. 2D Dimensions IVSD d PLAX 0.91 cm M: 0.6-1.2 Ao Root d 3.33 cm M: 3.1 - 3.7 LVPW d PLAX 0.92 cm M: 0.6 - 1.2 Ao Asc Diam d 3.37 cm M: 2.6 - 3.4 LVID d PLAX 6.13 cm M: 4.2 - 5.8 LVDs 4.72 cm M: 2.5 - 4.0 LV EF Teichholz 45.3 % FS 22.99 % LV EDV (Teich) 189.1 mL LV ESV (Teich) 103.5 mL Stroke Vol Index (Teich) 41.38 M-Mode TAPSE 2.37 cm (M/F) >1.7 Auto EF LV EDV A4C 138.1 mL LV EDV A2C 145.2 mL LV EDV BP 142.0 mL LV ESV A4C 78.7 mL LV ESV A2C 81.1 mL LV ESV BP 80.2 mL LVEF(%) A4C 43.0 % LVEF(%) A2C 44.1 % LVEF(%) BP 43.5 % LV SV A4C 59.4 ml LV SV A2C 64.0 ml LV SV BP 61.8 ml LV CO A4C 3.6 L/min LV CO A2C 3.8 L/min LV CO BP 3.7 L/min HR A4C 60.18 BPM HR A2C 59.41 BPM LV EDV Index (BP) LA Volume LA Length A4C 5.4 cm LA Length A2C 4.4 cm LA Area A4C s 14.05 cm2 LA Area A2C s 13.42 cm2 LA Vol A4C A-L 31.10 mL LA Vol A2C A-L 34.74 mL LA Vol Biplane A-L 36.4 mL LA Vol/BSA A4C A-L LA Vol/BSA A2C A-L LA Vol/BSA BP A-L 17.6 mL/m2 LA Vol A4C MOD 31.5 mL LA Vol A2C MOD 33.3 mL LA Vol BP MOD 35.0 mL RA Volume RA Area A4C 7.3 cm2 RA ESV A4C (A-L) 11.1mL RA Vol/BSA A4C A-L RA Length A4C 4.0 cm RA ESV A4C (MOD) 11.1mL LV Diastology MV E' medial 0.063 (>0.07 m/s) MV E Vmax 0.76 (0.4-1.3 m/s) MV E/E' MED 11.97 (<14) MV A Vmax 0.85 (0.4-1.3 m/s) MV E' lateral 0.089 (>0.1 m/s) E/A Ratio 0.9 MV E/E' LAT 8.46 (<14) MV E' Average 0.076 m/s MV E/E'(average) 9.91 Aortic Valve AoV Vmax 0.93 m/s LVOT Vmax 0.89 m/s AoV Peak Grad 3.5 mmHg LVOT Peak Grad 3.2 mmHg AoV Area (Vmax) 3.22 cm2 LVOT VTI 0.203 m AoV VTI 0.190 m LVOT Mean Grad 1.6 mmHg AoV Mean Mejia. 0.66 m/s LVOT SV 68.09 mL AoV Mean Grad 2.0 mmHg LVOT Diam s 2.05 cm AoV Area (VTI) 3.59 cm2 AV Regurg Peak Gr. 3.48 mmHg Velocity Ratio 0.96 Mitral Valve MV DT 198 (160-240 msec) Pulmonary Valve PV Vmax 1.09 (0.5-1.5 m/s) RVOT Vmax 0.60 m/s PV Peak Grad 4.7 mmHg RVOT Peak Gr. 1.4 mmHg PV Mean Mejia 0.71 m/s RVOT VTI 0.116 m PV Mean Grad 2.4 mmHg RVOT Mean Gr. 0.7 mmHg Tricuspid Valve RA Pressure 3.00 mmHg TR Vmax 2.67 m/s TR Peak Grad 28.4 mmHg RVSP (TR) 31.4 mmHg
--- NOTE | 2025-02-28 13:28 | CMDISCH_ITS ---
Date of service: 02/28/25 Time of Service: 13:28 LACE Index Scoring Tool Questions: Length of Stay (in days): 1 Was the patient admitted via the E.D.?: Yes Comorbidities: Cerebrovascular Disease and Diabetes w/o Complication E.D. Visits: 1 Answers: Total Score: 7 Risk of Readmission: Low Risk Care Management Discharge Plan Reason for Hospitalization: CVA Discharge Plan: José is discharged home via private vehicle with family. Pt will follow up with primary care and discharge plan of care as directed. No new services are ordered prior to discharge. Return to work date is 03/02/25, with no restrictions, note was provided. Patient/Family Education Needs: Review discharge instructions and plan for outpatient follow-up. Discuss ask me three. SDOH Health Related Social Needs: Health related social needs house/econ circumstance Health related social needs details PT need help rocio sanchez Health related social needs details: PT need help financially
--- NOTE | 2025-02-28 13:33 | DSE_ITS ---
Date of service: 02/28/25 Time of Service: 13:33 DS: Diagnosis Discharge Diagnosis (1) Acute lacunar infarction: Status: Acute (2) Diabetes mellitus type 2, insulin dependent: Status: Acute (3) Benign essential hypertension: Status: Acute (4) Hyperlipidemia: Status: Chronic (5) History of CVA with residual deficit: Status: Acute Discharge Plan Disposition Patient Disposition: Home Condition: Improving Discharge Details Reason For Visit: CVA Admit Date/Time: 02/27/25 20:03 Admit Provider: Jason Christianson Attending Provider: Jason Christianson Primary Care Provider: Vinayak Jackson [facility] Course Hospital Course: Mr. Gordon was admitted on 02/27/25 with acute onset of dizziness, imbalance, and headache. MRI brain revealed multiple acute lacunar infarcts in the right cerebellum and right occipital lobe. Teleneurology was consulted and recommended initiation of dual antiplatelet therapy. BP was mildly elevated; labs were unremarkable aside from mild hypomagnesemia and elevated glucose. Patient?s prior statin, atorvastatin, was discontinued previously due to GI intolerance. He is not currently on a lipid-lowering agent and was initiated on rosuvastatin 20 mg daily, which is typically better tolerated. Echocardiogram done, results pending. Echo dated 02/20/2021 @ [facility] EF 60% and no PFO. Physical therapy was consulted and do not recommend any services. Discharge Medications: 1. Rosuvastatin 20 mg ? Take one tablet by mouth daily for hyperlipidemia. 2. Clopidogrel (Plavix) 75 mg daily ? Continue until told to stop by Neurology. 3. Aspirin 81 mg daily ? Continue for 20 days, then stop. 4. Omeprazole 20 mg daily ? Continue for GERD protection. 5. Amlodipine - increase to 10 mg daily ? Continue for hypertension. 6. Losartan 100 mg daily ? Continue for hypertension. 7. Insulin glargine 35 units QAM ? Continue with correction scale. 8. Hold glipizide/metformin for now; re-evaluate outpatient. 9. Ben Wheeler 10/325 mg ? Take ? tablet at bedtime PRN for insomnia/chronic pain. 10. Avoid diclofenac while taking aspirin and clopidogrel due to increased bleeding risk. Discuss alternatives with PCP. Follow-Up and Recommendations: * Primary Care: Reassess BP, glucose control, and lipid panel in 4?12 weeks. A1c is 6.3 (02/28/25) * Neurology * [facility] * Outpatient labs: Recommend repeat A1c, lipid panel, and magnesium. (Triglycerides 256, Total cholesterol 204, LDL 120 and HDL 33. Magnesium 1.7 on 02/28/25) * Avoid NSAIDs such as diclofenac while on aspirin + clopidogrel. * Monitor for GI symptoms (abdominal pain, reflux) and if you have any, notify PCP. * Reinforce adherence to new stroke regimen. Condition at Discharge: * Stable, alert, no acute distress. * Ambulating with assistance. * Appropriate understanding of medication and follow-up plan. Home Meds and New Rx's Prescriptions: New clopidogrel 75 mg Tablet 75 mg PO DAILY Qty: 30 0RF rosuvastatin 20 mg capsule, sprinkle 20 mg PO DAILY Qty: 30 0RF Continued aspirin [Adult Aspirin Regimen] 81 mg tablet,delayed release (DR/EC) 81 mg PO DAILY glipizide-metformin 5-500 mg tablet 2 tab PO BID Qty: 360 3RF Lantus Solostar U-100 Insulin 100 unit/mL (3 mL) insulin pen 50 unit SC QAM Qty: 15 10RF losartan 100 mg tablet 100 mg PO DAILY Qty: 90 3RF sildenafil (pulm.hypertension) 20 mg tablet 20 mg PO TID PRN (Reason: sexual activity) Qty: 90 11RF Patient Comments: prn (DME) Blood Glucose Test strip See Dose Instructions .ROUTE .MEDSUPPLY Qty: 10 Rx Instructions: As directed (DME) lancets misc See Dose Instructions .ROUTE .MEDSUPPLY Qty: 50 Rx Instructions: As directed (DME) pen needle, diabetic 31 gauge x 3/16 needle See Dose Instructions .ROUTE .MEDSUPPLY Qty: 100 3RF Rx Instructions: Use with insulin daily, to keep HbA1c less than 6.5% omeprazole 20 mg capsule,delayed release(DR/EC) 20 mg PO DAILY Qty: 90 3RF hydrocodone-acetaminophen 10-325 mg tablet 0.5 tab PO Q8H MDD 30 mg hydrocodone PRN (Reason: pain) Qty: 60 0RF Patient Comments: pt. states he usually takes 1/4 at night Rx Instructions: Patient takes about 1/8th of tablet when needed Changed amlodipine 5 mg tablet 10 mg PO DAILY Qty: 90 3RF Discontinued diclofenac potassium 50 mg tablet 50 mg PO TID PRN (Reason: pain) Qty: 90 3RF Discharge Instructions Instructions: High cholesterol, Amlodipine, Clopidogrel, Rosuvastatin Additional Instructions: 1. Medications Please take the following medications as directed: * Start Plavix (Clopidogrel) 75 mg ? Take 1 tablet every day to prevent blood clots. Continue until neurology advises to stop. * Continue Aspirin 81 mg ? Take 1 tablet every day for 20 days only, then stop. * Omeprazole 20 mg ? Take 1 tablet every day to protect your stomach. * Amlodipine 10 mg ? Take 1 tablet every day for high blood pressure. (Dose increased from 5 mg to 10 mg.) * Losartan 100 mg ? Take 1 tablet every day for blood pressure. * Insulin (Lantus) 35 units ? Inject every morning. Use correction scale as directed. * Ben Wheeler (Hydrocodone/Acetaminophen) 10/325 mg ? Take ? tablet at bedtime only if needed for sleep or pain. * Do not take Diclofenac or other NSAIDs while on Plavix and Aspirin due to bleeding risk. Start Rosuvastatin 20 mg ? Take 1 tablet every day to lower cholesterol and reduce stroke risk. * You experienced GI upset (e.g., nausea, bloating, abdominal pain) while on atorvastatin. * Rosuvastatin 20 mg daily is prescribed as an alternative, as it may be better tolerated and is equally or more effective at lowering LDL cholesterol. * Atorvastatin and rosuvastatin are both statins, used to lower cholesterol and reduce cardiovascular risk. * GI upset (e.g., nausea, bloating, diarrhea, or abdominal pain) can occur with statins, particularly early in treatment. * Some patients tolerate one statin better than another. Rosuvastatin is often better tolerated, particularly at lower doses. * Take rosuvastatin 20 mg by mouth once daily, preferably at the same time each day. * Can be taken with or without food. Taking it with food may reduce GI symptoms. * Do not take with grapefruit juice. What to Expect: * May take a few weeks to see full cholesterol-lowering effects. * Generally well-tolerated. Some patients may experience mild GI upset, especially during the first few days. Side Effects to Watch For: * Common: mild nausea, headache, abdominal discomfort. * Rare but serious: * Muscle pain or weakness * Dark urine or yellowing of skin/eyes (signs of liver problems) * Persistent or worsening GI symptoms When to Call Your Doctor: * If you have severe stomach pain, persistent nausea, or unusual muscle pain. * If symptoms that occurred with atorvastatin return or worsen. It is strongly recommended with your Triglycerides 256, Total cholesterol 204, LDL 120 and HDL 33. 2. Follow-Up Appointments * Neurology: Follow-up to manage stroke medications and duration of blood thinners. * Primary Care: Follow-up in 1?2 weeks to reassess blood pressure, blood sugar, and labs. * Lab Work: You will need: * A1c * Lipid panel * Magnesium 3. Stroke Warning Signs ? Call 911 if you have: * Sudden numbness/weakness (especially one side) * Trouble speaking or understanding * Vision changes * Loss of balance or severe headache 4. Safety and Lifestyle Tips * Use caution when walking due to dizziness or imbalance. * Do not drive if feeling lightheaded. * Continue using a diabetic diet and monitor blood sugars. * Take medications exactly as prescribed. * Avoid NSAIDs (like Diclofenac) due to bleeding risk with Plavix and Aspirin. Condition at Discharge You are stable, alert, and aware of your medications and plan. You may continue to feel tired or unsteady. Stand Alone Forms: Nursing Discharge Form Referrals: [facility] [Other] - 03/06/25 9:40 am Vinayak Jackson DO [Primary Care Provider, Medicine] - 03/09/25 11:30 am Referral Note: 1-2 weeks s/p hospitalization for lacunar stroke. Failed aspirin therapy. Recommendation from [facility] tele neuro 20d asa and plavix then plavix alone. Patient states he had horrible GI upset from Atorvastatin, agreed to try rosuvastatin - encouraged to give it at least a week to see if any minor side effects resolve on their own. Kelly Rodriguez MD [ [facility] STAFF PHYSICIAN, Neurology] Referral Note: Follow up s/p Lacunar stroke; failed aspirin therapy. DC'd with recommendation from [facility] teleneuro plavix and asa x 20d then plavix alone. Activity:: Activity as Tolerated Equipment/Supplies:: No Equipment Needed Diet:: heart healthy Discharge Orders Discharge Orders: Discharge Order (Routine); Ordered 02/28/25 Ordered By: Anitra Hyman DS: Summary Time Spent with Patient providing and/or coordinating discharge services: Greater than 30 minutes Status at Discharge Functional status at discharge: independent ambulation Overall status at discharge: patient is back to baseline Mental Status: mental status grossly normal Speech and Movement: speech and movement normal Mood: congruent mood Affect: normal affect Quality:SDOH Health Related Social Needs: Health related social needs house/econ circumstance Health related social needs details PT need help rykatya laura Health related social needs details: PT need help financially Exam Narrative Exam Narrative: General: Awake, alert, and in no apparent distress. Well-nourished appearance. HEENT: Pupils equal, round, and reactive to light (PERRL). Extraocular movements intact without nystagmus. External ears and nose normal. Oral mucosa moist. Neck: Supple with full range of motion; no palpable masses. Lungs: No increased work of breathing observed. Cardiovascular: Regular rate and rhythm. Radial pulses strong and symmetric. Abdomen: Soft, non-distended, and non-tender. No guarding, rebound, or rigidity. Musculoskeletal: No joint swelling or erythema. Full range of motion without limitation or external trauma. Skin: Warm, dry, normal color. No rashes or lesions noted. Neurological: Cranial nerves II?XII intact and symmetrical. Strength 5/5 in all extremities. No pronator drift or sensory deficits. Gait steady. Psychiatric: Appropriate affect and behavior for the situation. Psych Mental Status: mental status grossly normal Speech and Movement: speech and movement normal Mood: congruent mood Affect: normal affect DS: Data Vitals/I&O Vitals and I&O: Vital Signs Temperature 36.6 C 02/28/25 07:30 Temperature Source Temporal Artery Scan 02/28/25 07:30 Pulse 60 02/28/25 07:30 Pulse Rhythm Regular 02/27/25 22:41 Pulse 64 02/27/25 20:46 Respiratory Rate 16 02/28/25 07:30 Respiratory Effort Normal 02/27/25 22:41 Respiratory Depth Normal 02/27/25 22:41 Respiratory Pattern Normal 02/27/25 22:41 Blood Pressure 137/79 02/28/25 07:30 Blood Pressure Mean 98 02/28/25 07:30 Blood Pressure Position Sitting 02/27/25 11:40 Pulse Oximetry 93 07/30/25 07:30 Oxygen Delivery Method Room Air 02/28/25 07:30 Oxygen Flow Rate 0 02/28/25 07:30 Pain Level 7 02/28/25 07:43 Intake & Output 02/27/25 02/28/25 02/28/25 23:59 11:59 23:59 Intake Total 1220 / 1220 Output Total 0 / 0 0 / 0 Balance 1220 / 1220 0 / 0 Intake: IV 1000 / 1000 Oral 220 / 220 Output: Urine 0 / 0 0 / 0 Other: Urine Color Yellow Yellow Urine Appearance Clear Clear Comment unmeasured unmeasured pt voids independently, no issues reported Data Completed and Pending Labs on day of discharge: Labs from last 24 hours 02/28/25 02/27/25 02/27/25 06:00 15:01 14:20 Hemoglobin A1c 6.3 H Magnesium 1.7 L Troponin I Cancelled Triglycerides 256 H Total Cholesterol 204 H LDL Cholesterol, Calc 120 H HDL Cholesterol 33 L Urine Color Yellow Urine Clarity Clear Urine pH 7.0 Ur Specific Coleridge 1.015 Urine Protein Negative Urine Ketones Negative Urine Blood Negative Urine Nitrite Negative Urine Bilirubin Negative Urine Urobilinogen 1.0 H Ur Leukocyte Esterase Negative Urine Glucose Negative 02/27/25 14:08 Hemoglobin A1c Magnesium Troponin I 9 Triglycerides Total Cholesterol LDL Cholesterol, Calc HDL Cholesterol Urine Color Urine Clarity Urine pH Ur Specific Coleridge Urine Protein Urine Ketones Urine Blood Urine Nitrite Urine Bilirubin Urine Urobilinogen Ur Leukocyte Esterase Urine Glucose PFSH All Active Problems (Updated 02/28/25 @ 03:20 by Jason Christianson MD) History of CVA with residual deficit (Acute) Benign essential hypertension (Acute) Diabetes mellitus type 2, insulin dependent (Acute) Acute lacunar infarction (Acute) Multiple lacunar infarcts (Acute) Sebaceous cyst (Acute) Trigger finger, left index finger (Acute) Toe pain, right (Acute) Great toe pain (Acute) Contusion of right tibia (Acute) Stomach ulcer (Acute) Tubulovillous adenoma (Acute ~09/2022) CAD (coronary artery disease) (Chronic) DJD (degenerative joint disease), lumbar (Acute) MRI 11/06/17 and 06/10/18 Diabetes mellitus, type II (Acute ~10/14/16) Erectile dysfunction (Acute) GERD (gastroesophageal reflux disease) (Chronic) Hyperlipidemia (Acute) Hypertension (Chronic) TIA (transient ischemic attack) (Acute ~1998) Situational depression (Acute) Sacroiliac joint dysfunction (Acute) Chronic GERD (Acute) Bile reflux esophagitis (Acute) Adenomatous polyps (Chronic) Pulmonary nodule less than 1 cm in diameter with low risk for malignant neoplasm (Chronic) Incidental finding on CT scan, March 2020, needs 12 month recheck Left carpal tunnel syndrome (Acute) Right carpal tunnel syndrome (Acute) s/p ECTR DOS: 08/07/20 Left lateral epicondylitis (Acute) Injection: 08/07/20 Adenomatous polyposis (Acute) Facial paresthesia (Acute) Hyperlipidemia (Chronic) Left sided lacunar infarction (Acute) Acute ischemic left middle cerebral artery (MCA) stroke (Acute) TIA (transient ischemic attack) (Acute) Right shoulder pain (Acute) Vasomotor rhinitis (Acute) Tubular adenoma (Acute 09/2021) Cerebrovascular accident (CVA) (Chronic) 10/03/21 [facility] Neurology note Light headedness (Acute) Lumbar radiculitis (Acute) Lumbosacral spondylosis without myelopathy (Acute) Bladder instability (Acute) Hemorrhoid (Acute) Separation of right acromioclavicular joint (Acute) Tendonitis of long head of biceps brachii of right shoulder (Acute) Medical History Hx of fracture of rib Insomnia Chronic right shoulder pain (~10/14/16) AC JOINT RECONSTRUCTION Chronic back pain (~06/27/18) Medial meniscus tear (~03/03/18) Left Knee Surgical History H/O cataract extraction Left 09/13/23. Right 09/27/23. [place] Hx of shoulder surgery (R) Shoulder History of medial meniscus repair of left knee Hx of CABG x5 History of esophagogastroduodenoscopy (EGD) (~08/2019) History of colonoscopy (~09/2022) 10/30/22- bx's polyps removed. [facility] Dr. Junior 08/2019 Status post AC joint reconstruction right, w/allograft H/O heart artery stent (~2012) patient reports 6 stents total. Last stent placed: 2010 History of tonsillectomy and adenoidectomy History of coronary artery bypass graft (~1997) X5. FOLLOWS UP WITH DR. JEREZ, LAST VISIT WAS 05/26/191997 History of cholecystectomy Family History Mother Hypertension Diabetes Ovarian cancer Father Hypertension Diabetes Lymphoma Sister Heart disease Social History Smoking/Tobacco Use Status: Former Tobacco Use Quit Date: 07/11/89 Tobacco: How many years used: 20 Smoking risk assessment performed?: Yes Alcohol Intake: current Alcohol Intake frequency: holidays/special occasions only Alcohol type: beer Drug use: Occasionally Substance use type: marijuana Household members: other Details: roomate Housing: house Communication Needs: Corrective Lenses current occupation: UnEmployed Current gender identity: male What is your relationship status?: Panel score (0-1 are the most socially isolated patients): 0 What type of physical activity do you participate in: none Seatbelt use: always Drive intox or ride w/intox scoop driver: No Working smoke detector in home: Yes Carbon monox detector in home: Yes Do you feel safe at home: Yes Do you feel safe in your relationship?: Yes Time Spent with Patient Time Spent with Patient: 45-69 minutes Time was spent: preparing to see the patient(eg.review tests), ordering medications,tests, procedures, referring, communicating with other health healthcare liaison, indepentently interpreting results, counseling the patient and care coordination
--- NOTE | 2025-02-28 14:41 | PDOC.CMIN ---
Date of service: 02/28/25 Time of Service: 14:42 Care Management Initial Assmt Initial Assessment Reason for Hospitalization: CVA Functional Status/Living Situation Patient Presentation: José was sitting up in bed when CM met with him. He was pleasant and easy to engage in conversation and is currently in the process of being discharged with a New RX for Clopidogrel. Due to cost concerns, CM contacted [facility] in [facility] and confirmed that the medication will have a $1 copay, the patient is aware. 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 CM notified [facility] of patients concerns. Town of Residence: [facility] Resides with: Alone Significant Other/Family: Local Employment Status: Employed (part-time) Instrumental Activities of Daily Living (ADLs): Independent Physical Functioning/Mobility Assistive Device: None Advance Directives Advance Directives: Do you have an Advance Directive: N 01/28/19, 15:48 AD On File at [facility]: N 01/28/19, 15:48 Date Asked 02/27/25 02/27/25, 11:43 AD Date Reviewed COLST On File at [facility] COLST Date Scanned Code Status Resuscitation Status Full Code Insurance Coverage/Financial Issues Insurance: AARP/.[facility] - [id number] FINANCIAL ASST 100 - [id number] Care Team Visit Care Team Role Provider Type Anitra Hyman NP MD [facility] STAFF PHYSICIAN Vinayak Jackson DO Primary Care Provider OSTEOPATHIC DOCTOR Coni Royal Other Providers CYBER FORENSICS ANALYST Komal Alves Other Providers CYBER FORENSICS ANALYST Linda Reese Other Providers CYBER FORENSICS ANALYST InPatient Maximiliano Perez Other Providers OTHER Estefany Gonzalez RN Other Providers CYBER FORENSICS ANALYST Rosa Hudson Other Providers CYBER FORENSICS ANALYST Stephanie Henson MD Emergency Provider [facility] STAFF PHYSICIAN Jason Christianson MD Admit Provider [facility] STAFF PHYSICIAN Attending Provider Discharge Potential Discharge Needs: PCP F/U Appt and Other (Neurology) Anticipated Barriers to Discharge: None Identified Patient/Family Education Needs: Review discharge instructions, discuss Ask Me Three Transportation: Private vehicle Plan: Discharge home via private vehicle with family. Follow up with PCP and discharge plan of care as directed. CM will follow. Social Determinants of Health Screening Social Determinants of health last assessed in clinic: 02/28/25 Will the Patient Participate in the Screening?: Yes Do you worry about having a steady place to live?: no Problems where you live: no known problems In the past 12 months, have you had to go without electric, gas, oil or water in your home?: no 1. Within the past 12 months, we worried whether our food would run out before we got money to buy more.: Never true 2. Within the past 12 months, the food we bought just didn't last and we didn't have money to get more.: Never true Has lack of transportation kept you from medical appointments or from doing things needed for daily living?: no Has anyone in your life made you feel unsafe or unsupported?: no How hard is it for you to pay for the very basics like food, housing, medical care, and heating? Would you say it is:: Somewhat hard Do you want help finding or keeping work or a job?: I do not need or want help If for any reason you need help with day-to-day activities such as bathing, preparing meals, shopping, managing finances, etc., do you get the help you need?: I don?t need any help How often do you feel lonely or isolated from those around you?: Never Do you speak a language other than Vietnamese at home?: No Does the patient want assistance with any of the above?: Yes Comments: money, food Health Related Social Needs Health related social needs: problems related to housing/economic circumstances (Z59.89) Health related social needs details: PT need help financially PFSH All Active Problems (Updated 02/28/25 @ 03:20 by Jason Christianson MD) History of CVA with residual deficit (Acute) Benign essential hypertension (Acute) Diabetes mellitus type 2, insulin dependent (Acute) Acute lacunar infarction (Acute) Multiple lacunar infarcts (Acute) Sebaceous cyst (Acute) Trigger finger, left index finger (Acute) Toe pain, right (Acute) Great toe pain (Acute) Contusion of right tibia (Acute) Stomach ulcer (Acute) Tubulovillous adenoma (Acute ~09/2022) CAD (coronary artery disease) (Chronic) DJD (degenerative joint disease), lumbar (Acute) MRI 11/06/17 and 06/10/18 Diabetes mellitus, type II (Acute ~10/14/16) Erectile dysfunction (Acute) GERD (gastroesophageal reflux disease) (Chronic) Hyperlipidemia (Acute) Hypertension (Chronic) TIA (transient ischemic attack) (Acute ~1998) Situational depression (Acute) Sacroiliac joint dysfunction (Acute) Chronic GERD (Acute) Bile reflux esophagitis (Acute) Adenomatous polyps (Chronic) Pulmonary nodule less than 1 cm in diameter with low risk for malignant neoplasm (Chronic) Incidental finding on CT scan, March 2020, needs 12 month recheck Left carpal tunnel syndrome (Acute) Right carpal tunnel syndrome (Acute) s/p ECTR DOS: 08/07/20 Left lateral epicondylitis (Acute) Injection: 08/07/20 Adenomatous polyposis (Acute) Facial paresthesia (Acute) Hyperlipidemia (Chronic) Left sided lacunar infarction (Acute) Acute ischemic left middle cerebral artery (MCA) stroke (Acute) TIA (transient ischemic attack) (Acute) Right shoulder pain (Acute) Vasomotor rhinitis (Acute) Tubular adenoma (Acute 09/2021) Cerebrovascular accident (CVA) (Chronic) 10/03/21 [facility] [place] Light headedness (Acute) Lumbar radiculitis (Acute) Lumbosacral spondylosis without myelopathy (Acute) Bladder instability (Acute) Hemorrhoid (Acute) Separation of right acromioclavicular joint (Acute) Tendonitis of long head of biceps brachii of right shoulder (Acute) Medical History Hx of fracture of rib Insomnia Chronic right shoulder pain (~10/14/16) AC JOINT RECONSTRUCTION Chronic back pain (~06/27/18) Medial meniscus tear (~03/03/18) Left Knee Surgical History H/O cataract extraction Left 09/13/23. Right 09/27/23. [place] Hx of shoulder surgery (R) Shoulder History of medial meniscus repair of left knee Hx of CABG x5 History of esophagogastroduodenoscopy (EGD) (~08/2019) History of colonoscopy (~09/2022) 10/30/22- bx's polyps removed. [facility] Dr. Junior 08/2019 Status post AC joint reconstruction right, w/allograft H/O heart artery stent (~2012) patient reports 6 stents total. Last stent placed: 2010 History of tonsillectomy and adenoidectomy History of coronary artery bypass graft (~1997) X5. FOLLOWS UP WITH DR. JEREZ, LAST VISIT WAS 05/26/191997 History of cholecystectomy Family History Mother Hypertension Diabetes Ovarian cancer Father Hypertension Diabetes Lymphoma Sister Heart disease Social History Smoking/Tobacco Use Status: Former Tobacco Use Quit Date: 07/11/89 Tobacco: How many years used: 20 Smoking risk assessment performed?: Yes Alcohol Intake: current Alcohol Intake frequency: holidays/special occasions only Alcohol type: beer Drug use: Occasionally Substance use type: marijuana Household members: other Details: roomate Housing: house Communication Needs: Corrective Lenses current occupation: UnEmployed Current gender identity: male What is your relationship status?: Panel score (0-1 are the most socially isolated patients): 0 What type of physical activity do you participate in: none Seatbelt use: always Drive intox or ride w/intox seasonal driver: No Working smoke detector in home: Yes Carbon monox detector in home: Yes Do you feel safe at home: Yes Do you feel safe in your relationship?: Yes
--- NOTE | 2025-02-28 14:47 | PT.INTREAT ---
PT Notes Visit Reasons: Cerebrovascular accident Date: 02/28/2025 PRECAUTIONS: Standard Fall, Activity as tolerated. SUBJECTIVE: Pt in room getting ready to go home when approached for therapy this afternoon, agreed to participating with therapy session. OBJECTIVE: ? PAIN: none VITALS: monitored by telemetry ? Therapeutic Activities 64740: Direct one-on-one instruction in dynamic activities to improve functional performance. ?? BED MOBILITY/TRANSFERS? Rolling L/R: independent Supine-sit: ?independent ? Sit-supine: ? independent? Sit-stand: ? ?independent ? Stand-sit: ?independent ? Bed-Chair:? ?independent ? Chair-bed: independent Provided skilled cues and instruction on performance and technique throughout. Gait Training 18383: Direct one-on-one instruction and skilled instruction in: Provided instruction in gait pattern Patient education regarding pacing and breathing techniques to maximize activity tolerance? GAIT? Assistive Device: ?none? Weight bearing: FWB Assist: ? ?independent ? Distance:?? 500' ? Deviation: ? ?unremarkable ? STAIRS:? ? facility stairs 14steps no handrail, step over step supervision ? ASSESSMENT:?Pt initially getting upset, able to recover when assured that he is going home this afternoon. PLAN:DC to home without assistance TREATMENT CODE/TIME: [id number] 16mins (2:30-2:46pm)
[2025-02-28 14:59] VITALS: BP 117/73; PULSE 69; RESP 16; TEMP 36; O2SAT 97
== END 2025-02-28 15:52 | disposition home or self-care (01) | DRG 66 ==
LOC: MS 20:56 → ER 20:56
PROVIDERS: Emergency Medicine; Family Medicine; Admitting Provider Family Medicine; Emergency Provider Emergency Medicine Emergency Medical Services; PCP Family Medicine; Responsible Provider Nurse Practitioner Family; Visit Provider Family Medicine
DX: I63.81 Other cerebral infarction due to occlusion or stenosis of small artery (principal); I10 Essential (primary) hypertension; E11.9 Type 2 diabetes mellitus without complications; Z79.4 Long term (current) use of insulin; Z59.89 Other problems related to housing and economic circumstances; G47.00 Insomnia, unspecified; Z95.1 Presence of aortocoronary bypass graft; Z95.5 Presence of coronary angioplasty implant and graft; I25.10 Atherosclerotic heart disease of native coronary artery without angina pectoris; M54.50 Low back pain, unspecified; Z79.84 Long term (current) use of oral hypoglycemic drugs; Z79.82 Long term (current) use of aspirin; G89.29 Other chronic pain; K25.9 Gastric ulcer, unspecified as acute or chronic, without hemorrhage or perforation; K21.9 Gastro-esophageal reflux disease without esophagitis; R91.1 Solitary pulmonary nodule; M47.26 Other spondylosis with radiculopathy, lumbar region; I69.398 Other sequelae of cerebral infarction; R27.8 Other lack of coordination; E78.5 Hyperlipidemia, unspecified
CPT/HCPCS: 00123; 36415; 70496; 70498; 80053; 80061; 93005; 93306; 96361; 96365; 96366; 96375; 97161; 97530; 99285; J1650; 70551; 81003; 83036; 83735; 84484; 85025; 85610; 93010; 99222; 99239; J1815; J2405; J3475; J3490

== ENCOUNTER 2025-03-09 15:08 | Outpatient (CLI) | payer MEDICARE, SELFPAY ==
[2025-03-09 16:15] LABS: ALT 39 U/L (16-63); AST 20 U/L (15-37); Albumin 3.6 g/dL (3.4-5.0); Alkaline Phosphatase 93 U/L (46-116); Anion Gap 8.7 mmol/L (3-11); BUN 20 mg/dL (7-18); Bilirubin, Total 0.5 mg/dL (0.2-1.0); CO2 26.3 mmol/L (21.0-32.0); Calcium 8.5 mg/dL (8.5-10.1); Chloride 99 mmol/L (98-107); Estimated GFR 71.32 (mL/min/1.73m2); Glucose 335 mg/dL (74-106); Magnesium 1.7 mg/dL (1.8-2.4); Potassium 4.1 mmol/L (3.5-5.1); Sodium 134 mmol/L (136-145); Total Protein 7.5 g/dL (6.4-8.2)
== END 2025-03-09 15:09 | disposition home or self-care (01) ==
LOC: LBO 15:08
PROVIDERS: PCP Family Medicine; Visit Provider Nurse Practitioner Family
DX: R79.0 Abnormal level of blood mineral (principal); I10 Essential (primary) hypertension
CPT/HCPCS: 36415; 80053; 83735

== ENCOUNTER → 2025-03-16 10:46 | Outpatient (BNVA) | payer MEDICARE, SELFPAY | PROVIDERS: PCP Family Medicine; Visit Provider Internal Medicine Cardiovascular Disease | DX: I69.30 Unspecified sequelae of cerebral infarction (principal); I25.810 Atherosclerosis of coronary artery bypass graft(s) without angina pectoris | CPT/HCPCS: 99214 ==

== ENCOUNTER 2025-03-19 10:57 | Outpatient (CLI) | payer MEDICARE, SELFPAY | END 2025-03-19 10:58 | disposition home or self-care (01) | PROVIDERS: PCP Family Medicine; Visit Provider Internal Medicine Cardiovascular Disease | DX: I69.30 Unspecified sequelae of cerebral infarction (principal) | CPT/HCPCS: 93270 ==

== ENCOUNTER 2025-04-19 07:20 | Outpatient (CLI) | payer MEDICARE, SELFPAY ==
--- NOTE | 2025-04-19 08:38 | W.CARDEVENT ---
Date of service: 04/19/25 Time of Service: 08:38 Cardiac Event Recorder Referring Provider:: Clayton Marie Indications:: Stroke Cardiac Event Note: This is a cardiac event monitor. Patient was monitored for 29 days and 20 hours Rhythm throughout was sinus. Average heart rate overall was 71. There is no significant bradycardia. Maximum heart rate was 112 There were rare ventricular ectopic beats. 1 self-limited run of nonsustained ventricular tachycardia 4 beats in duration was recorded There were rare atrial premature beats. There was 1 self-limited atrial run which was 6 seconds in duration. There was no atrial fibrillation, no high-grade AV block, no pauses greater than 3 seconds There were no apparent symptoms
== END 2025-04-19 07:21 | disposition home or self-care (01) ==
LOC: CARDOPNVT 07:20
PROVIDERS: PCP Nurse Practitioner Family; Visit Provider Internal Medicine Cardiovascular Disease
DX: G45.9 Transient cerebral ischemic attack, unspecified (principal); I47.20 Ventricular tachycardia, unspecified
CPT/HCPCS: 93272

== ENCOUNTER 2025-04-20 01:07 | Outpatient (CLI) | payer MEDICARE, SELFPAY ==
[2025-04-20 11:22] LABS: ALT 29 U/L (16-63); AST 20 U/L (15-37); Albumin 3.4 g/dL (3.4-5.0); Alkaline Phosphatase 67 U/L (46-116); Anion Gap 8.7 mmol/L (3-11); BUN 16 mg/dL (7-18); Bilirubin, Total 0.5 mg/dL (0.2-1.0); CO2 28.3 mmol/L (21.0-32.0); Calcium 8.5 mg/dL (8.5-10.1); Calculated LDL 58 mg/dL (<100); Chloride 102 mmol/L (98-107); Cholesterol 131 mg/dL (<200); Estimated GFR 79.97 (mL/min/1.73m2); Glucose 232 mg/dL (74-106); HDL Cholesterol 36 mg/dL (>or=40); Potassium 4.0 mmol/L (3.5-5.1); Sodium 139 mmol/L (136-145); Total Protein 7.2 g/dL (6.4-8.2); Triglyceride 188 mg/dL (<150)
[2025-04-20 11:35] LABS: Creatine Kinase 236 U/L (39-308)
== END 2025-04-20 01:08 | disposition home or self-care (01) ==
LOC: LBO 01:07
PROVIDERS: Absent Provider Nurse Practitioner Family; PCP Nurse Practitioner Family; Referring Provider Nurse Practitioner Family; Visit Provider Nurse Practitioner Family
DX: I63.81 Other cerebral infarction due to occlusion or stenosis of small artery (principal)
CPT/HCPCS: 36415; 80053; 80061; 82550

== ENCOUNTER 2025-05-15 14:48 | Outpatient (CLI) | payer MEDICARE, SELFPAY ==
--- NOTE | 2025-05-15 06:00 | DI.RAD_ITS ---
Exam(s) XR PAIN CLINIC SACRIOILIAC 2V EXAM: XR PAIN CLINIC SACRIOILIAC 2V CLINICAL HISTORY: Dx: Sacroiliac Joint Dysfunction. TECHNIQUE: Fluoroscopy was provided for the referring physician for guidance with performing pain clinic injection procedure. COMPARISON: No exams were available for comparison FINDINGS: Please see procedure note for details. Fluoro time: 20.5 seconds RADIATION DOSE DELIVERED: Ka,r=8.6 mGy
[2025-05-15 14:31] VITALS: BP 150/70; PULSE 65; RESP 18; TEMP 36.4; O2SAT 97
--- NOTE | 2025-05-15 15:00 | PDOC.PAIN ---
Date of service: 05/15/25 Time of Service: 15:34 Pain Managment Procedure Note Procedure Note Procedure Note: ?Sacroiliac Joint Steroid Injection ? Location: ? ? Left SI joint ? Pre-procedure Diagnosis: Sacroiliitis, not elsewhere classified - M46.1 ? Post-procedure Diagnosis:? The same as above ? Sedation:? NONE ? Medication: Depo-Medrol 40 mg, bupivacaine 0.5% 1 mL, Omnipaque 0.25 mL per joint ? Estimated blood loss:? less than 2 cc ? Surgeon:? Reginald Borrego MD ? COMMENT: PT HAD GREATER THAN 50% RELIEF OF HER PAIN FOR GREATER THAN 6 MONTHS FROM PREVIOUS INJECTION ? Procedure Detail:? The procedure and potential risks were explained to the patient and informed written consent was obtained. The patient was escorted to the procedure room and placed in the prone position. Pillows were utilized for proper positioning and comfort. Time out was performed in the procedure room with nursing staff confirming the patient's identity, procedure to be performed, allergies, and any blood thinning or anti-platelet medications. The patient's lumbosacral area was prepped with ChloraPrep and draped in a sterile fashion. Sterile technique was maintained throughout the procedure.? Sterile gloves were used, a face mask was worn, and new single dose vials of all medications were used with the top being swabbed with alcohol and given time to dry prior to withdrawal of medication. Lidocaine 1% was used to anesthetize the skin. With fluoroscopic guidance, a 22-gauge 3.5 spinal needle was advanced into the posteroinferior aspect of the Left SI joint . Confirmation of intra-articular position of the needle tip was obtained with injection of 0.25cc of Omnipaque 240 contrast which showed appropriate spread [within the joint].? Following negative aspiration, 40mg of methylprednisolone mixed with 1 mL of bupivacaine 0.5% was injected.? The needle was gently removed. ?The patient tolerated the procedure well and was discharged home with instructions.? Permanent images saved and recorded. Plan:? Follow up prn. PAIN PRE PROCEDURE 04/11 POST PROCEDURE 12/09 COMMENT: 50 % BETTER AFTER INJECTION. Patient having pain pain going to his left thigh. We discussed that if this is not improving then would get an updated MRI of his lumbar spine. He has a follow-up with Dr. Galeas Coding Conscious Sedation used for procedure: No CPT Codes: SI Joint Inj; incl Fluoro - 93852 ([id number] ~G) Additional Codes: Date of Service (14325) Date of service: 05/15/25 Diagnoses: Sacroiliitis, not elsewhere classified - M46.1
[2025-05-15 15:19] VITALS: PULSE 74; O2SAT 97
[2025-05-15 15:20] VITALS: PULSE 73; O2SAT 97
[2025-05-15] MEDS: Nerve Block Tray 1 EACH MC (15:31)
[2025-05-15] MEDS: Bupivacaine 0.5% Pres-Free 10 ML VIAL IJ (15:32)
[2025-05-15] MEDS: methylPREDNISolone ACETATE 80 MG/ML VIAL IJ (15:33)
[2025-05-15] MEDS: Omnipaque 240 MG/ML 50 ML BTL IJ (15:33)
== END 2025-05-15 14:49 | disposition home or self-care (01) ==
LOC: PC 14:48
PROVIDERS: PCP Nurse Practitioner Family; Visit Provider Anesthesiology Pain Medicine
DX: M54.50 Low back pain, unspecified (principal); M46.1 Sacroiliitis, not elsewhere classified
CPT/HCPCS: 27096; 72200; J0665; J1010; Q9967

== ENCOUNTER 2025-06-08 12:50 | Inpatient (IN) | payer MEDICARE, SELFPAY ==
[2025-06-08] VITALS (9 sets, daily range): BP systolic 103–168; BP diastolic 48–74; PULSE 71–93; RESP 16–18; TEMP 36.5–38; O2SAT 94–98
--- NOTE | 2025-06-08 12:45 | DI.RAD_ITS ---
Exam(s) XR PORTABLE CHEST AP EXAM: XR PORTABLE CHEST AP CLINICAL HISTORY: fever TECHNIQUE: 2D digital imaging was performed of the chest. One image was obtained. An AP view was obtained. COMPARISON: CR XR PORTABLE CHEST AP from 12/16/2020 FINDINGS: There are low lung volumes. MEDIASTINUM: Normal. HEART: Normal. PULMONARY VASCULATURE: Normal. LUNGS: There are no focal consolidating infiltrates. PLEURAL SPACE: No pleural effusion or pneumothorax. BONE:Within normal limits for the patient's age. Sternal wires are in place. OTHER FINDINGS:Normal. IMPRESSION: 1. Low lung volumes. 2. No focal infiltrates. DATA REPOSITORY: RADIATION DOSE DELIVERED:
[2025-06-08 13:11] LABS: Glucose Negative (Negative)
[2025-06-08] MEDS: Lactated Ringers 1,000 ML 1000 ML IV ×2 (13:20→14:00)
[2025-06-08 13:24] LABS: C & S Indicated? Yes; WBC >50 HPF (0-5)
[2025-06-08 13:33] LABS: Abs Immature Grans 0.04 10^3/uL (0.0-0.06); HCT 44.4 % (40.0-50.0); HGB 14.5 g/dL (13.5-17.5); Immature Grans % 0.5 %; MCH 26.0 pg (27.0-33.0); MCHC 32.7 % (32.0-36.0); MCV 80 fL (80-95); MPV 9.5 fL (8.0-11.0); Platelet Count 202 10^3/uL (130-400); RBC 5.58 10^6/uL (4.36-5.78); RDW 13.8 % (11.8-14.1); RDW-SD 40.2 fL; WBC 7.90 10^3/uL (4.4-10.8)
[2025-06-08 13:58] LABS: COVID-19 PCR Negative (Negative); RSV PCR Negative (Negative)
[2025-06-08 14:00] LABS: ALT 56 U/L (16-63); AST 71 U/L (15-37); Albumin 3.0 g/dL (3.4-5.0); Alkaline Phosphatase 68 U/L (46-116); Anion Gap 12.7 mmol/L (3-11); BUN 31 mg/dL (7-18); Bilirubin, Total 0.9 mg/dL (0.2-1.0); CO2 23.3 mmol/L (21.0-32.0); Calcium 8.9 mg/dL (8.5-10.1); Chloride 93 mmol/L (98-107); Glucose 113 mg/dL (74-106); Magnesium 1.6 mg/dL (1.8-2.4); Potassium 3.6 mmol/L (3.5-5.1); Sodium 129 mmol/L (136-145); Total Protein 7.9 g/dL (6.4-8.2); Troponin I 27 ng/L (<or=76)
[2025-06-08] MEDS: cefTRIAXone 1 GM/50 ML BAG IVPB (14:19)
[2025-06-08 15:38] LABS: Troponin I 27 ng/L (<or=76)
--- NOTE | 2025-06-08 15:48 | W.PM.HP.N ---
Date of service: 06/08/25 Time of Service: 15:48 Assessment and Plan Assessment and plan (1) Severe sepsis: Status: Acute Assessment and plan: Sepsis criteria met with tachycardia HR 92-103 , febrile illness at 38.2 -Source most likely UTI as per UA w and symptoms of dysuria Severity criteria met with lactate 2.3 on presentation to the ED; repeat lactate pending Cr only minimally elevated not meeting criteria for ARLEY stage I but minimally elevated BUN/creatinine ratio improved to dehydration will continue slow IV hydration overnight Urine and blood cultures pending ongoing IV ceftriaxone initiated in the ED for double spectrum as per culture results (2) Dysuria: Status: Acute Assessment and plan: As above (3) Hyponatremia: Status: Acute Assessment and plan: Sodium minimally low at 129 without AMS changes-ongoing IV hydration of failure sepsis Will continue (4) Diabetes: Status: Chronic Assessment and plan: Uahli-vq-rcga testing glucose ACHS with SSI coverage AC, home dose basal bolus BMP in AM (5) Cerebrovascular accident (CVA): Status: Chronic Assessment and plan: Ongoing home medicine regimen with Plavix and statin (6) Hypertension: Assessment and plan: Ongoing home medicine management with CCB and ARBs (7) GERD (gastroesophageal reflux disease): Status: Chronic Assessment and plan: Ongoing home regimen with omeprazole (8) On deep vein thrombosis (DVT) prophylaxis: Status: Acute Assessment and plan: On Lovenox Discussed with History of Present Illness Narrative: This 74 yo male with a PMHx of CAD, stroke, IDDM, remote Klebsiella UTI, presented today to the ED for evaluation of fatigue , febrile illness, dysuria . On presentation tachycardia 92-103 , w/o hypotension, tachypnea or hypoxemia. Work-up positive for lactic at 2.3 w/o leukocytoisi, BUN at 31 w/o ARLEY with a Cr at 1.3 from basline 1.0-1.1 , Na 129, magnesium 1.6. UA positive for nitrate, leukocyte esterase, WBCs >50, blood culture drawn and pending. The patient received 2 liter of IV crystalloid in the ED and IV ceftriaxone. The patient was admitted to the medical surgical floor for severe sepsis, hypomagnesemia , hyponatremia evaluation and management. Full code status confirmed Patient reports fever x a week ,fatigue , chills,night sweat , diarrhea, dysruria Patient denies headache, chest pain, SOB nausea, vomiting Review of Systems All systems reviewed & are unremarkable except as noted in HPI and below PFSH All Active Problems (Updated 06/08/25 @ 17:30 by Zonia Agudelo APRN) Hyponatremia (Acute) Hypolipidemia (Acute) On deep vein thrombosis (DVT) prophylaxis (Acute) Diabetes (Chronic) Severe sepsis (Acute) Dysuria (Acute) Abdominal pain (Acute) Fever (Acute) Rib pain on right side (Acute) Low magnesium level (Acute) History of CVA with residual deficit (Acute) Benign essential hypertension (Acute) Diabetes mellitus type 2, insulin dependent (Acute) Acute lacunar infarction (Acute) Multiple lacunar infarcts (Acute) Sebaceous cyst (Acute) Trigger finger, left index finger (Acute) Toe pain, right (Acute) Great toe pain (Acute) Contusion of right tibia (Acute) Stomach ulcer (Acute) Tubulovillous adenoma (Acute ~09/2022) CAD (coronary artery disease) (Chronic) DJD (degenerative joint disease), lumbar (Acute) MRI 11/06/17 and 06/10/18 Erectile dysfunction (Acute) GERD (gastroesophageal reflux disease) (Chronic) Hyperlipidemia (Acute) TIA (transient ischemic attack) (Acute ~1998) Situational depression (Acute) Sacroiliac joint dysfunction (Acute) Chronic GERD (Acute) Bile reflux esophagitis (Acute) Adenomatous polyps (Chronic) Pulmonary nodule less than 1 cm in diameter with low risk for malignant neoplasm (Chronic) Incidental finding on CT scan, March 2020, needs 12 month recheck Left carpal tunnel syndrome (Acute) Right carpal tunnel syndrome (Acute) s/p ECTR DOS: 08/07/20 Left lateral epicondylitis (Acute) Injection: 08/07/20 Adenomatous polyposis (Acute) Facial paresthesia (Acute) Left sided lacunar infarction (Acute) Acute ischemic left middle cerebral artery (MCA) stroke (Acute) TIA (transient ischemic attack) (Acute) Right shoulder pain (Acute) Vasomotor rhinitis (Acute) Tubular adenoma (Acute 09/2021) Cerebrovascular accident (CVA) (Chronic) 10/03/21 [facility] [place] Neurology note Light headedness (Acute) Lumbar radiculitis (Acute) Lumbosacral spondylosis without myelopathy (Acute) Bladder instability (Acute) Hemorrhoid (Acute) Separation of right acromioclavicular joint (Acute) Tendonitis of long head of biceps brachii of right shoulder (Acute) Medical History Hyperlipidemia Hypertension Diabetes mellitus, type II (~10/14/16) Hx of fracture of rib Insomnia Chronic right shoulder pain (~10/14/16) AC JOINT RECONSTRUCTION Chronic back pain (~06/27/18) Medial meniscus tear (~03/03/18) Left Knee Surgical History H/O cataract extraction Left 09/13/23. Right 09/27/23. [place] Hx of shoulder surgery (R) Shoulder History of medial meniscus repair of left knee Hx of CABG x5 History of esophagogastroduodenoscopy (EGD) (~08/2019) History of colonoscopy (~09/2022) 10/30/22- bx's polyps removed. [facility] Dr. Junior 08/2019 Status post AC joint reconstruction right, w/allograft H/O heart artery stent (~2012) patient reports 6 stents total. Last stent placed: 2010 History of tonsillectomy and adenoidectomy History of coronary artery bypass graft (~1997) X5. FOLLOWS UP WITH DR. JEREZ, LAST VISIT WAS 05/26/191997 History of cholecystectomy Family History Mother Hypertension Diabetes Ovarian cancer Father Hypertension Diabetes Lymphoma Sister Heart disease Other Acute lacunar infarction Social History Smoking/Tobacco Use Status: Former Tobacco Use Quit Date: 07/11/89 Tobacco: How many years used: 20 Smoking risk assessment performed?: Yes Alcohol Intake: current Alcohol Intake frequency: holidays/special occasions only Alcohol type: beer Drug use: Occasionally Substance use type: marijuana Household members: other Details: roomate Housing: house Communication Needs: Corrective Lenses current occupation: UnEmployed Current gender identity: male What is your relationship status?: Panel score (0-1 are the most socially isolated patients): 0 What type of physical activity do you participate in: none Seatbelt use: always Drive intox or ride w/intox 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: No Working smoke detector in home: Yes Carbon monox detector in home: Yes Do you feel safe at home: Yes Do you feel safe in your relationship?: Yes Meds Allergies and Home Medications Allergies Allergy/AdvReac Type Severity Reaction Status Date / Time ciprofloxacin Allergy Intermediate Hives Verified 06/08/25 10:44 atorvastatin (From Lipitor) Allergy Unknown Very ill Verified 06/08/25 10:44 Apztnjo-SLW-RjM Reductase AdvReac Intermediate reflux, Verified 06/08/25 10:44 Inhibitor (Cpknobg-Thu-Fon malaise, Reductase Inhibitor) GI upset Home Medications Medication Instructions Recorded Confirmed Type lancets #50 ea 01/12/19 06/08/25 History losartan 100 mg tablet 100 mg PO DAILY #90 tabs 07/07/24 06/08/25 Rx sildenafil (pulm.hypertension) 20 20 mg PO TID PRN sexual activity 10/24/24 06/08/25 Rx mg tablet #90 tabs blood sugar diagnostic (Blood #50 ea 03/09/25 06/08/25 Rx Glucose Test strips) glipizide 5 mg-metformin 500 mg 2 tab PO BID #360 tabs 03/13/25 06/08/25 Rx tablet insulin glargine 100 unit/mL (3 50 unit subcut QAM 03/13/25 06/08/25 History mL) subcutaneous pen (Lantus Solostar U-100 Insulin) hydrocodone 10 mg-acetaminophen 0.5 tab PO Q8H PRN pain #60 tabs 03/16/25 06/08/25 Rx 325 mg tablet omeprazole 20 mg capsule,delayed 20 mg PO DAILY #90 caps 03/19/25 06/08/25 Rx release clopidogrel 75 mg tablet 75 mg PO DAILY #90 tabs 03/26/25 06/08/25 Rx amlodipine 5 mg tablet 5 mg PO DAILY 03/27/25 06/08/25 History magnesium 250 mg PO QHS 04/24/25 06/08/25 History pen needle, diabetic 31 gauge x #100 ea 05/07/25 06/08/25 Rx 3/16 rosuvastatin 10 mg tablet 10 mg PO DAILY cholesterol #90 tabs 05/08/25 06/08/25 Rx Exam Narrative Exam Narrative: Alert and orient X3, no focal neurological deficit, unlabored breathing clear lungs, heart is regular s1, S2 , murmur , abdomen is large, non-distended, soft and non-tender, no CVA tenderness, chronic urinary incontinence, moves all 4 ext. Results Labs 06/08/25 13:19 06/08/25 13:19 Labs: Laboratory Results - last 24 hr 06/08/25 06/08/25 06/08/25 12:56 13:09 13:19 WBC 7.90 RBC 5.58 Hgb 14.5 Hct 44.4 MCV 80 MCH 26.0 L MCHC 32.7 RDW 13.8 Plt Count 202 MPV 9.5 Immature Gran % 0.5 Neutrophils % 82.6 Lymphocytes % 7.0 Monocytes % 9.5 Eosinophils % 0.1 Basophils % 0.3 Nucleated RBC % 0.0 Absolute Neutrophils 6.53 Absolute Lymphocytes 0.55 L Absolute Monocytes 0.75 Absolute Eosinophils 0.01 Absolute Basophils 0.02 VBG Lactate 2.3 H* Sodium 129 L Potassium 3.6 Chloride 93 L Carbon Dioxide 23.3 Anion Gap 12.7 H BUN 31 H Creatinine 1.3 Est GFR (CKD-EPI 2020) 58.37 Glucose 113 H Calcium 8.9 Magnesium 1.6 L Total Bilirubin 0.9 AST 71 H ALT 56 Alkaline Phosphatase 68 Troponin I 27 Total Protein 7.9 Albumin 3.0 L Urine Color Yellow Urine Clarity Sl Cloudy Urine pH 5.5 Ur Specific [place] >= 1.030 H Urine Protein >=300 H Urine Ketones 40 H Urine Blood Moderate H Urine Nitrite Positive H Urine Bilirubin Moderate H Urine Urobilinogen 2.0 H Ur Leukocyte Esterase Small H Urine RBC 5-10 H Urine WBC >50 H Ur Epithelial Cells Rare Urine Crystals Negative Urine Bacteria Moderate Urine Casts 0-2 Hyaline Urine Mucus Moderate Urine Other Rare Transitional Ur Culture Indicated? Yes Urine Glucose Negative COVID-19 Source Nasopharynx SARS-CoV-2 (PCR) Negative Influenza Type A (PCR) Negative Influenza Type B (PCR) Negative RSV (PCR) Negative 06/08/25 15:11 WBC RBC Hgb Hct MCV MCH MCHC RDW Plt Count MPV Immature Gran % Neutrophils % Lymphocytes % Monocytes % Eosinophils % Basophils % Nucleated RBC % Absolute Neutrophils Absolute Lymphocytes Absolute Monocytes Absolute Eosinophils Absolute Basophils VBG Lactate Sodium Potassium Chloride Carbon Dioxide Anion Gap BUN Creatinine Est GFR (CKD-EPI 2020) Glucose Calcium Magnesium Total Bilirubin AST ALT Alkaline Phosphatase Troponin I 27 Total Protein Albumin Urine Color Urine Clarity Urine pH Ur Specific [place] Urine Protein Urine Ketones Urine Blood Urine Nitrite Urine Bilirubin Urine Urobilinogen Ur Leukocyte Esterase Urine RBC Urine WBC Ur Epithelial Cells Urine Crystals Urine Bacteria Urine Casts Urine Mucus Urine Other Ur Culture Indicated? Urine Glucose COVID-19 Source SARS-CoV-2 (PCR) Influenza Type A (PCR) Influenza Type B (PCR) RSV (PCR) Last Vital Signs Temp 37.2 C 06/08/25 12:49 Pulse 92 H 06/08/25 12:49 Resp 18 06/08/25 12:49 BP 168/66 H 06/08/25 12:49 Pulse Ox 97 06/08/25 12:49 Time Spent Time spent with Patient: >75 minutes Time was spent: preparing to see the patient(eg.review tests), obtaining and/or reviewing separately otained hiistory, ordering medications,tests, procedures, referring, communicating with other health cattle care worker, indepentently interpreting results, counseling the patient, care coordination and other
--- NOTE | 2025-06-08 17:55 | W.PC.ACHO ---
Registration Status: ADM IN Primary Language: Preferred Language: ED Information & Data Chief Complaint GenMedical 06/08/25 16:41 Chief Complaint GenMedical 06/08/25 12:49 Triage Note feeling unwell x4 days, pcp 06/08/25 12:49 reports fever, no fever upon arrival, pt thinks he has a UTI Medical / Surgical History (Updated 06/08/25 @ 17:30 by Zonia Agudelo APRN) Hyperlipidemia Hypertension Diabetes mellitus, type II (~10/14/16) Hx of fracture of rib Insomnia Chronic right shoulder pain (~10/14/16) Chronic back pain (~06/27/18) Medial meniscus tear (~03/03/18) (Updated 03/01/25 @ 00:03 by GO TEIXEIRA) H/O cataract extraction Hx of shoulder surgery History of medial meniscus repair of left knee Hx of CABG History of esophagogastroduodenoscopy (EGD) (~08/2019) History of colonoscopy (~09/2022) Status post AC joint reconstruction H/O heart artery stent (~2012) History of tonsillectomy and adenoidectomy History of coronary artery bypass graft (~1997) History of cholecystectomy Most Recent Vital Signs Temperature 38 C H 06/08/25 17:28 Temperature Source Oral 06/08/25 12:49 Pulse 80 06/08/25 17:28 Pulse Rhythm Regular 06/08/25 17:28 Respiratory Rate 17 06/08/25 17:28 Respiratory Effort Normal, Non-Labored 06/08/25 17:28 Respiratory Depth Normal 06/08/25 17:28 Respiratory Pattern Normal 06/08/25 17:28 Blood Pressure 123/74 06/08/25 17:28 Blood Pressure Mean 80 06/08/25 16:30 Pulse Oximetry 98 06/08/25 17:28 Oxygen Delivery Method Room Air 06/08/25 17:28 Oxygen Flow Rate 0 06/08/25 17:28 Pain Level 0 06/08/25 17:28 Allergies ciprofloxacin Allergy (Intermediate, Verified 06/08/25 10:44) Hives [facility] 03/19/23- cipro allergy 30 years ago per pt report took levofloxacin recently with no issues atorvastatin (From Lipitor) Allergy (Unknown, Verified 06/08/25 10:44) Very ill pt. mentiones his gut and he thought he was going to Nzqeezx-SZI-QgJ Reductase Inhibitor (Ngsrxsy-Zuo-Jzw Reductase Inhibitor) Adverse Reaction (Intermediate, Verified 06/08/25 10:44) reflux, malaise, GI upset Precautions Isolation Standard precaution 06/08/25 16:41 Active Medications Generic Name Dose Route Start Last Admin Trade Name Sin PRN Reason Stop Dose Admin Insulin Aspart 0 units 06/08/25 17:23 06/08/25 17:54 Insulin Aspart 300 Units/3 Ml Pen SC Not Given 0800,1200,1700 [facility] Protocol IV IV Catheter Type [Left Saline Lock Antecubital] IV Catheter Gauge [Left 20 Antecubital] Diet Orders Category Date Time Status Diabetes Consistent CHO/Heart Healthy [DIET] Nutrition 06/08/25 Dinner Active Diagnostics 06/08/25 06/08/25 06/08/25 Range/Units 16:04 15:11 13:19 WBC 7.90 (4.4-10.8) 10^3/uL RBC 5.58 (4.36-5.78) 10^6/uL Hgb 14.5 (13.5-17.5) g/dL Hct 44.4 (40.0-50.0) % MCV 80 (80-95) fL MCH 26.0 L (27.0-33.0) pg MCHC 32.7 (32.0-36.0) % RDW 13.8 (11.8-14.1) % Plt Count 202 (130-400) 10^3/uL MPV 9.5 (8.0-11.0) fL Immature Gran % 0.5 % Neutrophils % 82.6 % Lymphocytes % 7.0 % Monocytes % 9.5 % Eosinophils % 0.1 % Basophils % 0.3 % Nucleated RBC % 0.0 (0.0-0.3) % Absolute Neutrophils 6.53 (1.2-6.7) 10^3/uL Absolute Lymphocytes 0.55 L (1.2-3.4) 10^3/uL Absolute Monocytes 0.75 (0.1-0.8) 10^3/uL Absolute Eosinophils 0.01 (0.0-0.7) 10^3/uL Absolute Basophils 0.02 (0.0-0.2) 10^3/uL VBG Lactate Pending 2.3 H* (<or=2.0) mmol/L Sodium 129 L (136-145) mmol/L Potassium 3.6 (3.5-5.1) mmol/L Chloride 93 L (98-107) mmol/L Carbon Dioxide 23.3 (21.0-32.0) mmol/L Anion Gap 12.7 H (3-11) mmol/L BUN 31 H (7-18) mg/dL Creatinine 1.3 (0.70-1.30) mg/dL Est GFR (CKD-EPI 2020) 58.37 (mL/min/1.73m2) Glucose 113 H (74-106) mg/dL Calcium 8.9 (8.5-10.1) mg/dL Magnesium 1.6 L (1.8-2.4) mg/dL Total Bilirubin 0.9 (0.2-1.0) mg/dL AST 71 H (15-37) U/L ALT 56 (16-63) U/L Alkaline Phosphatase 68 (46-116) U/L Troponin I 27 27 (<or=76) ng/L Total Protein 7.9 (6.4-8.2) g/dL Albumin 3.0 L (3.4-5.0) g/dL Urine Color (Yellow) Urine Clarity (Clear) Urine pH (5-8) Ur Specific [place] (1.005-1.025) Urine Protein (Neg-Trace) mg/dL Urine Ketones (Negative) mg/dL Urine Blood (Negative) Urine Nitrite (Negative) Urine Bilirubin (Negative) Urine Urobilinogen (Up to 0.2) mg/dL Ur Leukocyte Esterase (Negative) Urine RBC (0-2) HPF Urine WBC (0-5) HPF Ur Epithelial Cells (Negative) HPF Urine Crystals (Negative) HPF Urine Bacteria (Negative) HPF Urine Casts (Negative) LPF Urine Mucus (Negative) Urine Other (Negative) Ur Culture Indicated? Urine Glucose (Negative) mg/dL COVID-19 Source SARS-CoV-2 (PCR) (Negative) Influenza Type A (PCR) (Negative) Influenza Type B (PCR) (Negative) RSV (PCR) (Negative) 06/08/25 06/08/25 06/08/25 Range/Units 13:09 13:08 12:56 WBC (4.4-10.8) 10^3/uL RBC (4.36-5.78) 10^6/uL Hgb (13.5-17.5) g/dL Hct (40.0-50.0) % MCV (80-95) fL MCH (27.0-33.0) pg MCHC (32.0-36.0) % RDW (11.8-14.1) % Plt Count (130-400) 10^3/uL MPV (8.0-11.0) fL Immature Gran % % Neutrophils % % Lymphocytes % % Monocytes % % Eosinophils % % Basophils % % Nucleated RBC % (0.0-0.3) % Absolute Neutrophils (1.2-6.7) 10^3/uL Absolute Lymphocytes (1.2-3.4) 10^3/uL Absolute Monocytes (0.1-0.8) 10^3/uL Absolute Eosinophils (0.0-0.7) 10^3/uL Absolute Basophils (0.0-0.2) 10^3/uL VBG Lactate (<or=2.0) mmol/L Sodium (136-145) mmol/L Potassium (3.5-5.1) mmol/L Chloride (98-107) mmol/L Carbon Dioxide (21.0-32.0) mmol/L Anion Gap (3-11) mmol/L BUN (7-18) mg/dL Creatinine (0.70-1.30) mg/dL Est GFR (CKD-EPI 2020) (mL/min/1.73m2) Glucose (74-106) mg/dL Calcium (8.5-10.1) mg/dL Magnesium (1.8-2.4) mg/dL Total Bilirubin (0.2-1.0) mg/dL AST (15-37) U/L ALT (16-63) U/L Alkaline Phosphatase (46-116) U/L Troponin I (<or=76) ng/L Total Protein (6.4-8.2) g/dL Albumin (3.4-5.0) g/dL Urine Color Pending Yellow (Yellow) Urine Clarity Pending Sl Cloudy (Clear) Urine pH Pending 5.5 (5-8) Ur Specific [place] Pending >= 1.030 H (1.005-1.025) Urine Protein Pending >=300 H (Neg-Trace) mg/dL Urine Ketones Pending 40 H (Negative) mg/dL Urine Blood Pending Moderate H (Negative) Urine Nitrite Pending Positive H (Negative) Urine Bilirubin Pending Moderate H (Negative) Urine Urobilinogen Pending 2.0 H (Up to 0.2) mg/dL Ur Leukocyte Esterase Pending Small H (Negative) Urine RBC 5-10 H (0-2) HPF Urine WBC >50 H (0-5) HPF Ur Epithelial Cells Rare (Negative) HPF Urine Crystals Negative (Negative) HPF Urine Bacteria Moderate (Negative) HPF Urine Casts 0-2 Hyaline (Negative) LPF Urine Mucus Moderate (Negative) Urine Other Rare Transitional (Negative) Ur Culture Indicated? Yes Urine Glucose Pending Negative (Negative) mg/dL COVID-19 Source Nasopharynx SARS-CoV-2 (PCR) Negative (Negative) Influenza Type A (PCR) Negative (Negative) Influenza Type B (PCR) Negative (Negative) RSV (PCR) Negative (Negative) 06/08/25 13:39 Blood Culture - Pending Blood 06/08/25 13:39 Blood Culture - Pending Blood 06/08/25 12:56 Urine Culture - Pending Urine - Reflex from Ua Quopg-ph-Clts Documentation Fingerstick Glucose Start: 06/08/25 17:23 Freq: AC & HS Status: Active Protocol: Activity Type Activity Date Activity User E-sign Co-sign Detail Recorded Client Recorded Date Recorded By Document 06/08/25 17:52 BKG DAEMON(3) [id number] 06/08/25 17:53 BKG DAEMON(4) Intake and Output - 24 Hour Total 06/08/25 12:44 thru 06/08/25 17:53 Intake Total 2049 Balance 2049 Weight 90.492 kg Intake: IV 2049 Falls Risk Assessment History of Falls Previous History 06/08/25 17:28 Contributing Factors Incontinence 06/08/25 17:28 Ambulatory Aids Independent 06/08/25 17:28 Tubes/Lines W/no contributing factors 06/08/25 17:28 Gait Evaluation No gait disturbance 06/08/25 17:28 Cognition No cognitive impairment 06/08/25 17:28 Fall Total Score 28 06/08/25 17:28 Level of Risk Moderate Risk 06/08/25 17:28 Problems (Updated 06/08/25 @ 17:30 by Zonia Agudelo APRN) Hyponatremia (Acute) On deep vein thrombosis (DVT) prophylaxis (Acute) Diabetes (Chronic) Severe sepsis (Acute) Dysuria (Acute) GERD (gastroesophageal reflux disease) (Chronic) Cerebrovascular accident (CVA) (Chronic) v v v v v v v v v Sending and/or Receiving Nurses: Please use comment section below to note any information pertinent to the patient hand-off not included above. Information / Comments: pt arrives to Rm [id number] via WC. Report received from: Darlene Tobin2
[2025-06-08] MEDS: MAGNESIUM SULFATE 2 GM/50 ML BAG IV_INF (18:01)
[2025-06-08] MEDS: HYDROcodone 10/Acetaminophen 325 TAB PO (18:54)
[2025-06-08] MEDS: amLODIPine 5 MG TAB PO (19:44)
[2025-06-08] MEDS: Omeprazole 20 MG CAPCR PO (19:44)
[2025-06-08] MEDS: Normal Saline Flush 10 ML SYR IVP (19:45)
[2025-06-08] MEDS: Lactated Ringers 1,000 ML 100 ML IV (20:25)
[2025-06-09 05:51] VITALS: BP 118/68; PULSE 73; RESP 18; TEMP 36.7; O2SAT 96
[2025-06-09] MEDS: HYDROcodone 10/Acetaminophen 325 TAB PO ×2 (05:55→19:40)
[2025-06-09 06:10] LABS: Abs Immature Grans 0.02 10^3/uL (0.0-0.06); HCT 40.4 % (40.0-50.0); HGB 13.1 g/dL (13.5-17.5); Immature Grans % 0.3 %; MCH 25.9 pg (27.0-33.0); MCHC 32.4 % (32.0-36.0); MCV 80 fL (80-95); MPV 10.0 fL (8.0-11.0); Platelet Count 175 10^3/uL (130-400); RBC 5.05 10^6/uL (4.36-5.78); RDW 13.9 % (11.8-14.1); RDW-SD 40.5 fL; WBC 6.14 10^3/uL (4.4-10.8)
[2025-06-09 06:17] LABS: Magnesium 1.8 mg/dL (1.8-2.4)
[2025-06-09 06:21] LABS: Anion Gap 8.6 mmol/L (3-11); BUN 24 mg/dL (7-18); CO2 27.4 mmol/L (21.0-32.0); Calcium 8.0 mg/dL (8.5-10.1); Chloride 97 mmol/L (98-107); Glucose 107 mg/dL (74-106); Potassium 3.5 mmol/L (3.5-5.1); Sodium 133 mmol/L (136-145)
[2025-06-09] MEDS: Lactated Ringers 1,000 ML 100 ML IV (06:22)
[2025-06-09 07:36] VITALS: BP 145/74; PULSE 68; RESP 17; TEMP 36; O2SAT 96
--- NOTE | 2025-06-09 08:35 | ED.GENADUL_ITS ---
Discharge Plan Discharge Details Chief Complaint: GenMedical Admit Date/Time: 06/08/25 16:04 Admit Provider: Gerry Zuñiga Attending Provider: Gerry Zuñiga Primary Care Provider: Soco Brewster ED Provider: Markos Fajardo Discharge Data Discharge Date/Time-TO BE ENTERED AT DEPARTURE: 06/08/25 17:02 HPI General Date/Time Provider Initiated Documentation: 06/08/25 12:58 . HPI Narrative: MDM/Narrative: Initial Assessment: 74-year-old male with fever, chest congestion, runny nose, cough, dysuria, difficulty urinating, diarrhea, and decreased oral intake. Patient notable for SIRS criteria of heart rate over 90, and a documented temperature at outpatient clinic of 100.4 temporally, concerning for significant infectious etiology of his symptoms. Differential Diagnosis: - UTI: Symptoms include dysuria, frequent urges to urinate, dark urine. Urinalysis and urine culture to confirm. Administer antibiotics. - Dehydration: Reports inadequate eating and drinking for the past week. Administer IV fluids. - Fever: Reports fever of 100.4°F. Administer Tylenol. ED Course: - Administered IV fluids. - Ordered blood work. - Administered antibiotics. - Ordered urinalysis and urine culture. Labs notable for floridly infected urinalysis, elevated lactate. Given history, by notable vital sign abnormalities with documented fever at outpatient clinic, patient meets sepsis criteria. Will treat with ceftriaxone, 2 L crystalloid bolus, and admit for further management. Clinical Impression: - UTI - Dehydration - Fever - Sepsis Disposition: Admit to [facility] HPI: The patient is a 74-year-old male with a history of urinary tract infections (UTIs) and chronic lumbar pain, presenting with pyrexia. The patient reports experiencing thoracic congestion and a cough for several weeks, which resolved two weeks ago. He also had a sore throat concurrent with the cough, which has since improved. He admits to inadequate fluid intake and has not received any vaccinations this year. Approximately one week ago, the patient developed dysuria characterized by a burning sensation and hesitancy. He reports a persistent urge to urinate every five minutes despite minimal food intake. He has a history of similar UTIs. The patient has been experiencing excessive sleep and minimal food intake, consuming only a couple of spoons of pasta. He is attempting to increase his water intake. He has a known history of lumbar pain for which he receives injections every 3-4 months at a pain clinic. The last injection provided approximately 80% relief. He now reports a slight burning sensation in the area of his previous lumbar pain. Yesterday, the patient experienced diarrhea despite not eating for a week. He believes he had a fever, and a clinic forehead temperature check revealed a fever of 100.4°F. ROS: Negative besides as mentioned above Exam: Vital signs: Reviewed. General Appearance: Alert and oriented. No acute distress. HEENT: NCAT, EOMI, not icteric. External ears normal. No rhinorrhea. Moist mucous membranes. Neck: Tenderness and tightness in trapezius muscle, base of jaw to shoulder blade. Respiratory: No Respiratory distress. No tachypnea. Cardiovascular: RRR, no edema. Gastrointestinal: No abdominal tenderness or CVA tenderness. Genitourinary: Male: No rashes or discharge. Dark urine observed. Back: No significant pain on lower back palpation. Musculoskeletal: Tenderness and tightness in trapezius muscle, base of jaw to shoulder blade. Skin: Warm and dry, no rash. Neurological: Normal Gait, Grossly intact. Psychiatric: Appropriate for situation. Labs: 06/08/25 13:39 Blood Blood Culture - Pending 06/08/25 13:39 Blood Blood Culture - Pending 06/08/25 12:56 Urine - Reflex from Ua Urine Culture - Pending Laboratory Tests Range/Units 06/08/25 06/08/25 06/08/25 12:56 13:08 13:09 WBC (4.4-10.8) 10^3/uL RBC (4.36-5.78) 10^6/uL Hgb (13.5-17.5) g/dL Hct (40.0-50.0) % MCV (80-95) fL MCH (27.0-33.0) pg MCHC (32.0-36.0) % RDW (11.8-14.1) % Plt Count (130-400) 10^3/uL MPV (8.0-11.0) fL Immature Gran % % Neutrophils % % Lymphocytes % % Monocytes % % Eosinophils % % Basophils % % Nucleated RBC % (0.0-0.3) % Absolute Neutrophils (1.2-6.7) 10^3/uL Absolute Lymphocytes (1.2-3.4) 10^3/uL Absolute Monocytes (0.1-0.8) 10^3/uL Absolute Eosinophils (0.0-0.7) 10^3/uL Absolute Basophils (0.0-0.2) 10^3/uL VBG Lactate (<or=2.0) mmol/L Sodium (136-145) mmol/L Potassium (3.5-5.1) mmol/L Chloride (98-107) mmol/L Carbon Dioxide (21.0-32.0) mmol/L Anion Gap (3-11) mmol/L BUN (7-18) mg/dL Creatinine (0.70-1.30) mg/dL Est GFR (CKD-EPI 2020) (mL/min/1.73m2) Glucose (74-106) mg/dL Calcium (8.5-10.1) mg/dL Magnesium (1.8-2.4) mg/dL Total Bilirubin (0.2-1.0) mg/dL AST (15-37) U/L ALT (16-63) U/L Alkaline Phosphatase (46-116) U/L Troponin I (<or=76) ng/L Total Protein (6.4-8.2) g/dL Albumin (3.4-5.0) g/dL Urine Color (Yellow) Yellow Cancelled Urine Clarity (Clear) Sl Cloudy Cancelled Urine pH (5-8) 5.5 Cancelled Ur Specific [place] (1.005-1.025) >= 1.030 H Cancelled Urine Protein (Neg-Trace) mg/dL >=300 H Cancelled Urine Ketones (Negative) mg/dL 40 H Cancelled Urine Blood (Negative) Moderate H Cancelled Urine Nitrite (Negative) Positive H Cancelled Urine Bilirubin (Negative) Moderate H Cancelled Urine Urobilinogen (Up to 0.2) mg/dL 2.0 H Cancelled Ur Leukocyte Esterase (Negative) Small H Cancelled Urine RBC (0-2) HPF 5-10 H Urine WBC (0-5) HPF >50 H Ur Epithelial Cells (Negative) HPF Rare Urine Crystals (Negative) HPF Negative Urine Bacteria (Negative) HPF Moderate Urine Casts (Negative) LPF 0-2 Hyaline Urine Mucus (Negative) Moderate Urine Other (Negative) Rare Transitional Ur Culture Indicated? Yes Urine Glucose (Negative) mg/dL Negative Cancelled COVID-19 Source Nasopharynx SARS-CoV-2 (PCR) (Negative) Negative Influenza Type A (PCR) (Negative) Negative Influenza Type B (PCR) (Negative) Negative RSV (PCR) (Negative) Negative Range/Units 06/08/25 06/08/25 13:19 15:11 WBC (4.4-10.8) 10^3/uL 7.90 RBC (4.36-5.78) 10^6/uL 5.58 Hgb (13.5-17.5) g/dL 14.5 Hct (40.0-50.0) % 44.4 MCV (80-95) fL 80 MCH (27.0-33.0) pg 26.0 L MCHC (32.0-36.0) % 32.7 RDW (11.8-14.1) % 13.8 Plt Count (130-400) 10^3/uL 202 MPV (8.0-11.0) fL 9.5 Immature Gran % % 0.5 Neutrophils % % 82.6 Lymphocytes % % 7.0 Monocytes % % 9.5 Eosinophils % % 0.1 Basophils % % 0.3 Nucleated RBC % (0.0-0.3) % 0.0 Absolute Neutrophils (1.2-6.7) 10^3/uL 6.53 Absolute Lymphocytes (1.2-3.4) 10^3/uL 0.55 L Absolute Monocytes (0.1-0.8) 10^3/uL 0.75 Absolute Eosinophils (0.0-0.7) 10^3/uL 0.01 Absolute Basophils (0.0-0.2) 10^3/uL 0.02 VBG Lactate (<or=2.0) mmol/L 2.3 H* Sodium (136-145) mmol/L 129 L Potassium (3.5-5.1) mmol/L 3.6 Chloride (98-107) mmol/L 93 L Carbon Dioxide (21.0-32.0) mmol/L 23.3 Anion Gap (3-11) mmol/L 12.7 H BUN (7-18) mg/dL 31 H Creatinine (0.70-1.30) mg/dL 1.3 Est GFR (CKD-EPI 2020) (mL/min/1.73m2) 58.37 Glucose (74-106) mg/dL 113 H Calcium (8.5-10.1) mg/dL 8.9 Magnesium (1.8-2.4) mg/dL 1.6 L Total Bilirubin (0.2-1.0) mg/dL 0.9 AST (15-37) U/L 71 H ALT (16-63) U/L 56 Alkaline Phosphatase (46-116) U/L 68 Troponin I (<or=76) ng/L 27 27 Total Protein (6.4-8.2) g/dL 7.9 Albumin (3.4-5.0) g/dL 3.0 L Urine Color (Yellow) Urine Clarity (Clear) Urine pH (5-8) Ur Specific [place] (1.005-1.025) Urine Protein (Neg-Trace) mg/dL Urine Ketones (Negative) mg/dL Urine Blood (Negative) Urine Nitrite (Negative) Urine Bilirubin (Negative) Urine Urobilinogen (Up to 0.2) mg/dL Ur Leukocyte Esterase (Negative) Urine RBC (0-2) HPF Urine WBC (0-5) HPF Ur Epithelial Cells (Negative) HPF Urine Crystals (Negative) HPF Urine Bacteria (Negative) HPF Urine Casts (Negative) LPF Urine Mucus (Negative) Urine Other (Negative) Ur Culture Indicated? Urine Glucose (Negative) mg/dL COVID-19 Source SARS-CoV-2 (PCR) (Negative) Influenza Type A (PCR) (Negative) Influenza Type B (PCR) (Negative) RSV (PCR) (Negative) Radiology: Exam(s) XR PORTABLE CHEST AP EXAM: XR PORTABLE CHEST AP CLINICAL HISTORY: fever TECHNIQUE: 2D digital imaging was performed of the chest. One image was obtained. An AP view was obtained. COMPARISON: CR XR PORTABLE CHEST AP from 12/16/2020 FINDINGS: There are low lung volumes. MEDIASTINUM: Normal. HEART: Normal. PULMONARY VASCULATURE: Normal. LUNGS: There are no focal consolidating infiltrates. PLEURAL SPACE: No pleural effusion or pneumothorax. BONE:Within normal limits for the patient's age. Sternal wires are in place. OTHER FINDINGS:Normal. IMPRESSION: 1. Low lung volumes. 2. No focal infiltrates. Related Data Home Medications Medication Instructions Recorded Confirmed losartan 100 mg tablet 100 mg PO DAILY #90 tabs 01/2306/08/25 glipizide 5 mg-metformin 500 mg 2 tab PO BID #360 tabs 03/13/25 06/08/25 tablet insulin glargine 100 unit/mL (3 50 unit subcut QAM 07/2606/08/25 mL) subcutaneous pen (Lantus Solostar U-100 Insulin) hydrocodone 10 mg-acetaminophen 0.5 tab PO Q8H PRN bonnie n #60 tabs 03/16/25 06/08/25 325 mg tablet omeprazole 20 mg capsule,delayed 20 mg PO DAILY #90 ca ps 03/19/25 06/08/25 release clopidogrel 75 mg tablet 75 mg PO DAILY #90 tabs 03/0306/08/25 amlodipine 5 mg tablet 5 mg PO DAILY 03/27/2506/08 magnesium 250 mg PO QHS 04/24/2506/08 rosuvastatin 10 mg tablet 10 mg PO DAILY cholesterol # 90 tabs 05/08/25 06/08/25 fluticasone propionate 50 1 spray intranasal DAILY 03/2606/09/25 mcg/actuation nasal spray,suspension pen needle, diabetic 31 gauge x 06/09/25 06/09/25 3/16 (Ultra-Fine Pen Needle) pen needle, diabetic 32 gauge x 06/09/25 06/09/25 (Eloina Pen Needle) Previous Rx's Medication Instructions Recorded losartan 100 mg tablet 100 mg PO DAILY #90 tabs 01/23 glipizide 5 mg-metformin 500 mg 2 tab PO BID #360 tabs 03/13/25 tablet hydrocodone 10 mg-acetaminophen 0.5 tab PO Q8H PRN bonnie n #60 tabs 03/16/25 325 mg tablet omeprazole 20 mg capsule,delayed 20 mg PO DAILY #90 ca ps 03/19/25 release clopidogrel 75 mg tablet 75 mg PO DAILY #90 tabs 03/03 12/24 rosuvastatin 10 mg tablet 10 mg PO DAILY cholesterol # 90 tabs 05/08/25 Allergies Allergy/AdvReac Type Severity Reaction Status Date / Time ciprofloxacin Allergy Intermediate Hives Verified 06/08/25 10:44 atorvastatin (From Lipitor) Allergy Unknown Very ill Verified 06/08/25 10:44 [id number] Reductase AdvReac Intermediate reflux, Verified 06/08/25 10:44 Inhibitor (Ioigwqn-[id number]-Sep malaise, Reductase Inhibitor) GI upset General Stated Complaint: GenMedical KONRAD: 3 Course Vital Signs Vital signs: Vital Signs Temperature 37.2 C 06/08/25 12:49 Pulse 92 H 06/08/25 12:49 Respiratory Rate 18 06/08/25 12:49 Blood Pressure 168/66 H 06/08/25 12:49 Pulse Oximetry 97 06/08/25 12:49 Temperature 36.0 C L 06/09/25 07:36 Temperature Source Temporal Artery Scan 06/09/25 07:36 Pulse 68 06/09/25 07:36 Pulse Rhythm Regular 06/08/25 17:28 Respiratory Rate 17 06/09/25 07:36 Respiratory Effort Normal, Non-Labored 06/08/25 17:28 Respiratory Depth Normal 06/08/25 17:28 Respiratory Pattern Normal 06/08/25 17:28 Blood Pressure 145/74 H 06/09/25 07:36 Blood Pressure Mean 97 06/09/25 07:36 Pulse Oximetry 96 06/09/25 07:36 Oxygen Delivery Method Room Air 06/09/25 07:36 Oxygen Flow Rate 0 06/09/25 07:36 Pain Level 0 06/09/25 07:36 Comment Pt refused vitals, pt stated that he wanted to sleep. [employer] will get vitals next time pt is awake, nurse notified. 06/09/25 03:22 Lab/Test Results Lab/Test Results: 06/08/25 13:39 Blood Blood Culture - Pending 06/08/25 13:39 Blood Blood Culture - Pending 06/08/25 12:56 Urine - Reflex from Ua Urine Culture - Pending Laboratory Tests Range/Units 06/08/25 06/08/25 06/08/25 12:56 13:08 13:09 WBC (4.4-10.8) 10^3/uL RBC (4.36-5.78) 10^6/uL Hgb (13.5-17.5) g/dL Hct (40.0-50.0) % MCV (80-95) fL MCH (27.0-33.0) pg MCHC (32.0-36.0) % RDW (11.8-14.1) % Plt Count (130-400) 10^3/uL MPV (8.0-11.0) fL Immature Gran % % Neutrophils % % Lymphocytes % % Monocytes % % Eosinophils % % Basophils % % Nucleated RBC % (0.0-0.3) % Absolute Neutrophils (1.2-6.7) 10^3/uL Absolute Lymphocytes (1.2-3.4) 10^3/uL Absolute Monocytes (0.1-0.8) 10^3/uL Absolute Eosinophils (0.0-0.7) 10^3/uL Absolute Basophils (0.0-0.2) 10^3/uL VBG Lactate (<or=2.0) mmol/L Sodium (136-145) mmol/L Potassium (3.5-5.1) mmol/L Chloride (98-107) mmol/L Carbon Dioxide (21.0-32.0) mmol/L Anion Gap (3-11) mmol/L BUN (7-18) mg/dL Creatinine (0.70-1.30) mg/dL Est GFR (CKD-EPI 2020) (mL/min/1.73m2) Glucose (74-106) mg/dL Calcium (8.5-10.1) mg/dL Magnesium (1.8-2.4) mg/dL Total Bilirubin (0.2-1.0) mg/dL AST (15-37) U/L ALT (16-63) U/L Alkaline Phosphatase (46-116) U/L Troponin I (<or=76) ng/L Total Protein (6.4-8.2) g/dL Albumin (3.4-5.0) g/dL Urine Color (Yellow) Yellow Cancelled Urine Clarity (Clear) Sl Cloudy Cancelled Urine pH (5-8) 5.5 Cancelled Ur Specific [place] (1.005-1.025) >= 1.030 H Cancelled Urine Protein (Neg-Trace) mg/dL >=300 H Cancelled Urine Ketones (Negative) mg/dL 40 H Cancelled Urine Blood (Negative) Moderate H Cancelled Urine Nitrite (Negative) Positive H Cancelled Urine Bilirubin (Negative) Moderate H Cancelled Urine Urobilinogen (Up to 0.2) mg/dL 2.0 H Cancelled Ur Leukocyte Esterase (Negative) Small H Cancelled Urine RBC (0-2) HPF 5-10 H Urine WBC (0-5) HPF >50 H Ur Epithelial Cells (Negative) HPF Rare Urine Crystals (Negative) HPF Negative Urine Bacteria (Negative) HPF Moderate Urine Casts (Negative) LPF 0-2 Hyaline Urine Mucus (Negative) Moderate Urine Other (Negative) Rare Transitional Ur Culture Indicated? Yes Urine Glucose (Negative) mg/dL Negative Cancelled COVID-19 Source Nasopharynx SARS-CoV-2 (PCR) (Negative) Negative Influenza Type A (PCR) (Negative) Negative Influenza Type B (PCR) (Negative) Negative RSV (PCR) (Negative) Negative Range/Units 06/08/25 06/08/25 13:19 15:11 WBC (4.4-10.8) 10^3/uL 7.90 RBC (4.36-5.78) 10^6/uL 5.58 Hgb (13.5-17.5) g/dL 14.5 Hct (40.0-50.0) % 44.4 MCV (80-95) fL 80 MCH (27.0-33.0) pg 26.0 L MCHC (32.0-36.0) % 32.7 RDW (11.8-14.1) % 13.8 Plt Count (130-400) 10^3/uL 202 MPV (8.0-11.0) fL 9.5 Immature Gran % % 0.5 Neutrophils % % 82.6 Lymphocytes % % 7.0 Monocytes % % 9.5 Eosinophils % % 0.1 Basophils % % 0.3 Nucleated RBC % (0.0-0.3) % 0.0 Absolute Neutrophils (1.2-6.7) 10^3/uL 6.53 Absolute Lymphocytes (1.2-3.4) 10^3/uL 0.55 L Absolute Monocytes (0.1-0.8) 10^3/uL 0.75 Absolute Eosinophils (0.0-0.7) 10^3/uL 0.01 Absolute Basophils (0.0-0.2) 10^3/uL 0.02 VBG Lactate (<or=2.0) mmol/L 2.3 H* Sodium (136-145) mmol/L 129 L Potassium (3.5-5.1) mmol/L 3.6 Chloride (98-107) mmol/L 93 L Carbon Dioxide (21.0-32.0) mmol/L 23.3 Anion Gap (3-11) mmol/L 12.7 H BUN (7-18) mg/dL 31 H Creatinine (0.70-1.30) mg/dL 1.3 Est GFR (CKD-EPI 2020) (mL/min/1.73m2) 58.37 Glucose (74-106) mg/dL 113 H Calcium (8.5-10.1) mg/dL 8.9 Magnesium (1.8-2.4) mg/dL 1.6 L Total Bilirubin (0.2-1.0) mg/dL 0.9 AST (15-37) U/L 71 H ALT (16-63) U/L 56 Alkaline Phosphatase (46-116) U/L 68 Troponin I (<or=76) ng/L 27 27 Total Protein (6.4-8.2) g/dL 7.9 Albumin (3.4-5.0) g/dL 3.0 L Urine Color (Yellow) Urine Clarity (Clear) Urine pH (5-8) Ur Specific [place] (1.005-1.025) Urine Protein (Neg-Trace) mg/dL Urine Ketones (Negative) mg/dL Urine Blood (Negative) Urine Nitrite (Negative) Urine Bilirubin (Negative) Urine Urobilinogen (Up to 0.2) mg/dL Ur Leukocyte Esterase (Negative) Urine RBC (0-2) HPF Urine WBC (0-5) HPF Ur Epithelial Cells (Negative) HPF Urine Crystals (Negative) HPF Urine Bacteria (Negative) HPF Urine Casts (Negative) LPF Urine Mucus (Negative) Urine Other (Negative) Ur Culture Indicated? Urine Glucose (Negative) mg/dL COVID-19 Source SARS-CoV-2 (PCR) (Negative) Influenza Type A (PCR) (Negative) Influenza Type B (PCR) (Negative) RSV (PCR) (Negative) Medical Decision Making Quality:SDOH Health Related Social Needs: Health related social needs house/econ circumstance Health related social needs details PT need help rocio sanchez PFSH All Active Problems (Updated 06/08/25 @ 17:30 by Zonia Agudelo APRN) Hyponatremia (Acute) Hypolipidemia (Acute) On deep vein thrombosis (DVT) prophylaxis (Acute) Diabetes (Chronic) Severe sepsis (Acute) Dysuria (Acute) Abdominal pain (Acute) Fever (Acute) Rib pain on right side (Acute) Low magnesium level (Acute) History of CVA with residual deficit (Acute) Benign essential hypertension (Acute) Diabetes mellitus type 2, insulin dependent (Acute) Acute lacunar infarction (Acute) Multiple lacunar infarcts (Acute) Sebaceous cyst (Acute) Trigger finger, left index finger (Acute) Toe pain, right (Acute) Great toe pain (Acute) Contusion of right tibia (Acute) Stomach ulcer (Acute) Tubulovillous adenoma (Acute ~09/2022) CAD (coronary artery disease) (Chronic) DJD (degenerative joint disease), lumbar (Acute) MRI 11/06/17 and 06/10/18 Erectile dysfunction (Acute) GERD (gastroesophageal reflux disease) (Chronic) Hyperlipidemia (Acute) TIA (transient ischemic attack) (Acute ~1998) Situational depression (Acute) Sacroiliac joint dysfunction (Acute) Chronic GERD (Acute) Bile reflux esophagitis (Acute) Adenomatous polyps (Chronic) Pulmonary nodule less than 1 cm in diameter with low risk for malignant neoplasm (Chronic) Incidental finding on CT scan, March 2020, needs 12 month recheck Left carpal tunnel syndrome (Acute) Right carpal tunnel syndrome (Acute) s/p ECTR DOS: 08/07/20 Left lateral epicondylitis (Acute) Injection: 08/07/20 Adenomatous polyposis (Acute) Facial paresthesia (Acute) Left sided lacunar infarction (Acute) Acute ischemic left middle cerebral artery (MCA) stroke (Acute) TIA (transient ischemic attack) (Acute) Right shoulder pain (Acute) Vasomotor rhinitis (Acute) Tubular adenoma (Acute 09/2021) Cerebrovascular accident (CVA) (Chronic) 10/03/21 [facility] [place]rology note Light headedness (Acute) Lumbar radiculitis (Acute) Lumbosacral spondylosis without myelopathy (Acute) Bladder instability (Acute) Hemorrhoid (Acute) Separation of right acromioclavicular joint (Acute) Tendonitis of long head of biceps brachii of right shoulder (Acute) Medical History Hyperlipidemia Hypertension Diabetes mellitus, type II (~10/14/16) Hx of fracture of rib Insomnia Chronic right shoulder pain (~10/14/16) AC JOINT RECONSTRUCTION Chronic back pain (~06/27/18) Medial meniscus tear (~03/03/18) Left Knee Surgical History H/O cataract extraction Left 09/13/23. Right 09/27/23. [place] Hx of shoulder surgery (R) Shoulder History of medial meniscus repair of left knee Hx of CABG x5 History of esophagogastroduodenoscopy (EGD) (~08/2019) History of colonoscopy (~09/2022) 10/30/22- bx's polyps removed. [facility] Dr. Junior 08/2019 Status post AC joint reconstruction right, w/allograft H/O heart artery stent (~2012) patient reports 6 stents total. Last stent placed: 2010 History of tonsillectomy and adenoidectomy History of coronary artery bypass graft (~1997) X5. FOLLOWS UP WITH DR. JEREZ, LAST VISIT WAS 05/26/191997 History of cholecystectomy Family History Mother Hypertension Diabetes Ovarian cancer Father Hypertension Diabetes Lymphoma Sister Heart disease Other Acute lacunar infarction Social History Smoking/Tobacco Use Status: Former Tobacco Use Quit Date: 07/11/89 Tobacco: How many years used: 20 Smoking risk assessment performed?: Yes Alcohol Intake: current Alcohol Intake frequency: holidays/special occasions only Alcohol type: beer Drug use: Occasionally Substance use type: marijuana Household members: other Details: roomate Housing: house Communication Needs: Corrective Lenses current occupation: UnEmployed Current gender identity: male What is your relationship status?: Panel score (0-1 are the most socially isolated patients): 0 What type of physical activity do you participate in: none Seatbelt use: always Drive intox or ride w/intox sweeper driver: No Working smoke detector in home: Yes Carbon monox detector in home: Yes Do you feel safe at home: Yes Do you feel safe in your relationship?: Yes
--- NOTE | 2025-06-09 09:05 | INITIAL_ITS ---
Date of service: 06/09/25 Time of Service: 16:13 Care Management Initial Assmt Initial Assessment Reason for Hospitalization: severe sepsis Functional Status/Living Situation Patient Presentation: José was sitting up in his chair and awake when CM met with him. He presented to the ED with pyrexia. José shares that he is living in [facility] with his partner Asiya. José reports he is independent at baseline including driving. José is aware of [employer] and intends to utilize them for his upcoming insurance needs. 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 CM will continue to follow. 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 Activities of Daily Living (ADLs): Independent Medications Medication Management: No Issues/Barriers identified Advance Directives Advance Directives: Do you have an Advance Directive: N , 15:36 AD On File at [facility]: N 05/15/25, 15:36 Date Asked 06/08/25 06/08/25, 12:55 AD Date Reviewed COLST On File at [facility] COLST Date Scanned Code Status Resuscitation Status Full Code Portal Pt does not currently have a portal and education provided: Yes Insurance Coverage/Financial Issues Insurance: AARP/.[facility] - [id number] FINANCIAL ASST 100 - [id number] Care Team Visit Care Team Role Provider Type Zonia Agudelo APRN MD [facility] STAFF PHYSICIAN Soco Brewster APRN Primary Care Provider NURSE PRACTITIONER Claudia Rodriguez RDN, [facility] Other Providers INTERNAL CONTROLS ANALYST Matteo Flores RDN Other Providers INTERNAL CONTROLS ANALYST Markos Fajardo MD Emergency Provider [facility] STAFF PHYSICIAN Gerry uZñiga MD Admit Provider [facility] STAFF PHYSICIAN Attending Provider Discharge Potential Discharge Needs: PCP F/U Appt Anticipated Barriers to Discharge: None Identified Patient/Family Education Needs: Review discharge instructions, discuss Ask Me T hree Transportation: Private vehicle Plan: Anticpate José will be discharged home once medcially ready. No new services are indicated at this time. It is recommended he follow up with community providers, and discharge plan of care. He will transport home via private vehicle. CM will follow. Social Determinants of Health Screening Social Determinants of health last assessed in clinic: 06/09/25 Will the Patient Participate in the Screening?: Yes Do you worry about having a steady place to live?: no Problems where you live: no known problems In the past 12 months, have you had to go without electric, gas, oil or water in your home?: no 1. Within the past 12 months, we worried whether our food would run out before we got money to buy more.: Never true 2. Within the past 12 months, the food we bought just didn't last and we didn't have money to get more.: Never true Has lack of transportation kept you from medical appointments or from doing things needed for daily living?: no Has anyone in your life made you feel unsafe or unsupported?: no How hard is it for you to pay for the very basics like food, housing, medical care, and heating? Would you say it is:: Not hard at all Do you want help finding or keeping work or a job?: I do not need or want help If for any reason you need help with day-to-day activities such as bathing, preparing meals, shopping, managing finances, etc., do you get the help you need?: I don’t need any help How often do you feel lonely or isolated from those around you?: Never Do you speak a language other than Lao at home?: No Does the patient want assistance with any of the above?: No PFSH All Active Problems (Updated 06/09/25 @ 09:46 by Zonia Agudelo APRN) Hypomagnesemia (Acute) Hyponatremia (Acute) Hypolipidemia (Acute) On deep vein thrombosis (DVT) prophylaxis (Acute) Diabetes (Chronic) Severe sepsis (Acute) Dysuria (Acute) Abdominal pain (Acute) Fever (Acute) Rib pain on right side (Acute) Low magnesium level (Acute) History of CVA with residual deficit (Acute) Benign essential hypertension (Acute) Diabetes mellitus type 2, insulin dependent (Acute) Acute lacunar infarction (Acute) Multiple lacunar infarcts (Acute) Sebaceous cyst (Acute) Trigger finger, left index finger (Acute) Toe pain, right (Acute) Great toe pain (Acute) Contusion of right tibia (Acute) Stomach ulcer (Acute) Tubulovillous adenoma (Acute ~09/2022) CAD (coronary artery disease) (Chronic) DJD (degenerative joint disease), lumbar (Acute) MRI 11/06/17 and 06/10/18 Erectile dysfunction (Acute) GERD (gastroesophageal reflux disease) (Chronic) Hyperlipidemia (Acute) TIA (transient ischemic attack) (Acute ~1998) Situational depression (Acute) Sacroiliac joint dysfunction (Acute) Chronic GERD (Acute) Bile reflux esophagitis (Acute) Adenomatous polyps (Chronic) Pulmonary nodule less than 1 cm in diameter with low risk for malignant neoplasm (Chronic) Incidental finding on CT scan, March 2020, needs 12 month recheck Left carpal tunnel syndrome (Acute) Right carpal tunnel syndrome (Acute) s/p ECTR DOS: 08/07/20 Left lateral epicondylitis (Acute) Injection: 08/07/20 Adenomatous polyposis (Acute) Facial paresthesia (Acute) Left sided lacunar infarction (Acute) Acute ischemic left middle cerebral artery (MCA) stroke (Acute) TIA (transient ischemic attack) (Acute) Right shoulder pain (Acute) Vasomotor rhinitis (Acute) Tubular adenoma (Acute 09/2021) Cerebrovascular accident (CVA) (Chronic) 10/03/21 [facility] Neurology note Light headedness (Acute) Lumbar radiculitis (Acute) Lumbosacral spondylosis without myelopathy (Acute) Bladder instability (Acute) Hemorrhoid (Acute) Separation of right acromioclavicular joint (Acute) Tendonitis of long head of biceps brachii of right shoulder (Acute) Medical History Hyperlipidemia Hypertension Diabetes mellitus, type II (~10/14/16) Hx of fracture of rib Insomnia Chronic right shoulder pain (~10/14/16) AC JOINT RECONSTRUCTION Chronic back pain (~06/27/18) Medial meniscus tear (~03/03/18) Left Knee Surgical History H/O cataract extraction Left 09/13/23. Right 09/27/23. [place] Hx of shoulder surgery (R) Shoulder History of medial meniscus repair of left knee Hx of CABG x5 History of esophagogastroduodenoscopy (EGD) (~08/2019) History of colonoscopy (~09/2022) 10/30/22- bx's polyps removed. [facility] Dr. Junior 08/2019 Status post AC joint reconstruction right, w/allograft H/O heart artery stent (~2012) patient reports 6 stents total. Last stent placed: 2010 History of tonsillectomy and adenoidectomy History of coronary artery bypass graft (~1997) X5. FOLLOWS UP WITH DR. JEREZ, LAST VISIT WAS 05/26/191997 History of cholecystectomy Family History Mother Hypertension Diabetes Ovarian cancer Father Hypertension Diabetes Lymphoma Sister Heart disease Other Acute lacunar infarction Social History Smoking/Tobacco Use Status: Former Tobacco Use Quit Date: 07/11/89 Tobacco: How many years used: 20 Smoking risk assessment performed?: Yes Alcohol Intake: current Alcohol Intake frequency: holidays/special occasions only Alcohol type: beer Drug use: Occasionally Substance use type: marijuana Household members: other Details: roomate Housing: house Communication Needs: Corrective Lenses current occupation: UnEmployed Current gender identity: male What is your relationship status?: Panel score (0-1 are the most socially isolated patients): 0 What type of physical activity do you participate in: none Seatbelt use: always Drive intox or ride w/intox food service driver: No Working smoke detector in home: Yes Carbon monox detector in home: Yes Do you feel safe at home: Yes Do you feel safe in your relationship?: Yes Readmission Within the Past 30 Days Yes or No: No
[2025-06-09] MEDS: Losartan 50 MG TAB 100 MG PO (09:06)
[2025-06-09] MEDS: Enoxaparin 40 MG/0.4 ML SYR SC (09:07)
[2025-06-09] MEDS: Insulin Aspart 300 UNITS/3 ML PEN SC ×3 (09:07→17:59)
[2025-06-09] MEDS: Clopidogrel 75 MG TAB PO (09:07)
[2025-06-09] MEDS: Rosuvastatin 10 MG TAB PO (09:07)
--- NOTE | 2025-06-09 09:14 | W.PM.PROGNOT ---
Date of Service Date of service: 06/09/25 Time of Service: 09:15 Assessment and Plan Assessment and plan (1) Severe sepsis: Start date: 06/09/25 Start time: 09:34 Status: Acute Assessment and plan: Resolving today Sepsis criteria met with tachycardia HR 92-103 , febrile illness at 38.2 -Source most likely UTI as per UA w and symptoms of dysuria Febrile 06/10/25 at 17:28 -38.0 C or 100.4 F Severity criteria met with lactate 2.3 on presentation to the ED; repeat lactate 1.6 Cr only minimally elevated on admission not meeting criteria for ARLEY stage I but minimally elevated BUN/creatinine ratio improved with rehydration will stop slow IV hydration overnight Urine and blood cultures pending at this time ongoing IV ceftriaxone 2gm IV Q24H - narrow spectrum coverage as per culture results (2) Dysuria: Status: Acute Assessment and plan: As above in the setting of incontinence (3) Hyponatremia: Start date: 06/09/25 Start time: 09:39 Status: Acute Assessment and plan: Na 133 now On admission Na minimally low at 129 without AMS changes- No further IVF Will continue to monitor BMP in AM (4) Diabetes: Status: Chronic Assessment and plan: Ongoing [id number] testing glucose ACHS with SSI coverage AC, home dose basal bolus was reduced by 20% on admission d/t poor appetite and dinner time glucose level of 88 Reporting appetite back to baseline will resume full dose - patient educated regarding glucose goal base on age - 89 being below goal - A1C in 01/2025 was 6.3- which is also below goal for age. This will hace to be discussed with PCP BMP in AM (5) Cerebrovascular accident (CVA): Status: Chronic Assessment and plan: Ongoing home medicine regimen with Plavix and statin (6) Hypertension: Assessment and plan: Continue home medicine management with CCB and ARBs (7) Hypomagnesemia: Status: Acute Assessment and plan: Mg at 1.6 on admission - resolved s/p IV supplementation On home dose of oral magnesium Trend Q 48H (8) GERD (gastroesophageal reflux disease): Start date: 06/09/25 Start time: 09:44 Status: Chronic Assessment and plan: Continue home regimen with omeprazole (9) On deep vein thrombosis (DVT) prophylaxis: Start date: 06/09/25 Start time: 09:44 Status: Acute Assessment and plan: Continue Lovenox Discussed with Subjective Subjective Patient reports: no new complaints, feels better, tolerating liquids well, tolerating a regular diet, voiding w/o difficulty (incontinent - chronic ) and afebrile; denies flatus, diarrhea, nausea, vomiting or shortness of breath Exam Narrative Exam Narrative: Alert and orient X4, no focal neurological deficit, unlabored breathing clear lungs, heart is regular, no murmur , abdomen is large, non-distended, soft and non-tender, no CVA tenderness, chronic urinary incontinence, moves all 4 ext. Objective Last Vital Signs Temp 36.0 C L 06/09/25 07:36 Pulse 68 06/09/25 07:36 Resp 17 06/09/25 07:36 BP 145/74 H 06/09/25 07:36 Pulse Ox 96 06/09/25 07:36 Laboratory Results - last 24 hr 06/08/25 06/08/25 06/08/25 12:56 13:08 13:09 WBC RBC Hgb Hct MCV MCH MCHC RDW Plt Count MPV Immature Gran % Neutrophils % Lymphocytes % Monocytes % Eosinophils % Basophils % Nucleated RBC % Absolute Neutrophils Absolute Lymphocytes Absolute Monocytes Absolute Eosinophils Absolute Basophils VBG Lactate Sodium Potassium Chloride Carbon Dioxide Anion Gap BUN Creatinine Est GFR (CKD-EPI 2020) Glucose Calcium Magnesium Total Bilirubin AST ALT Alkaline Phosphatase Troponin I Total Protein Albumin Urine Color Yellow Cancelled Urine Clarity Sl Cloudy Cancelled Urine pH 5.5 Cancelled Ur Specific [place] >= 1.030 H Cancelled Urine Protein >=300 H Cancelled Urine Ketones 40 H Cancelled Urine Blood Moderate H Cancelled Urine Nitrite Positive H Cancelled Urine Bilirubin Moderate H Cancelled Urine Urobilinogen 2.0 H Cancelled Ur Leukocyte Esterase Small H Cancelled Urine RBC 5-10 H Urine WBC >50 H Ur Epithelial Cells Rare Urine Crystals Negative Urine Bacteria Moderate Urine Casts 0-2 Hyaline Urine Mucus Moderate Urine Other Rare Transitional Ur Culture Indicated? Yes Urine Glucose Negative Cancelled COVID-19 Source Nasopharynx SARS-CoV-2 (PCR) Negative Influenza Type A (PCR) Negative Influenza Type B (PCR) Negative RSV (PCR) Negative 06/08/25 06/08/25 06/08/25 13:19 15:11 18:17 WBC 7.90 RBC 5.58 Hgb 14.5 Hct 44.4 MCV 80 MCH 26.0 L MCHC 32.7 RDW 13.8 Plt Count 202 MPV 9.5 Immature Gran % 0.5 Neutrophils % 82.6 Lymphocytes % 7.0 Monocytes % 9.5 Eosinophils % 0.1 Basophils % 0.3 Nucleated RBC % 0.0 Absolute Neutrophils 6.53 Absolute Lymphocytes 0.55 L Absolute Monocytes 0.75 Absolute Eosinophils 0.01 Absolute Basophils 0.02 VBG Lactate 2.3 H* 1.6 Sodium 129 L Potassium 3.6 Chloride 93 L Carbon Dioxide 23.3 Anion Gap 12.7 H BUN 31 H Creatinine 1.3 Est GFR (CKD-EPI 2020) 58.37 Glucose 113 H Calcium 8.9 Magnesium 1.6 L Total Bilirubin 0.9 AST 71 H ALT 56 Alkaline Phosphatase 68 Troponin I 27 27 Total Protein 7.9 Albumin 3.0 L Urine Color Urine Clarity Urine pH Ur Specific [place] Urine Protein Urine Ketones Urine Blood Urine Nitrite Urine Bilirubin Urine Urobilinogen Ur Leukocyte Esterase Urine RBC Urine WBC Ur Epithelial Cells Urine Crystals Urine Bacteria Urine Casts Urine Mucus Urine Other Ur Culture Indicated? Urine Glucose COVID-19 Source SARS-CoV-2 (PCR) Influenza Type A (PCR) Influenza Type B (PCR) RSV (PCR) 06/09/25 05:20 WBC 6.14 RBC 5.05 Hgb 13.1 L Hct 40.4 MCV 80 MCH 25.9 L MCHC 32.4 RDW 13.9 Plt Count 175 MPV 10.0 Immature Gran % 0.3 Neutrophils % 72.9 Lymphocytes % 13.5 Monocytes % 11.2 Eosinophils % 1.8 Basophils % 0.3 Nucleated RBC % 0.0 Absolute Neutrophils 4.47 Absolute Lymphocytes 0.83 L Absolute Monocytes 0.69 Absolute Eosinophils 0.11 Absolute Basophils 0.02 VBG Lactate Sodium 133 L Potassium 3.5 Chloride 97 L Carbon Dioxide 27.4 Anion Gap 8.6 BUN 24 H Creatinine 1.1 Est GFR (CKD-EPI 2020) 71.32 Glucose 107 H Calcium 8.0 L Magnesium 1.8 Total Bilirubin AST ALT Alkaline Phosphatase Troponin I Total Protein Albumin Urine Color Urine Clarity Urine pH Ur Specific [place] Urine Protein Urine Ketones Urine Blood Urine Nitrite Urine Bilirubin Urine Urobilinogen Ur Leukocyte Esterase Urine RBC Urine WBC Ur Epithelial Cells Urine Crystals Urine Bacteria Urine Casts Urine Mucus Urine Other Ur Culture Indicated? Urine Glucose COVID-19 Source SARS-CoV-2 (PCR) Influenza Type A (PCR) Influenza Type B (PCR) RSV (PCR) Time Spent with Patient Time Spent with Patient: >50 minutes Time was spent: preparing to see the patient(eg.review tests), obtaining and/or reviewing separately otained hiistory, ordering medications,tests, procedures, referring, communicating with other health career development coordinator/teacher, indepentently interpreting results, counseling the patient, care coordination and other
[2025-06-09] MEDS: Insulin Glargine 300 UNITS/3 ML PEN 40 UNITS SC (09:21)
[2025-06-09] MEDS: Normal Saline Flush 10 ML SYR IVP ×4 (10:21→19:24)
[2025-06-09 11:21] VITALS: BP 93/73; PULSE 69; RESP 17; TEMP 36.2; O2SAT 96
--- NOTE | 2025-06-09 11:53 | PHA.REVIEW2 ---
Pharmacy Admission Review Admission Clinical Review Admission Pharmacy Review: Hypomagnesemia (Acute) Hyponatremia (Acute) On deep vein thrombosis (DVT) prophylaxis (Acute) Severe sepsis (Acute) Dysuria (Acute) ciprofloxacin Allergy (Intermediate, Verified 06/08/25 10:44) Hives atorvastatin (From Lipitor) Allergy (Unknown, Verified 06/08/25 10:44) Very ill Bwwepma-KEB-HdF Reductase Inhibitor (Oasigpi-Igt-Awh Reductase Inhibitor) Adverse Reaction (Intermediate, Verified 06/08/25 10:44) reflux, malaise, GI upset Resuscitation Status Full Code Height 5 ft 8 in Weight 90.492 kg Pharmacy Admission Review Renal Dosing Renal Dosing: BUN 24 mg/dL (7-18) H 06/09/25 05:20 Creatinine 1.1 mg/dL (0.70-1.30) 06/09/25 05:20 Medications needing adjustments: Reviewed (CrCl 66.31 mL/min) List of meds needing interventions: Current medications are okay Anticoagulation Anticoagulation: Hgb 13.1 g/dL (13.5-17.5) L 06/09/25 05:20 Hct 40.4 % (40.0-50.0) 06/09/25 05:20 Plt Count 175 10^3/uL (130-400) 06/09/25 05:20 Creatinine 1.1 mg/dL (0.70-1.30) 06/09/25 05:20 DVT Prophylaxis: Reviewed (Hgb decreased from 14.5) Medications: Enoxaparin (40mg daily) Opiate Usage Evaluate Pain Scale/Pains Meds: Reviewed (hydrocodone/APAP 10/325mg 0.5tab q8h PRN - 1 tab/24hrs) Relevant Labs Relevant Labs: Sodium 133 mmol/L (136-145) L 06/09/25 05:20 Potassium 3.5 mmol/L (3.5-5.1) 06/09/25 05:20 Chloride 97 mmol/L (98-107) L 06/09/25 05:20 Magnesium 1.8 mg/dL (1.8-2.4) 06/09/25 05:20 Electrolytes, C-Reactive P, ESR: Reviewed (Na increased from 129) DM Control DM Control: Glucose 107 mg/dL (74-106) H 06/09/25 05:20 Finger Stick Blood Glucose 190 1125 Finger Stick Blood Glucose 190 1125 Finger Stick Blood Glucose 159 0907 Finger Stick Blood Glucose 169 0739 Finger Stick Blood Glucose 169 0739 DM Control: Reviewed Insulin Dosing, Diabetic Medication: Has orders for SS insulin and glargine 50 units QAM Cardiac Review Cardiac Review: Troponin I 27 ng/L (<or=76) 06/08/25 15:11 Blood Pressure 93/73 1121 Blood Pressure 145/74 0736 Blood Pressure 118/68 0551 BP, HR, EF%: Reviewed (HR WNL) List meds needing interventions: Has orders for losartan 100mg daily and amlodipine 5mg at bedtime QTc Review QTc: Reviewed (435 from 02/27/25 - most recent EKG on file) IV to PO Switch IV Medications: Reviewed (ceftriaxone) Home Meds Home Med List reviewed: Reviewed Relevent Home Meds Not ordered & why?: Flonase, glipizide/metformin Current Meds Current Medication Order Review: Reviewed Pharmacy Antibiotic Review Relevant Labs: WBC 6.14 10^3/uL (4.4-10.8) 06/09/25 05:20 Temperature 36.2 C Temperature 36.0 C Temperature 36.7 C Pharmacy Antibiotic Activity: C/S review and Reviewed, no change Comments: Patient is on ceftriaxone, day 1, for severe sepsis/possible UTI. Blood and urine cultures pending.
[2025-06-09] MEDS: cefTRIAXone 2 GM/50 ML BAG IVPB (13:44)
[2025-06-09 15:14] VITALS: BP 108/58; PULSE 78; RESP 17; TEMP 37.1; O2SAT 95
[2025-06-09] MEDS: Acetaminophen 325 MG TAB 650 MG PO (15:21)
[2025-06-09] MEDS: Magnesium Gluconate 500 MG TAB 250 MG PO (19:23)
[2025-06-09] MEDS: amLODIPine 5 MG TAB PO (19:23)
[2025-06-09] MEDS: Omeprazole 20 MG CAPCR PO (19:23)
[2025-06-09 20:24] VITALS: BP 117/56; PULSE 66; RESP 16; TEMP 36.5; O2SAT 96
[2025-06-09 23:17] VITALS: BP 119/77; PULSE 67; RESP 20; TEMP 36.5; O2SAT 95
[2025-06-10] MEDS: HYDROcodone 10/Acetaminophen 325 TAB PO (03:16)
[2025-06-10 03:58] VITALS: BP 96/48; PULSE 69; RESP 16; TEMP 36.4; O2SAT 96
[2025-06-10] MEDS: Acetaminophen 325 MG TAB 650 MG PO (05:56)
[2025-06-10 06:29] LABS: Abs Immature Grans 0.02 10^3/uL (0.0-0.06); HCT 39.0 % (40.0-50.0); HGB 12.7 g/dL (13.5-17.5); Immature Grans % 0.4 %; MCH 26.1 pg (27.0-33.0); MCHC 32.6 % (32.0-36.0); MCV 80 fL (80-95); MPV 10.3 fL (8.0-11.0); Platelet Count 167 10^3/uL (130-400); RBC 4.87 10^6/uL (4.36-5.78); RDW 13.7 % (11.8-14.1); RDW-SD 40.0 fL; WBC 5.70 10^3/uL (4.4-10.8)
[2025-06-10 06:41] LABS: Anion Gap 6.8 mmol/L (3-11); BUN 22 mg/dL (7-18); CO2 28.2 mmol/L (21.0-32.0); Calcium 8.1 mg/dL (8.5-10.1); Chloride 98 mmol/L (98-107); Glucose 177 mg/dL (74-106); Potassium 3.6 mmol/L (3.5-5.1); Sodium 133 mmol/L (136-145)
[2025-06-10 07:28] VITALS: BP 103/65; PULSE 63; RESP 18; TEMP 36.4; O2SAT 97
[2025-06-10] MEDS: Clopidogrel 75 MG TAB PO (08:31)
[2025-06-10] MEDS: Rosuvastatin 10 MG TAB PO (08:31)
[2025-06-10] MEDS: Losartan 50 MG TAB 100 MG PO (08:31)
[2025-06-10] MEDS: Insulin Aspart 300 UNITS/3 ML PEN SC ×2 (08:31→12:31)
[2025-06-10] MEDS: Insulin Glargine 300 UNITS/3 ML PEN 50 UNITS SC (08:32)
[2025-06-10 10:58] VITALS: BP 104/53; PULSE 63; RESP 16; TEMP 36.8; O2SAT 98
--- NOTE | 2025-06-10 11:23 | DSE_ITS ---
Date of service: 06/10/25 Time of Service: 11:23 DS: Diagnosis Discharge Diagnosis (1) Severe sepsis: Status: Resolved (2) Urinary tract infection: Status: Acute Asessment and Plan: urine growing Kleb pneum sensitive to ceftriaxone continue cefpodoxime at discharge blood cultures negative (3) Hyponatremia: Status: Acute (4) Diabetes: Status: Chronic (5) Cerebrovascular accident (CVA): Status: Chronic (6) Hypomagnesemia: Status: Acute (7) GERD (gastroesophageal reflux disease): Status: Chronic Discharge Plan Disposition Patient Disposition: Home Condition: Improving Discharge Details Reason For Visit: Severe Sepsis Admit Date/Time: 06/08/25 16:04 Admit Provider: Gerry Zuñiga Attending Provider: Gerry Zuñiga Primary Care Provider: Soco Brewster Hospital Course Hospital Course: This is a 74-year-old male patient past medical history significant for diabetes type 2 insulin-dependent, CVA, hypertension who presented to the emergency department with sepsis syndrome. He was diagnosed with a urinary tract infection his urine grew Klebsiella pneumonia which was sensitive to the ceftriaxone he was treated with. He is being discharged to home to complete a course of 7 days with 5 more days of cefpodoxime. He was advised to resume the rest of his medications as previously directed. discussed with DR Christianson [facility] and New Rx's Prescriptions: New cefpodoxime 200 mg Tablet 200 mg PO BID Qty: 9 0RF Continued hydrocodone-acetaminophen 10-325 mg tablet 0.5 tab PO Q8H MDD 30 mg hydrocodone PRN (Reason: pain) Qty: 60 0RF Patient Comments: pt. states he usually takes 1/4 at night Rx Instructions: Patient takes about 1/8th of tablet when needed losartan 100 mg tablet 100 mg PO DAILY Qty: 90 3RF insulin glargine [Lantus Solostar U-100 Insulin] 100 unit/mL (3 mL) insulin pen 50 unit subcut QAM glipizide-metformin 5-500 mg tablet 2 tab PO BID Qty: 360 3RF omeprazole 20 mg capsule,delayed release(DR/EC) 20 mg PO DAILY Qty: 90 3RF clopidogrel 75 mg tablet 75 mg PO DAILY Qty: 90 3RF amlodipine 5 mg tablet 5 mg PO DAILY Rx Instructions: 03/27/25- per , ok to return back to 5mg daily dosing. NC magnesium 250 mg PO QHS Patient Comments: reports take 250mg Rx Instructions: 04/24/25- portal msg-per pcp-start taking 500mg nightly. (to see if it helps w/ headaches) rosuvastatin 10 mg tablet 10 mg PO DAILY Qty: 90 3RF Rx Instructions: changing dose fluticasone propionate 50 mcg/actuation spray,suspension 1 spray INTRANASAL DAILY (DME) pen needle, diabetic [Ultra-Fine Pen Needle] 31 gauge x 3/16 needle MISCELLANEOUS (DME) pen needle, diabetic [Eloina Pen Needle] 32 gauge x 5/32 needle MISCELLANEOUS Discharge Instructions Instructions: Urinary tract infections in adults Additional Instructions: drink 6-8 glasses of water daily to stay well hydrated take antibiotics as prescribed even if you feel better. Stand Alone Forms: Portal Information Referrals: Soco Brewster APRN [Primary Care Provider, [facility]] Referral Note: Your PCP will call to schedule an appointment if you haven't heard from them in a few days please call them to schedule it. Activity:: Activity as Tolerated Equipment/Supplies:: No Equipment Needed Diet:: Carb Counting Discharge Orders Discharge Orders: Discharge Order (Routine); Ordered 06/10/25 Ordered By: Naz Ledezma Discharge Data Discharge Date/Time-TO BE ENTERED AT DEPARTURE: 06/10/25 13:41 DS: Summary Time Spent with Patient providing and/or coordinating discharge services: Less than 30 minutes Status at Discharge Functional status at discharge: independent ambulation Overall status at discharge: patient is progressing back to baseline Mental Status: mental status grossly normal Speech and Movement: speech and movement normal Mood: congruent mood Affect: normal affect Quality:SDOH Health Related Social Needs: Health related social needs house/econ circumstance Health related social needs details PT need help rocio sanchez Exam Psych Mental Status: mental status grossly normal Speech and Movement: speech and movement normal Mood: congruent mood Affect: normal affect DS: Data Vitals/I&O Vitals and I&O: Vital Signs Temperature 36.8 C 06/10/25 10:58 Temperature Source Temporal Artery Scan 06/10/25 10:58 Pulse 63 06/10/25 10:58 Pulse Rhythm Regular 06/08/25 17:28 Respiratory Rate 16 06/10/25 10:58 Respiratory Effort Normal, Non-Labored 06/08/25 17:28 Respiratory Depth Normal 06/08/25 17:28 Respiratory Pattern Normal 06/08/25 17:28 Blood Pressure 104/53 L 06/10/25 10:58 Blood Pressure Mean 70 06/10/25 10:58 Pulse Oximetry 98 06/10/25 10:58 Oxygen Delivery Method Room Air 06/10/25 10:58 Oxygen Flow Rate 0 06/10/25 10:58 Pain Level 9 06/10/25 05:56 Comment Pt refused vitals, pt stated that he wanted to sleep. PIN PULLER will get vitals next time pt is awake, nurse notified. 06/09/25 03:22 Intake & Output 06/09/25 06/09/25 06/10/25 11:59 23:59 11:59 Intake Total 1799 / 2689 890 / 2689 Output Total 950 / 1400 450 / 1400 190 / 190 Balance 849 / 1289 440 / 1289 -190 / -190 Intake: IV 1439 / 1489 50 / 1489 Oral 360 / 1200 840 / 1200 Output: Urine 950 / 1400 450 / 1400 190 / 190 Other: Urine Color Yellow Light Darlene Yellow Urine Appearance Clear Clear Clear Urine Odor Normal Strong Normal Comment partial void into urinal, remainder into toilet Pt voids ind. in urinal. Data Completed and Pending Pending Labs at Discharge: 06/08/25 06/08/25 06/08/25 12:56 13:08 13:09 WBC RBC Hgb Hct MCV MCH MCHC RDW Plt Count MPV Immature Gran % Neutrophils % Lymphocytes % Monocytes % Eosinophils % Basophils % Nucleated RBC % Absolute Neutrophils Absolute Lymphocytes Absolute Monocytes Absolute Eosinophils Absolute Basophils VBG Lactate Sodium Potassium Chloride Carbon Dioxide Anion Gap BUN Creatinine Est GFR (CKD-EPI 2020) Glucose Calcium Magnesium Total Bilirubin AST ALT Alkaline Phosphatase Troponin I Total Protein Albumin Urine Color Yellow Cancelled Urine Clarity Sl Cloudy Cancelled Urine pH 5.5 Cancelled Ur Specific [place] >= 1.030 H Cancelled Urine Protein >=300 H Cancelled Urine Ketones 40 H Cancelled Urine Blood Moderate H Cancelled Urine Nitrite Positive H Cancelled Urine Bilirubin Moderate H Cancelled Urine Urobilinogen 2.0 H Cancelled Ur Leukocyte Esterase Small H Cancelled Urine RBC 5-10 H Urine WBC >50 H Ur Epithelial Cells Rare Urine Crystals Negative Urine Bacteria Moderate Urine Casts 0-2 Hyaline Urine Mucus Moderate Urine Other Rare Transitional Ur Culture Indicated? Yes Urine Glucose Negative Cancelled COVID-19 Source Nasopharynx SARS-CoV-2 (PCR) Negative Influenza Type A (PCR) Negative Influenza Type B (PCR) Negative RSV (PCR) Negative 06/08/25 06/08/25 06/08/25 13:19 15:11 18:17 WBC 7.90 RBC 5.58 Hgb 14.5 Hct 44.4 MCV 80 MCH 26.0 L MCHC 32.7 RDW 13.8 Plt Count 202 MPV 9.5 Immature Gran % 0.5 Neutrophils % 82.6 Lymphocytes % 7.0 Monocytes % 9.5 Eosinophils % 0.1 Basophils % 0.3 Nucleated RBC % 0.0 Absolute Neutrophils 6.53 Absolute Lymphocytes 0.55 L Absolute Monocytes 0.75 Absolute Eosinophils 0.01 Absolute Basophils 0.02 VBG Lactate 2.3 H* 1.6 Sodium 129 L Potassium 3.6 Chloride 93 L Carbon Dioxide 23.3 Anion Gap 12.7 H BUN 31 H Creatinine 1.3 Est GFR (CKD-EPI 2020) 58.37 Glucose 113 H Calcium 8.9 Magnesium 1.6 L Total Bilirubin 0.9 AST 71 H ALT 56 Alkaline Phosphatase 68 Troponin I 27 27 Total Protein 7.9 Albumin 3.0 L Urine Color Urine Clarity Urine pH Ur Specific [place] Urine Protein Urine Ketones Urine Blood Urine Nitrite Urine Bilirubin Urine Urobilinogen Ur Leukocyte Esterase Urine RBC Urine WBC Ur Epithelial Cells Urine Crystals Urine Bacteria Urine Casts Urine Mucus Urine Other Ur Culture Indicated? Urine Glucose COVID-19 Source SARS-CoV-2 (PCR) Influenza Type A (PCR) Influenza Type B (PCR) RSV (PCR) 06/09/25 06/10/25 05:20 05:49 WBC 6.14 5.70 RBC 5.05 4.87 Hgb 13.1 L 12.7 L Hct 40.4 39.0 L MCV 80 80 MCH 25.9 L 26.1 L MCHC 32.4 32.6 RDW 13.9 13.7 Plt Count 175 167 MPV 10.0 10.3 Immature Gran % 0.3 0.4 Neutrophils % 72.9 67.2 Lymphocytes % 13.5 16.1 Monocytes % 11.2 13.2 Eosinophils % 1.8 2.6 Basophils % 0.3 0.5 Nucleated RBC % 0.0 0.0 Absolute Neutrophils 4.47 3.83 Absolute Lymphocytes 0.83 L 0.92 L Absolute Monocytes 0.69 0.75 Absolute Eosinophils 0.11 0.15 Absolute Basophils 0.02 0.03 VBG Lactate Sodium 133 L 133 L Potassium 3.5 3.6 Chloride 97 L 98 Carbon Dioxide 27.4 28.2 Anion Gap 8.6 6.8 BUN 24 H 22 H Creatinine 1.1 1.0 Est GFR (CKD-EPI 2020) 71.32 79.97 Glucose 107 H 177 H Calcium 8.0 L 8.1 L Magnesium 1.8 Total Bilirubin AST ALT Alkaline Phosphatase Troponin I Total Protein Albumin Urine Color Urine Clarity Urine pH Ur Specific [place] Urine Protein Urine Ketones Urine Blood Urine Nitrite Urine Bilirubin Urine Urobilinogen Ur Leukocyte Esterase Urine RBC Urine WBC Ur Epithelial Cells Urine Crystals Urine Bacteria Urine Casts Urine Mucus Urine Other Ur Culture Indicated? Urine Glucose COVID-19 Source SARS-CoV-2 (PCR) Influenza Type A (PCR) Influenza Type B (PCR) RSV (PCR) Preliminary micro results at discharge 06/08/25 13:39 Blood Blood Culture - Preliminary NO GROWTH 24 HOURS 06/08/25 13:39 Blood Blood Culture - Preliminary NO GROWTH 24 HOURS PFSH All Active Problems (Updated 06/11/25 @ 00:04 by GO TEIXEIRA) Urinary tract infection (Acute) Hypomagnesemia (Acute) Hyponatremia (Acute) Hypolipidemia (Acute) Diabetes (Chronic) Dysuria (Acute) Abdominal pain (Acute) Fever (Acute) Rib pain on right side (Acute) Low magnesium level (Acute) History of CVA with residual deficit (Acute) Benign essential hypertension (Acute) Diabetes mellitus type 2, insulin dependent (Acute) Acute lacunar infarction (Acute) Multiple lacunar infarcts (Acute) Sebaceous cyst (Acute) Trigger finger, left index finger (Acute) Toe pain, right (Acute) Great toe pain (Acute) Contusion of right tibia (Acute) Stomach ulcer (Acute) Tubulovillous adenoma (Acute ~09/2022) CAD (coronary artery disease) (Chronic) DJD (degenerative joint disease), lumbar (Acute) MRI 11/06/17 and 06/10/18 Erectile dysfunction (Acute) GERD (gastroesophageal reflux disease) (Chronic) Hyperlipidemia (Acute) TIA (transient ischemic attack) (Acute ~1998) Situational depression (Acute) Sacroiliac joint dysfunction (Acute) Chronic GERD (Acute) Bile reflux esophagitis (Acute) Adenomatous polyps (Chronic) Pulmonary nodule less than 1 cm in diameter with low risk for malignant neoplasm (Chronic) Incidental finding on CT scan, March 2020, needs 12 month recheck Left carpal tunnel syndrome (Acute) Right carpal tunnel syndrome (Acute) s/p ECTR DOS: 08/07/20 Left lateral epicondylitis (Acute) Injection: 08/07/20 Adenomatous polyposis (Acute) Facial paresthesia (Acute) Left sided lacunar infarction (Acute) Acute ischemic left middle cerebral artery (MCA) stroke (Acute) TIA (transient ischemic attack) (Acute) Right shoulder pain (Acute) Vasomotor rhinitis (Acute) Tubular adenoma (Acute 09/2021) Cerebrovascular accident (CVA) (Chronic) 10/03/21 [facility] Neurology note Light headedness (Acute) Lumbar radiculitis (Acute) Lumbosacral spondylosis without myelopathy (Acute) Bladder instability (Acute) Hemorrhoid (Acute) Separation of right acromioclavicular joint (Acute) Tendonitis of long head of biceps brachii of right shoulder (Acute) Medical History Hyperlipidemia Hypertension Diabetes mellitus, type II (~10/14/16) Hx of fracture of rib Insomnia Chronic right shoulder pain (~10/14/16) AC JOINT RECONSTRUCTION Chronic back pain (~06/27/18) Medial meniscus tear (~03/03/18) Left Knee Surgical History H/O cataract extraction Left 09/13/23. Right 09/27/23. [place] Hx of shoulder surgery (R) Shoulder History of medial meniscus repair of left knee Hx of CABG x5 History of esophagogastroduodenoscopy (EGD) (~08/2019) History of colonoscopy (~09/2022) 10/30/22- bx's polyps removed. [facility] Dr. Junior 08/2019 Status post AC joint reconstruction right, w/allograft H/O heart artery stent (~2012) patient reports 6 stents total. Last stent placed: 2010 History of tonsillectomy and adenoidectomy History of coronary artery bypass graft (~1997) X5. FOLLOWS UP WITH DR. JEREZ, LAST VISIT WAS 05/26/191997 History of cholecystectomy Family History Mother Hypertension Diabetes Ovarian cancer Father Hypertension Diabetes Lymphoma Sister Heart disease Other Acute lacunar infarction Social History Smoking/Tobacco Use Status: Former Tobacco Use Quit Date: 07/11/89 Tobacco: How many years used: 20 Smoking risk assessment performed?: Yes Alcohol Intake: current Alcohol Intake frequency: holidays/special occasions only Alcohol type: beer Drug use: Occasionally Substance use type: marijuana Household members: other Details: roomate Housing: house Communication Needs: Corrective Lenses current occupation: UnEmployed Current gender identity: male What is your relationship status?: Panel score (0-1 are the most socially isolated patients): 0 What type of physical activity do you participate in: none Seatbelt use: always Drive intox or ride w/intox yard truck driver: No Working smoke detector in home: Yes Carbon monox detector in home: Yes Do you feel safe at home: Yes Do you feel safe in your relationship?: Yes Time Spent with Patient Time Spent with Patient: 45-69 minutes Time was spent: preparing to see the patient(eg.review tests), obtaining and/or reviewing separately otained hiistory, ordering medications,tests, procedures, referring, communicating with other health memory care director and care coordination
--- NOTE | 2025-06-10 11:42 | CMDISCH_ITS ---
Date of service: 06/10/25 Time of Service: 11:42 LACE Index Scoring Tool Questions: Length of Stay (in days): 2 Was the patient admitted via the E.D.?: Yes Comorbidities: Diabetes w/o Complication E.D. Visits: 2 Answers: Total Score: 8 Risk of Readmission: Low Risk Care Management Discharge Plan Reason for Hospitalization: Severe Sepsis Discharge Plan: José will be discharged home today with no new services indicated. It is recommended he follow up with his community provider and discharge plan of care. He will transport home via private vehicle by family. José is aware of this plan and fully agreeable. Patient/Family Education Needs: Review of discharge instructions, activity, limitations, and plan of care. Discuss Ask me three. SDOH Health Related Social Needs: Health related social needs house/econ circumstance Health related social needs details PT need help rocio sanchez
[2025-06-10] MEDS: Normal Saline Flush 10 ML SYR IVP (12:37)
[2025-06-10] MEDS: Polyethylene Glycol 3350 17 GM PACKET PO (12:56)
[2025-06-10] MEDS: Cefpodoxime 200 MG TAB PO (13:29)
--- NOTE | 2025-06-11 09:32 | W.NUTRFU ---
Date of service: 06/10/25 Time of Service: 08:30 Nutrition Note NOTE: Was able to visit with José briefly while I was working in the kitchen this morning to complete nutrition consultation. LAst A1c was 6.3% last January. Fingersticks at meals this admission running ~140-240. fastings of 107 and 177 06/09 and 06/10 respectively. Glipizide and basal insulin at home makes own meals at home - can be inconsistent and low in fiber most days. offered outpatient MNT for help with meal planning. will continue to ramain available for eduation in ouptient setting. Time Spent in Nutritional Counseling and Treatment: 5 min
== END 2025-06-10 13:41 | disposition home or self-care (01) | DRG 872 ==
LOC: ER 12:55 → MS 17:02
PROVIDERS: Nurse Practitioner Acute Care; Admitting Provider Family Medicine; Emergency Provider General Practice; PCP Nurse Practitioner Family; Responsible Provider Nurse Practitioner Acute Care; Visit Provider Family Medicine
DX: A41.9 Sepsis, unspecified organism (principal); N39.0 Urinary tract infection, site not specified; E87.1 Hypo-osmolality and hyponatremia; R65.20 Severe sepsis without septic shock; E11.9 Type 2 diabetes mellitus without complications; I10 Essential (primary) hypertension; K21.9 Gastro-esophageal reflux disease without esophagitis; E83.42 Hypomagnesemia; Z79.899 Other long term (current) drug therapy; B96.1 Klebsiella pneumoniae [K. pneumoniae] as the cause of diseases classified elsewhere; Z86.73 Personal history of transient ischemic attack (TIA), and cerebral infarction without residual deficits; Z79.4 Long term (current) use of insulin; I25.10 Atherosclerotic heart disease of native coronary artery without angina pectoris; E78.5 Hyperlipidemia, unspecified; M47.26 Other spondylosis with radiculopathy, lumbar region; Z95.1 Presence of aortocoronary bypass graft; Z95.5 Presence of coronary angioplasty implant and graft
CPT/HCPCS: 00123; 36415; 80048; 80053; 87040; 87077; 87637; 96361; 96365; 99285; J1650; 71045; 81003; 81015; 83605; 83735; 84484; 85025; 87086; 87186; 99223; 99233; 99239; J0696; J1815; J3475; J3490

== ENCOUNTER 2025-06-19 11:23 | Outpatient (REF) | payer MEDICARE, SELFPAY | END 2025-06-19 11:24 | disposition home or self-care (01) | LOC: LBN 11:23 | PROVIDERS: PCP Nurse Practitioner Family; Visit Provider Nurse Practitioner Family | DX: R30.0 Dysuria (principal); R35.0 Frequency of micturition | CPT/HCPCS: 87086 ==

== ENCOUNTER 2025-07-13 01:38 | Outpatient (CLI) | payer MEDICARE, SELFPAY ==
[2025-07-13 10:37] LABS: Abs Immature Grans 0.02 10^3/uL (0.0-0.06); HCT 42.9 % (40.0-50.0); HGB 13.9 g/dL (13.5-17.5); Immature Grans % 0.2 %; MCH 27.3 pg (27.0-33.0); MCHC 32.4 % (32.0-36.0); MCV 84 fL (80-95); MPV 9.2 fL (8.0-11.0); Platelet Count 293 10^3/uL (130-400); RBC 5.09 10^6/uL (4.36-5.78); RDW 14.3 % (11.8-14.1); RDW-SD 43.7 fL; WBC 10.33 10^3/uL (4.4-10.8)
[2025-07-13 10:55] LABS: Hemoglobin A1C 6.9 % (<5.7)
[2025-07-13 11:07] LABS: Anion Gap 11.9 mmol/L (3-11); BUN 18 mg/dL (9-23); CO2 26.1 mmol/L (20.0-31.0); Calcium 8.9 mg/dL (8.3-10.6); Chloride 103 mmol/L (98-107); Glucose 147 mg/dL (74-106); Potassium 3.9 mmol/L (3.5-5.1); Sodium 141 mmol/L (136-145)
[2025-07-13 11:10] LABS: TSH (W/Ref FT4) 1.72 uIU/mL (0.55-4.78)
[2025-07-13 11:11] LABS: Vitamin B12 242 pg/mL (211-911)
== END 2025-07-13 01:39 | disposition home or self-care (01) ==
LOC: LBO 01:39
PROVIDERS: PCP Nurse Practitioner Family; Referring Provider Nurse Practitioner Family; Visit Provider Nurse Practitioner Family
DX: R50.9 Fever, unspecified (principal); R68.89 Other general symptoms and signs; E11.9 Type 2 diabetes mellitus without complications; Z79.4 Long term (current) use of insulin
CPT/HCPCS: 36415; 80048; 82607; 83036; 84443; 85025